=== PATIENT | female | born 1970 | race African-American/Black ===

== ENCOUNTER 2023-06-13 05:57 | Emergency (ER) | payer BC, SELFPAY ==
[2023-06-13 05:58] VITALS: BP 123/93; PULSE 77; RESP 16; TEMP 36.4; O2SAT 99; BMI 38.0
[2023-06-13 06:06] VITALS: O2SAT 100
--- NOTE | 2023-06-13 06:06 | RAD_ITS ---
INDICATION: chest pain EXAMINATION: Frontal view of the chest COMPARISON: None. FINDINGS: Frontal view of the chest was obtained. The cardiac silhouette is not enlarged. No confluent airspace disease. No pneumothorax. No acute fracture identified. Surgical clips bilaterally. RAD/Chest 1 View (Portable) IMPRESSION: No acute pulmonary disease. Electronically Signed: Maximiliano Falcon MD at 6:40 EST ,
--- NOTE | 2023-06-13 06:07 | EDS_ITS ---
HPI History of Present Illness Chief Complaint: Chest Pain Narrative Narrative: 53-year-old female with remote history of breast carcinoma in 2009, in remission, had chemotherapy which caused complications and neuropathies, along with radiation therapy which caused her to have asthma, presents with central chest pain that is more sharp and stabbing in nature. States she has had left arm pain intermittently over the last week. She took ibuprofen previously which relieved her symptoms. However, today when she got off shift at 5 AM she started having the chest pain and the arm pain again. She presents for evaluation. She is not a smoker and denies any other problems. She does have hypertension and takes losartan so she has chronic swelling of her legs. No increased swelling or other symptoms. She is concerned mainly about the chest pain which also hurts when she tries to breathe deeply. [facility] Medical History (Updated 06/13/23 @ 06:59 by Wilver Otero MD) Asthma Neuropathy Home Medications ALBUTEROL 2 inh inhalation 4X/DAY PRN 06/13/23 [History Last Taken Unknown] duloxetine 30 mg capsule,delayed release (Cymbalta) 30 mg PO DAILY 06/13/23 [History Last Taken Unknown] gabapentin 300 mg capsule 300 mg PO BID 06/13/23 [History Last Taken Unknown] olmesartan 40 mg-hydrochlorothiazide 25 mg tablet 1 tab PO DAILY BLOOD PRESSURE 06/13/23 [History Last Taken Unknown] Allergy/AdvReac Type Severity Reaction Status Date / Time No Known Allergies Allergy Verified 06/13/23 06:11 Surgical History (Updated 06/13/23 @ 06:09 by Vandana Oglesby) History of lumpectomy of left breast Social History Smoking Status: Former smoker ROS ROS ED ROS Narrative Constitutional: No fever, no chills. HEENT: No sore throat. No neck pain. No loss of vision. No rhinorrhea. Cardiovascular: Positive midsternal chest pain, occasionally pleuritic. No palpitations. No new pedal edema. Respiratory: No cough, no shortness of breath. Abdominal: No abdominal pain. No nausea. No vomiting. Genitourinary: No dysuria. No hematuria. Musculoskeletal: Intermittent left arm pain x1 week. Neurologic: No headaches. No dizziness. No lightheadedness. Skin: No rash. No change in color. Psychiatric: No depression. No anxiety. EXAM Physical Exam Narrative Exam Narrative: Afebrile. Vital signs noted. HEENT: Normocephalic. Atraumatic. PERRL, EOMI. Neck soft and supple. No point tenderness or step off. Cardiovascular: Regular rate and rhythm. No murmurs, rubs, or gallops appreciated. No crepitance of the chest. Positive pain midsternally with half sit up and putting arms in front of body. Respiratory: No tachypnea. Lungs clear to auscultation bilaterally. Gastrointestinal: Abdomen soft, nontender, with normoactive bowel sounds. No rebound or guarding. Neurological: Awake. Alert. Nonfocal, nonlateralizing. Skin: No rash. Normal color. No pallor. Musculoskeletal: No pedal edema. Full range of motion extremities. Const Vital Signs: 06/13/23 05:58 06/13/23 06:05 06/13/23 06:06 Temperature 97.5 F L Temperature Source Temporal Pulse Rate 77 Respiratory Rate 16 Respiratory Effort Short of Breath Blood Pressure 123/93 H Blood Pressure Mean 103 Pulse Ox 99 100 Oxygen Delivery Method Room Air Room Air Heart Score History: Slightly/Non-Suspicious ECG: Normal Age: >45 - <65 years Risk Factors: 1 or 2 Risk Factors Score: 2 MDM MDM MDM Narrative Medical decision making narrative: Differential diagnosis is acute coronary syndrome versus pulmonary embolism versus pneumothorax versus pneumonia versus aortic dissection versus musculoskeletal chest wall pain. I have low suspicion for aortic dissection because the history and physical does not support this and she has equal pulses bilaterally. She does not have any pain in her back or tearing sensation as well. Her blood pressure is appropriate in the emergency department as well. History and physical is not consistent with pneumonia either as she has no fever or cough. She has no reason to have a pneumothorax that spontaneous, no trauma. Concern is lower for pulmonary embolism as well as she is PERC negative, not tachycardic, and satting at 100% on room air. However, D-dimer will be obtained. Given her physical examination I think she may have more chest wall pain. However, chest pain work-up will be pursued. EKG obtained and interpreted by myself independently demonstrates normal sinus rhythm at 78 bpm without ectopy or acute ST changes. No STEMI. I will review the baseline laboratory work if it comes back before the shift ends. She will require serial troponins as well. Patient will be signed out to the oncoming physician who will check the remaining laboratory work and imaging and order additional tests as necessary. I feel that if everything is negative that she could be ruled out with a 2-hour troponin. I reviewed her remaining laboratory work that has returned, and the only significant electrolyte abnormality would be for a chloride elevated at 108 which I think is nonspecific. Initial high-sensitivity troponin is 5. Magnesium normal at 2.2. Currently, patient is in stable condition. History & Record Review Discussion w/independent historian: Patient and Family Additional record(s) reviewed:: Prior ED visit and Prior labs Lab Data Attestation: I reviewed the patient's lab results. Labs: Laboratory Results - last 24 hr 06/13/23 06:13 WBC 9.3 RBC 4.75 Hgb 13.3 Hct 40.8 MCV 85.9 MCH 28.0 MCHC 32.6 RDW Std Deviation 45.0 H RDW Coeff of Blanka 14.3 Plt Count 281 MPV 10.3 Immature Gran % (Auto) 0.200 Neut % (Auto) 49.5 Lymph % (Auto) 40.2 [place] % (Auto) 7.3 Eos % (Auto) 2.4 Baso % (Auto) 0.4 Absolute Neuts (auto) 4.6 Absolute Lymphs (auto) 3.73 Nucleated RBC % 0 D-Dimer Quant (PE/DVT) 0.44 Sodium 142 Potassium 3.7 Chloride 108 H Carbon Dioxide 29.0 Anion Gap 5 BUN 15 Creatinine 0.78 Estim Creat Clear Calc 65.97 Est GFR (MDRD) Af Amer 99 Est GFR (MDRD) Non-Af 82 BUN/Creatinine Ratio 19.1 Glucose 81 Calcium 9.2 Magnesium 2.2 Troponin I High Sens 5 Radiography Diagnostic Testing: Clinical Impression(s) from Imaging Studies Chest X-Ray 06/13/23 06:06 IMPRESSION: No acute pulmonary disease. Electronically Signed: Maximiliano Falcon MD at 6:40 EST , Discharge Plan Triage Chief Complaint: Chest Pain ED Provider: Wilver Otero Dx/Rx/DC Orders Clinical Impression: Paresthesia of arm, Chest pain Instructions: ED Chest Pain, Uncertain Cause, ED Pain, Acute, Uncertain Cause, ED Paraesthesias Prescriptions: No Action olmesartan-hydrochlorothiazide 40-25 mg tablet 1 tab PO DAILY gabapentin 300 mg capsule 300 mg PO BID duloxetine [Cymbalta] 30 mg capsule,delayed release(DR/EC) 30 mg PO DAILY ALBUTEROL 2 inh inhalation 4X/DAY PRN Primary Care Provider: Care Physician,No Primary Referrals: Laurent Crews MD [Med Staff - Active Staff] - 3-5 Days if not improving Care Physician,No Primary [Primary Care Provider] -
[2023-06-13 06:26] LABS: Absolute Lymphocyte Count 3.73 X10^3/uL (0.83-4.51); Absolute Neutrophil Count 4.6 X10^3/uL (2.0-7.7); Basophil# 0.04 X10^3/uL; Basophil% 0.4 % (0-1); Eosinophil# 0.22 X10^3/uL; Eosinophils% 2.4 % (0-5); Hematocrit 40.8 % (37-47); Hemoglobin 13.3 g/dL (12.0-15.0); Lymphocyte # 3.73 X10^3/ul (0.83-4.51); Lymphocyte % 40.2 % (19-41); Mean Corp Hgb Conc 32.6 g/dL (32-36); Mean Corpuscular Volume 85.9 fL (81-99); Mean Platelet Vol. 10.3 fl (6.2-12.0); Monocyte# 0.68 X10^3/uL; Monocyte% 7.3 % (0-10); NRBC Flagged by Analyzer 0 % (0-5); Neutrophil # 4.58 X10^3/uL (2.7-7.7); Neutrophil % 49.5 % (47-70); Platelet Count 281 K/mm3 (150-450); RBC Distribution Width CV 14.3 % (11.6-14.6); Red Blood Count 4.75 M/mm3 (4.2-5.4); White Blood Count 9.3 K/mm3 (4.4-11.0)
[2023-06-13] MEDS: Aspirin 81 MG TAB.CHEW 324 MG PO (06:27)
[2023-06-13 06:39] LABS: D-Dimer Quantitative (DVT/PE) 0.44 FEU/ug/m (0.27-0.49)
[2023-06-13 07:00] LABS: Anion Gap 5 (5-15); BUN 15 mg/dL (7-18); BUN/Creat Ratio 19.1 RATIO (10-20); Calcium,Total 9.2 mg/dL (8.5-10.1); Chloride 108 mmol/L (98-107); Creatinine, Serum 0.78 mg/dL (0.55-1.02); EST Glomerular Filtration Rate 82 mL/min (>60); Est Glom Filt Rate - Afr Amer 99 mL/min (>60); Estimated Creatinine Clearance 65.97 ml/min; Glucose 81 mg/dL (74-106); Magnesium 2.2 mg/dL (1.6-2.6); Potassium 3.7 mmol/L (3.5-5.1); Sodium Level 142 mmol/L (136-145); Troponin-I HS (w/2H Reflex) 5 pg/mL (3.0-54.0)
[2023-06-13 08:23] LABS: Reflex Troponin-HS? (from REC) Y
[2023-06-13 08:48] LABS: Troponin-I HS 4 pg/mL (3.0-54.0)
[2023-06-13 09:25] VITALS: BP 126/89; PULSE 80; RESP 16; O2SAT 99
== END 2023-06-13 09:26 | disposition home or self-care (01) ==
PROVIDERS: Emergency Provider Emergency Medicine; Visit Provider Emergency Medicine
DX: R07.9 Chest pain, unspecified (principal); Z87.891 Personal history of nicotine dependence; R20.2 Paresthesia of skin; I10 Essential (primary) hypertension; Z85.3 Personal history of malignant neoplasm of breast; Z92.21 Personal history of antineoplastic chemotherapy; Z79.899 Other long term (current) drug therapy
CPT/HCPCS: 71045; 80048; 83735; 84484; 85025; 85379; 93005; 99284; A4216

== ENCOUNTER 2023-07-04 07:00 | Emergency (ER) | payer SELFPAY ==
[2023-07-04 07:01] VITALS: BP 132/80; PULSE 79; RESP 18; TEMP 36.6; O2SAT 100; BMI 37.2
--- NOTE | 2023-07-04 07:11 | EX.ED.DYSGE1 ---
HPI History of Present Illness Chief Complaint: Complaint Informant: patient Narrative Narrative: Patient presents with several days of dysuria, hesitancy, urgency, and frequency. No hematuria. She was having some chills before that, but not now. She has some pain in her pelvic, she states it is suprapubic only. No lateralizing pain or nausea/vomiting. No fevers now. She states these are typical symptoms that she has when she gets a UTI, she has been having them for long time off-and-on. She also has a small amount of rand nonbloody vaginal discharge, she states that happens occasionally with these. She is monogamous, , does not suspect an STD. She had a prior hysterectomy. [facility] Medical History Asthma Neuropathy Home Medications ALBUTEROL 2 inh inhalation 4X/DAY PRN 06/13/23 [History Last Taken Unknown] duloxetine 30 mg capsule,delayed release (Cymbalta) 30 mg PO DAILY 06/13/23 [History Last Taken Unknown] olmesartan 40 mg-hydrochlorothiazide 25 mg tablet 1 tab PO DAILY BLOOD PRESSURE 06/13/23 [History Last Taken Unknown] nitrofurantoin monohydrate/macrocrystals 100 mg capsule 100 mg PO Q12 #10 CAPSULES 07/04/23 [Rx Last Taken Unknown] Allergy/AdvReac Type Severity Reaction Status Date / Time No Known Allergies Allergy Verified 07/04/23 07:03 Surgical History History of lumpectomy of left breast Social History Smoking Status: Former smoker ROS ROS ED Constitutional Constitutional ED: Denies fever(s) Gastrointestinal Gastrointestinal: Reports abdominal pain; Denies diarrhea, melena, nausea or vomiting Genitourinary Genitourinary ED: Reports dysuria and urinary frequency; Denies hematuria Musculoskeletal Musculoskeletal: Reports back pain; Denies neck pain Neurologic Neurologic: Denies headache(s), paresthesias or weakness EXAM Physical Exam Const Vital Signs: 07/04/23 07:01 Temperature 98 F Temperature Source Oral Pulse Rate 79 Respiratory Rate 18 Blood Pressure 132/80 H Blood Pressure Mean 97 Pulse Ox 100 Oxygen Delivery Method Room Air Positive well nourished and well developed Constitutional Narrative: Well-appearing General Appearance ED: well developed and NAD HEENT Reports moist mucous membranes Negative for trauma Eyes PERRL and EOMs intact bilaterally Neck supple Chest Wall inspection of chest normal and palpation of chest normal Resp normal respiratory effort and clear to auscultation bilaterally Cardio regular rate, regular rhythm and no murmurs Rate: Negative for tachycardic GI non-distended GI Narrative: Suprapubic tenderness, also mild tenderness in the right lower quadrant/pelvis. None in the left. No guarding or rebound. Otherwise benign abdomen. Inspection: Negative for abdominal distention Auscultation: normoactive bowel sounds Back/Spine no CVA tenderness Extremity normal to inspection Neuro oriented x3, CN's II-XII intact bilaterally and no sensory deficits noted Motor Exam: strength 5/5 throughout Psych mental status grossly normal Skin no rashes or lesions noted and no wounds MDM MDM MDM Narrative Medical decision making narrative: Urinalysis obtained, definitely consistent with infection. Culture sent, will start her on Macrobid which she has tolerated in the past, and given appropriate discharge instructions. Lab Data Attestation: I reviewed the patient's lab results. Labs: Laboratory Results - last 24 hr 07/04/23 07:20 Urine Color Yellow Urine Clarity Cloudy Urine pH 7.0 Ur Specific [place] 1.010 Urine Protein 30 H Urine Glucose (UA) Normal Urine Ketones 5 H Urine Occult Blood 25 H Urine Nitrite Negative Urine Bilirubin Negative Urine Urobilinogen 1 H Ur Leukocyte Esterase 500 H Urine RBC 0-5 SEEN Urine WBC >100 SEEN Ur Squamous Epith Cells 0-5 SEEN Urine Bacteria 3+ Urine Mucus 0 SEEN Discharge Plan Triage Chief Complaint: Complaint ED Provider: Ismael Moran Dx/Rx/DC Orders Clinical Impression: Acute cystitis Instructions: ED Cystitis Female Adult Prescriptions: New nitrofurantoin monohyd/m-cryst [nitrofurantoin monohyd/m-cryst] 100 mg capsule 100 mg PO Q12 Qty: 10 0RF No Action olmesartan-hydrochlorothiazide 40-25 mg tablet 1 tab PO DAILY duloxetine [Cymbalta] 30 mg capsule,delayed release(DR/EC) 30 mg PO DAILY ALBUTEROL 2 inh inhalation 4X/DAY PRN Primary Care Provider: Care Physician,No Primary Referrals: Care Physician,No Primary [Primary Care Provider] - Doctor,Your [Non-Staff] - 3-5 Days if not improving Disposition Disposition: Home, Self Care
[2023-07-04 07:28] LABS: Mucous, Urine 0 SEEN /hpf (<or=2+)
[2023-07-04 07:38] LABS: Color, Urine Yellow (Yellow); Glucose, Dipstick Normal (Normal); Ketone-Dipstick 5 mg/dl (Negative); Leukocyte Esterase-Dipstick 500 /ul (Negative); Nitrite-Dipstick Negative (Negative); Occult Blood-Urine 25 /ul (Negative); Protein-Dipstick 30 mg/dl (Negative); Urine Bilirubin Dipstick Negative (Negative); Urine Clarity Cloudy (Clear); Urine Urobilinogen 1 mg/dl (Normal)
[2023-07-04 07:44] LABS: White Blood Cells >100 SEEN /hpf (0-5)
[2023-07-04 07:45] LABS: Bacteria 3+ /hpf (None Seen); Red Blood Cells-Urine 0-5 SEEN /hpf (0-5); Squamous Epithelial Cells - UA 0-5 SEEN /hpf (5-10)
== END 2023-07-04 08:15 | disposition home or self-care (01) ==
PROVIDERS: Emergency Provider Emergency Medicine; Visit Provider Emergency Medicine
DX: N30.00 Acute cystitis without hematuria (principal); J44.9 Chronic obstructive pulmonary disease, unspecified; G62.9 Polyneuropathy, unspecified; Z79.899 Other long term (current) drug therapy; Z87.891 Personal history of nicotine dependence
CPT/HCPCS: 81001; 87077; 87086; 87088; 87186; 99282

== ENCOUNTER 2023-08-20 14:06 | Emergency (ER) | payer SELFPAY ==
[2023-08-20 14:07] VITALS: BP 116/85; PULSE 87; RESP 16; TEMP 35.8; O2SAT 99; BMI 38.2
--- NOTE | 2023-08-20 15:53 | EX.ED.DYSGE1 ---
HPI History of Present Illness Chief Complaint: General Illness Detail of Chief Complaint: Needs blood pressure medication refilled. Informant: patient Narrative Narrative: 53-year-old female recently moved here from [place] and currently does not have a primary care provider. She is on olmesartan blood pressure medication and needs it refilled. She is also had some recent URI symptoms which are resolving. Prior similar symptoms: No Recent Illness/Hospitalization: No PFSH PFSH Medical History Asthma Neuropathy Home Medications ALBUTEROL 2 inh inhalation 4X/DAY PRN 06/13/23 [History Last Taken Unknown] duloxetine 30 mg capsule,delayed release (Cymbalta) 30 mg PO DAILY 06/13/23 [History Last Taken Unknown] olmesartan 40 mg-hydrochlorothiazide 25 mg tablet 1 tab PO DAILY BLOOD PRESSURE 06/13/23 [History Last Taken Unknown] nitrofurantoin monohydrate/macrocrystals 100 mg capsule 100 mg PO Q12 #10 CAPSULES 07/04/23 [Rx Last Taken Unknown] olmesartan 40 mg-hydrochlorothiazide 25 mg tablet 1 tab PO DAILY #30 tabs 08/20/23 [Rx Last Taken Unknown] Allergy/AdvReac Type Severity Reaction Status Date / Time No Known Allergies Allergy Verified 08/20/23 14:09 Surgical History History of lumpectomy of left breast Social History Smoking Status: Former smoker ROS ROS ED ROS Narrative Sinus congestion. Review of Systems ROS Unobtainable: Denies due to encephalopathy Constitutional Constitutional ED: Denies chills or fever(s) Eyes Eyes: Denies blurry vision ENT ENT ED: Denies ear pain Cardiovascular Cardiovascular: Denies chest pain Respiratory/Chest Respiratory/Chest: Denies cough or dyspnea Gastrointestinal Gastrointestinal: Denies abdominal pain, constipation, diarrhea, melena, nausea or vomiting Genitourinary Genitourinary ED: Denies dysuria or hematuria Musculoskeletal Musculoskeletal: Denies arthralgias Integumentary Denies abscess or Abrasions Neurologic Neurologic: Denies paresthesias or weakness Psychiatric Psychiatric: Denies anxiety or depression Endocrine Endocrinology: Denies cold intolerance Hematologic/Lymphatic Hematologic/Lymphatic: Reports none Allergic/Immunologic Allergic/Immunologic ED: Denies mouth swelling, tongue swelling or urticaria EXAM Physical Exam Narrative Exam Narrative: 53-year-old female vital signs are stable afebrile. Current blood pressure 116/85. Pulse ox 99% on room air no signs hypoxia. H EENT exam normal. TMs normal. No frontal or maxillary sinus tenderness. Posterior pharynx normal. Moist mucous membranes. No erythema or exudate. Neck nontender no lymphadenopathy. Lungs clear to auscultation. Heart regular rhythm no murmur rate about 85. Chest wall and ribs nontender. Abdomen soft nontender. Moving all 4 extremities. 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 Dorsi plantarflexion intact. Neurologically she is awake and alert with no focal motor deficits. Back nontender. NIH 0. Const Vital Signs: 08/20/23 14:07 Temperature 96.4 F L Temperature Source Temporal Pulse Rate 87 Respiratory Rate 16 Blood Pressure 116/85 H Blood Pressure Mean 95 Pulse Ox 99 Oxygen Delivery Method Room Air Positive well nourished and well developed; Negative for cachectic, contractures or unkempt General Appearance ED: well developed and NAD; Negative for unkempt, cachectic, contractures, cyanotic, diaphoretic or pallor Nutritional Appearance: Negative for cachectic HEENT Reports moist mucous membranes; Denies dry mucous membranes Negative for trauma or tenderness Mouth ED: No dry mucous membranes Mouth: No dry mucous membranes Eyes PERRL and EOMs intact bilaterally General Eye ED: Negative for pale conjunctiva, scleral icterus or other Neck no lymphadenopathy, supple and no JVD General: Negative for tenderness Lymph Lymphatic: Negative for other Chest Wall inspection of chest normal and palpation of chest normal Chest: Negative for other Resp normal respiratory effort and clear to auscultation bilaterally Effort and Inspection: Negative for retractions or pain with movement Auscultation: Negative for rales, rhonchi or wheezes Cardio regular rate, regular rhythm, S1 normal heart sound, S2 normal heart sound and no murmurs Palpation: Negative for palpable S3 or palpable S4 Rate: Negative for bradycardia, tachycardic or other Rhythm: Negative for abnormal rhythm GI normal to inspection, nondistended, normoactive bowel sounds, non-tender, non-distended and no masses Inspection: Negative for abdominal distention Auscultation: normoactive bowel sounds Palpation: soft; Negative for tender, guarding, splenomegaly, mass or rebound tenderness present Back/Spine no CVA tenderness General Back: Negative for CVA tenderness Cervical Spine: Negative for cervical spine tenderness Thoracic Spine / Upper Back: Negative for thoracic spinal tenderness or paraspinal muscle tenderness Lumbar Spine / Lower Back: Negative for lumbar spinal tenderness Extremity General Extremety ED: Negative for edema, tenderness or other findings General Extremity: Negative for edema or other findings Neuro oriented x3 and CN's II-XII intact bilaterally Sensorium / Orientation: alert; Negative for orientation impaired, lethargic or stuporous Motor Exam: strength 5/5 throughout; Negative for general weakness or strength abnormal Psych Appearance: Negative for unkempt Attitude: No agitated Mood & Affect: Negative for depressed, anxious or tearful Skin no rashes or lesions noted, no wounds and skin turgor normal General Skin Exam: Negative for jaundice or pallor Lesions: No lesion noted Rashes: No rashes noted Trauma: Negative for abrasion Wounds: Negative for wounds noted MDM MDM MDM Narrative Medical decision making narrative: 53-year-old female recent viral URI symptoms resolving. Benign normal exam. Also needs her blood pressure medication refilled. I sent in a refill of her blood pressure medication with 1 refill. Patient was instructed to call around for a local primary care physician I gave her referral. History & Record Review Discussion w/independent historian: Patient Discharge Plan Triage Chief Complaint: General Illness ED Provider: Bayron Fagan Dx/Rx/DC Orders Clinical Impression: Medication refill, History of hypertension, Viral URI Instructions: ED URI, Viral, No Abx (Adult) Prescriptions: New olmesartan-hydrochlorothiazide 40-25 mg tablet 1 tab PO DAILY Qty: 30 1RF No Action olmesartan-hydrochlorothiazide 40-25 mg tablet 1 tab PO DAILY duloxetine [Cymbalta] 30 mg capsule,delayed release(DR/EC) 30 mg PO DAILY ALBUTEROL 2 inh inhalation 4X/DAY PRN nitrofurantoin monohyd/m-cryst [nitrofurantoin monohyd/m-cryst] 100 mg capsule 100 mg PO Q12 Qty: 10 0RF Primary Care Provider: Care Physician,No Primary Referrals: Benson Cortes MD [Med Staff - Rod Greaser] - 1-2 Weeks Care Physician,No Primary [Primary Care Provider] - Activity Restrictions/Additional Instructions: Medication refill sent to your pharmacy. Follow-up with a local primary care physician to get a local doctor. Disposition Disposition: Home, Self Care
[2023-08-20 16:06] VITALS: RESP 14
== END 2023-08-20 16:27 | disposition home or self-care (01) ==
LOC: ED 16:21
PROVIDERS: Emergency Provider Emergency Medicine; Visit Provider Emergency Medicine
DX: J06.9 Acute upper respiratory infection, unspecified (principal); I10 Essential (primary) hypertension; Z87.891 Personal history of nicotine dependence; Z76.0 Encounter for issue of repeat prescription; J45.909 Unspecified asthma, uncomplicated
CPT/HCPCS: 99282

== ENCOUNTER 2023-10-28 22:14 | Inpatient (IN) | payer OTHER, SELFPAY ==
[2023-10-28 22:15] VITALS: BP 133/87; PULSE 100; RESP 18; TEMP 36.6; O2SAT 97; BMI 40.6
--- NOTE | 2023-10-28 22:44 | EKG12_ITS ---
Test Reason : SOB Blood Pressure : / mmHG Vent. Rate : 094 BPM Atrial Rate : 094 BPM P-R Int : 140 ms QRS Dur : 076 ms QT Int : 376 ms P-R-T Axes : 060 013 018 degrees QTc Int : 470 ms Normal sinus rhythm Normal ECG Confirmed by Jairon Marinelli ([id number]), field map editor DAT HARKINS ([id number]) on 10/29/2023 11:15:12 AM Referred By: Confirmed By:Jairon Marinelli
--- NOTE | 2023-10-28 22:45 | EX.ED.DYSGE1 ---
HPI History of Present Illness Chief Complaint: Other, Pain/Inj Informant: patient Narrative Narrative: Patient presents with body aches mostly her extremities seems to be in arms and legs between the joints not necessarily the joint some cells, for about a month, coinciding with when she started a new job at [employer]. She states for the last 2 or 3 weeks she has also had some wheezing and rarely productive cough, clear phlegm whenever she produces anything no hemoptysis, without fevers, chills, chest pains, and the initial symptoms are similar to how she felt after she had white blood cell booster and chemotherapy for her breast cancer although she has not had any of that in 14 years, she is in remission. She had most of her care down in [place], she removed here within the past year or 2. She does not have primary care yet but she has an initial visit coming up with Dr. Sheridan in 2 weeks and she states she is having so much trouble moving around because of the pain that she did not feel like she could wait to the appointment. She been taking Tylenol initially was working but now it is not anymore. [facility] Medical History Anxiety and depression Asthma Former tobacco use HTN (hypertension) Morbid obesity Neuropathy Home Medications ALBUTEROL 2 inh inhalation 4X/DAY PRN 06/13/23 [History Last Taken Unknown] duloxetine 30 mg capsule,delayed release (Cymbalta) 30 mg PO DAILY 06/13/23 [History Last Taken Unknown] olmesartan 40 mg-hydrochlorothiazide 25 mg tablet 1 tab PO DAILY BLOOD PRESSURE 06/13/23 [History Last Taken Unknown] olmesartan 40 mg-hydrochlorothiazide 25 mg tablet 1 tab PO DAILY #30 tabs 08/20/23 [Rx Last Taken Unknown] Allergy/AdvReac Type Severity Reaction Status Date / Time No Known Allergies Allergy Verified 10/28/23 22:18 Surgical History History of lumpectomy of left breast Social History housing: house Smoking Status: Former smoker ROS ROS ED Constitutional Constitutional ED: Reports body ache(s); Denies chills or fever(s) Eyes Eyes: Denies change in vision or diplopia ENT ENT ED: Reports rhinorrhea; Denies sore throat Cardiovascular Cardiovascular: Denies chest pain, orthopnea or palpitations Respiratory/Chest Respiratory/Chest: Reports cough, dyspnea and dyspnea on exertion; Denies orthopnea Gastrointestinal Gastrointestinal: Denies abdominal pain, diarrhea, nausea or vomiting Genitourinary Genitourinary ED: Denies dysuria or hematuria Musculoskeletal Musculoskeletal: Reports extremity pain, muscle weakness and myalgias; Denies arthralgias, back pain or neck pain Integumentary Denies abscess or rash Neurologic Neurologic: Denies headache(s), paresthesias or weakness Psychiatric Psychiatric: Denies suicidal thoughts EXAM Physical Exam Const Vital Signs: 10/28/23 22:15 10/28/23 22:25 10/28/23 22:57 Temperature 97.8 F Temperature Source Temporal Pulse Rate 100 94 Respiratory Rate 18 18 Respiratory Pattern Normal Normal Blood Pressure 133/87 H Blood Pressure Mean 102 Pulse Ox 97 Oxygen Delivery Method Room Air 10/29/23 01:20 Temperature Temperature Source Pulse Rate 97 Respiratory Rate 20 H Respiratory Pattern Blood Pressure 115/68 Blood Pressure Mean 83 Pulse Ox 95 Oxygen Delivery Method Room Air Positive well nourished and well developed General Appearance ED: well developed and NAD HEENT Reports moist mucous membranes normocephalic and atraumatic Eyes PERRL and EOMs intact bilaterally Neck full ROM and supple Resp normal respiratory effort and clear to auscultation bilaterally Resp Narrative: Mild conversational dyspnea but no distress and lungs clear and equal Cardio regular rate, regular rhythm and no murmurs Rate: Negative for tachycardic GI non-tender and non-distended Auscultation: normoactive bowel sounds Palpation: soft Back/Spine no CVA tenderness General Back: other FROM Extremity normal to inspection General Extremety ED: Negative for edema, pulses abnormal or tenderness General Extremity: Negative for edema or pulses abnormal Neuro oriented x3, CN's II-XII intact bilaterally and no sensory deficits noted Sensorium / Orientation: awake and alert Motor Exam: strength 5/5 throughout Psych mental status grossly normal Skin no rashes or lesions noted and no wounds MDM MDM MDM Narrative Medical decision making narrative: Obtain labs including CPK which is elevated over thousand consistent with mild rhabdomyolysis. The degree of muscle injury is unknown, given that the patient has an elevated level and has had symptoms for maybe a month. She does have very mild KENNEY. I am not worried is much about renal failure given that we recognized it now, but I do not know what the offending agent is given her short medication list. I am concerned about waiting until she follows up 3 weeks from now, IV fluids are given to her and asking the hospitalist to evaluate further given all of this in the cause being unknown. She is not hyperkalemic, rather she is hypokalemic. We will start gentle replacement of that. Does not have any symptoms of an infection and her vital signs are normal. Still awaiting UA; her specimen grossly is yellow and not tea colored or bloody, and she has not had any tea colored urine since and this past month that she can recall. Given her conversational dyspnea I did do a chest x-ray, 2 views on my interpretation are negative for any acute radiology was in agreement. Her EKG is unremarkable, and her bicarb is elevated. Unclear significance at this time. Lab Data Attestation: I reviewed the patient's lab results. Labs: Laboratory Results - last 24 hr 10/28/23 23:02 WBC 11.4 H RBC 4.80 Hgb 13.5 Hct 41.5 MCV 86.5 MCH 28.1 MCHC 32.5 RDW Std Deviation 48.2 H RDW Coeff of Blanka 15.0 H Plt Count 335 MPV 10.1 Immature Gran % (Auto) 0.300 Neut % (Auto) 59.9 Lymph % (Auto) 30.1 [place] % (Auto) 7.8 Eos % (Auto) 1.6 Baso % (Auto) 0.3 Absolute Neuts (auto) 6.8 Absolute Lymphs (auto) 3.44 Nucleated RBC % 0 Sodium 138 Potassium 2.9 L Chloride 99 Carbon Dioxide 34.0 H Anion Gap 5 BUN 19 H Creatinine 1.17 H Estim Creat Clear Calc 61.75 Est GFR (MDRD) Af Amer 62 Est GFR (MDRD) Non-Af 51 L BUN/Creatinine Ratio 16.2 Glucose 99 Calcium 9.4 Total Creatine Kinase 1251 H Troponin I High Sens 4 Radiography Diagnostic Testing: Clinical Impression(s) from Imaging Studies Chest X-Ray 10/28/23 23:12 IMPRESSION: No acute pulmonary finding. Electronically Signed: Darrell Carias MD at 23:40 EDT Reading Location ID and State: [facility] / [place] Tel , Service support , Rhythm Strip Rhythm Strip: Sinus Rhythm Rate: 94 Ectopy: None EKG Initial EKG: Attestation: I personally reviewed and interpreted this EKG as follows: Interpretation: Sinus Rhythm and No Acute Injury Pattern Management Discussion w/another healthcare provider: Hospitalist Discharge Plan Dx/Rx/DC Orders Clinical Impression: KENNEY (acute kidney injury), Non-traumatic rhabdomyolysis, Hypokalemia Disposition Disposition: Acute Care Hospital [facility]
[2023-10-28] MEDS: Albuterol 2.5 MG/3 ML VIAL.NEB. INHALATION (22:56)
[2023-10-28 22:57] VITALS: PULSE 94; RESP 18
--- NOTE | 2023-10-28 23:12 | RAD_ITS ---
INDICATION: cough, sob EXAMINATION/TECHNIQUE: X-RAY - XR Chest 2 Views COMPARISON: [2022 FINDINGS: LINES/DEVICES: None. LUNGS: The lungs are well expanded. No consolidation, edema or effusion. No pneumothorax. MEDIASTINUM AND CARDIOVASCULAR STRUCTURES: Cardiac silhouette not enlarged. Central airways and mediastinal contour are unremarkable. BONES AND SOFT TISSUES: No acute osseous abnormalities. RAD/Chest PA and Lateral IMPRESSION: No acute pulmonary finding. Electronically Signed: Darrell Carias MD at 23:40 EDT ,
[2023-10-28 23:21] LABS: Absolute Lymphocyte Count 3.44 X10^3/uL (0.83-4.51); Absolute Neutrophil Count 6.8 X10^3/uL (2.0-7.7); Basophil# 0.03 X10^3/uL; Basophil% 0.3 % (0-1); Eosinophil# 0.18 X10^3/uL; Eosinophils% 1.6 % (0-5); Hematocrit 41.5 % (37-47); Hemoglobin 13.5 g/dL (12.0-15.0); Lymphocyte # 3.44 X10^3/ul (0.83-4.51); Lymphocyte % 30.1 % (19-41); Mean Corp Hgb Conc 32.5 g/dL (32-36); Mean Corpuscular Hgb 28.1 pg (27.0-32.0); Mean Corpuscular Volume 86.5 fL (81-99); Mean Platelet Vol. 10.1 fl (6.2-12.0); Monocyte# 0.89 X10^3/uL; Monocyte% 7.8 % (0-10); NRBC Flagged by Analyzer 0 % (0-5); Neutrophil # 6.84 X10^3/uL (2.7-7.7); Neutrophil % 59.9 % (47-70); Platelet Count 335 K/mm3 (150-450); RBC Distribution Width SD 48.2 fl (35.1-43.9); White Blood Count 11.4 K/mm3 (4.4-11.0)
[2023-10-28] MEDS: Ketorolac 15 MG/ML Vial IV (23:22)
[2023-10-28 23:36] LABS: Anion Gap 5 (5-15); BUN 19 mg/dL (7-18); BUN/Creat Ratio 16.2 RATIO (10-20); Calcium,Total 9.4 mg/dL (8.5-10.1); Chloride 99 mmol/L (98-107); Creatinine, Serum 1.17 mg/dL (0.55-1.02); EST Glomerular Filtration Rate 51 mL/min (>60); Est Glom Filt Rate - Afr Amer 62 mL/min (>60); Estimated Creatinine Clearance 61.75 ml/min; Glucose 99 mg/dL (74-106); Potassium 2.9 mmol/L (3.5-5.1); Sodium Level 138 mmol/L (136-145); Troponin-I HS 4 pg/mL (3.0-54.0)
[2023-10-28 23:52] LABS: CPK Total, Creatine Kinase 1251 U/L (26-192)
[2023-10-29] VITALS (8 sets, daily range): BP systolic 98–115; BP diastolic 55–68; PULSE 69–97; RESP 16–20; TEMP 36.3–36.7; O2SAT 95–100; BMI 39.9; BMI 40.1
[2023-10-29] MEDS: Potassium Chloride 10mEq/100mL 10 MEQ/100 ML IV.SOLN. 100 MEQ IV BOLUS (01:02)
--- NOTE | 2023-10-29 01:05 | PCM.HP.STD ---
HPI - General General Date of Admission: 10/29/23 Date of Service: 10/29/23 Chief Complaint: Muscle pain, body aches, dyspnea, wheezing. HPI Narrative The patient is a 53 y/o F w/ PMHx: Hx Breast CA, Morbid obesity, HTN, Asthma, Anxiety and Depression, Former tobacco use who presents to the [facility] ED on 10/29/23 with history of onset significant diffuse body aches and pain with recent new job starting at [employer] with increased significant activity from her previous baseline with as well 2 to 3 weeks of occasional cough with clear sputum and intermittent wheezing with no fevers or chills prompting eventual ED evaluation. She notes her recent new job has had her very active and moving more than her prior normal. She has been attempting to establish with primary care. She rates the discomfort to her extremities/muscles 5-6 out of 10 in severity, worse with movement and activity attempts. Workup in the ED included T97.8, heart rate 100, BP 133/87, respiratory rate 18, 97% on room air, CBC with WBC 11.4, hemoglobin 13.5, platelet 335 without marked shift, BMP with potassium 2.9, common oxide 34, anion gap 5, BUN/creatinine 19/1.17, GFR of 51, creatinine kinase 1251, troponin 4, BNP pending upon requested evaluation of patient, chest x-ray with no acute cardiopulmonary finding. In the ED patient ministered potassium IV and oral supplementation, Toradol 50 mg IV x 1, albuterol therapy. [facility] Medical History (Updated 10/29/23 @ 02:[address] Elli Martell MD) Anxiety and depression Asthma Former tobacco use History of breast cancer HTN (hypertension) Morbid obesity Neuropathy Home Medications ALBUTEROL 2 inh inhalation 4X/DAY PRN sob 06/13/23 [History Last Taken Unknown] duloxetine 30 mg capsule,delayed release (Cymbalta) 30 mg PO DAILY pain 06/13/23 [History Last Taken Unknown] olmesartan 40 mg-hydrochlorothiazide 25 mg tablet 1 tab PO DAILY BLOOD PRESSURE 06/13/23 [History Last Taken Unknown] Allergy/AdvReac Type Severity Reaction Status Date / Time No Known Allergies Allergy Verified 10/28/23 22:18 Family History (Updated 10/29/23 @ 02:[address] Elli Martell MD) Mother CAD (coronary artery disease) Heart disease Hypertension Diabetes CVA (cerebral vascular accident) Myocardial infarction other (Patient does not know her paternal father nor her paternal family history.) Surgical History (Updated 10/29/23 @ 02:[address] Elli Martell MD) H/O wrist surgery History of hysterectomy History of lumpectomy of left breast Previous section Social History (Updated 10/29/23 @ 02:[address] Elli Martell MD) housing: house Smoking Status: Former smoker how long ago did patient quit smoking: Quit most recently 7 yrs prior, smoked prior intermittent 3 cig/day. alcohol intake: never substance use type: does not use ROS ROS Narrative Admission Review of Systems: CONSTITUTIONAL: No weight loss, fever, chills, + weakness or fatigue. HEENT: Eyes: No visual loss, blurred vision, double vision or yellow sclerae. Ears, Nose, Throat: No hearing loss, sneezing, congestion, runny nose or sore throat. SKIN: No rash or itching, lesions, wounds. CARDIOVASCULAR: No chest pain, chest pressure or chest discomfort, palpitations, edema, orthopnea, syncopal events. RESPIRATORY: + shortness of breath, cough without marked sputum, wheezing intermittently. No hemoptysis. GASTROINTESTINAL: No anorexia, nausea, vomiting or diarrhea, abdominal pain, melena, BRBPR. GENITOURINARY: No dysuria, frequency, urgency or retention. NEUROLOGICAL: No headache, dizziness, syncope, paralysis, ataxia, numbness or tingling in the extremities, focal weakness, change in bowel or bladder control, seizure. MUSCULOSKELETAL: + muscle, back pain, joint pain or stiffness. HEMATOLOGIC: No anemia, bleeding or bruising. LYMPHATICS: No enlarged nodes. No history of splenectomy. PSYCHIATRIC: History of anxiety and depression.+ ENDOCRINOLOGIC: No reports of sweating, cold or heat intolerance. No polyuria or polydipsia. ALLERGIES: + History of asthma. Vital Signs Vital Signs Vital Signs: 10/28/23 22:15 10/28/23 22:25 10/28/23 22:57 Temperature 97.8 F Temperature Source Temporal Pulse Rate 100 94 Respiratory Rate 18 18 Respiratory Pattern Normal Normal Blood Pressure 133/87 H Blood Pressure Mean 102 Pulse Ox 97 Oxygen Delivery Method Room Air Weight Weight: 222 lb Body Mass Index (BMI) 40.6 Physical Exam Narrative Physical Examination: General: Awake, alert, oriented x 3 and cooperative, seated upright in the ED bed, fatigued, notes muscle still uncomfortable. Skin: Normal color, normal turgor, no icterus, no cyanosis. HEENT: AT/NC, EOMI, PERRLA, moderately dry MM, no carotid bruits or JVD noted. Lungs: Diminished, greater bases, mildly increased respiratory rate but no distress, occasional end expiratory wheeze, no rales or rhonchi. Heart: Mildly tachycardic with regular rhythm; no gallop, rub audible. Abdomen: Soft, morbidly obese, NTTP, ND, mildly hyperactive BS, no appreciated HSM. Extremities: No cyanosis, no clubbing, no marked peripheral pitting edema, discomfort with palpation of the muscles upper and lower extremities. Neurological: Patient awake, alert, oriented as noted, cognitive function intact; pupils equally reactive to light and accommodation, cranial nerves grossly normal, moving all 4 extremities, no focal deficits, strength moderately globally decreased secondary to acute presentation complaints. Psychiatric: Affect appears fatigued otherwise normal, no acute evidence of depressive or anxiety feelings but does have underlying history. Results Lab / Micro Data 10/28/23 23:02 10/28/23 23:02 Labs: Laboratory Results - last 24 hr 10/28/23 23:02: WBC 11.4 H, RBC 4.80, Hgb 13.5, Hct 41.5, MCV 86.5, MCH 28.1, MCHC 32.5, RDW Std Deviation 48.2 H, RDW Coeff of Blanka 15.0 H, Plt Count 335, MPV 10.1, Immature Gran % (Auto) 0.300, Neut % (Auto) 59.9, Lymph % (Auto) 30.1, [place] % (Auto) 7.8, Eos % (Auto) 1.6, Baso % (Auto) 0.3, Absolute Neuts (auto) 6.8, Absolute Lymphs (auto) 3.44, Nucleated RBC % 0, Sodium 138, Potassium 2.9 L, Chloride 99, Carbon Dioxide 34.0 H, Anion Gap 5, BUN 19 H, Creatinine 1.17 H, Estim Creat Clear Calc 61.75, Est GFR (MDRD) Af Amer 62, Est GFR (MDRD) Non-Af 51 L, BUN/Creatinine Ratio 16.2, Glucose 99, Calcium 9.4, Total Creatine Kinase 1251 H, Troponin I High Sens 4 Rhythm Strip Rhythm Strip: Sinus Rhythm Rate: 94 Ectopy: None Imaging Radiology Impression Chest X-Ray 10/28/23 23:12 IMPRESSION: No acute pulmonary finding. Electronically Signed: Darrell Carias MD at 23:40 EDT Reading Location ID and State: [facility] / [place] Tel , Service support , Assessment & Plan Assessment/Plan (1) KENNEY (acute kidney injury): (2) Non-traumatic rhabdomyolysis: PLAN: Plan The patient is a 53 y/o F w/ PMHx: Hx Breast CA, Morbid obesity, HTN, Asthma, Anxiety and Depression, Former tobacco use who presents to the [facility] ED on 10/29/23 with history of onset significant diffuse body aches and pain with recent new job starting at [employer] with increased significant activity from her previous baseline with as well 2 to 3 weeks of occasional cough with clear sputum and intermittent wheezing with no fevers or chills prompting eventual ED evaluation. #1. Acute rhabdomyolysis: Admission total creatinine kinase 1251, likely contributing to KENNEY and presentation, will admit to medical surgical floor, continue aggressive hydration, trend creatinine kinase, monitor renal function, will obtain hepatic profile to also further assess liver function, monitor I's and O's. #2. Acute kidney injury: Secondary to acute presentation as noted #1. Admission BUN/Cr 19/1.17, GFR 51, prior baseline creatinine noted to be 0.7. Will hydrate, hold nephrotoxic medications and repeat chemistry in AM. #3. Asthma, poorly controlled from patient reports of ongoing symptoms: Will maintain on ATC budesonide therapy, PRN albuterol, HOB, IS parameters. #4. Hypokalemia: Admission K+ 2.9, magnesium level requested, supplementation given, repeat level in AM. #5. History of breast cancer: History of previous blood cancer, unclear type status post lumpectomy and chemotherapy, considered in remission. #6. Hypertension: Given acute kidney injury as well as significant rhabdomyolysis with need for aggressive hydration we will hold patient home on losartan/hydrochlorothiazide, resume once appropriate, as needed IV hydralazine in the interim. #7. Anxiety and depression: We will continue patient home Cymbalta regimen. #8. Morbid Obesity: Weight loss and lifestyle changes encouraged. #9. Former tobacco use: Encourage continued tobacco cessation. #10. DVT prophylaxis: Lovenox. Charges/Coding Visit Charges Inpatient E&M: 88591 Init Hosp L3
[2023-10-29] MEDS: Potassium Chloride Oral Tablet 20 MEQ PO (01:13)
[2023-10-29 01:15] LABS: Bacteria 0 SEEN /hpf (None Seen); Mucous, Urine 0 SEEN /hpf (<or=2+); Red Blood Cells-Urine 0 SEEN /hpf (0-5)
[2023-10-29 01:23] LABS: Color, Urine Yellow (Yellow); Glucose, Dipstick Normal (Normal); Ketone-Dipstick Negative (Negative); Leukocyte Esterase-Dipstick 500 /ul (Negative); Nitrite-Dipstick Negative (Negative); Occult Blood-Urine Negative /ul (Negative); Protein-Dipstick 15 mg/dl (Negative); Specific Gravity, Urine 1.025 (1.002-1.030); Urine Bilirubin Dipstick Negative (Negative); Urine Clarity Clear (Clear); Urine Urobilinogen Normal (Normal)
[2023-10-29 01:42] LABS: AST(SGOT) 41 U/L (15-37); Alanine Aminotransfer ALT/SGPT 49 U/L (13-56); Albumin, Serum 3.4 g/dL (3.2-5.0); Alkaline Phosphatase 80 U/L (45-117); Globulin 4.3 g/dL (2.2-4.2); Magnesium 1.8 mg/dL (1.6-2.6); Protein, Total 7.7 g/dL (6.4-8.2)
[2023-10-29 01:46] LABS: Squamous Epithelial Cells - UA 0-5 SEEN /hpf (5-10); White Blood Cells 10-25 SEEN /hpf (0-5)
[2023-10-29 01:59] LABS: BNP,B-Type NATRIURETIC PEPTIDE < 2.0 pg/mL (0-100)
[2023-10-29] MEDS: 0.9% Normal Saline (1000mL) 1,000 ML 150 ML IV ×2 (02:14→09:16)
[2023-10-29 05:41] LABS: Absolute Lymphocyte Count 3.94 X10^3/uL (0.83-4.51); Absolute Neutrophil Count 4.4 X10^3/uL (2.0-7.7); Basophil# 0.02 X10^3/uL; Basophil% 0.2 % (0-1); Eosinophil# 0.25 X10^3/uL; Eosinophils% 2.6 % (0-5); Hemoglobin 12.2 g/dL (12.0-15.0); Lymphocyte # 3.94 X10^3/ul (0.83-4.51); Lymphocyte % 41.6 % (19-41); Mean Corpuscular Hgb 28.5 pg (27.0-32.0); Mean Corpuscular Volume 86.4 fL (81-99); Mean Platelet Vol. 10.6 fl (6.2-12.0); Monocyte# 0.83 X10^3/uL; Monocyte% 8.8 % (0-10); NRBC Flagged by Analyzer 0 % (0-5); Neutrophil # 4.41 X10^3/uL (2.7-7.7); Neutrophil % 46.6 % (47-70); Platelet Count 323 K/mm3 (150-450); RBC Distribution Width CV 15.1 % (11.6-14.6); RBC Distribution Width SD 47.8 fl (35.1-43.9); Red Blood Count 4.28 M/mm3 (4.2-5.4); White Blood Count 9.5 K/mm3 (4.4-11.0)
[2023-10-29] MEDS: oxyCODONE 5 MG Tablet PO ×2 (06:03→11:30)
[2023-10-29 06:05] LABS: ALB/GLOB Ratio 0.8 RATIO (0.9-2.4); AST(SGOT) 34 U/L (15-37); Alanine Aminotransfer ALT/SGPT 41 U/L (13-56); Alkaline Phosphatase 81 U/L (45-117); Anion Gap 5 (5-15); BUN 24 mg/dL (7-18); BUN/Creat Ratio 23.3 RATIO (10-20); CPK Total, Creatine Kinase 861 U/L (26-192); Calcium,Total 8.4 mg/dL (8.5-10.1); Chloride 104 mmol/L (98-107); Creatinine, Serum 1.03 mg/dL (0.55-1.02); EST Glomerular Filtration Rate 60 mL/min (>60); Est Glom Filt Rate - Afr Amer 72 mL/min (>60); Estimated Creatinine Clearance 69.46 ml/min; Globulin 3.9 g/dL (2.2-4.2); Glucose 135 mg/dL (74-106); Potassium 3.4 mmol/L (3.5-5.1); Protein, Total 6.9 g/dL (6.4-8.2); Sodium Level 138 mmol/L (136-145)
[2023-10-29] MEDS: Budesonide Respules 0.5 MG/2 ML AMPUL.NEB. INHALATION ×2 (07:01→19:49)
[2023-10-29] MEDS: DULoxetine Hcl 30 MG Capsule PO (09:18)
[2023-10-29] MEDS: Enoxaparin 40 MG/0.4 ML Syringe SC ×2 (09:18→22:01)
[2023-10-29] MEDS: Acetaminophen 325 MG Tablet 650 MG PO ×2 (11:30→22:01)
--- NOTE | 2023-10-29 13:30 | CASEMGMT ---
CHRISTIE CORRALES Assessment Face to Face with patient for initial transition planning/care coordination assessment. CHRISTIE CORRALES introduced self and role at [facility], pt voices understanding. Pt is A&Ox4 and is resting comfortably in bed and is calm. Care providers, pharmacy, and demographics verified. Admitting dx: Rhabdo, KENNEY PCP: Irina Specialists: Denies currently. Pt requesting information about seeing an [employer] Inspector. Information given (PCP handout) regarding Dr. Mcbride with telephone number. Preferred Pharmacy: [facility] Insurance: MMO Prescription Benefit: Yes LNOK: Mike Camarena () Living Arrangements: Pt lives with her SO in a 2 story home with a BM with HR throughout with 3 steps to enter the home. ADLs/IADLs: Ind Transportation: Self, DME: Denies all DME uses or needs HHC/SNF: Denies history or needs Pt?s goal: Home Plan: 6-Click is 24. Pt denies needing HHC or OP therapy at this time. Pt wishes to DC home once medically ready and states feeling safe doing so. CM to follow for Safe DC from [facility]. Kody Sorto RN, CM
--- NOTE | 2023-10-29 13:33 | PN.HOSP_ITS ---
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 Patient admitted with acute rhabdomyolysis with admitting creatinine kinase 1251. On IV fluid normal saline. Patient also had KENNEY from rhabdomyolysis. She has recently established with PCP Dr. Sheridan but yet has to find oncologist. Patient has morbid obesity with BMI 39.9 kg/m?.
[2023-10-30 02:12] VITALS: BMI 40.1
[2023-10-30 05:43] VITALS: BP 116/70; PULSE 92; RESP 16; TEMP 36.6; O2SAT 97
[2023-10-30 06:39] VITALS: PULSE 90; RESP 18; O2SAT 100
[2023-10-30] MEDS: Budesonide Respules 0.5 MG/2 ML AMPUL.NEB. INHALATION ×2 (06:39→19:41)
[2023-10-30] MEDS: Acetaminophen 325 MG Tablet 650 MG PO ×2 (09:37→14:34)
[2023-10-30] MEDS: DULoxetine Hcl 30 MG Capsule PO (09:37)
[2023-10-30] MEDS: Enoxaparin 40 MG/0.4 ML Syringe SC ×2 (09:37→20:37)
[2023-10-30 09:54] VITALS: BP 125/64; PULSE 92; RESP 16; TEMP 36.7; O2SAT 97
[2023-10-30 14:16] VITALS: BP 137/85; PULSE 83; RESP 16; TEMP 36.7; O2SAT 98
--- NOTE | 2023-10-30 14:46 | CT_ITS ---
EXAM: CT HEAD WITHOUT INTRAVENOUS CONTRAST CLINICAL INDICATION: headache TECHNIQUE: Multiple axial images were obtained of the head without intravenous contrast. CTDIvol = ( 44.99 ) mGy, DLP = ( 745.49 ) mGycm This CT exam was performed using one or more of the following dose reduction techniques: automated exposure control, adjustment of the mA and/or kV according to patient size, and/or use of iterative reconstruction technique. COMPARISON: No relevant prior studies available. FINDINGS: BRAIN AND EXTRA-AXIAL SPACES: Unremarkable. No intra- or extra-axial hemorrhage. No evidence of acute infarct. No intracranial mass or mass effect. There is preservation of the rand/white matter interface. Posterior fossa structures are unremarkable. Ventricles are appropriate for age. No hydrocephalus. Basal cisterns are patent. BONES/JOINTS: Unremarkable. No discrete lytic or blastic abnormalities. SINUSES: Unremarkable as visualized. Clear. MASTOID AIR CELLS: Unremarkable. Clear. ORBITS: Visualized globes, extraocular muscles, optic nerves and retrobulbar fat appear unremarkable. CT/Brain/Head without Contrast IMPRESSION: Negative head/brain CT without intravenous contrast. AIDOC program was used to assist in the detection of abnormal findings. Electronically Signed: Roger Escalante MD at 2:20 EDT ,
--- NOTE | 2023-10-30 14:46 | PCM.PN.HOSP ---
Reason for Visit Reason for Visit: Diagnoses Rhabdomyolysis (10/29/23) Acute kidney failure, unspecified (10/29/23) Objective Data Objective Data Vital Signs: Vital Signs Temp Pulse Resp BP Pulse Ox O2 Del Method 98.0 F 83 16 137/85 H 98 Room Air 10/30/23 14:16 10/30/23 14:16 10/30/23 14:16 10/30/23 14:16 10/30/23 14:16 10/30/23 14:16 Oxygen Delivery Method Room Air Weight: 218 lb 4.122 oz Body Mass Index (BMI) 40.1 Intake & Output: Intake and Output for Last 24 Hours 10/28/23 10/29/23 10/30/23 23:59 23:59 23:59 Intake Total 2900 / 2900 300 / 300 Balance 2900 / 2900 300 / 300 Lab / Micro Data 10/29/23 05:24 10/29/23 05:24 Rhythm Strip Rhythm Strip: Sinus Rhythm Rate: 94 Ectopy: None Physical Exam Narrative Seen and examined. Patient is states [id number] of upper and lower extremities are similar to yesterday with no improvement. Complain of headache mainly in posterior side. Denies sinus headache. Denies chronic headache including migraine. Physical exam General: Alert, Oriented x3, Cooperative HEENT: No sinus tenderness. Atraumatic, PERRLA, EOMI, Normocephalic Oral: Oral mucosa moist. No Gingival or Mucosal Lesions/ Ulcerations Neck: Supple, No JVD, Negative Carotid Bruits Chest wall/Lungs: Air entry diminished in bilateral lung bases. No crepitation/rhonchi Cardiovascular: Regular rate, Regular Rhythm, Normal S1, Normal S2, No M/G/R Abdomen: Bowel Sounds Present, Soft, Non Tender, Non-Distended : No dysuria. No renal angle tenderness. No suprapubic tenderness. Extremities: No edema, Capillary Refill Less than 3 Seconds Skin: No rashes, No breakdown Musculoskeletal: No acute tenderness in calf or thigh muscles. Muscle strength 4+/5 at knees and hip joints. Neurological: Cranial nerves II-XII grossly intact, DTR 2+/4. No acute focal neurological deficit. Psych/Mental Status: Flat affect. Assessment & Plan Assessment/Plan (1) KENNEY (acute kidney injury): (2) Non-traumatic rhabdomyolysis: PLAN: Plan The patient is a 53 y/o F was admitted with significant and diffuse body ache after she started new job, sometimes intermittent wheezing but no fever or chills. #1. Acute rhabdomyolysis: Admission total creatinine kinase 1251, likely contributing to KENNEY and presentation, will admit to medical surgical floor, continue aggressive hydration, trend creatinine kinase, monitor renal function, will obtain hepatic profile to also further assess liver function, monitor I's and O's. 10/29: CK improved from 12 151-861. AST normal. Liver chemistry normal except low albumin 3.0. Patient is still complaining of diffuse muscle aches and pain but does not match up with patient facial/emotional expression. Complain of headache mainly posterior region. CT head without contrast ordered. #2. Acute kidney injury most likely prerenal admission BUN/Cr 19/1.17, GFR 51, prior baseline creatinine noted to be 0.7. 10/29: Repeat lab ordered but could not be done because Chem-7 machine is down. #3. Asthma, poorly controlled from patient reports of ongoing symptoms: Will maintain on ATC budesonide therapy, PRN albuterol, HOB, IS parameters. #4. Hypokalemia: Admission K+ 2.9, magnesium level requested, supplementation given 10/29: Repeat level 3.4 on 10/28. Serum magnesium 1.8. #5. History of breast cancer: History of previous blood cancer, unclear type status post lumpectomy and chemotherapy, considered in remission. #6. Hypertension: Given acute kidney injury as well as significant rhabdomyolysis with need for aggressive hydration we will hold patient home on losartan/hydrochlorothiazide, resume once appropriate, as needed IV hydralazine in the interim. #7. Anxiety and depression: We will continue patient home Cymbalta regimen. #8. Morbid Obesity: Weight loss and lifestyle changes encouraged. #9. Former tobacco use: Encourage continued tobacco cessation. #10. DVT prophylaxis: Lovenox. Charges/Coding Visit Charges Inpatient E&M: 43388 Subs Hosp L2
[2023-10-30] MEDS: hydroCHLOROthiazide 12.5mg 12.5 MG PO (16:34)
[2023-10-30 19:40] VITALS: PULSE 88; RESP 16; O2SAT 97
[2023-10-30] MEDS: Albuterol 2.5 MG/3 ML VIAL.NEB. INHALATION (19:41)
[2023-10-30 20:31] VITALS: BP 137/76; PULSE 95; RESP 16; TEMP 36.4; O2SAT 95
[2023-10-31 03:00] VITALS: BP 137/84; PULSE 87; RESP 16; TEMP 36.7; O2SAT 95
[2023-10-31] MEDS: Acetaminophen 325 MG Tablet 650 MG PO (03:03)
[2023-10-31 06:00] VITALS: BMI 40.0
[2023-10-31 07:13] LABS: Absolute Lymphocyte Count 3.17 X10^3/uL (0.83-4.51); Basophil# 0.03 X10^3/uL; Basophil% 0.3 % (0-1); Eosinophil# 0.16 X10^3/uL; Eosinophils% 1.8 % (0-5); Hematocrit 39.6 % (37-47); Hemoglobin 12.9 g/dL (12.0-15.0); Lymphocyte # 3.17 X10^3/ul (0.83-4.51); Lymphocyte % 35.3 % (19-41); Mean Corp Hgb Conc 32.6 g/dL (32-36); Mean Corpuscular Hgb 27.7 pg (27.0-32.0); Mean Platelet Vol. 9.9 fl (6.2-12.0); Monocyte# 0.61 X10^3/uL; Monocyte% 6.8 % (0-10); NRBC Flagged by Analyzer 0 % (0-5); Neutrophil # 4.98 X10^3/uL (2.7-7.7); Neutrophil % 55.6 % (47-70); Platelet Count 310 K/mm3 (150-450); RBC Distribution Width CV 14.7 % (11.6-14.6); RBC Distribution Width SD 45.3 fl (35.1-43.9); Red Blood Count 4.66 M/mm3 (4.2-5.4)
[2023-10-31 07:39] VITALS: PULSE 85; RESP 16; O2SAT 100
[2023-10-31] MEDS: Budesonide Respules 0.5 MG/2 ML AMPUL.NEB. INHALATION (07:39)
[2023-10-31 07:51] LABS: Anion Gap 5 (5-15); BUN 11 mg/dL (7-18); BUN/Creat Ratio 13.6 RATIO (10-20); Calcium,Total 8.9 mg/dL (8.5-10.1); Chloride 108 mmol/L (98-107); Creatinine, Serum 0.81 mg/dL (0.55-1.02); EST Glomerular Filtration Rate 79 mL/min (>60); Est Glom Filt Rate - Afr Amer 95 mL/min (>60); Estimated Creatinine Clearance 88.18 ml/min; Glucose 95 mg/dL (74-106); Potassium 3.6 mmol/L (3.5-5.1); Sodium Level 140 mmol/L (136-145)
[2023-10-31 08:00] VITALS: BP 146/84; PULSE 86; RESP 14; TEMP 36.7; O2SAT 98
[2023-10-31] MEDS: hydroCHLOROthiazide 12.5mg 12.5 MG PO (08:22)
[2023-10-31] MEDS: DULoxetine Hcl 30 MG Capsule PO (08:23)
[2023-10-31] MEDS: Enoxaparin 40 MG/0.4 ML Syringe SC (08:23)
--- NOTE | 2023-10-31 09:28 | DCINST_ITS ---
Discharge Instructions Diet Discharge Diet: Low fat / Low cholesterol and 2000 mg Sodium Diet Activity Discharge Activity: Return to Normal Activity Weight Bearing Status: Weight bearing as tolerated Dressing / Incision Call your doctor if you observe: Fever of 101 or Higher, Coldness, Increased Pain, Numbness or Tingling, Change in Color, Inability to urinate, Inability to have a bowel movement, Using more than 1 pad per hour, Shortness of breath, Dizziness, Fainting spells, Swelling in the ankles, Chest pain, Prolonged hiccupping, Increased palpitations (irregular heartbeat) and Calf discomfort Follow Up Care When: IN 2 WEEKS Test Results: Test results from this visit will be discussed in further detail at your follow- up appointment, if applicable. Discharge Plan Admission Admit Date/Time: 10/29/23 01:11 Attending Provider: Zain Blank Primary Care Provider: Amber Arevalo Consulting Providers: Elli Martell Instructions Additional Instructions / Restrictions: Advised [id number] Tylenol 500 mg to 1 g for moderate to severe headache. If headache does not resolve will need to see PCP In 1 to 2 weeks Discharge Orders/Prescriptions Prescriptions: Continued olmesartan-hydrochlorothiazide 40-25 mg tablet 1 tab PO DAILY duloxetine [Cymbalta] 30 mg capsule,delayed release(DR/EC) 30 mg PO DAILY ALBUTEROL 2 inh inhalation 4X/DAY PRN Referrals / Follow Up: Amber Arevalo MD [Primary Care Provider] - Gatito Matthew MD [Non-Staff] - Within 1 Month (For chronic headache and vertigo) Care Physician,No Primary [Non-Staff] - Disposition Disposition (needs filled in before D/C Order can be placed): Home, Self Care
--- NOTE | 2023-10-31 10:56 | DS.PCM_ITS ---
Providers Date of Admission: 10/29/23 Date of Discharge: 10/31/23 Primary Care Physician: Dr. Amber Arevalo MD Reason For Visit: RHABDO, KENNEY Diagnosis Discharge Diagnosis (1) KENNEY (acute kidney injury): Status: Acute Code(s): N17.9 - Acute kidney failure, unspecified (2) Non-traumatic rhabdomyolysis: Status: Acute Code(s): M62.82 - Rhabdomyolysis Plan The patient is a 53 y/o F was admitted with significant and diffuse body ache after she started new job, sometimes intermittent wheezing but no fever or chills. #1. Acute rhabdomyolysis: Admission total creatinine kinase 1251, likely contributing to KENNEY and presentation, will admit to medical surgical floor, continue aggressive hydration, trend creatinine kinase, monitor renal function, will obtain hepatic profile to also further assess liver function, monitor I's and O's. 10/29: [place] 47070-998. AST normal. Liver chemistry normal except low albumin 3.0. Patient is still complaining of diffuse muscle aches and pain but does not match up with patient facial/emotional expression. Complain of headache mainly posterior region. CT head without contrast ordered. 10/30: CT head reviewed and does not show acute intracranial abnormality. Her h eadache is better but not completely resolved. Advised to take Tylenol 500 mg to 1 g for moderate to severe headache or Motrin 400 mg as needed for severe headache. Follow-up with neurologist within the month as she also has history of headache and vertigo. Prescription for Antivert given. #2. Acute kidney injury most likely prerenal admission BUN/Cr 19/1.17, GFR 51, prior baseline creatinine noted to be 0.7. 10/29: Repeat lab ordered but could not be done because Chem-7 machine is down. 10/30: KENNEY resolved. Creatinine normal. #3. Asthma, poorly controlled from patient reports of ongoing symptoms: Will maintain on ATC budesonide therapy, PRN albuterol, HOB, IS parameters. #4. Hypokalemia: Admission K+ 2.9, magnesium level requested, supplementation given 10/29: Repeat level 3.4 on 10/28. Serum magnesium 1.8. #5. History of breast cancer: History of previous blood cancer, unclear type status post lumpectomy and chemotherapy, considered in remission. #6. Hypertension: Given acute kidney injury as well as significant rhabdomyolysis with need for aggressive hydration we will hold patient home on losartan/hydrochlorothiazide, resume once appropriate, as needed IV hydralazine in the interim. #7. Anxiety and depression: We will continue patient home Cymbalta regimen. #8. Morbid Obesity: Weight loss and lifestyle changes encouraged. BMI 39.8 kg/m? #9. Former tobacco use: Encourage continued tobacco cessation. #10. DVT prophylaxis: Lovenox. Discharge medication reconciliation done. Discharge follow-up instructions completed. Discharge process discussed with the patient and all questions were answered to patient's satisfaction. Follow with PCP in 1 to 2 weeks Total time spent, exact 35 minutes on discharge meds reconciliation, examination, coordination of care with nurses and ancillary staff, review of imaging and blood test and discussion with the patient on follow-up instructions. Medications at Discharge Home Medications ALBUTEROL 2 inh inhalation 4X/DAY PRN sob 06/13/23 duloxetine 30 mg capsule,delayed release (Cymbalta) 30 mg PO DAILY pain 06/13/23 olmesartan 40 mg-hydrochlorothiazide 25 mg tablet 1 tab PO DAILY BLOOD PRESSURE 06/13/23 meclizine 25 mg chewable tablet (Antivert) 25 mg PO DAILY PRN vertigo #30 tabs 10/31/23 Physical Exam Narrative Seen and examined on the day of discharge. Headache has improved. She has walked with the physical therapy. Denies lower extremity pain. Physical exam General: Alert, Oriented x3, Cooperative HEENT: No sinus tenderness. Atraumatic, PERRLA, EOMI, Normocephalic Oral: Oral mucosa moist. No Gingival or Mucosal Lesions/ Ulcerations Neck: Supple, No JVD, Negative Carotid Bruits. No C-spine tenderness. Chest wall/Lungs: Air entry diminished in bilateral lung bases. No crepitation/rhonchi Cardiovascular: Regular rate, Regular Rhythm, Normal S1, Normal S2, No M/G/R Abdomen: Bowel Sounds Present, Soft, Non Tender, Non-Distended : No dysuria. No renal angle tenderness. No suprapubic tenderness. Extremities: No edema, Capillary Refill Less than 3 Seconds Skin: No rashes, No breakdown Musculoskeletal: No acute tenderness in calf or thigh muscles. Muscle strength 5/5 at knees and hip joints. Neurological: Cranial nerves II-XII grossly intact, DTR 2+/4. No acute focal neurological deficit. Psych/Mental Status: Flat affect. Weight / BMI Weight Weight: 217 lb 9.54 oz Body Mass Index (BMI) 40.0 ABG / Lab / Microbiology Data 10/31/23 06:57 10/31/23 06:57 Laboratory: Laboratory Results - last 24 hr 10/31/23 06:57: WBC 9.0, RBC 4.66, Hgb 12.9, Hct 39.6, MCV 85.0, MCH 27.7, MCHC 32.6, RDW Std Deviation 45.3 H, RDW Coeff of Blanka 14.7 H, Plt Count 310, MPV 9.9, Immature Gran % (Auto) 0.200, Neut % (Auto) 55.6, Lymph % (Auto) 35.3, Barron % (Auto) 6.8, Eos % (Auto) 1.8, Baso % (Auto) 0.3, Absolute Neuts (auto) 5.0, Absolute Lymphs (auto) 3.17, Nucleated RBC % 0, Sodium 140, Potassium 3.6, Chloride 108 H, Carbon Dioxide 27.0, Anion Gap 5, BUN 11, Creatinine 0.81, Estim Creat Clear Calc 88.18, Est GFR (MDRD) Af Amer 95, Est GFR (MDRD) Non-Af 79, BUN/Creatinine Ratio 13.6, Glucose 95, Calcium 8.9 Radiography Diagnostic Testing: Radiology Impression Brain CT 10/30/23 14:46 IMPRESSION: Negative head/brain CT without intravenous contrast. AIDOC program was used to assist in the detection of abnormal findings. Electronically Signed: Roger Escalante MD at 2:20 EDT , D/C Instructions Discharge Diet: Low fat / Low cholesterol and 2000 mg Sodium Diet Weight Bearing Status: Weight bearing as tolerated Call your doctor if you observe: Fever of 101 or Higher, Coldness, Increased Pain, Numbness or Tingling, Change in Color, Inability to urinate, Inability to have a bowel movement, Using more than 1 pad per hour, Shortness of breath, Dizziness, Fainting spells, Swelling in the ankles, Chest pain, Prolonged hiccupping, Increased palpitations (irregular heartbeat) and Calf discomfort When: IN 2 WEEKS Meaningful Use Info Meaningful Use Diagnoses (Choose all that apply): None applicable Discharge Plan Admission Admit Date/Time: 10/29/23 01:11 Primary Reason for Your Visit: Acute rhabdomyolysis. Attending Provider: Zain Blank Primary Care Provider: Amber Arevalo Consulting Providers: Elli Martell Instructions Additional Instructions / Restrictions: Advised [id number]-[id number] Tylenol 500 mg to 1 g for moderate to severe headache. If headache does not resolve will need to see PCP In 1 to 2 weeks Discharge Orders/Prescriptions Prescriptions: New meclizine [Antivert] 25 mg tablet,chewable 25 mg PO DAILY PRN (Reason: vertigo) Qty: 30 0RF Rx Instructions: No driving while having vertigo or after taking medication. Continued olmesartan-hydrochlorothiazide 40-25 mg tablet 1 tab PO DAILY duloxetine [Cymbalta] 30 mg capsule,delayed release(DR/EC) 30 mg PO DAILY ALBUTEROL 2 inh inhalation 4X/DAY PRN Referrals / Follow Up: Amber Arevalo MD [Primary Care Provider] - Gatito Matthew MD [Non-Staff] - Within 1 Month (For chronic headache and vertigo) Care Physician,No Primary [Non-Staff] - Disposition Disposition (needs filled in before D/C Order can be placed): Home, Self Care Charges/Coding Visit Charges Inpatient E&M: 36732 Disch Hosp >30min
--- NOTE | 2023-10-31 11:44 | PHA.DC_ITS ---
Pharmacy [facility] has performed discharge medication reconciliation and counseling for this patient. 1. MECLIZINE 25MG PO DAILY PRN VERTIGO The patient's discharge medication list was reviewed for discrepancies and discrepancies were resolved. The patient was counseled on the following discharge medications and changes in medications for homegoing were reviewed. The Reason for Use, instructions for use, and potential side effects were reviewed for all new medications. The patient's questions regarding all of their medications were answered. The patient was able to verbally demonstrate an understanding of their discharge medications. Medications at Discharge Home Medications ALBUTEROL 2 inh inhalation 4X/DAY PRN sob 06/13/23 duloxetine 30 mg capsule,delayed release (Cymbalta) 30 mg PO DAILY pain 06/13/23 olmesartan 40 mg-hydrochlorothiazide 25 mg tablet 1 tab PO DAILY BLOOD PRESSURE 06/13/23 meclizine 25 mg chewable tablet (Antivert) 25 mg PO DAILY PRN vertigo #30 tabs 10/31/23
== END 2023-10-31 12:20 | disposition home or self-care (01) | DRG 558 ==
LOC: ED 10-29 00:39 → MS3 10-29 01:33
PROVIDERS: Admitting Provider Family Medicine; Emergency Provider Emergency Medicine; PCP Internal Medicine; Visit Provider Internal Medicine
DX: M62.82 Rhabdomyolysis (principal); N17.9 Acute kidney failure, unspecified; Z68.41 Body mass index [BMI] 40.0-44.9, adult; E66.01 Morbid (severe) obesity due to excess calories; J45.909 Unspecified asthma, uncomplicated; I10 Essential (primary) hypertension; F32.A Depression, unspecified; E87.6 Hypokalemia; F41.9 Anxiety disorder, unspecified; Z92.21 Personal history of antineoplastic chemotherapy; Z87.891 Personal history of nicotine dependence; Z85.3 Personal history of malignant neoplasm of breast
CPT/HCPCS: 36415; 70450; 71046; 80048; 80053; 80076; 81001; 82550; 83735; 83880; 84484; 85025; 93005; 94640; 94668; 97161; 97166; 97530; 97535; 99252; 99284; J7030; A4216; G0463

== ENCOUNTER → 2023-11-02 | Outpatient (CLI) | payer OTHER, SELFPAY ==
[2023-11-02 12:25] LABS: Erythrocyte Sedimentation Rate 21 mm/hr (0-30)
[2023-11-02 12:59] LABS: ALB/GLOB Ratio 0.7 RATIO (0.9-2.4); AST(SGOT) 71 U/L (15-37); Alanine Aminotransfer ALT/SGPT 90 U/L (13-56); Albumin, Serum 3.7 g/dL (3.2-5.0); Alkaline Phosphatase 85 U/L (45-117); Anion Gap 3 (5-15); BUN 12 mg/dL (7-18); BUN/Creat Ratio 13.4 RATIO (10-20); CPK Total, Creatine Kinase 168 U/L (26-192); Chloride 104 mmol/L (98-107); Cholesterol 222 mg/dL (200); EST Glomerular Filtration Rate 70 mL/min (>60); Est Glom Filt Rate - Afr Amer 85 mL/min (>60); Globulin 5.2 g/dL (2.2-4.2); Glucose 100 mg/dL (74-106); High Density Lipoprotein 55 mg/dL; Potassium 3.5 mmol/L (3.5-5.1); Protein, Total 8.9 g/dL (6.4-8.2); Sodium Level 136 mmol/L (136-145); Thyroid Stim Hormone (TSH) 2.39 uIU/mL (0.358-3.74); Triglycerides 137 mg/dL; Very Low Density Lipoprotein 27 mg/dL (5-40)
[2023-11-02 13:23] LABS: HIV - WCH Non-Reactive (Nonreactive); Vitamin B12 1285 pg/mL (211-911); Vitamin D,25 Hydroxy 71.1 ng/mL
[2023-11-05 17:07] LABS: ANTINUCLEAR ANTIBODIES DIRECT Positive (Negative); Anti-Centromere B Ab <0.2 AI (0.0-0.9); Anti-Chromatin 0.2 AI (0.0-0.9); Anti-Jo <0.2 AI (0.0-0.9); Anti-Scleroderma-70 AB 0.2 AI (0.0-0.9); Anti-dsDNA Ab 1 IU/mL (0-9); RNP Ab 1.6 AI (0.0-0.9); SJOGREN'S Anti-SS-A test < 0.2 AI (0.0-0.9); SJOGREN'S Anti-SS-B test < 0.2 AI (0.0-0.9); Smith Ab <0.2 AI (0.0-0.9)
== END | disposition home or self-care (01) ==
LOC: BIMLAB 10:40
PROVIDERS: PCP Internal Medicine; Referring Provider Physician Assistant; Visit Provider Physician Assistant
DX: R53.83 Other fatigue (principal); M62.82 Rhabdomyolysis; N17.9 Acute kidney failure, unspecified; E87.6 Hypokalemia
CPT/HCPCS: 36415; 80053; 80061; 82306; 82550; 82607; 84443; 85652; 86038; 86140; 86225; 86235; 86703

== ENCOUNTER → 2023-11-14 | Outpatient (CLI) | payer OTHER, SELFPAY ==
[2023-11-14 17:30] LABS: Absolute Lymphocyte Count 2.62 X10^3/uL (0.83-4.51); Absolute Neutrophil Count 3.9 X10^3/uL (2.0-7.7); Basophil# 0.01 X10^3/uL; Basophil% 0.1 % (0-1); Eosinophil# 0.14 X10^3/uL; Hematocrit 42.6 % (37-47); Hemoglobin 13.7 g/dL (12.0-15.0); Lymphocyte # 2.62 X10^3/ul (0.83-4.51); Lymphocyte % 37.1 % (19-41); Mean Corp Hgb Conc 32.2 g/dL (32-36); Mean Corpuscular Hgb 28.1 pg (27.0-32.0); Mean Corpuscular Volume 87.5 fL (81-99); Mean Platelet Vol. 10.9 fl (6.2-12.0); Monocyte# 0.37 X10^3/uL; Monocyte% 5.2 % (0-10); NRBC Flagged by Analyzer 0 % (0-5); Neutrophil # 3.91 X10^3/uL (2.7-7.7); Neutrophil % 55.5 % (47-70); Platelet Count 348 K/mm3 (150-450); RBC Distribution Width CV 14.7 % (11.6-14.6); RBC Distribution Width SD 47.3 fl (35.1-43.9); Red Blood Count 4.87 M/mm3 (4.2-5.4); White Blood Count 7.1 K/mm3 (4.4-11.0)
[2023-11-14 17:51] LABS: Erythrocyte Sedimentation Rate 25 mm/hr (0-30)
[2023-11-14 18:01] LABS: ALB/GLOB Ratio 0.8 RATIO (0.9-2.4); AST(SGOT) 24 U/L (15-37); Alanine Aminotransfer ALT/SGPT 29 U/L (13-56); Albumin, Serum 3.5 g/dL (3.2-5.0); Alkaline Phosphatase 76 U/L (45-117); Anion Gap 5 (5-15); BUN 13 mg/dL (7-18); BUN/Creat Ratio 15.3 RATIO (10-20); Calcium,Total 9.3 mg/dL (8.5-10.1); Chloride 103 mmol/L (98-107); Creatinine, Serum 0.85 mg/dL (0.55-1.02); EST Glomerular Filtration Rate 74 mL/min (>60); Est Glom Filt Rate - Afr Amer 90 mL/min (>60); Globulin 4.5 g/dL (2.2-4.2); Glucose 99 mg/dL (74-106); Potassium 3.5 mmol/L (3.5-5.1); Sodium Level 139 mmol/L (136-145)
[2023-11-14 18:52] LABS: CPK Total, Creatine Kinase 204 U/L (26-192)
[2023-11-16 05:07] LABS: HEPATITIS B SURFACE AG Negative (Negative); Hep C Antibodies Non Reactive (Non Reactive); Hepatitis A IgM Antibody Negative (Negative); Hepatitis B Core AB IgM Negative (Negative)
== END | disposition home or self-care (01) ==
LOC: BIMLAB 14:59
PROVIDERS: PCP Internal Medicine; Visit Provider Internal Medicine
DX: M35.1 Other overlap syndromes (principal); I10 Essential (primary) hypertension; R74.8 Abnormal levels of other serum enzymes
CPT/HCPCS: 36415; 80053; 80074; 82550; 85025; 85652; 86140

== ENCOUNTER 2023-12-21 14:16 | Emergency (ER) | payer OTHER, SELFPAY ==
[2023-12-21 14:17] VITALS: BP 128/104; PULSE 96; RESP 16; TEMP 36.1; O2SAT 96; BMI 37.8
[2023-12-21 14:20] VITALS: BP 125/89; PULSE 96; RESP 16; TEMP 36.1; O2SAT 96
[2023-12-21 14:51] LABS: Mucous, Urine 0 SEEN /hpf (<or=2+)
[2023-12-21 14:53] LABS: Color, Urine Yellow (Yellow); Glucose, Dipstick Normal (Normal); Ketone-Dipstick Negative (Negative); Leukocyte Esterase-Dipstick 500 /ul (Negative); Nitrite-Dipstick Negative (Negative); Occult Blood-Urine 25 /ul (Negative); Protein-Dipstick 30 mg/dl (Negative); Specific Gravity, Urine 1.015 (1.002-1.030); Urine Bilirubin Dipstick Negative (Negative); Urine Clarity Cloudy (Clear); Urine Urobilinogen Normal (Normal); Urine pH 6.5 (5.0 - 8.0)
[2023-12-21 15:06] LABS: Bacteria 1+ /hpf (None Seen); Squamous Epithelial Cells - UA 10-25 SEEN /hpf (5-10); White Blood Cells 50-100 SEEN /hpf (0-5)
[2023-12-21 15:07] LABS: Red Blood Cells-Urine 5-10 SEEN /hpf (0-5)
--- NOTE | 2023-12-21 15:17 | ED.VIS.FEGU ---
HPI HPI - Female History of Present Illness Chief Complaint: Complaint Informant: patient Narrative Narrative: Patient is a 53-year-old female with history of breast cancer, total hysterectomy and urinary tract infections presenting with worsening lower abdominal pain, back pain and dysuria. Patient states her symptoms are going on for the past 2 days. The pain is worse in her left lower back. She states that yesterday she started become uncomfortable but her symptoms were worse today. She had to call off work today. She has had dysuria and malodorous urine but denies any hematuria. She also notes that she began having some brown discharge yesterday is having of some vaginal itching. She recently had her Cymbalta and hypertensive medication increase is unsure if this can be causing her symptoms. She denies any recent sexual activity denies any new sexual partners. Denies any concern for sexually transmitted infection. No fever or chills reported. Is complain of a mild headache. No other complaints at this time. Is not had anything for symptoms today. Did take arthritis strength Tylenol yesterday. [facility] Medical History HIV exposure Vitamin deficiency Hives Hearing problem Head ache Carpal tunnel syndrome Breast cancer UTI (urinary tract infection) Back problem Arthritis Allergies Morbid obesity Anxiety and depression Former tobacco use HTN (hypertension) Neuropathy Asthma Home Medications ?Medication ?Instructions ?Recorded ?Last Taken ?Type ALBUTEROL 2 inh inhalation 4X/DAY PRN sob 06/13/23 Unknown History meclizine 25 mg chewable tablet 25 mg PO DAILY PRN vertigo #30 tabs 10/31/23 Unknown Rx (Antivert) Saccharomyces boulardii 250 mg 250 mg PO BID 11/02/23 Unknown History capsule (Daily Probiotic (S. boulardii)) albuterol sulfate 90 mcg/actuation 2 puff inhalation Q4-6H PRN 11/02/23 Unknown Rx aerosol inhaler shortness of breath or wheezing #8.5 grams budesonide-formoterol HFA 80 2 puff inhalation BID #10.2 grams 11/02/23 Unknown Rx mcg-4.5 mcg/actuation aerosol inhaler cetirizine 10 mg capsule (Zyrtec) 10 mg PO DAILY PRN 11/02/23 Unknown History cholecalciferol (vitamin D3) 25 25 mcg PO DAILY 11/02/23 Unknown History mcg (1,000 unit) capsule inhalational spacing device #1 ea 11/02/23 Unknown Rx (BreatheRite MDI Spacer) mecobalamin (vitamin B12) 1,000 1,000 mcg PO DAILY 11/02/23 Unknown History mcg chewable tablet multivitamin 1 tab PO DAILY 11/02/23 Unknown History olmesartan 40 1 tab PO DAILY BLOOD PRESSURE #90 11/02/23 Unknown Rx mg-hydrochlorothiazide 25 mg tablet tabs duloxetine 60 mg capsule,delayed 60 mg PO DAILY #90 caps 12/10/23 Unknown Rx release phenazopyridine 200 mg tablet 200 mg PO TID PRN pain 2 days #6 12/21/23 Unknown Rx (Pyridium) tabs sulfamethoxazole 800 1 tab PO BID 5 days #10 tabs 12/21/23 Unknown Rx mg-trimethoprim 160 mg tablet (Bactrim DS) Allergy/AdvReac Type Severity Reaction Status Date / Time No Known Allergies Allergy Verified 12/21/23 14:20 Family History Mother CAD (coronary artery disease) Heart disease Hypertension Diabetes CVA (cerebral vascular accident) Myocardial infarction Kidney disease Grandmother Heart disease CABG Diabetes Hypertension CVA (cerebral vascular accident) Myocardial infarction COPD (chronic obstructive pulmonary disease) Surgical History Status post breast reduction H/O wrist surgery History of hysterectomy Previous section History of lumpectomy of left breast Social History household members: spouse housing: house current occupational status: employed 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 alcohol intake: never substance use type: does not use do you feel safe at home: Yes ROS ROS ED Constitutional Constitutional ED: Denies chills or fever(s) Gastrointestinal Gastrointestinal: Reports abdominal pain; Denies constipation, diarrhea or vomiting Genitourinary Genitourinary ED: Reports dysuria and other Details: vaginal discharge and itching ; Denies hematuria Musculoskeletal Musculoskeletal: Reports other Details: low back pain ; Denies arthralgias or myalgias Integumentary Denies rash Neurologic Neurologic: Reports headache(s) Psychiatric Psychiatric: Reports depression EXAM Physical Exam Const Vital Signs: 12/21/23 14:17 12/21/23 14:20 12/21/23 14:20 Temperature 96.9 F L 96.9 F L Temperature Source Temporal Temporal Pulse Rate 96 96 Respiratory Rate 16 16 Blood Pressure 128/104 H 125/89 H 125/89 H Blood Pressure Mean 112 101 101 Pulse Ox 96 96 Oxygen Delivery Method Room Air Room Air Positive well nourished and well developed General Appearance ED: well developed and NAD HEENT Reports moist mucous membranes Neck supple Resp normal respiratory effort Cardio regular rate and regular rhythm GI normal to inspection, nondistended, normoactive bowel sounds, soft to palpation and non-tender Back/Spine no CVA tenderness Back/Spine Narrative: Left lumbar paraspinal tenderness approximately L4 and L5 Lumbar Spine / Lower Back: Negative for lumbar spinal tenderness Extremity normal to inspection and full ROM Neuro oriented x3 Sensorium / Orientation: alert Motor Exam: Negative for general weakness Psych mental status grossly normal Skin no rashes or lesions noted MDM MDM MDM Narrative Medical decision making narrative: Patient is evaluated for 2 days worsening dysuria as well as vaginal discharge and itching. Is having some low back pain but no systemic symptoms reported besides headache. Appears nontoxic. Vital signs are normal. Is afebrile. Differential includes urinary tract infection, yeast vaginitis, BV, lower suspicion for STIs patient denies any new sexual partners and lower suspicion for pyelonephritis given lack of CVA tenderness or fever/more severe symptoms. Urinalysis obtained and will also perform a pelvic exam. Urinalysis is highly consistent with urinary tract infection with 500 leukocyte esterase, 50-100 white blood cells and 1+ bacteria. Will send off for culture. Pelvic exam is unremarkable. Patient has pain with palpation suprapubic area on bimanual exam. No abnormal vaginal discharge is noted. No fine consistent with a yeast vaginitis. Do not see any external lesions. Do not suspect pelvic source of her symptoms at this time. K she is given first dose of Bactrim and cream in the emergency room. Given a work note per her request. Given return precautions. Discharged home in stable condition. Instructed to alternate [id number] ibuprofen and Tylenol as needed for her pain as the Pyridium and Bactrim should adequately address it. Lab Data Attestation: I reviewed the patient's lab results. Labs: Laboratory Results - last 24 hr 12/21/23 14:30 Urine Color Yellow Urine Clarity Cloudy Urine pH 6.5 Ur Specific [place] 1.015 Urine Protein 30 H Urine Glucose (UA) Normal Urine Ketones Negative Urine Occult Blood 25 H Urine Nitrite Negative Urine Bilirubin Negative Urine Urobilinogen Normal Ur Leukocyte Esterase 500 H Urine RBC 5-10 SEEN Urine WBC 50-100 SEEN Ur Squamous Epith Cells 10-25 SEEN Urine Bacteria 1+ Urine Mucus 0 SEEN Discharge Plan Triage Chief Complaint: Complaint ED Provider: Praveena Terry Dx/Rx/DC Orders Clinical Impression: Urinary tract infection, Acute suprapubic pain Instructions: ED UTIs Women Prescriptions: New sulfamethoxazole-trimethoprim [Bactrim DS] 800-160 mg tablet 1 tab PO BID 5 Days Qty: 10 0RF phenazopyridine [Pyridium] 200 mg tablet 200 mg PO TID PRN (Reason: pain) 2 Days Qty: 6 0RF No Action Saccharomyces boulardii [Daily Probiotic (S. boulardii)] 250 mg capsule 250 mg PO BID multivitamin Tablet 1 tab PO DAILY cholecalciferol (vitamin D3) 25 mcg (1,000 unit) capsule 25 mcg PO DAILY mecobalamin (vitamin B12) 1,000 mcg tablet,chewable 1,000 mcg PO DAILY Zyrtec 10 mg capsule 10 mg PO DAILY PRN albuterol sulfate 90 mcg/actuation HFA aerosol inhaler 2 puff inhalation Q4-6H PRN (Reason: shortness of breath or wheezing) Qty: 8.5 0RF budesonide-formoterol 80-4.5 mcg/actuation HFA aerosol inhaler 2 puff inhalation BID Qty: 10.2 0RF olmesartan-hydrochlorothiazide 40-25 mg tablet 1 tab PO DAILY Qty: 90 1RF (DME) BreatheRite MDI Spacer Spacer See Rx Instructions .Route Qty: 1 0RF Rx Instructions: As directed ALBUTEROL 2 inh inhalation 4X/DAY PRN meclizine [Antivert] 25 mg tablet,chewable 25 mg PO DAILY PRN (Reason: vertigo) Qty: 30 0RF Rx Instructions: No driving while having vertigo or after taking medication. duloxetine 60 mg capsule,delayed release(DR/EC) 60 mg PO DAILY Qty: 90 1RF Stand Alone Forms: Work / School Excuse Primary Care Provider: Amber Arevalo Referrals: Amber Arevalo MD [Primary Care Provider] - Print Language: Chilean Disposition Disposition: Home, Self Care Discharge Date/Time: 12/21/23 16:16
[2023-12-21] MEDS: Ibuprofen 600 MG Tablet PO (15:28)
[2023-12-21] MEDS: Phenazopyridine 95 MG Tablet 190 MG PO (16:12)
[2023-12-21] MEDS: Smz/Tmp Ds Tablet 1 TABLET PO (16:12)
== END 2023-12-21 16:16 | disposition home or self-care (01) ==
PROVIDERS: Emergency Provider Emergency Medicine; PCP Internal Medicine; Visit Provider Emergency Medicine
DX: N39.0 Urinary tract infection, site not specified (principal); Z87.891 Personal history of nicotine dependence; R51.9 Headache, unspecified; I10 Essential (primary) hypertension; J45.909 Unspecified asthma, uncomplicated; Z79.899 Other long term (current) drug therapy
CPT/HCPCS: 81001; 87086; 87088; 99283

== ENCOUNTER → 2023-12-26 | Outpatient (CLI) | payer OTHER, SELFPAY ==
--- NOTE | 2023-12-26 10:35 | BI_ITS ---
MAMMOGRAPHY - BILATERAL SCREENING REASON FOR EXAM: Female, 53 years old. Routine annual screening examination. PERTINENT HISTORY: Personal history of breast cancer. Prior left lumpectomy with radiation and chemotherapy. TECHNIQUE: Digital bilateral breast jesus (3D mammographic acquisition) in the CC and MLO projections. 2-D mediolateral oblique (MLO) and craniocaudad (CC) views of both breasts were obtained. CAD: Full Field Digital Mammography with Computer Added Detection was performed. COMPARISON: Comparison is made with prior chest examination dated June 20, 2022. FINDINGS: Breast Composition: There are scattered areas of fibroglandular density. There are no dominant masses or suspicious calcifications. The patient is status post lumpectomy in the deep upper lateral aspect of the left breast with resultant postoperative deformity and scarring. Surgical clips are also seen in the left axilla. Multiple surgical clips are seen in the medial and lateral aspect of the right breast. Fat-containing bilateral axillary lymph nodes. No other significant abnormalities are identified. There has been no significant change since the prior study. BI/SCRN MAMM (CAD)W/JESUS BILAT IMPRESSION: Stable bilateral screening mammogram. Yearly follow-up mammogram recommended. (A) ASSESSMENT CATEGORY: BIRADS Category 2: Benign. A letter regarding these results will be sent to the patient by the facility within 30 days. Approximately 10% of breast cancers are not detected by mammography. A normal mammogram should not delay biopsy of a clinically suspicious abnormality. [id number] Electronically Signed: Kumar Adams MD at 13:00 EDT ,
== END | disposition home or self-care (01) ==
LOC: OPBI 10:35
PROVIDERS: PCP Internal Medicine; Referring Provider Internal Medicine; Visit Provider Internal Medicine
DX: Z12.31 Encounter for screening mammogram for malignant neoplasm of breast (principal); Z85.3 Personal history of malignant neoplasm of breast
CPT/HCPCS: 77063; 77067

== ENCOUNTER 2024-02-11 00:21 | Emergency (ER) | payer OTHER, SELFPAY ==
[2024-02-11 00:22] VITALS: BP 143/91; PULSE 109; RESP 16; TEMP 36.4; O2SAT 99; BMI 37.9
--- NOTE | 2024-02-11 01:15 | EKG12_ITS ---
Test Reason : DIZZY Blood Pressure : / mmHG Vent. Rate : 108 BPM Atrial Rate : 108 BPM P-R Int : 130 ms QRS Dur : 074 ms QT Int : 372 ms P-R-T Axes : 063 006 034 degrees QTc Int : 498 ms Sinus tachycardia Possible Inferior infarct , age undetermined Abnormal ECG When compared with ECG of 28-OCT-2023 22:58, Borderline criteria for Inferior infarct are now Present Confirmed by VERN LOCO, CAYETANO ([id number]), editor managing director DAT HARKINS ([id number]) on 02/13/2024 1:28:44 PM Referred By: Confirmed By:CAYETANO PORRAS MD
--- NOTE | 2024-02-11 01:15 | RAD_ITS ---
STUDY: X-RAY CHEST REASON FOR EXAM: Female, 53 years old patient with stroke. TECHNIQUE: Single AP portable view of the chest. COMPARISON: October 28, 2023. FINDINGS: There are prominent bronchovascular markings in both lungs. There is no demonstrated pleural abnormality. Normal size heart. Normal mediastinum and sangeetha. Normal visualized pulmonary arteries. Normal visualized aortic arch and descending thoracic aorta. Normal visualized thoracic spine. Normal visualized ribs, clavicles, and shoulders. There is no demonstrated abnormality of the visualized soft tissue structures of the upper abdomen. RAD/Chest 1 View (Portable) IMPRESSION: No radiographic evidence of acute cardiopulmonary disease. Electronically Signed: Cuca Sorto MD at 2:17 EDT ,
[2024-02-11 01:30] LABS: Absolute Lymphocyte Count 3.63 X10^3/uL (0.83-4.51); Absolute Neutrophil Count 6.3 X10^3/uL (2.0-7.7); Basophil# 0.04 X10^3/uL; Basophil% 0.4 % (0-1); Eosinophil# 0.16 X10^3/uL; Eosinophils% 1.5 % (0-5); Hematocrit 48.5 % (37-47); Hemoglobin 15.5 g/dL (12.0-15.0); Lymphocyte # 3.63 X10^3/ul (0.83-4.51); Lymphocyte % 33.6 % (19-41); Mean Corpuscular Hgb 28.6 pg (27.0-32.0); Mean Corpuscular Volume 89.5 fL (81-99); Mean Platelet Vol. 10.6 fl (6.2-12.0); Monocyte# 0.61 X10^3/uL; Monocyte% 5.6 % (0-10); NRBC Flagged by Analyzer 0 % (0-5); Neutrophil # 6.34 X10^3/uL (2.7-7.7); Neutrophil % 58.6 % (47-70); Platelet Count 355 K/mm3 (150-450); RBC Distribution Width CV 15.5 % (11.6-14.6); RBC Distribution Width SD 50.4 fl (35.1-43.9); Red Blood Count 5.42 M/mm3 (4.2-5.4); White Blood Count 10.8 K/mm3 (4.4-11.0)
--- NOTE | 2024-02-11 01:34 | EDS_ITS ---
HPI History of Present Illness Chief Complaint: General Illness Informant: patient Onset/Context/Timing Onset: Days Context: Gradual Onset Timing: Continuous Quality: Throbbing Location: Head, left side of her neck Worsened by: Movement Relieved by: Laying down Narrative Narrative: Patient presents with headache, neck pain, and shortness of breath that became worse over the past few days. Patient states she ran out of her normal medications but got them refilled yesterday. Patient states she started taking them again yesterday. Patient states that this has not helped with her symptoms. Patient states she took 2 doses of her duloxetine without improvement. Patient describes her pain as throbbing. Patient states it is over the frontal part of her head and into the left side of her neck. Patient states it is worse with any movement. Patient states it is better when she is able to lay down. Patient admits to some blurred vision but denies any scotoma. Patient states she feels her heart racing at times but denies any chest pain. Patient admits to some shortness of breath and cough with clear sputum. Patient admits to some nausea but denies any vomiting. [facility] Medical History HIV exposure Vitamin deficiency Hives Hearing problem Head ache Carpal tunnel syndrome Breast cancer UTI (urinary tract infection) Back problem Arthritis Allergies Morbid obesity Anxiety and depression Former tobacco use HTN (hypertension) Neuropathy Asthma Home Medications ?Medication ?Instructions ?Recorded ?Last Taken ?Type ALBUTEROL 2 inh inhalation 4X/DAY PRN sob 06/13/23 Unknown History meclizine 25 mg chewable tablet 25 mg PO DAILY PRN vertigo #30 tabs 10/31/23 Unk nown Rx (Antivert) Saccharomyces boulardii 250 mg 250 mg PO BID 11/02/23 Unknown History capsule (Daily Probiotic (S. boulardii)) albuterol sulfate 90 mcg/actuation 2 puff inhalation Q4-6H PRN 11/02/23 Unknown Rx aerosol inhaler shortness of breath or wheezing #8.5 grams budesonide-formoterol HFA 80 2 puff inhalation BID #10.2 grams 11/02/23 Unknown Rx mcg-4.5 mcg/actuation aerosol inhaler cetirizine 10 mg capsule (Zyrtec) 10 mg PO DAILY PRN 11/02/23 Unknown History cholecalciferol (vitamin D3) 25 25 mcg PO DAILY 11/02/23 Unknown History mcg (1,000 unit) capsule inhalational spacing device #1 ea 11/02/23 Unknown Rx (BreatheRite MDI Spacer) mecobalamin (vitamin B12) 1,000 1,000 mcg PO DAILY 11/02/23 Unknown History mcg chewable tablet multivitamin 1 tab PO DAILY 11/02/23 Unknown History olmesartan 40 1 tab PO DAILY BLOOD PRESSURE #90 11/02/23 Unknown Rx mg-hydrochlorothiazide 25 mg tablet tabs duloxetine 60 mg capsule,delayed 60 mg PO DAILY #90 caps 12/10/23 Unknown Rx release phenazopyridine 200 mg tablet 200 mg PO TID PRN pain 2 days #6 12/21/23 Unknown Rx (Pyridium) tabs sulfamethoxazole 800 1 tab PO BID 5 days #10 tabs 12/21/23 Unknown Rx mg-trimethoprim 160 mg tablet (Bactrim DS) hydrocodone-acetaminophen 5-325mg 1 tab PO Q6H PRN PRN Pain 3 days 02/11/24 Unknown Rx 5mg-325mg #10 TABLETS Allergy/AdvReac Type Severity Reaction Status Date / Time No Known Allergies Allergy Verified 12/21/23 14:20 Family History Mother CAD (coronary artery disease) Heart disease Hypertension Diabetes CVA (cerebral vascular accident) Myocardial infarction Kidney disease Grandmother Heart disease CABG Diabetes Hypertension CVA (cerebral vascular accident) Myocardial infarction COPD (chronic obstructive pulmonary disease) Surgical History Status post breast reduction H/O wrist surgery History of hysterectomy Previous section History of lumpectomy of left breast Social History household members: spouse housing: house current occupational status: employed current occupation: [employer] Smoking Status: Former smoker quit date: 07/23/16 pack-years: 30 Electronic Cigarette Use: not used how long ago did patient quit smoking: Quit most recently 7 yrs prior, smoked prior intermittent 3 cig/day. alcohol intake: never substance use type: does not use do you feel safe at home: Yes ROS ROS ED Constitutional Constitutional ED: Denies chills or fever(s) Eyes Eyes: Reports blurry vision; Denies change in vision ENT ENT ED: Denies rhinorrhea or sore throat Cardiovascular Cardiovascular: Reports palpitations and racing heartbeat; Denies chest pain Respiratory/Chest Respiratory/Chest: Reports cough and dyspnea Gastrointestinal Gastrointestinal: Reports nausea; Denies vomiting Genitourinary Genitourinary ED: Denies dysuria or hematuria Musculoskeletal Musculoskeletal: Reports back pain and neck pain Integumentary Denies abscess or rash Neurologic Neurologic: Reports headache(s); Denies weakness Allergic/Immunologic Allergic/Immunologic ED: Denies mouth swelling or urticaria EXAM Physical Exam Const Vital Signs: 02/11/24 00:22 02/11/24 00:27 02/11/24 01:49 Temperature 97.5 F L Temperature Source Temporal Pulse Rate 109 H Respiratory Rate 16 Respiratory Effort Normal Respiratory Pattern Normal Blood Pressure 143/91 H Blood Pressure Mean 108 Pulse Ox 99 Oxygen Delivery Method Room Air Room Air 02/11/24 01:50 02/11/24 02:22 Temperature Temperature Source Pulse Rate 70 Respiratory Rate 18 Respiratory Effort Normal Non-Labored Respiratory Pattern Normal Blood Pressure 120/76 Blood Pressure Mean 90 Pulse Ox 98 Oxygen Delivery Method Room Air Positive well nourished and well developed General Appearance ED: well developed and NAD HEENT Reports moist mucous membranes Neck supple and no JVD Resp normal respiratory effort and clear to auscultation bilaterally Cardio regular rate and regular rhythm GI non-tender and non-distended Palpation: soft Extremity normal to inspection General Extremety ED: Negative for edema or tenderness General Extremity: Negative for edema Neuro oriented x3, CN's II-XII intact bilaterally and no sensory deficits noted Sensorium / Orientation: alert Motor Exam: strength 5/5 throughout Psych mental status grossly normal MDM MDM MDM Narrative Medical decision making narrative: Differential diagnosis includes cardiac dysrhythmia, cardiac ischemia, pneumonia, pneumothorax, congestive heart failure, electrolyte abnormality, and anxiety. EKG will be obtained to assess for cardiac dysrhythmia and cardiac ischemia. Chest x-ray will be obtained to assess for pneumonia and pneumothorax and congestive heart failure. CBC will be obtained to assess for leukocytosis and anemia. Basic metabolic profile will be obtained to assess for electrolyte abnormality and renal function. High-sensitivity troponin will be obtained to assess for cardiac ischemia. Lab Data Attestation: I reviewed the patient's lab results. Lab results narrative: CBC was reviewed. Hemoglobin was slightly elevated at 15.5 and hematocrit was 48.5. The remainder is within normal limits. Basic metabolic profile was reviewed and was within normal limits. High-sensitivity troponin was reviewed and was normal at 4. Labs: Laboratory Results - last 24 hr 02/11/24 00:42 WBC 10.8 RBC 5.42 H Hgb 15.5 H Hct 48.5 H MCV 89.5 MCH 28.6 MCHC 32.0 RDW Std Deviation 50.4 H RDW Coeff of Blanka 15.5 H Plt Count 355 MPV 10.6 Immature Gran % (Auto) 0.300 Neut % (Auto) 58.6 Lymph % (Auto) 33.6 [place] % (Auto) 5.6 Eos % (Auto) 1.5 Baso % (Auto) 0.4 Absolute Neuts (auto) 6.3 Absolute Lymphs (auto) 3.63 Nucleated RBC % 0 Sodium 138 Potassium 3.6 Chloride 103 Carbon Dioxide 29.0 Anion Gap 6 BUN 17 Creatinine 0.93 Estim Creat Clear Calc 74.72 Est GFR (MDRD) Af Amer 81 Est GFR (MDRD) Non-Af 67 BUN/Creatinine Ratio 18.3 Glucose 135 H Calcium 9.3 Troponin I High Sens 4 Radiography Chest X-Ray - ED: 1 View, Read by ED Physician, Read by Radiologist and No Acute Disease Diagnostic Testing: Clinical Impression(s) from Imaging Studies Chest X-Ray 02/11/24 01:15 IMPRESSION: No radiographic evidence of acute cardiopulmonary disease. Electronically Signed: Cuca Sorto MD at 2:17 EDT Reading Location ID and State: [facility] / [place] , Service support , Portable 1 view chest x-ray was obtained. On my independent interpretation, lung arellano are clear. There is normal cardiac silhouette. Bony thorax is normal. There is no acute process noted. Radiologist also interpreted the x- ray and agrees. EKG Initial EKG: Attestation: I personally reviewed and interpreted this EKG as follows: Interpretation: Sinus Tachycardia (108) and Non-Specific ST Changes Comments: EKG was obtained. On my independent interpretation, it showed a sinus tachycardia with a rate of 108. MO interval, QRS interval, and QTc intervals were all normal. [place] was normal. There are no acute ST or T wave changes. Prior EKG tracings: available for review Prior: Unchanged (10/29/2023) Treatment and Re-Evaluation :: Patient was advised of her findings. Patient was advised that this could be mu sculoskeletal pain. Patient was instructed to follow-up with her primary care physician in 5 to 7 days. Patient was instructed to continue her medications as previously prescribed. Patient was given a prescription for a short course of [place]. Patient was instructed to return if worse in any way. Patient understood and was agreeable with the plan. All questions were answered. Discharge Plan Triage Chief Complaint: General Illness Other Complaint: Dizziness Headache ED Provider: Zenon Snow Dx/Rx/DC Orders Clinical Impression: Myalgia, Essential hypertension Instructions: ED Headache Unspecified, ED Myalgias Prescriptions: New hydrocodone-acetaminophen 5-325 mg tablet 1 tab PO Q6H PRN PRN (Reason: Pain) 3 Days Qty: 10 0RF No Action Saccharomyces boulardii [Daily Probiotic (S. boulardii)] 250 mg capsule 250 mg PO BID multivitamin Tablet 1 tab PO DAILY cholecalciferol (vitamin D3) 25 mcg (1,000 unit) capsule 25 mcg PO DAILY mecobalamin (vitamin B12) 1,000 mcg tablet,chewable 1,000 mcg PO DAILY Zyrtec 10 mg capsule 10 mg PO DAILY PRN albuterol sulfate 90 mcg/actuation HFA aerosol inhaler 2 puff inhalation Q4-6H PRN (Reason: shortness of breath or wheezing) Qty: 8.5 0RF budesonide-formoterol 80-4.5 mcg/actuation HFA aerosol inhaler 2 puff inhalation BID Qty: 10.2 0RF olmesartan-hydrochlorothiazide 40-25 mg tablet 1 tab PO DAILY Qty: 90 1RF (DME) BreatheRite MDI Spacer Spacer See Rx Instructions .Route Qty: 1 0RF Rx Instructions: As directed ALBUTEROL 2 inh inhalation 4X/DAY PRN meclizine [Antivert] 25 mg tablet,chewable 25 mg PO DAILY PRN (Reason: vertigo) Qty: 30 0RF Rx Instructions: No driving while having vertigo or after taking medication. sulfamethoxazole-trimethoprim [Bactrim DS] 800-160 mg tablet 1 tab PO BID 5 Days Qty: 10 0RF phenazopyridine [Pyridium] 200 mg tablet 200 mg PO TID PRN (Reason: pain) 2 Days Qty: 6 0RF duloxetine 60 mg capsule,delayed release(DR/EC) 60 mg PO DAILY Qty: 90 1RF Primary Care Provider: Amber Arevalo Referrals: Amber Arevalo MD [Primary Care Provider] - 3-5 Days Print Language: [place] African Disposition Disposition: Home, Self Care
[2024-02-11 01:47] LABS: Anion Gap 6 (5-15); BUN 17 mg/dL (7-18); BUN/Creat Ratio 18.3 RATIO (10-20); Calcium,Total 9.3 mg/dL (8.5-10.1); Chloride 103 mmol/L (98-107); Creatinine, Serum 0.93 mg/dL (0.55-1.02); EST Glomerular Filtration Rate 67 mL/min (>60); Est Glom Filt Rate - Afr Amer 81 mL/min (>60); Estimated Creatinine Clearance 74.72 ml/min; Glucose 135 mg/dL (74-106); Potassium 3.6 mmol/L (3.5-5.1); Sodium Level 138 mmol/L (136-145)
[2024-02-11 02:22] VITALS: BP 120/76; PULSE 70; RESP 18; O2SAT 98
[2024-02-11 02:27] LABS: Troponin-I HS 4 pg/mL (3.0-54.0)
[2024-02-11] MEDS: HYDROcodone Bitartrate/Apap 5/325 Tablet PO (03:40)
[2024-02-11 03:41] VITALS: BP 132/92; PULSE 100; RESP 15; TEMP 36.7; O2SAT 97
== END 2024-02-11 03:43 | disposition home or self-care (01) ==
PROVIDERS: Emergency Provider Emergency Medicine; PCP Internal Medicine; Visit Provider Emergency Medicine
DX: M79.18 Myalgia, other site (principal); I10 Essential (primary) hypertension; Z79.899 Other long term (current) drug therapy; Z87.891 Personal history of nicotine dependence
CPT/HCPCS: 71045; 80048; 84484; 85025; 93005; 99285; A4216

== ENCOUNTER → 2024-03-07 | Outpatient (CLI) | payer OTHER, SELFPAY ==
--- NOTE | 2024-03-07 10:53 | VDUE_ITS ---
Reason For Study: LUE Swelling Left Proximal Left jugular vein is spontaneous, widely patent, phasic, with no intraluminal echogenicity noted. Left subclavian vein is spontaneous, widely patent, phasic, with no intraluminal echogenicity noted. Left Arm Left axillary vein is spontaneous, patent, phasic, competent, compressible and demonstrates augmentation. Left brachial vein is compressible. Left cephalic vein is compressible. Left basilic vein is compressible. Left Lower Arm Left radial vein is compressible. Left ulnar vein is compressible. Patient Safety Venous Duplex with B-Mode, Color and Pulsed Wave Doppler. Preliminary Results faxed to Tesfaye MATTHEWS. VL/Venous Duplex US, Unilateral Interpretation Summary Deep veins of the left upper extremity are patent and compressible segmentally. There is no evidence of deep vein thrombosis. The superficial veins of the left upper extremity, the basilic and cephalic vein, are patent and compressible. There is no evidence of left upper extremity superficial thrombophlebitis involving the veins imaged. Ordering Physician: Tesfaye Soriano Referring Physician: Amber Arevalo Performed By: Saulo Lizama RVT ???
== END | disposition home or self-care (01) ==
LOC: CVS 10:50
PROVIDERS: PCP Internal Medicine; Referring Provider Physician Assistant; Visit Provider Physician Assistant
DX: M79.89 Other specified soft tissue disorders (principal)
CPT/HCPCS: 93971

== ENCOUNTER 2024-04-02 19:20 | Emergency (ER) | payer OTHER, SELFPAY ==
[2024-04-02 19:21] VITALS: BP 147/82; PULSE 120; RESP 20; TEMP 36.7; O2SAT 98; BMI 38.7
--- NOTE | 2024-04-02 19:54 | ED.VIS.FEGU ---
HPI HPI - Female History of Present Illness Chief Complaint: Flank Pain Detail of Chief Complaint: Left flank pain Informant: patient Pain Current Severity: 04/01 Narrative Narrative: Patient presents to the emergency department complaint of left-sided flank pain. Patient has had the pain for 5 days off-and-on. More severe today. Denies urinary symptoms. She has had some nausea. She has never had pain like this before. No history of kidney stones. No history of diverticulitis. Currently rates her pain a 9 out of 10. [facility] Medical History (Updated 04/02/24 @ 21:[address] Janet Andersen, DO) HIV exposure Vitamin deficiency Hives Hearing problem Head ache Carpal tunnel syndrome Breast cancer UTI (urinary tract infection) Back problem Arthritis Allergies Morbid obesity Anxiety and depression Former tobacco use HTN (hypertension) Neuropathy Asthma Home Medications ?Medication ?Instructions ?Recorded ?Last Taken ?Type meclizine 25 mg chewable tablet 25 mg PO DAILY PRN vertigo #30 tabs 10/31/23 Unknown Rx (Antivert) Saccharomyces boulardii 250 mg 250 mg PO BID 11/02/23 Unknown History capsule (Daily Probiotic (S. boulardii)) albuterol sulfate 90 mcg/actuation 2 puff inhalation Q4-6H PRN 11/02/23 Unknown Rx aerosol inhaler shortness of breath or wheezing #8.5 grams budesonide-formoterol HFA 80 2 puff inhalation BID #10.2 grams 11/02/23 Unknown Rx mcg-4.5 mcg/actuation aerosol inhaler cetirizine 10 mg capsule (Zyrtec) 10 mg PO DAILY PRN 11/02/23 Unknown History cholecalciferol (vitamin D3) 25 25 mcg PO DAILY 11/02/23 Unknown History mcg (1,000 unit) capsule inhalational spacing device #1 ea 11/02/23 Unknown Rx (BreatheRite MDI Spacer) multivitamin 1 tab PO DAILY 11/02/23 Unknown History olmesartan 40 1 tab PO DAILY BLOOD PRESSURE #90 11/02/23 Unknown Rx mg-hydrochlorothiazide 25 mg tablet tabs duloxetine 60 mg capsule,delayed 60 mg PO DAILY #90 caps 12/10/23 Unknown Rx release phenazopyridine 200 mg tablet 200 mg PO TID PRN pain 2 days #6 12/21/23 Unknown Rx (Pyridium) tabs olmesartan 40 mg tablet 40 mg PO DAILY #30 tabs 03/07/24 Unknown Rx cyclobenzaprine 10 mg tablet 10 mg PO TID PRN Muscle Spasm #20 04/02/24 Unknown Rx TABLETS hydrocodone-acetaminophen 5-325mg 1 tab PO Q4H PRN PRN Pain 2 days 04/02/24 Unknown Rx 5mg-325mg #10 TABLETS Allergy/AdvReac Type Severity Reaction Status Date / Time No Known Allergies Allergy Verified 04/02/24 19:35 Family History Mother CAD (coronary artery disease) Heart disease Hypertension Diabetes CVA (cerebral vascular accident) Myocardial infarction Kidney disease Grandmother Heart disease CABG Diabetes Hypertension CVA (cerebral vascular accident) Myocardial infarction COPD (chronic obstructive pulmonary disease) Surgical History Status post breast reduction H/O wrist surgery History of hysterectomy Previous section History of lumpectomy of left breast Social History household members: spouse housing: house current occupational status: employed 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 alcohol intake: never substance use type: does not use do you feel safe at home: Yes ROS ROS ED Review of Systems ROS Unobtainable: other Constitutional Constitutional ED: Reports lethargy; Denies chills, fever(s), sweats or weight loss Eyes Eyes: Denies blurry vision, change in vision or diplopia ENT ENT ED: Denies rhinorrhea or sore throat Cardiovascular Cardiovascular: Denies chest pain, orthopnea or racing heartbeat Respiratory/Chest Respiratory/Chest: Denies cough, dyspnea, dyspnea on exertion, orthopnea or sputum Gastrointestinal Gastrointestinal: Reports abdominal pain; Denies diarrhea, nausea or vomiting Genitourinary Genitourinary ED: Denies dysuria, hematuria or urinary frequency Musculoskeletal Musculoskeletal: Reports back pain; Denies arthralgias, myalgias or neck pain Integumentary Denies abscess, Abrasions or rash Neurologic Neurologic: Denies headache(s) or weakness Psychiatric Psychiatric: Denies anxiety, depression or suicidal thoughts Endocrine Endocrinology: Denies polydipsia, polyphagia or polyuria Hematologic/Lymphatic Hematologic/Lymphatic: Denies easy bleeding, easy bruising or lymphadenopathy Allergic/Immunologic Allergic/Immunologic ED: Denies mouth swelling, tongue swelling or urticaria EXAM Physical Exam Const Vital Signs: 04/02/24 19:21 04/02/24 21:20 Temperature 98.0 F Temperature Source Temporal Pulse Rate 120 H 72 Respiratory Rate 20 H 16 Blood Pressure 147/82 H 143/87 H Blood Pressure Mean 103 105 Pulse Ox 98 94 Oxygen Delivery Method Room Air Room Air Positive well nourished and well developed General Appearance ED: well developed and NAD HEENT Reports TM's clear and moist mucous membranes normocephalic and atraumatic; Negative for trauma or tenderness Tympanic Membrane ED: Yes TM's clear Eyes PERRL and EOMs intact bilaterally General Eye ED: Negative for pale conjunctiva or scleral icterus Neck no lymphadenopathy, supple and no JVD General: Negative for tenderness Chest Wall inspection of chest normal and palpation of chest normal Chest: Negative for tenderness Resp normal respiratory effort and clear to auscultation bilaterally Effort and Inspection: Negative for respiratory distress or pain with movement Auscultation: Negative for rhonchi, wheezes or diminished lung sounds Cardio regular rate, regular rhythm, S1 normal heart sound, S2 normal heart sound and no murmurs Peripheral Pulses: pulses 2+ throughout GI normal to inspection, nondistended, normoactive bowel sounds, soft to palpation, non-tender, non-distended and no masses Back/Spine no thoracic nor lumbar tenderness Back/Spine Narrative: Left CVA tenderness on exam Extremity normal to inspection General Extremety ED: Negative for edema General Extremity: Negative for edema Neuro oriented x3, CN's II-XII intact bilaterally, no sensory deficits noted and gait normal Sensorium / Orientation: awake, alert, oriented to person, oriented to place and oriented to time Motor Exam: strength 5/5 throughout and strength abnormal Psych mental status grossly normal Skin no rashes or lesions noted and no wounds MDM MDM MDM Narrative Medical decision making narrative: Patient with left back and flank pain that she has had for about 5 days. Pains been intermittent. At times positional. No history of kidney stones. IV line established. In the differential would be kidney stone or UTI versus diverticulitis or other acute intra-abdominal process. Also in the differential would be musculoskeletal back pain. She has no red flag symptoms of cauda equina or radiculopathy. CBC with differential white count 11.6 with hemoglobin 13.9 and platelet count of 318. Chemistries unremarkable. Urinalysis was normal. CT flank obtained showed no evidence of kidney stone. She had diverticulosis but no diverticulitis. She had a fluid collection abutting the right upper quadrant peritoneum that may be an inclusion cyst. Patient has no pain over the right upper quadrant. This point etiology of her pain unclear. I did medicate her with Toradol as well as morphine and Zofran and she had good pain relief with that. This point she will be sent home with a prescription for Flexeril and a few [place] for pain. Advised to follow-up with her primary care physician within next 3 to 5 days Lab Data Attestation: I reviewed the patient's lab results. Labs: Laboratory Results - last 24 hr 04/02/24 04/02/24 19:26 20:26 WBC 11.6 H RBC 5.00 Hgb 13.9 Hct 43.3 MCV 86.6 MCH 27.8 MCHC 32.1 RDW Std Deviation 45.7 H RDW Coeff of Blanka 14.4 Plt Count 318 MPV 10.5 Immature Gran % (Auto) 0.300 Neut % (Auto) 63.1 Lymph % (Auto) 29.9 [place] % (Auto) 5.3 Eos % (Auto) 1.1 Baso % (Auto) 0.3 Absolute Neuts (auto) 7.3 Absolute Lymphs (auto) 3.47 Nucleated RBC % 0 Sodium 141 Potassium 4.2 Chloride 107 Carbon Dioxide 27.0 Anion Gap 7 BUN 15 Creatinine 0.98 Estim Creat Clear Calc 71.72 Est GFR (MDRD) Af Amer 76 Est GFR (MDRD) Non-Af 63 BUN/Creatinine Ratio 15.3 Glucose 120 H Calcium 9.5 Urine Color Yellow Urine Clarity Clear Urine pH 8.0 Ur Specific [place] 1.010 Urine Protein Negative Urine Glucose (UA) Normal Urine Ketones Negative Urine Occult Blood Negative Urine Nitrite Negative Urine Bilirubin Negative Urine Urobilinogen Normal Ur Leukocyte Esterase Negative Urine RBC 0 SEEN Urine WBC 0 SEEN Ur Squamous Epith Cells 0 SEEN Urine Bacteria 0 SEEN Urine Mucus 0 SEEN Discharge Plan Triage Chief Complaint: Flank Pain ED Provider: Janet Andersen Dx/Rx/DC Orders Clinical Impression: Back pain, Abdominal pain Instructions: ED Abdominal Pain Unkn Cause Fem, ED Back and Neck Pain, General Prescriptions: New cyclobenzaprine 10 mg tablet 10 mg PO TID PRN (Reason: Muscle Spasm) Qty: 20 0RF hydrocodone-acetaminophen 5-325 mg tablet 1 tab PO Q4H PRN PRN (Reason: Pain) 2 Days Qty: 10 0RF No Action Saccharomyces boulardii [Daily Probiotic (S. boulardii)] 250 mg capsule 250 mg PO BID multivitamin Tablet 1 tab PO DAILY cholecalciferol (vitamin D3) 25 mcg (1,000 unit) capsule 25 mcg PO DAILY Zyrtec 10 mg capsule 10 mg PO DAILY PRN albuterol sulfate 90 mcg/actuation HFA aerosol inhaler 2 puff inhalation Q4-6H PRN (Reason: shortness of breath or wheezing) Qty: 8.5 0RF budesonide-formoterol 80-4.5 mcg/actuation HFA aerosol inhaler 2 puff inhalation BID Qty: 10.2 0RF olmesartan-hydrochlorothiazide 40-25 mg tablet 1 tab PO DAILY Qty: 90 1RF (DME) BreatheRite MDI Spacer Spacer See Rx Instructions .Route Qty: 1 0RF Rx Instructions: As directed olmesartan 40 mg tablet 40 mg PO DAILY Qty: 30 0RF meclizine [Antivert] 25 mg tablet,chewable 25 mg PO DAILY PRN (Reason: vertigo) Qty: 30 0RF Rx Instructions: No driving while having vertigo or after taking medication. phenazopyridine [Pyridium] 200 mg tablet 200 mg PO TID PRN (Reason: pain) 2 Days Qty: 6 0RF duloxetine 60 mg capsule,delayed release(DR/EC) 60 mg PO DAILY Qty: 90 1RF Primary Care Provider: Amber Arevalo Referrals: Amber Arevalo MD [Primary Care Provider] - 3-5 Days Print Language: [place] Disposition Disposition: Home, Self Care
[2024-04-02] MEDS: Morphine 4 MG/ML Syringe IV (20:02)
[2024-04-02] MEDS: 0.9% Normal Saline (1000mL) 1,000 ML 150 ML IV (20:02)
[2024-04-02] MEDS: Ondansetron 4 MG/2 ML Vial IV (20:03)
[2024-04-02] MEDS: Ketorolac 15 MG/ML Vial IV (20:03)
[2024-04-02 20:04] LABS: Absolute Lymphocyte Count 3.47 X10^3/uL (0.83-4.51); Absolute Neutrophil Count 7.3 X10^3/uL (2.0-7.7); Basophil# 0.03 X10^3/uL; Basophil% 0.3 % (0-1); Eosinophil# 0.13 X10^3/uL; Eosinophils% 1.1 % (0-5); Hematocrit 43.3 % (37-47); Hemoglobin 13.9 g/dL (12.0-15.0); Lymphocyte # 3.47 X10^3/ul (0.83-4.51); Lymphocyte % 29.9 % (19-41); Mean Corp Hgb Conc 32.1 g/dL (32-36); Mean Corpuscular Hgb 27.8 pg (27.0-32.0); Mean Corpuscular Volume 86.6 fL (81-99); Mean Platelet Vol. 10.5 fl (6.2-12.0); Monocyte# 0.61 X10^3/uL; Monocyte% 5.3 % (0-10); NRBC Flagged by Analyzer 0 % (0-5); Neutrophil # 7.32 X10^3/uL (2.7-7.7); Neutrophil % 63.1 % (47-70); Platelet Count 318 K/mm3 (150-450); RBC Distribution Width CV 14.4 % (11.6-14.6); RBC Distribution Width SD 45.7 fl (35.1-43.9); White Blood Count 11.6 K/mm3 (4.4-11.0)
[2024-04-02 20:16] LABS: Anion Gap 7 (5-15); BUN 15 mg/dL (7-18); BUN/Creat Ratio 15.3 RATIO (10-20); Calcium,Total 9.5 mg/dL (8.5-10.1); Chloride 107 mmol/L (98-107); Creatinine, Serum 0.98 mg/dL (0.55-1.02); EST Glomerular Filtration Rate 63 mL/min (>60); Est Glom Filt Rate - Afr Amer 76 mL/min (>60); Estimated Creatinine Clearance 71.72 ml/min; Glucose 120 mg/dL (74-106); Potassium 4.2 mmol/L (3.5-5.1); Sodium Level 141 mmol/L (136-145)
[2024-04-02 20:31] LABS: Bacteria 0 SEEN /hpf (None Seen); Mucous, Urine 0 SEEN /hpf (<or=2+); Red Blood Cells-Urine 0 SEEN /hpf (0-5); Squamous Epithelial Cells - UA 0 SEEN /hpf (5-10); White Blood Cells 0 SEEN /hpf (0-5)
--- NOTE | 2024-04-02 20:31 | CT_ITS ---
EXAM: CT ABDOMEN AND PELVIS WITHOUT INTRAVENOUS CONTRAST CLINICAL INDICATION: LEFT FLANK PAIN TECHNIQUE: Helically acquired images were obtained of the abdomen and pelvis without intravenous contrast. This CT exam was performed using one or more of the following dose reduction techniques: automated exposure control, adjustment of the mA and/or kV according to patient size, and/or use of iterative reconstruction technique. COMPARISON: No relevant prior studies available. FINDINGS: LOWER THORAX: No significant abnormality. Lung bases are clear. No cardiomegaly. No significant pericardial effusion. ABDOMEN: LIVER: No significant abnormality. Homogeneous. GALLBLADDER AND BILE DUCTS: No significant abnormality. No calcified gallstones. No gallbladder distention or wall edema. No intra- or extrahepatic biliary ductal dilation. PANCREAS: No significant abnormality. No focal cystic mass. SPLEEN: No significant abnormality. Normal size without focal cystic or solid mass. ADRENALS: No significant abnormality. No nodules. KIDNEYS AND URETERS: No significant abnormality. Normal renal size and position. No hydronephrosis. STOMACH AND BOWEL: Colonic diverticulosis without discrete evidence of acute diverticulitis. No stomach or bowel distention. PELVIS: APPENDIX: Normal appendix identified in the right lower quadrant. BLADDER: No significant abnormality. REPRODUCTIVE: Status post hysterectomy. ABDOMEN and PELVIS: INTRAPERITONEAL SPACE: Abutting the parietal peritoneum in the right upper quadrant, there is a homogeneous low-attenuation collection measuring up to 3.5 cm which may be an inclusion cyst. No ascites or other fluid collection. No free air. BONES/JOINTS: No significant abnormality. No suspicious lytic or blastic abnormality. SOFT TISSUES: No significant abnormality. No discrete abdominal or pelvic wall hernia. VASCULATURE: No significant abnormality. Abdominal aorta is non-dilated. LYMPH NODES: No significant abnormality. No enlarged lymph nodes. CT/Abdomen/Pelvis without Cont IMPRESSION: 1. Abutting the parietal peritoneum in the right upper quadrant, there is a homogeneous low-attenuation collection measuring up to 3.5 cm which may be an inclusion cyst. 2. No urolithiasis or hydronephrosis. 3. Colonic diverticulosis without discrete evidence of acute diverticulitis. Electronically Signed: Rich Escoto DO at 20:58 EDT ,
[2024-04-02 20:45] LABS: Color, Urine Yellow (Yellow); Glucose, Dipstick Normal (Normal); Ketone-Dipstick Negative (Negative); Leukocyte Esterase-Dipstick Negative /ul (Negative); Nitrite-Dipstick Negative (Negative); Occult Blood-Urine Negative /ul (Negative); Protein-Dipstick Negative (Negative); Urine Bilirubin Dipstick Negative (Negative); Urine Clarity Clear (Clear); Urine Urobilinogen Normal (Normal)
[2024-04-02 21:20] VITALS: BP 143/87; PULSE 72; RESP 16; O2SAT 94
[2024-04-02 21:36] VITALS: BP 143/87; PULSE 73; RESP 17; TEMP 36.5; O2SAT 95
== END 2024-04-02 22:05 | disposition home or self-care (01) ==
PROVIDERS: Emergency Provider Emergency Medicine; PCP Internal Medicine; Visit Provider Emergency Medicine
DX: M54.9 Dorsalgia, unspecified (principal); K57.30 Diverticulosis of large intestine without perforation or abscess without bleeding; R11.0 Nausea; Z87.891 Personal history of nicotine dependence; R10.9 Unspecified abdominal pain; Z90.710 Acquired absence of both cervix and uterus; I10 Essential (primary) hypertension; F41.9 Anxiety disorder, unspecified; F32.A Depression, unspecified; Z85.3 Personal history of malignant neoplasm of breast; Z87.440 Personal history of urinary (tract) infections
CPT/HCPCS: 74176; 80048; 81001; 85025; 96361; 96374; 96375; 99283; A4216; J2405

== ENCOUNTER → 2024-04-11 | Outpatient (CLI) | payer OTHER, SELFPAY ==
[2024-04-11 17:06] LABS: Phosphorus 4.1 mg/dL (2.5-4.9); Rheumatoid Factor < 10.0 IU/mL (<15)
[2024-04-11 17:12] LABS: Erythrocyte Sedimentation Rate 14 mm/hr (0-30)
[2024-04-15 08:15] LABS: CCP IgG Antibodies 4 units (0-19); Cytoplasmic Ab (C-ANCA) <1:20 titer (Neg:<1:20); Endomysial Antibody IgA Negative (Negative); Immunoglobulin A 279 mg/dL (87-352); Perinuclear Ab (P-ANCA) <1:20 titer (Neg:<1:20); t-Transglutaminase IgA <2 U/mL (0-3)
== END | disposition home or self-care (01) ==
LOC: BIMLAB 14:55
PROVIDERS: PCP Internal Medicine; Referring Provider Physician Assistant; Visit Provider Physician Assistant
DX: M79.10 Myalgia, unspecified site (principal)
CPT/HCPCS: 36415; 82784; 83516; 84100; 85652; 86140; 86200; 86255; 86256; 86431

== ENCOUNTER → 2024-04-22 | Outpatient (CLI) | payer OTHER, MEDICAID, SELFPAY ==
[2024-04-22 14:23] LABS: Red Blood Cells-Urine 0 SEEN /hpf (0-5)
[2024-04-22 15:21] LABS: Color, Urine Yellow (Yellow); Glucose, Dipstick Normal (Normal); Ketone-Dipstick Negative (Negative); Leukocyte Esterase-Dipstick 25 /ul (Negative); Nitrite-Dipstick Negative (Negative); Occult Blood-Urine Negative /ul (Negative); Protein-Dipstick Negative (Negative); Specific Gravity, Urine 1.025 (1.002-1.030); Urine Bilirubin Dipstick Negative (Negative); Urine Clarity Clear (Clear); Urine Urobilinogen Normal (Normal)
[2024-04-22 15:49] LABS: Bacteria 1+ /hpf (None Seen); Squamous Epithelial Cells - UA 5-10 SEEN /hpf (5-10)
[2024-04-22 15:50] LABS: Transitional Epithelial - Ur 0-5 SEEN /hpf (0-5)
[2024-04-22 15:51] LABS: White Blood Cells 0-5 SEEN /hpf (0-5)
[2024-04-22 15:53] LABS: Hyaline Cast 0-5 SEEN /lpf (0-5); Mucous, Urine 1+ /hpf (<or=2+)
== END | disposition home or self-care (01) ==
LOC: LABSPEC 14:22
PROVIDERS: PCP Internal Medicine; Referring Provider Nurse Practitioner; Visit Provider Nurse Practitioner
DX: N89.8 Other specified noninflammatory disorders of vagina (principal); R30.0 Dysuria
CPT/HCPCS: 81001; 87086; 87088

== ENCOUNTER 2024-07-07 16:30 | Outpatient (RCR) | payer OTHER, MEDICAID, SELFPAY ==
--- NOTE | 2024-05-27 18:32 | HP.PTEVAL_ITS ---
Patient's Visit Information Visit Information Visit Information: ABHILASH TENORIO is a 53 year old F referred to Physical Therapy by Dr. Juanjose Flores MD with a diagnosis of Fibromyakgia. Date of Evaluation: 05/27/24 Physical Therapist: Zenon Geren, DPT, OCS, CSCS Visit Plan Frequency: 2-3x /Week Duration: 4-6 Weeks Plan: 2-3x/week for 4-6 weeks for pool based UE adn LE ROM, back ROM, streng thening to entire body and teach to I pool or HEP as tolerated. Include stretching of quads/psoas and HS adn gastroc. Subjective Subjective: Pain all over body. Diagnosed as fibromyalgia. Wants her to start with aquatherapy. He has given Lyrica which has not started yet due to approval. Has been painful all over since [place] in 2009, had breast with chemo and radiation which burnt lungs givng her asthma. Chemo maybe caused FM. Worsening as she gets older. Body is full body ache. Wrost in LB and larger leg muscles and into posterior shoulders and neck and scap. Achy gently is her painfree. Working not employed due to pain. Sleep is not great: since pain started has been getting worse.3 am bedtime 7 am and naps 1-2 or 3. Basic ALDS all I, taking care grandkids, 2 and 3 yo. Cleans and make meals but days she cannot and goes out to eat. Hobbies: not at this moment Regular ex. Pain full body: Pain Intensity (Out of 10): 1 Pain Intensity Range: 0 and 7 Objective Objective: Walks slowly but I back to PT with short steps and just slightly hunched over. Steps reciprocally with one rail but c/o pain in quads ascending and HS/gastroc descending. Transfer chair and bed is I albeit lots of moaning and co pain. cervical aROM is WFL but painfu contralaterally. Lumbar AROM is painful ext and mod llimited, painful flexion mod limited, painful SB contralaterally. UE AROM is slow and hurt shoulders to elevate and er and IR to wincing. Can get full PROM. LE AROM WFL bu tmax tight HS -35 90/90 test and pain in HS, quads, and gaastoc to 0 DF and painful to stretch, soft tissue is where all pain is with full rOM movements and with strength testing in appropriate muscle. reflexes 1/3 patella and achilles and bi and tri sensation UE and LE WNL to gross light touch. strength is 3 in arm elevation and 3+ er and IR with pain. bi and tri 3+ with pain in shoulders, wrist WFL but c/o shoulder pain. hip abd and ext 3- and painful LB, flexion 3+ with back pain. knee flexion painful HS 3+ and knee ext painful quads 3+. ankles 4- and pain to stretch gastroc with AROM DF. Able to toe and heekl walk and march but painful and labored in legs. After simple UE and LE AROM tests and walking 100 feet, pt needs to rest and stop due to pain complaints. Balance/Special Test Scores Lower Extremity Functional Score: 18 Goals Goal 1:: I appropriate poolk ex or HEP for ROM of UE /LE and back and strengthening, Goal Time Frame: 4-6 Weeks Goal 2:: poatient able to tolerate strength test and steps and walking without wincing in pain Goal Time Frame: 4-6 Weeks Goal 3:: pain 50% better overall and 3/10 at worst Goal Time Frame: 4-6 Weeks Goal 4:: LEFS 38 Goal Time Frame: 4-6 Weeks Rehabilitation Potential Physical Therapy Diagnosis: widespread soft tissue pain limtiing funciton Rehabilitation Potential: Fair Anticipated Interventions Patient/Client Instruction: Educate patient on: Condition and Plan of Care For the Purpose of:: To decrease pain, To increase ROM, To improve nutrient delivery to tissue, To improve muscle performance and motor function, To increase tolerance to activity/condition/position and To improve gait and locomotor functions Therapeutic Exercise to Include: Strength training, Flexibilty training, In an aquatic setting, Passive ROM and Active ROM For the Purpose of:: To decrease pain, To increase ROM, To improve nutrient delivery to tissue, To improve muscle performance and motor function, To increase tolerance to activity/condition/position and To improve gait and locomotor functions Text: Thank you for the opportunity to evaluate your patient. For Medicare and Medicare HMO plans, please review the plan of care and approve it. It will need to be FAXED BACK to us at [phone] for Medicare purposes. For Medicare only, by signing this I certify the plan of care. Please let me know if there are questions or concerns regarding this plan of care. Physician Signature: Date:
--- NOTE | 2024-09-08 13:48 | HP.PT.NRP ---
Patient Information Patient Information: ABHILASH TENORIO was seen in my office for initial evaluation on 05/27/24. The following Plan of Care was established for this patient: POC Established Initial Frequency: 2-3x /Week Initial Duration: 4-6 Weeks Anticipated Interventions Patient/Client Instruction: Educate patient on: Condition and Plan of Care For the Purpose of:: To decrease pain, To increase ROM, To improve nutrient delivery to tissue, To improve muscle performance and motor function, To increase tolerance to activity/condition/position and To improve gait and locomotor functions Therapeutic Exercise to Include: Strength training, Flexibilty training, In an aquatic setting, Passive ROM and Active ROM For the Purpose of:: To decrease pain, To increase ROM, To improve nutrient delivery to tissue, To improve muscle performance and motor function, To increase tolerance to activity/condition/position and To improve gait and locomotor functions Last Seen Last Seen: This patient was last seen in our office 07/07/24. Pertinent comments regarding their Physical therapy will appear below: Pt seen 5 visits of POC and no showed for the rest of them. At this point, it has been over 2 months and I will discontinue from my care. At this point I will be discontinuing this patient from physical therapy. I would be happy to see this patient again in the future if found appropriate by the physician. Thank you! Zenon Green, DPT, OCS, CSCS Balance/Gait/Functional tests Balance/Special Test Scores Lower Extremity Functional Score: 18
== END 2024-07-07 19:00 | disposition home or self-care (01) ==
LOC: PT 16:30
PROVIDERS: PCP Internal Medicine; Referring Provider Anesthesiology; Visit Provider Anesthesiology
DX: M79.7 Fibromyalgia (principal)
CPT/HCPCS: 97113; 97161

== ENCOUNTER → 2024-08-06 | Outpatient (CLI) | payer OTHER, SELFPAY | END | disposition home or self-care (01) | LOC: LABSPEC 12:06 | PROVIDERS: PCP Internal Medicine; Referring Provider Internal Medicine; Visit Provider Internal Medicine | DX: J06.9 Acute upper respiratory infection, unspecified (principal) | CPT/HCPCS: 87631 ==

== ENCOUNTER 2024-09-23 08:18 | Emergency (ER) | payer OTHER, MEDICAID, SELFPAY ==
[2024-09-23 08:19] VITALS: BP 162/108; PULSE 89; RESP 16; TEMP 36.7; O2SAT 99; BMI 41.4
--- NOTE | 2024-09-23 08:59 | EDS_ITS ---
HPI History of Present Illness Chief Complaint: Dental Informant: patient Narrative Narrative: Right maxillary molar dental pain that started gradually last night worse this morning. No fevers, chills, swelling, purulent discharge although she did have a little bit of bleeding when she brushed her teeth yesterday that was minor. Has a dentist but has not called for an appointment yet. 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 boulardii)) albuterol sulfate 90 mcg/actuation 2 puff inhalation Q 4-6H PRN 11/02/23 Unknown Rx aerosol inhaler shortness of breath or wheez ing #8.5 grams cetirizine 10 mg capsule (Zyrtec) 10 mg PO DAILY PRN 0 11/02/23 Unknown History cholecalciferol (vitamin D3) 25 25 mcg PO DAILY Unknown History mcg (1,000 unit) capsule inhalational spacing device #1 ea 11/02/23 Unknown Rx (BreatheRite MDI Spacer) multivitamin 1 tab PO DAILY 11/02/23 Unkn own History miscellaneous medical supply 1 packet miscellaneous DA RAH #1 ea 05/01/24 Unknown Rx budesonide-formoterol HFA 80 2 puff inhalation BID #10 .2 grams 05/27/24 Unknown Rx mcg-4.5 mcg/actuation aerosol inhaler duloxetine 30 mg capsule,delayed 30 mg PO DAILY #90 ca ps 06/25/24 Unknown Rx release olmesartan 40 mg tablet 40 mg PO DAILY #90 tabs 02/13 Unknown Rx doxycycline hyclate 100 mg tablet 100 mg PO BID #10 ta bs 08/06/24 Unknown Rx pregabalin 100 mg capsule (Lyrica) 100 mg PO QDAY 07/23 12/14 Unknown History tizanidine 4 mg tablet 4 mg PO QHS PRN 08/06/24 Unk nown History amoxicillin 500 mg tablet 500 mg PO TID #30 tabs 09/23 Unknown Rx hydrocodone-acetaminophen 5-325mg 1 tab PO Q6H PRN PRN Pain 3 days 09/23/24 Unknown Rx 5mg-325mg #10 TABLETS Allergy/AdvReac Type Severity Reaction Status Date / Time No Known Allergies Allergy Verified 09/23/24 08:20 Family History Mother CAD (coronary artery disease) Heart disease Hypertension Diabetes CVA (cerebral vascular accident) Myocardial infarction Kidney disease Grandmother Heart disease CABG Diabetes Hypertension CVA (cerebral vascular accident) Myocardial infarction COPD (chronic obstructive pulmonary disease) Surgical History Status post breast reduction H/O wrist surgery History of hysterectomy Previous section History of lumpectomy of left breast Social History household members: spouse housing: house current occupational status: employed current occupation: [employer] Smoking Status: Former smoker quit date: 07/23/16 pack-years: 30 Electronic Cigarette Use: not used how long ago did patient quit smoking: Quit most recently 7 yrs prior, smoked prior intermittent 3 cig/day. alcohol intake: never substance use type: does not use do you feel safe at home: Yes ROS ROS ED Constitutional Constitutional ED: Denies chills or fever(s) Eyes Eyes: Denies change in vision or double vision ENT ENT ED: Reports dental pain; Denies sinus pain or throat swelling Cardiovascular Cardiovascular: Denies chest pain or palpitations Respiratory/Chest Respiratory/Chest: Denies cough or dyspnea Integumentary Denies abscess or rash Neurologic Neurologic: Denies headache(s), paresthesias or weakness EXAM Physical Exam Const Vital Signs: 09/23/24 08:19 Temperature 98.1 F Temperature Source Oral Pulse Rate 89 Respiratory Rate 16 Blood Pressure 162/108 H Blood Pressure Mean 126 Pulse Ox 99 Oxygen Delivery Method Room Air Positive well nourished and well developed General Appearance ED: well developed and NAD HEENT HEENT Narrative: Tooth #1 is significantly decayed down to the gumline and tender, the tooth next to it #2 which looks unremarkable is tender as well. There is no gingival or buccal mucosal abnormality, Stensen's duct is benign nontender without purulent discharge, and she has no trismus. No evidence of any gingival swelling or necrosis or bleeding present. No sublingual edema. No cervical lymphadenopathy. No dysphonia. Face and Sinus: sinuses nontender Throat: posterior oropharynx normal Eyes PERRL and EOMs intact bilaterally Neck no lymphadenopathy and supple Resp normal respiratory effort Neuro oriented x3 and CN's II-XII intact bilaterally Sensorium / Orientation: alert Gait (Neuro): normal gait Psych mental status grossly normal and thought process normal Skin no rashes or lesions noted and no wounds MDM MDM MDM Narrative Medical decision making narrative: Patient appears to have a significantly decayed wisdom tooth. She did not even know she had a wisdom tooth there. This may need to be extracted. Advised to start by following up with her dentist. She is given a prescription for something for pain, a dose of naproxen and amoxicillin here and a prescription for amoxicillin Discharge Plan Triage Chief Complaint: Dental ED Provider: Ismael Moran Dx/Rx/DC Orders Clinical Impression: Infected dental caries Instructions: Understanding Tooth Decay Prescriptions: New hydrocodone-acetaminophen 5-325 mg tablet 1 tab PO Q6H PRN PRN (Reason: Pain) 3 Days Qty: 10 0RF amoxicillin 500 mg tablet 500 mg PO TID Qty: 30 0RF No Action Saccharomyces boulardii [Daily Probiotic (S. boulardii)] 250 mg capsule 250 mg PO BID multivitamin Tablet 1 tab PO DAILY cholecalciferol (vitamin D3) 25 mcg (1,000 unit) capsule 25 mcg PO DAILY Zyrtec 10 mg capsule 10 mg PO DAILY PRN albuterol sulfate 90 mcg/actuation HFA aerosol inhaler 2 puff inhalation Q4-6H PRN (Reason: shortness of breath or wheezing) Qty: 8.5 0RF (DME) BreatheRite MDI Spacer Spacer See Rx Instructions .Route Qty: 1 0RF Rx Instructions: As directed tizanidine 4 mg tablet 4 mg PO QHS PRN pregabalin [Lyrica] 100 mg capsule 100 mg PO QDAY Patient Comments: reports she was told to take 150mg in am, 50mg at noon, and 50 mg at bedtime however she is choosing to only take 100mg in the am meclizine [Antivert] 25 mg tablet,chewable 25 mg PO DAILY PRN (Reason: vertigo) Qty: 30 0RF Rx Instructions: No driving while having vertigo or after taking medication. miscellaneous medical supply Packet 1 packet miscellaneous DAILY Qty: 1 0RF Rx Instructions: Compression sleeve budesonide-formoterol 80-4.5 mcg/actuation HFA aerosol inhaler 2 puff inhalation BID Qty: 10.2 1RF duloxetine 30 mg capsule,delayed release(DR/EC) 30 mg PO DAILY Qty: 90 1RF olmesartan 40 mg tablet 40 mg PO DAILY Qty: 90 0RF doxycycline hyclate 100 mg tablet 100 mg PO BID Qty: 10 0RF Primary Care Provider: Amber Arevalo Referrals: Dentist,Your [STAFF PHYSICIAN] - As soon as possible Activity Restrictions/Additional Instructions: Your wisdom tooth is present in the area of pain and appears significantly decayed, see your dentist and have an evaluation for possible extraction. Print Language: Korean Disposition Disposition: Home, Self Care
[2024-09-23] MEDS: AMOXICILLIN 500 MG CAPSULE PO (09:10)
[2024-09-23] MEDS: Naproxen 500 MG Tablet PO (09:10)
[2024-09-23 09:15] VITALS: BP 155/90; PULSE 85; RESP 16; TEMP 36.7; O2SAT 99
== END 2024-09-23 09:18 | disposition home or self-care (01) ==
LOC: ED 09:16
PROVIDERS: Emergency Provider Emergency Medicine; PCP Internal Medicine; Visit Provider Emergency Medicine
DX: K02.9 Dental caries, unspecified (principal); Z90.710 Acquired absence of both cervix and uterus; Z87.891 Personal history of nicotine dependence; J45.909 Unspecified asthma, uncomplicated; I10 Essential (primary) hypertension; Z85.3 Personal history of malignant neoplasm of breast
CPT/HCPCS: 99283

== ENCOUNTER 2024-11-06 10:30 | Outpatient (RCR) | payer OTHER, MEDICAID, SELFPAY ==
--- NOTE | 2024-10-16 09:48 | HP.PTEVAL_ITS ---
Patient's Visit Information Visit Information Visit Information: ABHILASH TENORIO is a 54 year old F referred to Physical Therapy by Dr. Juanjose Flores MD with a diagnosis of Fibromyalgia. Date of Evaluation: 10/16/24 Physical Therapist: JACKLYN Faulkner Visit Plan Frequency: 2x /Week Duration: 2 Months Plan: 2X/ week for 8 weeks starting with mat core stability exercises and then progressing to machines for core stability, LE and UE strength, posture with HEP. Also do some B Quad/hip flexor foam rolling and stretching, UE and postural stretching with HEP HEP: LTR and bridges Subjective Subjective: Pt has fibromyalgia and has had it since 2009. She had breast Cancer and because of the radiation and Chemo. She has neuropathy in her legs and feet. She aches all over. It takes her awhile to move and get up. Once she gets up and moves better. She did water therapy here and felt improvement and now wants to try something else. She did that right around [place]. Her major pain is arms/shoulders, upper thighs, back pain, neck pain, hands. Her pain is relieved somewhat with IBPRO and muscle relaxors. She takes those at night also so she can sleep. She is generally good in sitting. She has a brace on that helps her back. She just started wearing the brace. She has arthritis in her spine and it is curving. Pain Arm/ shoulder pain: Pain Intensity (Out of 10): 5 Leg pain: Pain Intensity (Out of 10): 0 Pain Intensity Range: 6 back pain: Pain Intensity (Out of 10): 7 Objective Objective: Gait: walks with shorter strides and wider [place] Pt is able to heel and toe raise but it hurts in her calves and front of the legs. LE MMT: R hip flex 8.8 and L 7.6 R knee ext 18.2 and L 17.8 R knee flex 7.3 and L 7 Trunk AROM: flexion 50%, Ext 100%, SB B 75%, Rot B 50% UE AROM: flexion to approx 120 degrees, IR to approx L1 UE MMT: R shoulder flex 6.4 and L 8 R shoulder ABD 9 and L 8.4 R shoulder ER 10.5 and L 12.4 C-spine AROM: flex 100%, Ext 50%, Rot B 75% with increase pain and SB B 50% with increase pain Very tight Quads and hip flexors.... Tighter HS on the R than the L. LTR: very tight at end range but also felt like a good stretch to the patient. Balance/Special Test Scores Lower Extremity Functional Score: 12 Goals Goal 1:: I HEP Goal Time Frame: 6-8 Weeks Goal 2:: Increase flexibility of B hip flexors/ Quads Goal Time Frame: 6-8 Weeks Goal 3:: Decrease overall back and Quad pain and arm pain by 50% Goal Time Frame: 6-8 Weeks Goal 4:: Pt to be able to do her ADL's without feeling like she needs the back brace Goal Time Frame: 6-8 Weeks Goal 5:: Increase LE strength (at the time of the eval: LE MMT: R hip flex 8.8 and L 7.6 R knee ext 18.2 and L 17.8 R knee flex 7.3 and L 7) Goal Time Frame: 6-8 Weeks Rehabilitation Potential Rehabilitation Potential: Good Anticipated Interventions Patient/Client Instruction: Educate patient on: Condition and Plan of Care For the Purpose of:: To decrease pain, To increase ROM, To improve nutrient delivery to tissue, To improve muscle performance and motor function, To improve ability to perform ADL's, To increase tolerance to activity/condition/position, To improve performance and independence with ADL's, To decrease level of supervision to perform tasks, To improve ability of physical actions for home/community/work/leisure, To improve gait and locomotor functions, To improve health of tissue, To decrease soft tissue restriction and To increase flexibility/ROM Therapeutic Exercise to Include: Strength training, Postural training, Flexibilty training, Gait and locomotor training, Passive ROM, Active ROM and Scapular Strength/Stabilization For the Purpose of:: To decrease pain, To increase ROM, To improve nutrient delivery to tissue, To improve muscle performance and motor function, To improve ability to perform ADL's, To increase tolerance to activity/condition/position, To improve performance and independence with ADL's, To decrease level of supervision to perform tasks, To improve ability of physical actions for home/community/work/leisure, To improve gait and locomotor functions, To improve health of tissue, To decrease soft tissue restriction, To increase flexibility/ROM and To improve endurance Manual Therapy Techniques to Include: Passive ROM and Soft tissue mobilization For the Purpose of:: To decrease pain, To increase ROM, To improve nutrient delivery to tissue, To improve muscle performance and motor function, To improve health of tissue, To decrease soft tissue restriction and To increase flexibility/ROM Text: Thank you for the opportunity to evaluate your patient. For Medicare and Medicare HMO plans, please review the plan of care and approve it. It will need to be FAXED BACK to us at [phone] for Medicare purposes. For Medicare only, by signing this I certify the plan of care. Please let me know if there are questions or concerns regarding this plan of care. Physician Signature: Date:
--- NOTE | 2024-11-18 10:47 | HP.PT.NRP ---
Patient Information Patient Information: ABHILASH TENORIO was seen in my office for initial evaluation on 10/16/24. The following Plan of Care was established for this patient: POC Established Initial Frequency: 2x /Week Initial Duration: 2 Months Anticipated Interventions Patient/Client Instruction: Educate patient on: Condition and Plan of Care For the Purpose of:: To decrease pain, To increase ROM, To improve nutrient delivery to tissue, To improve muscle performance and motor function, To improve ability to perform ADL's, To increase tolerance to activity/condition/position, To improve performance and independence with ADL's, To decrease level of supervision to perform tasks, To improve ability of physical actions for home/community/work/leisure, To improve gait and locomotor functions, To improve health of tissue, To decrease soft tissue restriction and To increase flexibility/ROM Therapeutic Exercise to Include: Strength training, Postural training, Flexibilty training, Gait and locomotor training, Passive ROM, Active ROM and Scapular Strength/Stabilization For the Purpose of:: To decrease pain, To increase ROM, To improve nutrient delivery to tissue, To improve muscle performance and motor function, To improve ability to perform ADL's, To increase tolerance to activity/condition/position, To improve performance and independence with ADL's, To decrease level of supervision to perform tasks, To improve ability of physical actions for home/community/work/leisure, To improve gait and locomotor functions, To improve health of tissue, To decrease soft tissue restriction, To increase flexibility/ROM and To improve endurance Manual Therapy Techniques to Include: Passive ROM and Soft tissue mobilization For the Purpose of:: To decrease pain, To increase ROM, To improve nutrient delivery to tissue, To improve muscle performance and motor function, To improve health of tissue, To decrease soft tissue restriction and To increase flexibility/ROM Last Seen Last Seen: This patient was last seen in our office 11/18/24. Pertinent comments regarding their Physical therapy will appear below: DC PT At this point I will be discontinuing this patient from physical therapy. I would be happy to see this patient again in the future if found appropriate by the physician. Thank you! Janet Bragg, JACKLYN Balance/Gait/Functional tests Balance/Special Test Scores Lower Extremity Functional Score: 12
== END 2024-11-06 19:00 | disposition home or self-care (01) ==
LOC: PT 10:30
PROVIDERS: PCP Internal Medicine; Referring Provider Anesthesiology; Visit Provider Anesthesiology
DX: M79.7 Fibromyalgia (principal)
CPT/HCPCS: 97110; 97162

== ENCOUNTER 2025-04-08 12:30 | Outpatient (RCR) | payer OTHER, MEDICAID, SELFPAY ==
--- NOTE | 2025-04-08 14:19 | HP.FCE ---
Task Lift Floor (Occasional 1-33% of Day): 15 Floor (Frequent 34-66% of Day): 7.5 Floor (Constant 67-100% of Day): 3.1 Floor PDL: Sedentary-Light Knee (Occasional 1-33% of Day): 15 Knee (Frequent 34-66% of Day): 7.5 Knee (Constant 67-100% of Day): 3.1 Knee PDL: Sedentary-Light Waist (Occasional 1-33% of Day): 15 Waist (Frequent 34-66% of Day): 7.5 Waist (Constant 67-100% of Day): 3.1 Waist PDL: Sedentary-Light Shoulder (Occasional 1-33% of Day): 15 Shoulder (Frequent 34-66% of Day): 7.5 Shoulder (Constant 67-100% of Day): 3.1 Shoulder PDL: Sedentary-Light Overhead (Occasional 1-33% of Day): 15 Overhead (Frequent 34-66% of Day): 7.5 Overhead (Constant 67-100% of Day): 3.1 Overhead PDL: Sedentary-Light Comments: pt scores as "sedentary-Light" for floor, knee, waist, shoulder as well as overhead lift Work Activity/Posture Bending: No Ablility (0% of day) Squatting: Occasional Ability (1-33% of day) Kneeling: No Ablility (0% of day) Reaching out: Occasional Ability (1-33% of day) Reaching up: Occasional Ability (1-33% of day) Sitting: Occasional Ability (1-33% of day) Walking: Occasional Ability (1-33% of day) Standing: Occasional Ability (1-33% of day) Reference Reference: Duration Sedentary Sedentary Light Light Light Medium Medium Medium Heavy Very Heavy Heavy Occasional (0-33% of day) Frequent (34-66% of day) Constant (67-100% of day) 10 # Negligible Negligible 15 # 8 # Negligible 20 # 10# Negli. 35 # 18 # 7 # 50 # 25 # 10 # 75 # 100 # >100 # 38 # 50 # >50 # 15 # 20 # >20 # Patient Information Height: 5 ft 2 in Weight:: 90.718 kg Hand Dominance: R Medical History Medical History Including Restrictions: This 54 year old female arrives for FCE to apply for disability with dx of fibromyalgia. Pt states she has been dealing with since 2010. Pt states she was officially dx by Dr Flores pain specialist early this year. Pt has been seeing pain management for almost one year. Pt has been doing therapy at [facility] aquatic therapy as well as physical therapy states she feels like it temporarily helped however no skilled nursing relief. Pt takes ibuprofen as well as muscle relaxer. she will also take lyrica and symbolta. Pt has neuropathy in B LEs and feet this started in 2010 as well. pt has hx of breast ca chemo and radiation --- right after this pt states she was wheezing dx with asthma then started aching all over. pt states she has had approx 3 falls in the past year as result of legs giving out on her unable to get back up needing daughters assistance. 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 Pt bathroom with t/s combo stands to perform no grab bars no seat standard commode. Pt uses 4WW as means of mobility at home as well as in community. Pt is I in self care abilities however takes increased time to perform. Pt daughter performs cooking at home as well as cleaning tasks. Pt drives occasionally short distances. Physical Examination Physical Examination: HR 92 bpm and 02 94% at baseline sitting for intake of assessment ROM: B upper extremity: L ER limited all other WFL R WFL B Lower Extremity: WFL increased difficulty with hip flexion Strength: assessed using fet peak force Upper Extremity: L shoulder flexion 4.4# R shoulder flexion: 9.1# L bicep: 7.4# R biep: 14.4# L tricep: 7.2# R tricep: 12.2# L ER: 6# R ER: 9.4# Lower Extremity: L hip flexion: 8.2# R hip flexion: 16.9# L quad: 13.2# R quad: 21.1# L hamstrin.3# R hamstrin.5# Right Collection Coordinator Strength Average: 80.00 Right Collection Coordinator Strength Percentile: 73rd percentile Left Collection Coordinator Strength Average: 21.66 Left Collection Coordinator Strength Percentile: <.2 percentile Right Lateral Pinch Average: 9.66 Right Lateral Pinch Percentile: 10th percentile Left Lateral Pinch Average: 5.00 Left Lateral Pinch Percentile: <10th percentile Right Tripod Pinch Average: 10.66 Right Tripod Pinch Percentile: 25th percentile Left Tripod Pinch Average: 6.00 Left Tripod Pinch Percentile: 10th percentile Sensation: semmes kyle monofilament assessment: R hand thumb 2.83 and R hand all other digits 2.44 indicating normal sensation of R hand L hand thumb D2-3 and 5 2.83 and D4 3.22 indicating diminished light touch of D4 Fine Motor: 9 hole peg assessment L hand: trial 1: 43 sec trial 2: 47 sec trial 3: 33 sec L hand average: 41 sec indicating pt in 0 percentile for age and gender does have to pause with L side due to shoulder hurting R hand: Trial 1: 24 sec trial 2: 23 sec trial 3: 21 sec R hand average: 22.6 seconds indicating pt in 10th percentile for age and gender Balance: standing forward reach score 8" a score of 6-10" indicates moderate risk for falls Non Material Handling Activities Bending: Bending: trial of 3: 0/3 unable to reach to floor unable to complete due to pain states daughter will bend to pick things up for her at home Squatting: squatting: trial of 3: 3/3 10x own pace: 5/10 pain rating of 8/10 legs and back HR 105 02 98% unable to perform any further due to pain uses desk for external support unilateral Kneeling: kneeling: trial of 3: 0/3 unable to take a knee -- has not kneeled in years per pt report Reaching out/up: reaching out trial of 3: 3/3 10x at own pace 8/10 unable to perform due to pain 8/10 pain HR 112 bpm and 02 98% reaching up: trial of 3: 3/3 10x at own pace: 6/10 HR 97 bpm and 02 98% stops due to pain pain 9/10 Walking: per pt she is able to walk for approx 15 min before needing to stop depending on the day during FCE able to walk approx 200 feet before needing to sit on rollator for rest break walks using rollator able to hold conversation during mobility no LOB Standing: pt states she could stand for approx 10 min before needing to sit for RB during FCE pt stand for approx 8min duration before sitting for RB alternating between needing UE support and no UE support Sitting: pt states she could sit for approx 20-25 min before needing to get up and move pt does sit for approx 25 min for intake of assessment before needing to stand and move around pt does change and adjust posture often while sitting for intake of assessment Climbing Stairs: pt is able to ascend and descend 5 steps using B hand rail and step to pattern -- unable to complete full flight of steps due to pain and fatigue pain at 9/10 arms and back Dynamic Occasional Lifting Capacity Floor Lift: Floor Lift: box (15#) total of 15# HR 11 bpm and 02 99% muscle spasm during task pain as 9/10 bends at knees to perform hold close to body on way up Knee Lift: Knee Lift: box (15#) total of 15# HR 115 bpm and 02 98% pain rating 9/10 load close to body increased difficulty when activating shoulder to place on counter Waist Lift: waist Lift: box (15#) total of 15# HR 128 bpm and 02 97% pain rating 9/10 able to take 2 small step to side to perform Shoulder Lift: shoulder lift: box (15#) total of 15# uses body as leverage to get up and down to control pain rating 9/10 HR 88 bpm and 02 97% Overhead Lift: overhead lift: box (15#) total of 15# HR 99 bpm and 02 98% pain rating of 9/10 uses body and swings to get on top of boxes uncontrolled decent to counter top Carrying: carry box 1/3 of length then therapist needs to take from pt and pt needs to sit due to pain and fatigue completes 15 feet HR 100 bpm and 02 97% pain rating 9/10 box weight only 15# slow pace small steps
== END 2025-04-08 19:00 | disposition home or self-care (01) ==
LOC: OT 12:30
PROVIDERS: PCP Internal Medicine; Referring Provider Anesthesiology; Visit Provider Anesthesiology
DX: M79.7 Fibromyalgia (principal)
CPT/HCPCS: 97750

== ENCOUNTER → 2025-04-09 | Outpatient (CLI) | payer OTHER, MEDICAID, SELFPAY | END | disposition home or self-care (01) | PROVIDERS: PCP Internal Medicine; Referring Provider Internal Medicine; Visit Provider Internal Medicine | DX: G47.10 Hypersomnia, unspecified (principal); R29.818 Other symptoms and signs involving the nervous system; J45.30 Mild persistent asthma, uncomplicated | CPT/HCPCS: 94060; 94726; 94729; 95806 ==

== ENCOUNTER → 2025-04-15 | Outpatient (CLI) | payer OTHER, MEDICAID, SELFPAY ==
--- NOTE | 2025-04-15 15:41 | MRI_ITS ---
PROCEDURE: SPINE LUMBAR (ROUTINE) 04/15/2025 REASON FOR EXAM: STENOSIS WITH NEUROGENIC CLAUDICATOIN TECHNIQUE: Procedure Code: MRISPL Modality: MR Procedure: SPINE LUMBAR (ROUTINE) COMPARISON: None. FINDINGS: Vertebrae: Preserved in height and signal. Alignment: Unremarkable. Conus Medullaris: Unremarkable. L1-2: Unremarkable. L2-3: Unremarkable. L3-4: Small disc bulge. Facet joint arthropathy. No significant foraminal or canal stenosis. L4-5: Disc bulge. Facet joint arthropathy. No significant foraminal or canal stenosis. L5-S1: Disc bulge. Facet joint arthropathy. No significant foraminal or canal stenosis. Sacrum: Unremarkable MRI/Spine Lumbar (Routine) IMPRESSION: Facet joint arthropathy at L3-L4 L4-L5 and L5-S1 without significant foraminal or canal stenosis. Reading Location: [id number]
--- OUTSIDE RECORDS SUMMARY | 2025-04-15 18:46 | XMS RPT_ITS | CCD ---
Author Organization [facility] Care Team Providers Care Facility Engineer Name Role Phone Dr. Ismael Moran Emergency Provider [phone] Dr. Kiko Arevalo Primary Care Provider Dr. Elli Martell Admit Provider Dr. Elli Martell Other Provider Dr. Zain Blank Attending Provider Dr. Zain Blank Other Provider Dr. Kiko Arevalo Referring Provider CASSIE Kohler Attending Provider [phone] Dr. Kiko Arevalo Attending Provider [phone] KIKO AREVALO MD Primary Care Unavailable REFERRING, ERNESTO CARRIZALES Attending Unavailable [place], Kiko Primary Care Unavailable Espinal, Maria Dolores Attending Unavailable Irina, Kiko Referring Unavailable Irina, Kiko Primary Care Unavailable Irina, Kiko Attending Unavailable Irina, Kiko Attending Unavailable Irina, Kiko Primary Care Unavailable [place], Kiko Referring Unavailable [place], Kiko Primary Care Unavailable Espinal, Maria Dolores Attending Unavailable Irina, Kiko Attending Unavailable [place], Kiko Primary Care Unavailable Irina, Kiko Referring Unavailable [place], Kiko Primary Care Unavailable Irina, Kiko Referring Unavailable Irina, Kiko Attending Unavailable [place], Kiko Primary Care Unavailable Espinal, Maria Dolores Attending Unavailable Ana Rosa Briceno Attending Unavailable Irina, Kiko Primary Care Unavailable [place], Kiko Referring Unavailable Abdulaziz, Shaunna Referring Unavailable Abdulaziz, Shaunna Attending Unavailable [place], Kiko Primary Care Unavailable Prayson, Juanjose Referring Unavailable Prayson, Juanjose Attending Unavailable [place], Kiko Primary Care Unavailable [place], Kiko Attending Unavailable [place], Kiko Primary Care Unavailable [place], Kiko Referring Unavailable Ferullo Ana Rosa Referring Unavailable Ferullo Ana Rosa Attending Unavailable [place], Kiko Primary Care Unavailable Irina, Kiko Primary Care Unavailable Prayson, Juanjose Referring Unavailable Prayson, Juanjose Attending Unavailable [place], Kiko Attending Unavailable [place], Kiko Primary Care Unavailable Irina, Kiko Referring Unavailable [place], Kiko Primary Care Unavailable Maria Dolores Espinal Attending Unavailable Irina, Kiko Attending Unavailable [place], Kiko Referring Unavailable Irina, Kiko Primary Care Unavailable Irina, Kiko Referring Unavailable [place], Kiko Primary Care Unavailable Britany Odom Attending Unavailable AbdulazizPhyliciayn Attending Unavailable Irina, Kiko Referring Unavailable [place], Kiko Primary Care Unavailable [place], Kiko Primary Care Unavailable Jose J Leyva Attending Unavailable [place], Ikko Primary Care Unavailable Prayson, Juanjose Referring Unavailable Prayson, Juanjose Attending Unavailable [place], Kiko Primary Care Unavailable Ismael Moran Attending Unavailable Medications Current Medications Medication Drug Class(es) Dates Sig (Normalized) Sig (Original) [id number] 200 actuat albuterol 0.09 mg/actuat metered dose inhaler (8 sources) beta2-Adrenergic Agonist Start: 11-02-2023 take 1 puff(s) by inhalation every four to six hours Albuterol Sulfate Active 2 PUFF INHALATION EVERY 4-6 HOURS 8.5 November 02, 2023 12:00am Start: 06-13-2023 ALBUTEROL Acti ve 2 INH INHALATION 4 TIMES DAILY NEEDED June 13, 2023 1:00am Start: 06-13-2023 ALBUTEROL Acti ve 2 INH INHALATION 4 TIMES DAILY NEEDED June 13, 2023 12:00am Budesonide-Formoterol (2 sources) Corticosteroid, beta2-Adrenergic Agonist Start: 11-02-2023 take 1 puff(s) by inhalation twice daily Budesonide-Formoterol Active 2 PUFF INHALATION TWICE A DAY 10.2 November 02, 2023 12:00am cetirizine hydrochloride 10 mg oral capsule (2 sources) Histamine-1 Receptor Antagonist Start: 11-02-2023 take 1 capsule by mouth once daily Cetirizine (Zyrtec) 10 mg capsule Active 10 MG PO DAILY November 02, 2023 12:00am cholecalciferol 0.025 mg oral capsule (2 sources) Vitamin D Start: 11-02-2023 take 25 ug by mouth once daily Cholecalciferol (Vitamin D3) Active 25 MCG PO DAILY November 02, 2023 12:00am DULoxetine 30 mg delayed release oral capsule (8 sources) Serotonin and Norepinephrine Reuptake Inhibitor Start: 06-13-2023 End: 11-14-2023 take 30 mg by mouth once daily Duloxetine Active 30 MG PO DAILY 90 November 02, 2023 12:00am hydroCHLOROthiazide 25 mg / olmesartan medoxomil 40 mg oral tablet (9 sources) Thiazide Diuretic, Angiotensin 2 Receptor Jagdish Start: 06-13-2023 End: 11-02-2023 take 1 tablet by mouth once daily Olmesartan-Hydrochloro thiazide Active 1 TABLET PO DAILY November 02, 2023 10:35am Inhalational Spacing Device (Breatherite Mdi Spacer) spacer (2 sources) Start: 11-02-2023 Inhalational Spacing Device (Breatherite Mdi Spacer) spacer Active 0 .Route 1 November 02, 2023 12:00am As directed meclizine hydrochloride 25 mg chewable tablet (3 sources) Antiemetic Start: 10-31-2023 take 1 tablet by mouth once daily Meclizine (Antivert) 25 mg tablet,chewable Active 25 MG PO DAILY October 31, 2023 12:00am No driving while having vertigo or after taking medication. mecobalamin 1 mg chewable tablet (2 sources) Start: 11-02-2023 take 1000 ug by mouth once daily Mecobalamin (Vitamin B12) Active 1000 MCG PO DAILY November 02, 2023 12:00am Multivitamin preparation (2 sources) Start: 11-02-2023 take 1 tablet by mouth once daily Multivitamin Active 1 TABLET PO DAILY November 02, 2023 12:00am saccharomyces boulardii 250 mg oral capsule (2 sources) Start: 11-02-2023 take 1 capsule by mouth twice daily Saccharomyces Boulardii (Daily Probiotic (S. Boulardii)) 250 mg capsule Active 250 MG PO TWICE A DAY November 02, 2023 12:00am Completed/Discontinued Medications Medication Drug Class(es) Dates Sig (Normalized) Sig (Original) gabapentin 300 mg oral capsule (6 sources) Anti-epileptic Agent Start: 06-13-2023 End: 07-04-2023 take 300 mg by mouth twice daily Gabapentin Discontinued 300 MG PO TWICE A DAY June 13, 2023 1:00am July 04, 2023 8:04am nitrofurantoin, macrocrystals 25 mg / nitrofurantoin, monohydrate 75 mg oral capsule (5 sources) Nitrofuran Antibacterial Start: 07-04-2023 End: 08-20-2023 take 100 mg by mouth every twelve hours Nitrofurantoin Monohyd/M-Cryst Discontinued 100 MG PO EVERY 12 HOURS July 04, 2023 1:00am August 20, 2023 5:03pm Problems Active Problems Problem Classification Problem Date Documented Date Episodic/Chronic Acute and unspecified renal failure (10 sources) Acute renal failure syndrome; Translations: [Acute kidney failure, unspecified] 10-29-2023 Episodic Administrative/socia l admission (6 sources) Repeated prescription; Translations: [Encounter for issue of repeat prescription] 08-20-2023 Episodic Anxiety disorders (1 source) Anxiety disorder, unspecified; Translations: [Anxiety state, unspecified] 11-14-2023 Chronic Asthma (7 sources) Asthma; Translations: [Unspecified asthma, uncomplicated] Onset: 06-03-2024 11-02-2023 Chronic Disorders of lipid metabolism (3 sources) Hyperlipidemia; Translations: [Hyperlipidemia, unspecified] 11-02-2023 Chronic Essential hypertension (2 sources) Essential hypertension; Translations: [Essential (primary) hypertension] 11-13-2023 Chronic Fluid and electrolyte disorders (10 sources) Hypokalemia; Translations: [Hypokalemia] 10-29-2023 Episodic Immunizations and screening for infectious disease (4 sources) Exposure to Human immunodeficiency virus; Translations: [Contact with and (suspected) exposure to human immunodeficiency virus [HIV]] 11-02-2023 Episodic Malaise and fatigue (4 sources) Fatigue; Translations: [Other fatigue] 11-02-2023 Episodic Nonspecific chest pain (6 sources) Chest pain; Translations: [Chest pain, unspecified] 06-13-2023 Episodic Other circulatory disease (5 sources) H/O: hypertension; Translations: [Personal history of other diseases of the circulatory system] 08-20-2023 Episodic Other connective tissue disease (4 sources) Non-traumatic rhabdomyolysis; Translations: [Rhabdomyolysis] 10-29-2023 Episodic Other connective tissue disease (6 sources) Rhabdomyolysis; Translations: [Rhabdomyolysis] 10-29-2023 Episodic Other connective tissue disease (1 source) Other symptoms and signs involving the nervous system; Translations: [Other symptoms and signs involving the nervous system] Onset: 04-09-2025 Episodic Other liver diseases (1 source) Abnormal levels of other serum enzymes; Translations: [Other nonspecific abnormal serum enzyme levels] 11-14-2023 Episodic Other nervous system disorders (6 sources) Paresthesia of upper limb; Translations: [Paresthesia of skin] 06-13-2023 Episodic Residual codes; unclassified (1 source) Hypersomnia, unspecified; Translations: [Hypersomnia, unspecified] Onset: 04-09-2025 Chronic Spondylosis; intervertebral disc disorders; other back problems (3 sources) Spinal stenosis, lumbar region with neurogenic claudication; Translations: [Dorsalgia, unspecified] Onset: 02-26-2025 Episodic Systemic lupus erythematosus and connective tissue disorders (2 sources) Connective tissue disease overlap syndrome; Translations: [Other overlap syndromes] 11-07-2023 Chronic Urinary tract infections (5 sources) Acute cystitis; Translations: [Acute cystitis without hematuria] 07-12-2023 Episodic Past or Other Problems Problem Classification Problem Date Documented Date Episodic/Chronic Disorders of teeth and jaw (1 source) Other specified disorders of teeth and supporting structures; Translations: [Other specified disorders of teeth and supporting structures] Onset: 12-10-2024 Episodic Genitourinary symptoms and ill-defined conditions (1 source) Dysuria; Translations: [Dysuria] Onset: 04-22-2024 Episodic Other female genital disorders (1 source) Other specified noninflammatory disorders of vagina; Translations: [Other specified noninflammatory disorders of vagina] Onset: 05-14-2024 Episodic Other screening for suspected conditions (not mental disorders or infectious disease) (3 sources) Encounter for other screening for malignant neoplasm of breast; Translations: [Breast screening, unspecified] Onset: 12-31-2024 11-14-2023 Episodic Other upper respiratory infections (6 sources) Viral upper respiratory tract infection; Translations: [Acute upper respiratory infection, unspecified] Onset: 08-28-2024 08-20-2023 Episodic Results Test Name Value Interpretation Reference Range Facil ity OT Functional Capacity Evalo n 04-08-2025 OT Functional Capacity Eval [facility] [address] [place] [address] / REHABILITATION SERVICES INITIAL EVALUATION MR#: [id number] Acct: [id number] Name: MACARENA CANTU Rep #: [id number] : 1970 54 From: India Gutierrez Referring Dr.: Dr. Juanjose Flores MD Status: REG R Insurance: [facility] Evoh Date: [facility]/[employer] CARITAS Task Lift Floor (Occasional 1-33% of Day): 15 Floor (Frequent 34-66% of Day): 7.5 Floor (Constant 67-100% of Day): 3.1 Floor PDL: Sedentary-Light Knee (Occasional 1-33% of Day): 15 Knee (Frequent 34-66% of Day): 7.5 Knee (Constant 67-100% of Day): 3.1 Knee PDL: Sedentary-Light Waist (Occasional 1-33% of Day): 15 Waist (Frequent 34-66% of Day): 7.5 Waist (Constant 67-100% of Day): 3.1 Waist PDL: Sedentary-Light Shoulder (Occasional 1-33% of Day): 15 Shoulder (Frequent 34-66% of Day): 7.5 Shoulder (Constant 67-100% of Day): 3.1 Shoulder PDL: Sedentary-Light Overhead (Occasional 1-33% of Day): 15 Overhead (Frequent 34-66% of Day): 7.5 Overhead (Constant 67-100% of Day): 3.1 Overhead PDL: Sedentary-Light Comments: pt scores as sedentary-Light for floor, knee, waist, shoulder as well as overhead lift Work Activity/Posture Bending: No Ablility (0% of day) Squatting: Occasional Ability (1-33% of day) Kneeling: No Ablility (0% of day) Reaching out: Occasional Ability (1-33% of day) Reaching up: Occasional Ability (1-33% of day) Sitting: Occasional Ability (1-33% of day) Walking: Occasional Ability (1-33% of day) Standing: Occasional Ability (1-33% of day) Reference Reference: Duration Sedentary Sedentary Light Light Light Medium Medium Medium Heavy Very Heavy Heavy Occasional (0-33% of day) Frequent (34-66% of day) Constant (67-100% of day) 10 # Negligible Negligible 15 # 8 # Negligible 20 # 10# Negli. 35 # 18 # 7 # 50 # 25 # 10 # 75 # 100 # >100 # 38 # 50 # >50 # 15 # 20 # >20 # Patient Information Height: 5 ft 2 in Weight:: 90.718 kg Hand Dominance: R Medical History Medical History Including Restrictions: This 54 year old female arrives for [employer] to apply for disability with dx of fibromyalgia. Pt states she has been dealing with since 2010. Pt states she was officially dx by Dr Flores pain specialist early this year. Pt has been seeing pain management for almost one year. Pt has been doing therapy at [facility] facility aquatic therapy as well as physical therapy states she feels like it temporarily helped however no residential relief. Pt takes ibuprofen as well as muscle relaxer. she will also take lyrica and symbolta. Pt has neuropathy in B LEs and feet this started in 2010 as well. pt has hx of breast ca chemo and radiation --- right after this pt states she was wheezing dx with asthma then started aching all over. pt states she has had approx 3 falls in the past year as result of legs giving out on her unable to get back up needing daughters assistance. 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 Pt bathroom with t/s combo stands to perform no grab bars no seat standard commode. Pt uses 4WW as means of mobility at home as well as in community. Pt is I in self care abilities however takes increased time to perform. Pt daughter performs cooking at home as well as cleaning tasks. Pt drives occasionally short distances. Physical Examination Physical Examination: HR 92 bpm and 02 94% at baseline sitting for intake of assessment ROM: B upper extremity: L ER limited all other WFL R WFL B Lower Extremity: WFL increased difficulty with hip flexion Strength: assessed using fet peak force Upper Extremity: L shoulder flexion 4.4# R shoulder flexion: 9.1# L bicep: 7.4# R biep: 14.4# L tricep: 7.2# R tricep: 12.2# L ER: 6# R ER: 9.4# Lower Extremity: L hip flexion: 8.2# R hip flexion: 16.9# L quad: 13.2# R quad: 21.1# L hamstrin.3# R hamstrin.5# Right Configuration Engineer Strength Average: 80.00 Right Configuration Engineer Strength Percentile: 73rd percentile Left Configuration Engineer Strength Average: 21 (more content not included)... Normal [facility] MR/BMS.BPon 03-27-2025 MR/BMS.BP [facility], [address] [place] [address] OFFICE VISIT Date of Service: 03/27/25 MR#: [id number] Acct: [id number] Name: MACARENA CANTU Rep #: [id number] : 1970 Provider: THONG humphreys Age/Sex: 54/F Location[place] [facility] [place] Status: Signed Intake Vital Signs 01/30/25 14:52 03/27/25 14:39 Height 5 ft 2 in 5 ft 2 in BP Intake Visit Reasons: 6-8wfu Allergies No Known Allergies Allergy (Verified 03/09/25 14:40) [facility] Medical History HIV exposure Vitamin deficiency Hives Hearing problem Head ache Carpal tunnel syndrome Breast cancer UTI (urinary tract infection) Back problem Arthritis Allergies Morbid obesity Anxiety and depression Former tobacco use HTN (hypertension) Neuropathy Asthma Surgical History Status post breast reduction H/O wrist surgery History of hysterectomy Previous section History of lumpectomy of left breast Family History Mother CAD (coronary artery disease) Heart disease Hypertension Diabetes CVA (cerebral vascular accident) Myocardial infarction Kidney disease Grandmother Heart disease CABG Diabetes Hypertension CVA (cerebral vascular accident) Myocardial infarction COPD (chronic obstructive pulmonary disease) Social History household members: spouse housing: house current occupational status: previously employed and disabled current occupation: [employer] Smoking Status: Former smoker quit date: 07/23/16 pack-years: 30 Electronic Cigarette Use: not used how long ago did patient quit smoking: Quit most recently 7 yrs prior, smoked prior intermittent 3 cig/day. alcohol intake: current alcohol intake frequency: holidays/special occasions only substance use type: former substance user and marijuana do you feel safe at home: Yes HPI History of Present Illness History provided by: patient Chief complaint: Depression/Inatten tion HPI: Macarena cantu is a 54 year old female patient presenting today for a follow up evaluation. Reports some increased stress around her children. Reports she has been struggling with focus and concentration with conversations. Reports having multiple unfinished projects in her home. Feels that at times she makes careless mistake. Does not always pay close attention. Admits to being easily distracted. Admits to some difficulty in following through with instructions. Admits to avoiding things that require more mental effort. At times is late to appointments and misses things but if she is motivated to be there. When she is feeling depressed she misses more things. Reports she has had better energy and motivation since last appointment. Does feel much less depressed since last appointment. Does feel tired by about 6PM. Appetite has been reduced some. However has not had huge changes in weight. Sleep has been good and has been getting about 8 hours per night on average. Previous similar episode: Yes Age of first onset of symptoms: 11-20 years Review of Systems Constitutional Reports: change in weight (3 pound weight loss); Denies: fever(s), chills or fatigue Eyes Denies: change in vision or blurry vision Ears, Nose, Mouth, Throat Reports: neck pain; Denies: throat pain Cardiovascular Reports: dyspnea; Denies: chest pain or palpitations Respiratory Reports: dyspnea and wheezing Gastrointestinal Reports: heartburn; Denies: abdominal pain, nausea, vomiting, diarrhea or constipation Genitourinary Denies: dysuria, urinary frequency or urinary urgency Musculoskeletal Reports: back pain and neck pain Integumentary/[address] Denies: rash, pruritus or erythema Neurological Denies: headache(s) Psychiatric Reports: anxiety, mood swings, irritability, memory loss and difficulty concentrating; Denies: panic attacks, change in sleep pattern, hopelessness, loss of interest, paranoia, visual hallucinations, auditory hallucinations, suicidal ideation or homicidal ideation Endocrine Denies: fatigue Hematologic/Lympha tic Denies: easy bruising Allergic/Immunolog ic Reports: wheezing Exam Mental Status Exam - Psych Appearance casually dressed, adequately groomed and no apparent distress Attitude cooperative and calm Activity/Motor Behavior MSE activity/motor behavior finding no adventitious movements and appropriate eye contact Speech regular rate, regular volume and regular prosody Mood euythmic Affect full range Thought Process linear, logical and coherent Thought Content no delusions and no hallucinations Suicidal Ideation none Homicidal Ideation (more content not included)... Normal [facility] L/S Spine Min 4 Viewson 02-20 L/S Spine Min 4 Views [facility] [address] [place] [address] L/S Spine Min 4 Views MR#: [id number] Acct: [id number] Name: MACARENA CANTU Rep #: [id number] : 1970 F 54 From: Tesfaye Harkins MD PCP: Dr. Kiko Arevalo MD Status: DEP AMB Study: L/S Spine Min 4 Views Date of Exam: 03/09/25 Exam# [id number] Ordering Dr: Shaunna Cintron PROCEDURE: L/S SPINE MIN 4 VIEWS 03/09/2025 REASON FOR EXAM: LOW BACK PAIN, RADIATES TO BILATERAL LEGS TECHNIQUE: L/S SPINE MIN 4 VIEWS FINDINGS: No evidence acute fracture or dislocation. Mild degenerative changes of the visualized spine. Normal alignment. RAD/L/S Spine Min 4 Views IMPRESSION: Mild spondylosis. Reading Location: [id number] CC: CASSIE Matos; Dr. 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: Signed Normal [facility] Orthopedic Visit Reporton Orthopedic Visit Report [facility] [address] [place] [address] OFFICE VISIT Date of Service: 03/09/25 MR#: [id number] Acct: [id number] Name: MACARENA CANTU Rep #: [id number] : 1970 Provider: CASSIE Matos Age/Sex: 54/F Location: [facility] [place] Status: Signed Intake Vital Signs 02/26/25 13:58 03/09/25 14:37 Height 5 ft 2 in 5 ft 2 in Weight: 230 lb 230 lb BMI 42.0 42.0 BP 162/98 H Blood Pressure Location Rt brachial Position Sitting Respiration 19 H Pulse 101 H Pulse Source Monitor Temp 97.5 F L Temp Source Temporal Pulse Oximetry (%) 92 Oxygen Delivery Method room air Intake Visit Reasons: LUMBAR SPINE Chief Complaint: Lumbar spine pain Accompanied by: Self Is patient in pain?: Yes Pain scale (1-10): 6 Allergies No Known Allergies Allergy (Verified 03/09/25 14:40) Medications ???Medication ???Instructions ???Recorded ???Confirmed ???Type meclizine 25 mg chewable tablet 25 mg PO DAILY PRN vertigo #30 tab s 10/31/23 03/09/25 Rx (Antivert) Saccharomyces boulardii 250 mg 250 mg PO BID 11/02/23 03/09/25 Hi story capsule (Daily Probiotic (S. boulardii)) cetirizine 10 mg capsule (Zyrtec) 10 mg PO DAILY PRN 11/02/2303/09 History cholecalciferol (vitamin D3) 25 25 mcg PO DAILY 11/02/23 03/09/25 History mcg (1,000 unit) capsule inhalational spacing device #1 ea 11/02/23 03/09/25 Rx (BreatheRite MDI Spacer) multivitamin 1 tab PO DAILY 11/02/23 03/09/25 H istory miscellaneous medical supply 1 packet miscellaneous DAILY #1 ea 05/01/24 03/09/25 Rx tizanidine 4 mg tablet 4 mg PO QHS PRN 08/06/24 03/09/25 History budesonide-formote rol HFA 80 2 puff PO BID #10.2 ea 12/03/24 Rx mcg-4.5 mcg/actuation aerosol inhaler (Symbicort) handicap placard #1 ea 12/25/24 03/09/25 Rx bupropion HCl 150 mg 24 hr tablet, 150 mg PO QAM #30 tabs 01/30/25 03/09/25 Rx extended release (Wellbutrin XL) olmesartan 40 mg tablet 40 mg PO DAILY #90 tabs 02/09/25 0 03/09/25 Rx prazosin 1 mg capsule 1 mg PO QHS #90 caps 02/17/2502/20 Rx albuterol sulfate 90 mcg/actuation 2 puff inhalation Q4-6H PRN 0808/1603/09/25 Rx aerosol inhaler shortness of breath or wheezing #8.5 grams prednisone 10 mg tablets in a dose 10 mg PO DIRECTED #48 tabs 03/09/25 Rx pack pregabalin 100 mg capsule (Lyrica) 150 mg PO TID 02/26/25 03/09/25 History Have you fallen in the past year?: Yes PFSH Medical History HIV exposure Vitamin deficiency Hives Hearing problem Head ache Carpal tunnel syndrome Breast cancer UTI (urinary tract infection) Back problem Arthritis Allergies Morbid obesity Anxiety and depression Former tobacco use HTN (hypertension) Neuropathy Asthma Surgical History Status post breast reduction H/O wrist surgery History of hysterectomy Previous section History of lumpectomy of left breast Family History Mother CAD (coronary artery disease) Heart disease Hypertension Diabetes CVA (cerebral vascular accident) Myocardial infarction Kidney disease Grandmother Heart disease CABG Diabetes Hypertension CVA (cerebral vascular accident) Myocardial infarction COPD (chronic obstructive pulmonary disease) Social History household members: spouse housing: house current occupational status: previously employed and disabled current occupation: [employer] Smoking Status: Former smoker quit date: 07/23/16 pack-years: 30 Electronic Cigarette Use: not used how long ago did patient quit smoking: Quit most recently 7 yrs prior, smoked prior intermittent 3 cig/day. alcohol intake: current alcohol intake frequency: holidays/special occasions only substance use type: former substance user and marijuana do you feel safe at home: Yes HPI LUMBAR SPINE Details: This documentation accurately reflects the service provided and the decisions made by me, CASSIE Matos 03/09/25 3317. Part of today???s visit was documented by Silvestre Apodaca MA, acting as scribe. MACARENA CANTU is a 54 year old F here today for lumbar spine. Patient states that her pain is a 6 in her lower back. The patient has had a long history of chronic low back pain. Says that it has been worsening over the last year. The pain in the lower back feels like a throbbing pain. The pain is mainly left side of the lower back. She states that the pain goes down the left leg. Patient states that she feels like there is someone stabbing her in (more content not included)... Normal [facility] Internal Medicine Office Vis olivia 02-26-2025 Internal Medicine Office Visit [facility] [address] [place] [address] [address] [place], [place] [id number] OFFICE VISIT Date of Service: 02/26/25 MR#: [id number] Acct: [id number] Name: MACARENA CANTU Rep #: [id number] : 1970 Provider: THONG easley Age/Sex: 54/F Location: [facility] Status: Signed Intake Vital Signs 01/30/25 14:52 02/26/25 13:58 Height 5 ft 2 in 5 ft 2 in Weight: 230 lb BMI 42.0 BP 162/98 H Blood Pressure Location Rt brachial Position Sitting Respiration 19 H Pulse 101 H Pulse Source Monitor Temp 97.5 F L Temp Source Temporal Pulse Oximetry (%) 92 Oxygen Delivery Method room air Intake Visit Reasons: acute back pain, legs giving out Chief Complaint: acute back pain, legs giving out Is patient in pain?: Yes (5 bilateral legs ) Allergies No Known Allergies Allergy (Verified 02/26/25 13:59) Medications ???Medication ???Instructions ???Recorded ???Confirmed ???Type meclizine 25 mg chewable tablet 25 mg PO DAILY PRN vertigo #30 tab s 10/31/23 02/26/25 Rx (Antivert) Saccharomyces boulardii 250 mg 250 mg PO BID 11/02/23 02/26/25 Hi story capsule (Daily Probiotic (S. boulardii)) cetirizine 10 mg capsule (Zyrtec) 10 mg PO DAILY PRN 11/02/2302/26 History cholecalciferol (vitamin D3) 25 25 mcg PO DAILY 11/02/23 02/26/25 History mcg (1,000 unit) capsule inhalational spacing device #1 ea 11/02/23 02/26/25 Rx (BreatheRite MDI Spacer) multivitamin 1 tab PO DAILY 11/02/23 02/26/25 H istory miscellaneous medical supply 1 packet miscellaneous DAILY #1 ea 05/01/24 12/03/24 Rx tizanidine 4 mg tablet 4 mg PO QHS PRN 08/06/24 02/26/25 History budesonide-formote rol HFA 80 2 puff PO BID #10.2 ea 12/03/24 Rx mcg-4.5 mcg/actuation aerosol inhaler (Symbicort) handicap placard #1 ea 12/25/24 02/26/25 Rx bupropion HCl 150 mg 24 hr tablet, 150 mg PO QAM #30 tabs 01/30/25 02/26/25 Rx extended release (Wellbutrin XL) olmesartan 40 mg tablet 40 mg PO DAILY #90 tabs 02/09/25 0 02/26/25 Rx prazosin 1 mg capsule 1 mg PO QHS #90 caps 02/17/2502/13 Rx albuterol sulfate 90 mcg/actuation 2 puff inhalation Q4-6H PRN 08/1602/26/25 Rx aerosol inhaler shortness of breath or wheezing #8.5 grams prednisone 10 mg tablets in a dose 10 mg PO DIRECTED #48 tabs 02/26/25 Rx pack pregabalin 100 mg capsule (Lyrica) 150 mg PO TID 02/26/25 02/26/25 History Have you fallen in the past year?: Yes (x2) [facility] Medical History HIV exposure Vitamin deficiency Hives Hearing problem Head ache Carpal tunnel syndrome Breast cancer UTI (urinary tract infection) Back problem Arthritis Allergies Morbid obesity Anxiety and depression Former tobacco use HTN (hypertension) Neuropathy Asthma Surgical History Status post breast reduction H/O wrist surgery History of hysterectomy Previous section History of lumpectomy of left breast Family History Mother CAD (coronary artery disease) Heart disease Hypertension Diabetes CVA (cerebral vascular accident) Myocardial infarction Kidney disease Grandmother Heart disease CABG Diabetes Hypertension CVA (cerebral vascular accident) Myocardial infarction COPD (chronic obstructive pulmonary disease) Social History household members: spouse housing: house current occupational status: previously employed and disabled current occupation: [employer] Smoking Status: Former smoker quit date: 07/23/16 pack-years: 30 Electronic Cigarette Use: not used how long ago did patient quit smoking: Quit most recently 7 yrs prior, smoked prior intermittent 3 cig/day. alcohol intake: current alcohol intake frequency: holidays/special occasions only substance use type: former substance user and marijuana do you feel safe at home: Yes HPI HPI Chief Complaint: acute back pain, legs giving out Details: MACARENA CANTU, is a 54 F who presents to the office today for back pain that radiates into the legs Onset: Symptoms began to worsen approximately two weeks ago, initially presented as her but neuropathy however have gradually worsened. Location: Symptoms are primarily pain in the lower back worse on the left side and pain down both legs. Duration: Symptoms have been continuous for two weeks, with increased intensity when standing. Character/Quality: The pain feels like stabbing which leads to weakness in both legs. States pain is worse in the left leg. Severity: Severity rated at /10, impacting daily activities. Modifying Factors: Symptoms slightly improve with (more content not included)... Normal [facility] MR/BMS.BPon 01-30-2025 MR/BMS.BP [facility], [address] [place] [address] OFFICE VISIT Date of Service: 01/30/25 MR#: [id number] Acct: [id number] Name: MACARENA CANTU Rep #: [id number] : 1970 Provider: THONG humphreys Age/Sex: 54/F Location: [facility] Status: Signed Intake Vital Signs 12/03/24 10:29 01/30/25 14:52 Height 5 ft 2 in 5 ft 2 in Weight: 227 lb BMI 41.5 BP 122/91 H Blood Pressure Location Rt brachial Position Sitting Respiration 16 Pulse 96 Pulse Source Monitor BP Intake Visit Reasons: Follow up Allergies No Known Allergies Allergy (Verified 12/03/24 10:36) [facility] Medical History HIV exposure Vitamin deficiency Hives Hearing problem Head ache Carpal tunnel syndrome Breast cancer UTI (urinary tract infection) Back problem Arthritis Allergies Morbid obesity Anxiety and depression Former tobacco use HTN (hypertension) Neuropathy Asthma Surgical History Status post breast reduction H/O wrist surgery History of hysterectomy Previous section History of lumpectomy of left breast Family History Mother CAD (coronary artery disease) Heart disease Hypertension Diabetes CVA (cerebral vascular accident) Myocardial infarction Kidney disease Grandmother Heart disease CABG Diabetes Hypertension CVA (cerebral vascular accident) Myocardial infarction COPD (chronic obstructive pulmonary disease) Social History (Updated 12/03/24 @ 10:41 by Vanita Suárez) household members: spouse housing: house current occupational status: previously employed and disabled current occupation: [employer] Smoking Status: Former smoker quit date: 07/23/16 pack-years: 30 Electronic Cigarette Use: not used how long ago did patient quit smoking: Quit most recently 7 yrs prior, smoked prior intermittent 3 cig/day. alcohol intake: current alcohol intake frequency: holidays/special occasions only substance use type: former substance user and marijuana do you feel safe at home: Yes HPI History of Present Illness History provided by: patient HPI: Macarena cantu is a 54 year old female patient presenting today for a follow up evaluation. Reports being frustrated and wanting to lose weight. States she has been feeling more tearful and having more crying spells than before. Continues to feel depressed. Admits to a lack of motivation. Has continued to struggle with concentration and focus. Does voice concern with lack of energy. Has been struggling with word finding. Is getting 11 hours per night. Has not been gaining weight but is struggling to lose weight. Previous similar episode: Yes Age of first onset of symptoms: 11-20 years Review of Systems Constitutional Reports: change in weight (gain) and fatigue; Denies: fever(s) or chills Eyes Denies: change in vision or blurry vision Ears, Nose, Mouth, Throat Reports: neck pain; Denies: throat pain Cardiovascular Reports: dyspnea; Denies: chest pain or palpitations Respiratory Reports: dyspnea and wheezing Gastrointestinal Reports: heartburn; Denies: abdominal pain, nausea, vomiting, diarrhea or constipation Genitourinary Denies: dysuria, urinary frequency or urinary urgency Musculoskeletal Reports: back pain and neck pain Integumentary/[address] st Denies: rash, pruritus or erythema Neurological Denies: headache(s) Psychiatric Reports: anxiety, mood swings, panic attacks, change in sleep pattern, hopelessness, loss of interest, irritability, memory loss and difficulty concentrating; Denies: paranoia, visual hallucinations, auditory hallucinations, suicidal ideation or homicidal ideation Endocrine Reports: fatigue Hematologic/Lympha tic Denies: easy bruising Allergic/Immunolog ic Reports: wheezing Exam Mental Status Exam - Psych Appearance casually dressed, adequately groomed and no apparent distress Attitude cooperative and calm Activity/Motor Behavior MSE activity/motor behavior finding no adventitious movements and appropriate eye contact Speech regular rate, regular volume and regular prosody Mood OK Affect tearful Thought Process linear, logical and coherent Thought Content no delusions and no hallucinations Suicidal Ideation none Homicidal Ideation none Attention impaired (per patient self report ) Concentration impaired (per patient self report ) Sensorium/Orientat ion awake, alert and oriented x3 Memory/Cognition impaired (per patient self report ) Insight good Judgement good Exam Constitutional Common normals: no acute distress, average body habitus and patient oriented x3 General appearance: w (more content not included)... Normal [facility] MR/BMS.BPon 12-03-2024 MR/BMS.BP [facility], [address] [place] [address] OFFICE VISIT Date of Service: 12/03/24 MR#: [id number] Acct: [id number] Name: MACARENA CANTU Rep #: [id number] : 1970 Provider: THONG humphreys Age/Sex: 54/F Location: [facility] [place] Status: Signed Intake Vital Signs 09/23/24 08:19 12/03/24 10:29 Height 5 ft 2 in 5 ft 2 in Weight: 227 lb BMI 41.5 BP 122/91 H Blood Pressure Location Rt brachial Position Sitting Respiration 16 Pulse 96 Pulse Source Monitor BP Intake Visit Reasons: Depression/Anxiety Accompanied by: Self Allergies No Known Allergies Allergy (Verified 12/03/24 10:36) Medications ???Medication ???Instructions ???Recorded ???Confirmed ???Type meclizine 25 mg chewable tablet 25 mg PO DAILY PRN vertigo #30 tab s 10/31/23 12/03/24 Rx (Antivert) Saccharomyces boulardii 250 mg 250 mg PO BID 11/02/23 12/03/24 Hi story capsule (Daily Probiotic (S. boulardii)) albuterol sulfate 90 mcg/actuation 2 puff inhalation Q4-6H PRN 10/2112/03/24 Rx aerosol inhaler shortness of breath or wheezing #8.5 grams cetirizine 10 mg capsule (Zyrtec) 10 mg PO DAILY PRN 11/02/2312/03 History cholecalciferol (vitamin D3) 25 25 mcg PO DAILY 11/02/23 12/03/24 History mcg (1,000 unit) capsule inhalational spacing device #1 ea 11/02/23 12/03/24 Rx (BreatheRite MDI Spacer) multivitamin 1 tab PO DAILY 11/02/23 12/03/24 H istory miscellaneous medical supply 1 packet miscellaneous DAILY #1 ea 05/01/24 12/03/24 Rx pregabalin 100 mg capsule (Lyrica) 100 mg PO QDAY 08/06/24 12/03/24 History tizanidine 4 mg tablet 4 mg PO QHS PRN 08/06/24 12/03/24 History olmesartan 40 mg tablet 40 mg PO DAILY #90 tabs 11/03/24 0 12/03/24 Rx budesonide-formote rol HFA 80 2 puff PO BID #10.2 ea 12/03/24 Rx mcg-4.5 mcg/actuation aerosol inhaler (Symbicort) duloxetine 60 mg capsule,delayed 60 mg PO DAILY #30 caps 12/03/24 0 12/03/24 Rx release prazosin 1 mg capsule 1 mg PO QHS #30 caps 12/03/2411/20 Rx PFSH Medical History HIV exposure Vitamin deficiency Hives Hearing problem Head ache Carpal tunnel syndrome Breast cancer UTI (urinary tract infection) Back problem Arthritis Allergies Morbid obesity Anxiety and depression Former tobacco use HTN (hypertension) Neuropathy Asthma Surgical History Status post breast reduction H/O wrist surgery History of hysterectomy Previous section History of lumpectomy of left breast Family History Mother CAD (coronary artery disease) Heart disease Hypertension Diabetes CVA (cerebral vascular accident) Myocardial infarction Kidney disease Grandmother Heart disease CABG Diabetes Hypertension CVA (cerebral vascular accident) Myocardial infarction COPD (chronic obstructive pulmonary disease) Social History (Updated 12/03/24 @ 10:41 by Vanita Suárez) household members: spouse housing: house current occupational status: previously employed and disabled current occupation: [employer] Smoking Status: Former smoker quit date: 07/23/16 pack-years: 30 Electronic Cigarette Use: not used how long ago did patient quit smoking: Quit most recently 7 yrs prior, smoked prior intermittent 3 cig/day. alcohol intake: current alcohol intake frequency: holidays/special occasions only substance use type: former substance user and marijuana do you feel safe at home: Yes HPI History of Present Illness History provided by: patient Chief complaint: Depression/Anxiety /Nightmares HPI: Macarena cantu is a 54 year old female patient presenting today for an intake evaluation. Sleep: Admits to difficulties falling asleep and staying asleep. Wakes frequently with nightmares. 2-3 hours per night. Does have orders for a sleep study. Interest: Reports in the past having frequent crying spells and sadness but does feel pregabalin and duloxetine has been beneficial for the most part. Does feel lately has been having more depressed days than before. Energy: Does not feel well rested. Admits to a lack of energy and a lack of motivation. Guilt: Admits to feelings of guilt, hopelessness, and worthlessness on occasion. Concentration: Admits to concerns with focus, concentration, and inattention. States this has always been a concern for her. Admits to being easily distracted. Appetite: Appetite in increased and will eat even when she is full. Does feel she eats as a way to not attract attention. Has gained weight with increased appetite. Psychomotor: WNL Suicide: Denies SI/HI. Memory: Reports memory recently has wor (more content not included)... Normal [facility] XR SPINE LUMBOSACRAL 2 OR 3 VIEWSon 11-17-2024 XR SPINE LUMBOSACRAL 2 OR 3 VIEWS ORIGINAL EXAMINATION: XRAY VIEWS OF THE LUMBAR SPINE 11/14/2024 2:20 pm COMPARISON: None. HISTORY: ORDERING SYSTEM PROVIDED HISTORY: Reason for Exam: LBP TECHNIQUE: AP, lateral, and coned down views. FINDINGS: Lumbar spine vertebral body heights are preserved. Facet joints are in gross anatomic alignment. Spinous processes are grossly intact. There is no scoliosis. Intervertebral disc spaces are preserved. There is mild moderate facet arthropathy at L3-L4, L4-5, L5-S1. Sacral coccygeal junction appears in gross anatomic alignment. There is cortical irregularity of the distal sacrum, possibly chronic fracture versus degenerative change. Follow-up CT study may be useful for further evaluation as clinically indicated. IMPRESSION: 1. [id number] facet arthropathy in the lower lumbar spine. 2. Cortical irregularity of the distal sacrum, possibly chronic fracture. Follow-up CT study may be useful for further evaluation as clinically indicated. Interpreted by: Gonzalo Garcia Preliminary Report By: Gonzalo Garcia Electronically signed By Gonzalo Garcia Dictated Date: 11/17/2024 4:52:39 PM Prelim Date: 11/17/2024 4:56:14 PM Sign Date: 11/17/2024 4:56:14 PM Ordering Provider: [facility] Inital Evaluation (1) - PT 10-16-2024 Inital Evaluation (1) - PT [facility] [address] [place] [address] [address] [place] [address] / REHABILITATION SERVICES INITIAL EVALUATION MR#: [id number] Acct: [id number] Name: MACARENA CANTU Rep #: [id number] : 1970 54 From: Janet VILLASENOR Referring Dr.: Dr. Juanjose Flores MD Status: REG R Insurance: [facility] Patient's Visit Information Visit Information Visit Information: MACARENA CANTU is a 54 year old F referred to Physical Therapy by Dr. Juanjose Flores MD with a diagnosis of Fibromyalgia. Date of Evaluation: 10/16/24 Physical Therapist: JACKLYN Faulkner Visit Plan Frequency: 2x /Week Duration: 2 Months Plan: 2X/ week for 8 weeks starting with mat core stability exercises and then progressing to machines for core stability, LE and UE strength, posture with HEP. Also do some B Quad/hip flexor foam rolling and stretching, UE and postural stretching with HEP HEP: LTR and bridges Subjective Subjective: Pt has fibromyalgia and has had it since 2009. She had breast Cancer and because of the radiation and Chemo. She has neuropathy in her legs and feet. She aches all over. It takes her awhile to move and get up. Once she gets up and moves better. She did water therapy here and felt improvement and now wants to try something else. She did that right around [place]. Her major pain is arms/shoulders, upper thighs, back pain, neck pain, hands. Her pain is relieved somewhat with IBPRO and muscle relaxors. She takes those at night also so she can sleep. She is generally good in sitting. She has a brace on that helps her back. She just started wearing the brace. She has arthritis in her spine and it is curving. Pain Arm/ shoulder pain: Pain Intensity (Out of 10): 5 Leg pain: Pain Intensity (Out of 10): 0 Pain Intensity Range: 6 back pain: Pain Intensity (Out of 10): 7 Objective Objective: Gait: walks with shorter strides and wider [place] Pt is able to heel and toe raise but it hurts in her calves and front of the legs. LE MMT: R hip flex 8.8 and L 7.6 R knee ext 18.2 and L 17.8 R knee flex 7.3 and L 7 Trunk AROM: flexion 50%, Ext 100%, SB B 75%, Rot B 50% UE AROM: flexion to approx 120 degrees, IR to approx L1 UE MMT: R shoulder flex 6.4 and L 8 R shoulder ABD 9 and L 8.4 R shoulder ER 10.5 and L 12.4 C-spine AROM: flex 100%, Ext 50%, Rot B 75% with increase pain and SB B 50% with increase pain Very tight Quads and hip flexors.... Tighter HS on the R than the L. LTR: very tight at end range but also felt like a good stretch to the patient. Balance/Special Test Scores Lower Extremity Functional Score: 12 Goals Goal 1:: I HEP Goal Time Frame: 6-8 Weeks Goal 2:: Increase flexibility of B hip flexors/ Quads Goal Time Frame: 6-8 Weeks Goal 3:: Decrease overall back and Quad pain and arm pain by 50% Goal Time Frame: 6-8 Weeks Goal 4:: Pt to be able to do her ADL's without feeling like she needs the back brace Goal Time Frame: 6-8 Weeks Goal 5:: Increase LE strength (at the time of the eval: LE MMT: R hip flex 8.8 and L 7.6 R knee ext 18.2 and L 17.8 R knee flex 7.3 and L 7) Goal Time Frame: 6-8 Weeks Rehabilitation Potential Rehabilitation Potential: Good Anticipated Interventions Patient/Client Instruction: Educate patient on: Condition and Plan of Care For the Purpose of:: To decrease pain, To increase ROM, To improve nutrient delivery to tissue, To improve muscle performance and motor function, To improve ability to perform ADL's, To increase tolerance to activity/condition /position, To improve performance and independence with ADL's, To decrease level of supervision to perform tasks, To improve ability of physical actions for home/community/wor k/leisure, To improve gait and locomotor functions, To improve health of tissue, To decrease soft tissue restriction and To increase flexibility/ROM Therapeutic Exercise to Include: Strength training, Postural training, Flexibilty training, Gait and locomotor training, Passive ROM, Active ROM and Scapular Strength/Stabiliza tion For the Purpose of:: To decrease pain, To increase ROM, To improve nutrient delivery to tissue, To improve muscle performance and motor function, To improve ability to perform ADL's, To increase tolerance to activity/condition /position, To improve performance and independence with ADL's, To decrease level of supervision to perform tasks, To improve ability of physical actions for home/community/wor k/leisure, To improve gait and locomotor functions, To improve health of tissue, To decrease soft tissue restriction, To increase flexibility/ROM and To improve endurance Manual Therapy Techniques to Include: Passive ROM and Soft tissue mobilization For the Purpose of:: To decrease pain, To increase ROM, To improve nutrient delivery to tissue, T (more content not included)... Normal [facility] Emergency Department Summary on 09-23-2024 Emergency Department Summary [facility] Medical Records Department [address] [place] [address] Emergency Department Summary 09/23/24 MR#: [id number] Acct: [id number] Name: MACARENA CANTU Rep #: [id number] : 1970 54 From: Ismael Moran MD PCP: Dr. Kiko Arevalo MD Status:PRE ER Location: ED HPI History of Present Illness Chief Complaint: Dental Informant: patient Narrative Narrative: Right maxillary molar dental pain that started gradually last night worse this morning. No fevers, chills, swelling, purulent discharge although she did have a little bit of bleeding when she brushed her teeth yesterday that was minor. Has a dentist but has not called for an appointment yet. [facility] Medical History HIV exposure Vitamin deficiency Hives Hearing problem Head ache Carpal tunnel syndrome Breast cancer UTI (urinary tract infection) Back problem Arthritis Allergies Morbid obesity Anxiety and depression Former tobacco use HTN (hypertension) Neuropathy Asthma Home Medications ???Medication ???Instructions ???Recorded ???Last Taken ???Type meclizine 25 mg chewable tablet 25 mg PO DAILY PRN vertigo #30 tab s 10/31/23 Unknown Rx (Antivert) Saccharomyces boulardii 250 mg 250 mg PO BID 11/02/23 Unknown His tory capsule (Daily Probiotic (S. boulardii)) albuterol sulfate 90 mcg/actuation 2 puff inhalation Q4-6H PRN 10/21 09/15 Unknown Rx aerosol inhaler shortness of breath or wheezing #8.5 grams cetirizine 10 mg capsule (Zyrtec) 10 mg PO DAILY PRN 11/02/23 Unkno wn History cholecalciferol (vitamin D3) 25 25 mcg PO DAILY 11/02/23 Unknown H istory mcg (1,000 unit) capsule inhalational spacing device #1 ea 11/02/23 Unknown Rx (BreatheRite MDI Spacer) multivitamin 1 tab PO DAILY 11/02/23 Unknown Hi story miscellaneous medical supply 1 packet miscellaneous DAILY #1 ea 05/01/24 Unknown Rx budesonide-formote rol HFA 80 2 puff inhalation BID #10.2 grams 05/27/24 Unknown Rx mcg-4.5 mcg/actuation aerosol inhaler duloxetine 30 mg capsule,delayed 30 mg PO DAILY #90 caps 06/25/24 U nknown Rx release olmesartan 40 mg tablet 40 mg PO DAILY #90 tabs 07/29/24 U nknown Rx doxycycline hyclate 100 mg tablet 100 mg PO BID #10 tabs 08/06/24 U nknown Rx pregabalin 100 mg capsule (Lyrica) 100 mg PO QDAY 08/06/24 Unknown History tizanidine 4 mg tablet 4 mg PO QHS PRN 08/06/24 Unknown H istory amoxicillin 500 mg tablet 500 mg PO TID #30 tabs 09/23/24 Un known Rx hydrocodone-acetam inophen 5-325mg 1 tab PO Q6H PRN PRN Pain 3 days 09/23/24 Unknown Rx 5mg-325mg #10 TABLETS Allergy/AdvReac Type Severity Reaction Status Date / Time No Known Allergies Allergy Verified 09/23/24 08:20 Family History Mother CAD (coronary artery disease) Heart disease Hypertension Diabetes CVA (cerebral vascular accident) Myocardial infarction Kidney disease Grandmother Heart disease CABG Diabetes Hypertension CVA (cerebral vascular accident) Myocardial infarction COPD (chronic obstructive pulmonary disease) Surgical History Status post breast reduction H/O wrist surgery History of hysterectomy Previous section History of lumpectomy of left breast Social History household members: spouse housing: house current occupational status: employed current occupation: [employer] Smoking Status: Former smoker quit date: 07/23/16 pack-years: 30 Electronic Cigarette Use: not used how long ago did patient quit smoking: Quit most recently 7 yrs prior, smoked prior intermittent 3 cig/day. alcohol intake: never substance use type: does not use do you feel safe at home: Yes ROS ROS ED Constitutional Constitutional ED: Denies chills or fever(s) Eyes Eyes: Denies change in vision or double vision ENT ENT ED: Reports dental pain; Denies sinus pain or throat swelling Cardiovascular Cardiovascular: Denies chest pain or palpitations Respiratory/Chest Respiratory/Chest: Denies cough or dyspnea Integumentary Denies abscess or rash Neurologic Neurologic: Denies headache(s), paresthesias or weakness EXAM Physical Exam Const Vital Signs: 09/23/24 08:19 Temperature 98.1 F Temperature Source Oral Pulse Rate 89 Respiratory Rate 16 Blood Pressure 162/108 H Blood Pressure Mean 126 Pulse Ox 99 Oxygen Delivery Method Room Air Positive well nourished and well developed General Appearance ED: well developed and NAD HEENT HEENT Narrative: Tooth #1 is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 BACTERIA 1+ /hpf Normal None Seen [facility] Comment on above: Order Comment: YUDITH CTOR TO SPECIFY Performed By: #### M [id number], [id number] #### [facility] [address] [place], [address] EPI,SQUAMOUS 5-10 SEEN Normal 5-10 [facility] Comment on above: Order Comment: YUDITH CTOR TO SPECIFY Performed By: #### M [id number], [id number] #### [facility] [address] [place], [address] RBC 0 SEEN Normal 0-5 [facility] Comment on above: Order Comment: YUDITH CTOR TO SPECIFY Performed By: #### M [id number], [id number] #### [facility] [address] [place], [address] Absolute lymphocyte countOrd ered By: Kiko Arevalo on 11-14-2023 Lymphocytes Auto (Unsp spec) [#/Vol] 2.62 10*3/uL 0.83-4.51 [facility] Automated lymphocyte count a s percentage of total leukocytesOrdered By: Kiko Arevalo on 11-14-2023 Lymphocytes/100 WBC Auto (Unsp spec) 37.1 % 19-41 [facility] Basophil percentageOrdered B y: Kiko Arevalo on 11-14-2023 Basophils/100 WBC (Bld) 0.1 % 0-1 [facility] Bilirubin [Mass/Vol] 0.50 mg/dL 0.20-1.00 [facility] Comment on above: For patients on eltr ombopag therapy, use of Dimension [place] TBIL is not recommended. Chloride [Moles/Vol] 103 mmol/L 98-107 [facility] Eosinophils/100 WBC (Bld) 2.0 % 0-5 [facility] Glucose [Mass/Vol] 99 mg/dL 74-106 [facility] Hemoglobin (Bld) [Mass/Vol] 13.7 g/dL 12.0-15.0 [facility] Monocytes/100 WBC (Bld) 5.2 % 0-10 [facility] Neutrophils (Bld) [#/Vol] 3.9 10*3/uL 2.0-7.7 [facility] Neutrophils/100 WBC (Bld) 55.5 % 47-70 [facility] Potassium [Moles/Vol] 3.5 mmol/L 3.5-5.1 [facility] Protein [Mass/Vol] 8.0 g/dL 6.4-8.2 [facility] Sodium [Moles/Vol] 139 mmol/L 136-145 [facility] WBC (Bld) [#/Vol] 7.1 10*3/uL 4.4-11.0 [facility] Determination of erythrocyte mean corpuscular volume (MCV)Ordered By: Kiko Arevalo on 11-14-2023 MCV (RBC) [Entitic vol] 87.5 fL 81-99 [facility] Erythrocyte distribution wid th ratioOrdered By: Kiko Arevalo on 11-14-2023 Erythrocyte distribution width (RBC) [Ratio] 14.7 % 11.6-14.6 [facility] Erythrocyte distribution wid th standard deviationOrdered By: Kiko Arevalo on 11-14-2023 Erythrocyte distribution width (RBC) [Entitic vol] 47.3 fL 35.1-43.9 [facility] Erythrocyte sedimentation ra teOrdered By: Kiko Arevalo on 11-14-2023 ESR (Bld) [Velocity] 25 mm/h 0-30 [facility] Hematocrit Auto (Bld) [Volum e fraction]Ordered By: Kiko Arevalo on 11-14-2023 Hematocrit (Bld) [Volume fraction] 42.6 % 37-47 [facility] Immature granulocytes/100 WB C Auto (Bld)Ordered By: Kiko Arevalo on 11-14-2023 Immature granulocytes/100 WBC (Bld) 0.100 % 0.0-0.9 [facility] Comment on above: IG% - Immature Granu locytes (promyelocytes, myelocytes and metamyelocytes) > 1% indicates that a LEFT SHIFT is Present. Laboratory - Chemistry and C hemistry - challengeOrdered By: Kiko Arevalo on 11-14-2023 CK [Catalytic activity/Vol] 204 U/L 26-192 [facility] Albumin/Globulin [Mass ratio] 0.8 {ratio} 0.9-2.4 [facility] ALP [Catalytic activity/Vol] 76 U/L 45-117 [facility] ALT [Catalytic activity/Vol] 29 U/L 13-56 [facility] CO2 [Moles/Vol] 31.0 mmol/L 21.0-32.0 [facility] Globulin (S) [Mass/Vol] 4.5 g/dL 2.2-4.2 [facility] Urea nitrogen/Creatinine [Mass ratio] 15.3 mg/mg 10-20 [facility] - Hematology and Cell countsOrdered By: Kiko Arevalo on 11-14-2023 MCH (RBC) [Entitic mass] 28.1 pg 27.0-32.0 [facility] MCHC (RBC) [Mass/Vol] 32.2 g/dL 32-36 [facility] Nucleated RBC/100 WBC (Bld) [Ratio] 0 % 0-5 [facility] Platelet mean volume (Bld) [Entitic vol] 10.9 fL 6.2-12.0 [facility] Platelets (Bld) [#/Vol] 348 10*3/uL 150-450 [facility] No Panel InformationOrdered By: Kiko Arevalo on 11-14-2023 C-Reactive Protein Extended Range 13.00 mg/L 0.0-3.0 [facility] Comment on above: C-Reactive Protein ( CRP) provides useful information for thediagnosis, therapy and monitoring of inflammatory processesand associated diseases. For the evaluation of Relative Riskfor Cardiovascular Disease, a High Sensitivity CRP (HSCRP)should be ordered. Estimated GFR (MDRD) Amer 90 mL/min >60 [facility] Comment on above: GFR Calc Estimated GFR (MDRD) Non-Af Amer 74 mL/min >60 [facility] Comment on above: Non- GFR Calc Hepatitis A IgM Antibody Negative Negative [facility] Hepatitis B Core IgM Antibody Negative Negative [facility] Hepatitis C Antibody (EIA) Non-Reactive Non Reactive [facility] Hepatitis C Antibody Comment Comment . [facility] Comment on above: Not infected with HC V unless early or acute infection issuspected (which may be delayed in an immunocompromisedindividual), or other evidence exists to indicate HCVinfection.Performed at: [facility] [id number] Director: Twin Mejía PhD, Phone: [phone] RBC Auto (Bld) [#/Vol]Ordere d By: Kiko Arevalo on 11-14-2023 RBC (Bld) [#/Vol] 4.87 10*6/uL 4.2-5.4 [facility] Serum or plasma calcium lokesh urement (mass/volume)Ordered By: Kiko Arevalo on 11-14-2023 Calcium [Mass/Vol] 9.3 mg/dL 8.5-10.1 [facility] Serum or plasma creatinine m easurement (mass/volume)Ordered By: Kiko Arevalo on 11-14-2023 Creatinine [Mass/Vol] 0.85 mg/dL 0.55-1.02 [facility] Comment on above: The validity of the calculated GFR & GFRAA in patients over 70 years has not been determined. Clinical correlation is essential. Serum or plasma hepatitis B virus surface antigen detection by immunoassayOrdered By: Kiko Arevalo on 11-14-2023 HBV surface Ag IA Ql Negative Negative [facility] Serum or plasma urea nitroge n measurement (mass/volume)Ordered By: Kiko Arevalo on 11-14-2023 Urea nitrogen [Mass/Vol] 13 mg/dL 7-18 [facility] Thin prep Papanicolaou smear with manual screeningOrdered By: Kiko Arevalo on 11-14-2023 Thin prep Papanicolaou smear with manual screening 3.5 g/dL 3.2-5.0 [facility] Thin prep Papanicolaou smear with manual screening 24 U/L 15-37 [facility] Thin prep Papanicolaou smear with manual screening 5 5-15 [facility] Basophil percentageOrdered B y: Tesfaye Soriano on 11-02-2023 Bilirubin [Mass/Vol] 0.60 mg/dL 0.20-1.00 [facility] Comment on above: For patients on eltr ombopag therapy, use of Dimension [place] TBIL is not recommended. Chloride [Moles/Vol] 104 mmol/L 98-107 [facility] Cholesterol [Mass/Vol] 222 mg/dL <200 [facility] Comment on above: <200 mg/dL Desirable 200-240 mg/dL Borderline >240 mg/dL High Risk Glucose [Mass/Vol] 100 mg/dL 74-106 [facility] Comment on above: Fasting Glucose resu lt from 100 to 125 mg/dL suggests IMPAIRED HOMEOSTASIS per A.D.A. criteria. Potassium [Moles/Vol] 3.5 mmol/L 3.5-5.1 [facility] Protein [Mass/Vol] 8.9 g/dL 6.4-8.2 [facility] Sodium [Moles/Vol] 136 mmol/L 136-145 [facility] Triglyceride [Mass/Vol] 137 mg/dL <199 [facility] Comment on above: The drugs N-Acetylcy steine and Metamizole may falsely depress this assay.Serum Triglycerides Reference Interval Normal <150 mg/dL Borderline high 150 - 199 mg/dL High 200 - 499 mg/dL Very High > or = 500 mg/dL Erythrocyte sedimentation ra teOrdered By: Tesfaye Soriano on 11-02-2023 ESR (Bld) [Velocity] 21 mm/h 0-30 [facility] HIV 1 and HIV-2 antibody ass ay with HIV-1 p24 antigen detectionOrdered By: Tesfaye Soriano on 11-02-2023 HIV 1+2 Ab+HIV1 p24 Ag IA Ql Non-Reactive Nonreactive [facility] - Chemistry and C hemistry - challengeOrdered By: Tesfaye Soriano on 11-02-2023 Albumin/Globulin [Mass ratio] 0.7 {ratio} 0.9-2.4 [facility] ALP [Catalytic activity/Vol] 85 U/L 45-117 [facility] ALT [Catalytic activity/Vol] 90 U/L 13-56 [facility] Cholesterol in HDL [Mass/Vol] 55 mg/dL >40 [facility] Comment on above: The drugs N-Acetylcy steine and Metamizole may falsely depress this assay. Reference Range HDL <40 mg/dL Low HDL Cholesterol HDL >or= 60 mg/dL High HDL Cholesterol Cholesterol in LDL [Mass/Vol] 140 mg/dL 0-130 [facility] CK [Catalytic activity/Vol] 168 U/L 26-192 [facility] CO2 [Moles/Vol] 29.0 mmol/L 21.0-32.0 [facility] Cobalamin (Vitamin B12) [Mass/Vol] 1285 pg/mL 211-911 [facility] Globulin (S) [Mass/Vol] 5.2 g/dL 2.2-4.2 [facility] Urea nitrogen/Creatinine [Mass ratio] 13.4 mg/mg 10-20 [facility] No Panel InformationOrdered By: Tesfaye Soriano on 11-02-2023 Anti-Nuclear Antibody Screen Positive Negative [facility] C-Reactive Protein Extended Range 18.90 mg/L 0.0-3.0 [facility] Comment on above: C-Reactive Protein ( CRP) provides useful information for thediagnosis, therapy and monitoring of inflammatory processesand associated diseases. For the evaluation of Relative Riskfor Cardiovascular Disease, a High Sensitivity CRP (HSCRP)should be ordered. Centromere B Antibody <0.2 AI 0.0-0.9 [facility] Estimated GFR (MDRD) Amer 85 mL/min >60 [facility] Comment on above: GFR Calc Estimated GFR (MDRD) Non-Af Amer 70 mL/min >60 [facility] Comment on above: Non- GFR Calc ANSELMO-1 Antibody <0.2 AI 0.0-0.9 [facility] [employer] Antibody 1.6 AI 0.0-0.9 [facility] SM Antibody <0.2 AI 0.0-0.9 [facility] SS-A/Ro IgG Antibody < 0.2 AI 0.0-0.9 [facility] SS-B/La IgG Antibody < 0.2 AI 0.0-0.9 [facility] Vitamin D 25-Hydroxy 71.1 ng/mL [facility] Comment on above: Vitamin D 25(OH) Sta tus Range Deficiency <20 ng/mL (50nmol/L) Insufficiency 20 - 30 ng/mL (50 - 75 nmol/L) Sufficiency 30 - 100 ng/mL (75 - 250 nmol/L) Toxicity >100 ng/mL (>250 nmol/L) VLDL Cholesterol 27 mg/dL 5-40 [facility] Serum DNA double strand anti body assay (units/volume)Ordered By: Tesfaye Soriano on 11-02-2023 DNA double strand Ab Qn (S) 1 [IU]/mL 0-9 [facility] Comment on above: Negative <5 Equivoca l 5 - 9 Positive >9 Serum Scl-70 antibody assay (units/volume)Ordered By: Tesfaye Soriano on 11-02-2023 SCL-70 extractable nuclear Ab Qn (S) 0.2 AI 0.0-0.9 [facility] Serum or plasma calcium lokesh urement (mass/volume)Ordered By: Tesfaye Soriano on 11-02-2023 Calcium [Mass/Vol] 10.0 mg/dL 8.5-10.1 [facility] Serum or plasma creatinine m easurement (mass/volume)Ordered By: Tesfaye Soriano on 11-02-2023 Creatinine [Mass/Vol] 0.90 mg/dL 0.55-1.02 [facility] Comment on above: The validity of the calculated GFR & GFRAA in patients over 70 years has not been determined. Clinical correlation is essential. Serum or plasma thyroid stim ulating hormone (TSH) measurement (units/volume)Ordered By: Tesfaye Soriano on 11-02-2023 TSH Qn 2.39 uIU/mL 0.358-3.74 [facility] Serum or plasma urea nitroge n measurement (mass/volume)Ordered By: Tesfaye Soriano on 11-02-2023 Urea nitrogen [Mass/Vol] 12 mg/dL 7-18 [facility] Thin prep Papanicolaou smear with manual screeningOrdered By: Tesfaye Soriano on 11-02-2023 Thin prep Papanicolaou smear with manual screening 3.7 g/dL 3.2-5.0 [facility] Thin prep Papanicolaou smear with manual screening 71 U/L 15-37 [facility] Thin prep Papanicolaou smear with manual screening 3 5-15 [facility] Absolute lymphocyte countOrd ered By: Zain Blank on 10-31-2023 Lymphocytes Auto (Unsp spec) [#/Vol] 3.17 10*3/uL 0.83-4.51 [facility] Automated lymphocyte count a s percentage of total leukocytesOrdered By: Zain Blank on 10-31-2023 Lymphocytes/100 WBC Auto (Unsp spec) 35.3 % 19-41 [facility] Basophil percentageOrdered B y: Zain Blank on 10-31-2023 Basophils/100 WBC (Bld) 0.3 % 0-1 [facility] Chloride [Moles/Vol] 108 mmol/L 98-107 [facility] Eosinophils/100 WBC (Bld) 1.8 % 0-5 [facility] Glucose [Mass/Vol] 95 mg/dL 74-106 [facility] Hemoglobin (Bld) [Mass/Vol] 12.9 g/dL 12.0-15.0 [facility] Monocytes/100 WBC (Bld) 6.8 % 0-10 [facility] Neutrophils (Bld) [#/Vol] 5.0 10*3/uL 2.0-7.7 [facility] Neutrophils/100 WBC (Bld) 55.6 % 47-70 [facility] Potassium [Moles/Vol] 3.6 mmol/L 3.5-5.1 [facility] Sodium [Moles/Vol] 140 mmol/L 136-145 [facility] WBC (Bld) [#/Vol] 9.0 10*3/uL 4.4-11.0 [facility] Determination of erythrocyte mean corpuscular volume (MCV)Ordered By: Zain Blank on 10-31-2023 MCV (RBC) [Entitic vol] 85.0 fL 81-99 [facility] Erythrocyte distribution wid th ratioOrdered By: Zain Blank on 10-31-2023 Erythrocyte distribution width (RBC) [Ratio] 14.7 % 11.6-14.6 [facility] Erythrocyte distribution wid th standard deviationOrdered By: Zain Blank on 10-31-2023 Erythrocyte distribution width (RBC) [Entitic vol] 45.3 fL 35.1-43.9 [facility] Hematocrit Auto (Bld) [Volum e fraction]Ordered By: Zain Blank on 10-31-2023 Hematocrit (Bld) [Volume fraction] 39.6 % 37-47 [facility] Immature granulocytes/100 WB C Auto (Bld)Ordered By: Zain Blank on 10-31-2023 Immature granulocytes/100 WBC (Bld) 0.200 % 0.0-0.9 [facility] Comment on above: IG% - Immature Granu locytes (promyelocytes, myelocytes and metamyelocytes) > 1% indicates that a LEFT SHIFT is Present. Laboratory - Chemistry and C hemistry - challengeOrdered By: Zain Blank on 10-31-2023 CO2 [Moles/Vol] 27.0 mmol/L 21.0-32.0 [facility] Urea nitrogen/Creatinine [Mass ratio] 13.6 mg/mg 10-20 [facility] - Hematology and Cell countsOrdered By: Zain Blank on 10-31-2023 MCH (RBC) [Entitic mass] 27.7 pg 27.0-32.0 [facility] MCHC (RBC) [Mass/Vol] 32.6 g/dL 32-36 [facility] Nucleated RBC/100 WBC (Bld) [Ratio] 0 % 0-5 [facility] Platelet mean volume (Bld) [Entitic vol] 9.9 fL 6.2-12.0 [facility] Platelets (Bld) [#/Vol] 310 10*3/uL 150-450 [facility] No Panel InformationOrdered By: Zain Blank on 10-31-2023 Estimated Creatinine Clearance Calc 88.18 ml/min [facility] Estimated GFR (MDRD) Amer 95 mL/min >60 [facility] Comment on above: GFR Calc Estimated GFR (MDRD) Non-Af Amer 79 mL/min >60 [facility] Comment on above: Non- GFR Calc RBC Auto (Bld) [#/Vol]Ordere d By: Zain Blank on 10-31-2023 RBC (Bld) [#/Vol] 4.66 10*6/uL 4.2-5.4 [facility] Serum or plasma calcium lokesh urement (mass/volume)Ordered By: Zain Blank on 10-31-2023 Calcium [Mass/Vol] 8.9 mg/dL 8.5-10.1 [facility] Serum or plasma creatinine m easurement (mass/volume)Ordered By: Zain Blank on 10-31-2023 Creatinine [Mass/Vol] 0.81 mg/dL 0.55-1.02 [facility] Comment on above: The validity of the calculated GFR & GFRAA in patients over 70 years has not been determined. Clinical correlation is essential. Serum or plasma urea nitroge n measurement (mass/volume)Ordered By: Zain Blank on 10-31-2023 Urea nitrogen [Mass/Vol] 11 mg/dL 7-18 [facility] Thin prep Papanicolaou smear with manual screeningOrdered By: Zain Blank on 10-31-2023 Thin prep Papanicolaou smear with manual screening 5 5-15 [facility] Basophil percentageOrdered B y: Elli White on 10-29-2023 Bilirubin [Mass/Vol] 0.20 mg/dL 0.20-1.00 [facility] Comment on above: For patients on eltr ombopag therapy, use of Dimension [place] TBIL is not recommended. Protein [Mass/Vol] 6.9 g/dL 6.4-8.2 [facility] Basophil percentageOrdered B y: Ismael Moran on 10-29-2023 Basophil percentage 10-25 SEEN /hpf 0-5 [facility] Bilirubin Test strip Ql (U)O rdered By: Ismael Moran on 10-29-2023 Bilirubin Ql (U) Negative Negative [facility] Ketones Test strip Ql (U)Ord ered By: Ismael Moran on 10-29-2023 Ketones Ql (U) Negative Negative [facility] - Chemistry and C hemistry - challengeOrdered By: Elli Martell on 10-29-2023 Albumin/Globulin [Mass ratio] 0.8 {ratio} 0.9-2.4 [facility] ALP [Catalytic activity/Vol] 81 U/L 45-117 [facility] ALT [Catalytic activity/Vol] 41 U/L 13-56 [facility] CK [Catalytic activity/Vol] 861 U/L 26-192 [facility] Globulin (S) [Mass/Vol] 3.9 g/dL 2.2-4.2 [facility] Mucus LM Ql (Urine sed)Order ed By: Ismael Moran on 10-29-2023 Mucus Ql (Urine sed) 0 SEEN /hpf [facility] Nitrite Test strip Ql (U)Ord ered By: Ismael Moran on 10-29-2023 Nitrite Ql (U) Negative Negative [facility] No Panel InformationOrdered By: Ismael Moran on 10-29-2023 Urine RBC 0 SEEN /hpf 0-5 [facility] Protein Test strip Ql (U)Ord ered By: Ismael Moran on 10-29-2023 Protein Ql (U) 15 mg/dl Negative [facility] Squamous epithelial cells de tection in urine sediment by light microscopyOrdered By: Ismael Moran on 10-29-2023 Epithelial cells.squamous LM Ql (Urine sed) 0-5 SEEN /hpf 5-10 [facility] Thin prep Papanicolaou smear with manual screeningOrdered By: Elli Martell on 10-29-2023 Thin prep Papanicolaou smear with manual screening 3.0 g/dL 3.2-5.0 [facility] Thin prep Papanicolaou smear with manual screening 34 U/L 15-37 [facility] Urine blood detectionOrdered By: Ismael Moran on 10-29-2023 RBC Ql (U) Negative Negative [facility] Urine clarityOrdered By: Rishi Moran on 10-29-2023 Clarity (U) Clear Clear [facility] Urine color determinationOrd ered By: Ismael Moran on 10-29-2023 Color (U) Yellow Yellow [facility] Urine glucose detectionOrder ed By: Ismael Moran on 10-29-2023 Glucose Ql (U) Normal mg/dl Normal [facility] Urine leukocyte esterase det ection by dipstickOrdered By: Ismael Moran on 10-29-2023 Leukocyte esterase Test strip Ql (U) 500 /ul Negative [facility] Urine pHOrdered By: Ismael Moran on 10-29-2023 pH (U) 6.0 [pH] 5.0 - 8.0 [facility] Urine sediment bacteria coun t by microscopy (number/high power field)Ordered By: Ismael Moran on 10-29-2023 Bacteria LM.HPF (Urine sed) [#/Area] 0 /[HPF] None Seen [facility] Urine specific gravity measu rementOrdered By: Ismael Moran on 10-29-2023 Specific gravity (U) [Rel density] 1.025 1.002-1.030 [facility] Urine urobilinogen measureme ntOrdered By: Ismael Moran on 10-29-2023 Urobilinogen Ql (U) Normal mg/dl Normal [facility] Absolute lymphocyte countOrd ered By: Ismael Moran on 10-28-2023 Lymphocytes Auto (Unsp spec) [#/Vol] 3.44 10*3/uL 0.83-4.51 [facility] Automated lymphocyte count a s percentage of total leukocytesOrdered By: Ismael Moran on 10-28-2023 Lymphocytes/100 WBC Auto (Unsp spec) 30.1 % 19-41 [facility] Basophil percentageOrdered B y: Ismael Moran on 10-28-2023 Basophils/100 WBC (Bld) 0.3 % 0-1 [facility] Chloride [Moles/Vol] 99 mmol/L 98-107 [facility] Eosinophils/100 WBC (Bld) 1.6 % 0-5 [facility] Glucose [Mass/Vol] 99 mg/dL 74-106 [facility] Hemoglobin (Bld) [Mass/Vol] 13.5 g/dL 12.0-15.0 [facility] Monocytes/100 WBC (Bld) 7.8 % 0-10 [facility] Neutrophils (Bld) [#/Vol] 6.8 10*3/uL 2.0-7.7 [facility] Neutrophils/100 WBC (Bld) 59.9 % 47-70 [facility] Potassium [Moles/Vol] 2.9 mmol/L 3.5-5.1 [facility] Sodium [Moles/Vol] 138 mmol/L 136-145 [facility] WBC (Bld) [#/Vol] 11.4 10*3/uL 4.4-11.0 [facility] Basophil percentageOrdered B y: Elli Martell on 10-28-2023 Bilirubin [Mass/Vol] 0.30 mg/dL 0.20-1.00 [facility] Comment on above: For patients on eltr ombopag therapy, use of Dimension [place] TBIL is not recommended. Protein [Mass/Vol] 7.7 g/dL 6.4-8.2 [facility] Determination of erythrocyte mean corpuscular volume (MCV)Ordered By: Ismael Moran on 10-28-2023 MCV (RBC) [Entitic vol] 86.5 fL 81-99 [facility] Direct bilirubinOrdered By: Elli Martell on 10-28-2023 Bilirubin.direct [Mass/Vol] 0.10 mg/dL 0.00-0.30 [facility] Erythrocyte distribution wid th ratioOrdered By: Ismael Moran on 10-28-2023 Erythrocyte distribution width (RBC) [Ratio] 15.0 % 11.6-14.6 [facility] Erythrocyte distribution wid th standard deviationOrdered By: Ismael Moran on 10-28-2023 Erythrocyte distribution width (RBC) [Entitic vol] 48.2 fL 35.1-43.9 [facility] Hematocrit Auto (Bld) [Volum e fraction]Ordered By: Ismael Moran on 10-28-2023 Hematocrit (Bld) [Volume fraction] 41.5 % 37-47 [facility] Immature granulocytes/100 WB C Auto (Bld)Ordered By: Ismael Moran on 10-28-2023 Immature granulocytes/100 WBC (Bld) 0.300 % 0.0-0.9 [facility] Comment on above: IG% - Immature Granu locytes (promyelocytes, myelocytes and metamyelocytes) > 1% indicates that a LEFT SHIFT is Present. Laboratory - Chemistry and C hemistry - challengeOrdered By: Elli White on 10-28-2023 ALP [Catalytic activity/Vol] 80 U/L 45-117 [facility] ALT [Catalytic activity/Vol] 49 U/L 13-56 [facility] Globulin (S) [Mass/Vol] 4.3 g/dL 2.2-4.2 [facility] Magnesium [Mass/Vol] 1.8 mg/dL 1.6-2.6 [facility] Laboratory - Chemistry and C hemistry - challengeOrdered By: Ismael Moran on 10-28-2023 CK [Catalytic activity/Vol] 1251 U/L 26-192 [facility] CO2 [Moles/Vol] 34.0 mmol/L 21.0-32.0 [facility] Natriuretic peptide B (Bld) [Mass/Vol] pg/mL 0-100 [facility] Urea nitrogen/Creatinine [Mass ratio] 16.2 mg/mg 10-20 [facility] Laboratory - Hematology and Cell countsOrdered By: Ismael Moran on 10-28-2023 MCH (RBC) [Entitic mass] 28.1 pg 27.0-32.0 [facility] MCHC (RBC) [Mass/Vol] 32.5 g/dL 32-36 [facility] Nucleated RBC/100 WBC (Bld) [Ratio] 0 % 0-5 [facility] Platelet mean volume (Bld) [Entitic vol] 10.1 fL 6.2-12.0 [facility] Platelets (Bld) [#/Vol] 335 10*3/uL 150-450 [facility] No Panel InformationOrdered By: Ismael Moran on 10-28-2023 Estimated Creatinine Clearance Calc 61.75 ml/min [facility] Estimated GFR (MDRD) Amer 62 mL/min >60 [facility] Comment on above: GFR Calc Estimated GFR (MDRD) Non-Af Amer 51 mL/min >60 [facility] Comment on above: Non- GFR Calc Troponin I High Sensitivity 4 pg/mL 3.0-54.0 [facility] Comment on above: Please Note: New [place] t Units and Gender Specific Reference Ranges. For more information see Policy Stat Procedure [place] High Sensitivity Troponin (TNIH) and attachments. RBC Auto (Bld) [#/Vol]Ordere d By: Ismael Moran on 10-28-2023 RBC (Bld) [#/Vol] 4.80 10*6/uL 4.2-5.4 [facility] Serum or plasma calcium lokesh urement (mass/volume)Ordered By: Ismael Moran on 10-28-2023 Calcium [Mass/Vol] 9.4 mg/dL 8.5-10.1 [facility] Serum or plasma creatinine m easurement (mass/volume)Ordered By: Ismael Moran on 10-28-2023 Creatinine [Mass/Vol] 1.17 mg/dL 0.55-1.02 [facility] Comment on above: The validity of the calculated GFR & GFRAA in patients over 70 years has not been determined. Clinical correlation is essential. Serum or plasma urea nitroge n measurement (mass/volume)Ordered By: Ismael Moran on 10-28-2023 Urea nitrogen [Mass/Vol] 19 mg/dL 7-18 [facility] Thin prep Papanicolaou smear with manual screeningOrdered By: Elli Martell on 10-28-2023 Thin prep Papanicolaou smear with manual screening 3.4 g/dL 3.2-5.0 [facility] Thin prep Papanicolaou smear with manual screening 41 U/L 15-37 [facility] Thin prep Papanicolaou smear with manual screeningOrdered By: Ismael Moran on 10-28-2023 Thin prep Papanicolaou smear with manual screening 5 5-15 [facility] CNOVon 08-20-2023 CNOV Office Visit (UCWSTR) -------- MACARENA CANTU ([id number]) 1970 F Date Time Provider Department 08/20/23 1:15 PM RALPH CASTELLANOS [facility] During your visit today, we recorded the following information about you: Temperature Pulse Respiration Blood pressure 98.5 degrees 94/minute 20/minute 119/90 Weight 95.2 kg Ralph Castellanos MD 08/20/2023 1:37 PM Signed Patient presents with: Cough: Chest congestion, SOB, EWING x3 weeks HPI: Express Care Triage Note: Presents to express care for multiple issues: headache, shortness of breath, left arm swelling, BP medication refill, and cold symptoms. She moved here from [place] and does not have a local PCP. Positive symptoms: Cough intermittently for a while, Shortness of breath for weeks (dyspnea on exertion and currently with conversation; not closely correlated with coughing), occipital Headache for months, left arm swelling, retrosternal chest pain last week, MEDICATIONS: Current Outpatient Medications Medication Sig DULoxetine (CYMBALTA) 30 mg capsule Take 1 capsule by mouth every afternoon. olmesartan-hydroCH LOROthiazide (BENICAR HCT) 40-25 mg per tablet Take 1 tablet by mouth every afternoon. No current facility-administe red medications for this visit. ALLERGIES: ALLERGIES No Known Allergies VITALS: BP 119/90 Pulse 94 Temp 36.9 ?C (98.5 ?F) Resp 20 Wt 95.2 kg (209 lb 12.8 oz) SpO2 98% PHYSICAL EXAM: GEN: Pleasant, in no acute distress. LUNGS: no increased WOB, subjective dyspnea during conversation ASSESSMENT/PLAN: 1. SOB (shortness of breath) - ICD9: 786.05, ICD10: R06.02 (primary diagnosis) 2. Chest pain, unspecified type - ICD9: 786.50, ICD10: R07.9 3. Headache, unspecified headache type - ICD9: 784.0, ICD10: R51.9 4. Hypertension, essential - ICD9: 401.9, ICD10: I10 Chest pain and dyspnea on exertion with risk factors for coronary artery disease should be further evaluated in the emergency room setting. She will go to [facility] ED. Ralph Castellanos MD Allergies As of Date: 08/20/2023 (No Known Allergies) Date Reviewed: 08/20/2023 Reviewed by: Annmarie Awan MA - Fully Assessed Reason for Visit: Cough [28] Cmt: Chest congestion, SOB, EWING x3 weeks Primary Visit Diagnosis:SOB (shortness of breath) [R06.02] Other Visit Diagnoses:Chest pain, unspecified type [R07.9] Headache, unspecified headache type [R51.9] Hypertension, essential [I10] Prescriptions as of 08/20/2023 - DULoxetine (CYMBALTA) 30 mg capsule Take 1 capsule by mouth every afternoon. - olmesartan-hydroCH LOROthiazide (BENICAR HCT) 40-25 mg per tablet Take 1 tablet by mouth every afternoon. Problem List As Of Date: 08/20/2023 (None) Encounter Status:Closed by RALPH CA[facility]LLANOS [facility] 08/20/23 [facility] Basophil percentageOrdered B y: Ismael Moran on 07-04-2023 Basophil percentage >100 SEEN /hpf 0-5 [facility] Comment on above: Microscopic field is filled. Other elements may be obscured. Bilirubin Test strip Ql (U)O rdered By: Ismael Moran on 07-04-2023 Bilirubin Ql (U) Negative Negative [facility] Culture, urineOrdered By: Azar Moran on 07-04-2023 Bacteria identified Cx Nom (U) Klebsiella pneumoniae sp pneum [facility] Bacteria identified Cx Nom (U) Klebsiella pneumoniae sp pneum [facility] Ketones Test strip Ql (U)Ord ered By: Ismael Moran on 07-04-2023 Ketones Ql (U) 5 mg/dl Negative [facility] Mucus LM Ql (Urine sed)Order ed By: Ismael Moran on 07-04-2023 Mucus Ql (Urine sed) 0 SEEN /hpf [facility] Nitrite Test strip Ql (U)Ord ered By: Ismael Moran on 07-04-2023 Nitrite Ql (U) Negative Negative [facility] Protein Test strip Ql (U)Ord ered By: Ismael Moran on 07-04-2023 Protein Ql (U) 30 mg/dl Negative [facility] Squamous epithelial cells de tection in urine sediment by light microscopyOrdered By: Ismael Moran on 07-04-2023 Epithelial cells.squamous LM Ql (Urine sed) 0-5 SEEN /hpf 5-10 [facility] Urine blood detectionOrdered By: Ismael Moran on 07-04-2023 RBC Ql (U) 25 /ul Negative [facility] RBC Ql (U) 0-5 SEEN /hpf 0-5 [facility] Urine clarityOrdered By: Rishi Moran on 07-04-2023 Clarity (U) Cloudy Clear [facility] Urine color determinationOrd ered By: Ismael Moran on 07-04-2023 Color (U) Yellow Yellow [facility] Urine glucose detectionOrder ed By: Ismael Moran on 07-04-2023 Glucose Ql (U) Normal mg/dl Normal [facility] Urine leukocyte esterase det ection by dipstickOrdered By: Ismael Moran on 07-04-2023 Leukocyte esterase Test strip Ql (U) 500 /ul Negative [facility] Urine pHOrdered By: Ismael Moran on 07-04-2023 pH (U) 7.0 [pH] 5.0 - 8.0 [facility] Urine sediment bacteria coun t by microscopy (number/high power field)Ordered By: Ismael Moran on 07-04-2023 Bacteria LM.HPF (Urine sed) [#/Area] 3 /[HPF] None Seen [facility] Urine specific gravity measu rementOrdered By: Ismael Moran on 07-04-2023 Specific gravity (U) [Rel density] 1.010 1.002-1.030 [facility] Urobilinogen Auto test strip Ql (U)Ordered By: Ismael Moran on 07-04-2023 Urobilinogen Ql (U) 1 mg/dl Normal [facility] Absolute lymphocyte countOrd ered By: Wilver Otero on 06-13-2023 Lymphocytes Auto (Unsp spec) [#/Vol] 3.73 10*3/uL 0.83-4.51 [facility] Basophil percentageOrdered B y: Wilver Otero on 06-13-2023 Basophils/100 WBC (Bld) 0.4 % 0-1 [facility] Chloride [Moles/Vol] 108 mmol/L 98-107 [facility] Eosinophils/100 WBC (Bld) 2.4 % 0-5 [facility] Glucose [Mass/Vol] 81 mg/dL 74-106 [facility] Neutrophils (Bld) [#/Vol] 4.6 10*3/uL 2.0-7.7 [facility] Neutrophils/100 WBC (Bld) 49.5 % 47-70 [facility] Potassium [Moles/Vol] 3.7 mmol/L 3.5-5.1 [facility] Sodium [Moles/Vol] 142 mmol/L 136-145 [facility] WBC (Bld) [#/Vol] 9.3 10*3/uL 4.4-11.0 [facility] Blood erythrocytes count (nu mber/volume)Ordered By: Wilver Otero on 06-13-2023 RBC (Bld) [#/Vol] 4.75 10*6/uL 4.2-5.4 [facility] Blood hemoglobin measurement (mass/volume)Ordered By: Wilver Otero on 06-13-2023 Hemoglobin (Bld) [Mass/Vol] 13.3 g/dL 12.0-15.0 [facility] Blood lymphocytes/100 leukoc ytesOrdered By: Wilver Otero on 06-13-2023 Lymphocytes/100 WBC (Bld) 40.2 % 19-41 [facility] Blood monocytes/100 leukocyt esOrdered By: Wilver Otero on 06-13-2023 Monocytes/100 WBC (Bld) 7.3 % 0-10 [facility] Blood platelet mean volumeOr dered By: Wilver Otero on 06-13-2023 Platelet mean volume (Bld) [Entitic vol] 10.3 fL 6.2-12.0 [facility] Determination of erythrocyte mean corpuscular volume (MCV)Ordered By: Wilver Otero on 06-13-2023 MCV (RBC) [Entitic vol] 85.9 fL 81-99 [facility] Hematocrit Auto (Bld) [Volum e fraction]Ordered By: Wilver Otero on 06-13-2023 Hematocrit (Bld) [Volume fraction] 40.8 % 37-47 [facility] Laboratory - Chemistry and C hemistry - challengeOrdered By: Wilver Otero on 06-13-2023 CO2 [Moles/Vol] 29.0 mmol/L 21.0-32.0 [facility] Magnesium [Mass/Vol] 2.2 mg/dL 1.6-2.6 [facility] Urea nitrogen/Creatinine [Mass ratio] 19.1 mg/mg 10-20 [facility] - Hematology and Cell countsOrdered By: Wilver Otero on 06-13-2023 Erythrocyte distribution width (RBC) [Entitic vol] 45.0 fL 35.1-43.9 [facility] Erythrocyte distribution width (RBC) [Ratio] 14.3 % 11.6-14.6 [facility] Immature granulocytes/100 WBC (Bld) 0.200 % 0.0-0.9 [facility] Comment on above: IG% - Immature Granu locytes (promyelocytes, myelocytes and metamyelocytes) > 1% indicates that a LEFT SHIFT is Present. MCH (RBC) [Entitic mass] 28.0 pg 27.0-32.0 [facility] Nucleated RBC/100 WBC (Bld) [Ratio] 0 % 0-5 [facility] MCHC Auto (RBC) [Mass/Vol]Or dered By: Wilver Otero on 06-13-2023 MCHC (RBC) [Mass/Vol] 32.6 g/dL 32-36 [facility] No Panel InformationOrdered By: Wilver Otero on 06-13-2023 Troponin I High Sensitivity 4 pg/mL 3.0-54.0 [facility] Comment on above: Please Note: New [place] t Units and Gender Specific Reference Ranges. For more information see Policy Stat Procedure [place] High Sensitivity Troponin (TNIH) and attachments. D-Dimer Quantitative (PE/DVT) 0.44 FEU/ug/m 0.27-0.49 [facility] Comment on above: NORMAL D-Dimer level (<0.50) indicates no DVT or PE. Estimated Creatinine Clearance Calc 65.97 ml/min [facility] Estimated GFR (MDRD) Amer 99 mL/min >60 [facility] Comment on above: GFR Calc Estimated GFR (MDRD) Non-Af Amer 82 mL/min >60 [facility] Comment on above: Non- GFR Calc Platelets bldOrdered By: Halie felisa Branden on 06-13-2023 Platelets (Bld) [#/Vol] 281 10*3/uL 150-450 [facility] Serum or plasma calcium lokesh urement (mass/volume)Ordered By: Wilver Otero on 06-13-2023 Calcium [Mass/Vol] 9.2 mg/dL 8.5-10.1 [facility] Serum or plasma creatinine m easurement (mass/volume)Ordered By: Wilver Otero on 06-13-2023 Creatinine [Mass/Vol] 0.78 mg/dL 0.55-1.02 [facility] Comment on above: The validity of the calculated GFR & GFRAA in patients over 70 years has not been determined. Clinical correlation is essential. Serum or plasma urea nitroge n measurement (mass/volume)Ordered By: Wilver Otero on 06-13-2023 Urea nitrogen [Mass/Vol] 15 mg/dL 7-18 [facility] Thin prep Papanicolaou smear with manual screeningOrdered By: Wilver Otero on 06-13-2023 Thin prep Papanicolaou smear with manual screening 5 5-15 [facility] Vital Signs Date Time Vital Sign Value Performing Clinician Faci lity 11-14-2023 13:59-0400 Body height 157.[address] Ismael Moran Work Phone: [facility] 11-14-2023 13:59-0400 Body mass index (BMI) [Ratio] 38.6 kg/m2 Dr. Ismael Moran Work Phone: [facility] 11-14-2023 13:59-0400 Body temperature 97.2 [degF] Dr. Ismael Moran Work Phone: [facility] 11-14-2023 13:59-0400 Body weight 95.[address] Ismael Moran Work Phone: [facility] 11-14-2023 13:59-0400 Diastolic blood pressure 80 mm[Hg] Dr. Ismael Moran Work Phone: [facility] 11-14-2023 13:59-0400 Heart rate 87 /min Dr. Ismael Moran Work Phone: [facility] 11-14-2023 13:59-0400 Respiratory rate 16 /min Dr. Ismael Moran Work Phone: [facility] 11-14-2023 13:59-0400 SaO2% (BldA) [Mass fraction] 97 % Dr. Ismael Moran Work Phone: [facility] 11-14-2023 13:59-0400 Systolic blood pressure 118 mm[Hg] Dr. Ismael Moran Work Phone: [facility] 11-02-2023 09:08-0400 Body height 157.[address] Ismael Moran Work Phone: [facility] 11-02-2023 09:08-0400 Body mass index (BMI) [Ratio] 39.1 kg/m2 Dr. Ismael Moran Work Phone: [facility] 11-02-2023 09:08-0400 Body temperature 97.8 [degF] Dr. Ismael Moran Work Phone: [facility] 11-02-2023 09:08-0400 Body weight 97.[address] Ismael oMran Work Phone: [facility] 11-02-2023 09:08-0400 Diastolic blood pressure 72 mm[Hg] Dr. Ismael Moran Work Phone: [facility] 11-02-2023 09:08-0400 Heart rate 60 /min Dr. Ismael Moran Work Phone: [facility] 11-02-2023 09:08-0400 Respiratory rate 16 /min Dr. Ismael Moran Work Phone: [facility] 11-02-2023 09:08-0400 SaO2% (BldA) [Mass fraction] 98 % Dr. Ismael Moran Work Phone: [facility] 11-02-2023 09:08-0400 Systolic blood pressure 122 mm[Hg] Dr. Ismael Moran Work Phone: [facility] 10-31-2023 08:00-0400 Body temperature 98 [degF] Dr. Ismael Moran Work Phone: [facility] 10-31-2023 08:00-0400 Diastolic blood pressure 84 mm[Hg] Dr. Ismael Moran Work Phone: [facility] 10-31-2023 08:00-0400 Heart rate 86 /min Dr. Ismael Moran Work Phone: [facility] 10-31-2023 08:00-0400 Respiratory rate 14 /min Dr. Ismael Moran Work Phone: [facility] 10-31-2023 08:00-0400 SaO2% (BldA) [Mass fraction] 98 % Dr. Ismael Moran Work Phone: [facility] 10-31-2023 08:00-0400 Systolic blood pressure 146 mm[Hg] Dr. Ismael Moran Work Phone: [facility] 10-31-2023 06:00-0400 Body mass index (BMI) [Ratio] 40 kg/m2 Dr. Ismael Moran Work Phone: [facility] 10-31-2023 06:00-0400 Body weight 98.[address] Ismael Moran Work Phone: [facility] 10-29-2023 01:32-0400 Body temperature 97.8 [degF] [facility] 10-29-2023 01:32-0400 Diastolic blood pressure 55 mm[Hg] [facility] 10-29-2023 01:32-0400 Heart rate 94 /min [facility] 10-29-2023 01:32-0400 Respiratory rate 17 /min [facility] 10-29-2023 01:32-0400 SaO2% (BldA) [Mass fraction] 95 % [facility] 10-29-2023 01:32-0400 Systolic blood pressure 104 mm[Hg] [facility] 10-28-2023 22:15-0400 Body height 157.48 cm [facility] 10-28-2023 22:15-0400 Body mass index (BMI) [Ratio] 40.6 kg/m2 [facility] 10-28-2023 22:15-0400 Body weight 100.69 kg [facility] 08-20-2023 16:06-0500 Respiratory rate 14 /min [facility] 08-20-2023 14:07-0500 Body height 157.48 cm [facility] 08-20-2023 14:07-0500 Body mass index (BMI) [Ratio] 38.2 kg/m2 [facility] 08-20-2023 14:07-0500 Body temperature 96.4 [degF] [facility] 08-20-2023 14:07-0500 Body weight 94.8 kg [facility] 08-20-2023 14:07-0500 Diastolic blood pressure 85 mm[Hg] [facility] 08-20-2023 14:07-0500 Heart rate 87 /min [facility] 08-20-2023 14:07-0500 SaO2% (BldA) [Mass fraction] 99 % [facility] 08-20-2023 14:07-0500 Systolic blood pressure 116 mm[Hg] [facility] 07-04-2023 07:01-0500 Body mass index (BMI) [Ratio] 37.2 kg/m2 [facility] 07-04-2023 07:01-0500 Body temperature 98 [degF] [facility] 07-04-2023 07:01-0500 Body weight 92.3 kg [facility] 07-04-2023 07:01-0500 Diastolic blood pressure 80 mm[Hg] [facility] 07-04-2023 07:01-0500 Heart rate 79 /min [facility] 07-04-2023 07:01-0500 Respiratory rate 18 /min [facility] 07-04-2023 07:01-0500 SaO2% (BldA) [Mass fraction] 100 % [facility] 07-04-2023 07:01-0500 Systolic blood pressure 132 mm[Hg] [facility] 06-13-2023 09:25-0500 Diastolic blood pressure 89 mm[Hg] [facility] 06-13-2023 09:25-0500 Heart rate 80 /min [facility] 06-13-2023 09:25-0500 Respiratory rate 16 /min [facility] 06-13-2023 09:25-0500 SaO2% (BldA) [Mass fraction] 99 % [facility] 06-13-2023 09:25-0500 Systolic blood pressure 126 mm[Hg] [facility] 06-13-2023 05:58-0500 Body height 157.48 cm [facility] 06-13-2023 05:58-0500 Body mass index (BMI) [Ratio] 38 kg/m2 [facility] 06-13-2023 05:58-0500 Body temperature 97.5 [degF] [facility] 06-13-2023 05:58-0500 Body weight 94.4 kg [facility] Encounters Encounter Date Encounter Type Care Provider Facility Start: 04-15-2025 ambulatory Shaunna Abdulaziz Facility:[facility] Start: 04-09-2025 ambulatory Kiko Irina Facility :[facility] Start: 04-08-2025 End: 04-08-2025 ambulatory Kiko Irina Facility:[facility] Start: 03-27-2025 End: 03-27-2025 ambulatory Kiko Irina Facility:[facility] Start: 03-09-2025 End: 03-09-2025 ambulatory Shaunna Abdulaziz Facility:[facility] Start: 02-26-2025 End: 02-26-2025 ambulatory Kiko [place] Facility:[facility] Start: 01-30-2025 End: 01-30-2025 ambulatory Kiko Irina Facility:[facility] Start: 01-15-2025 ambulatory Kiko Irina Facility :[facility] Start: 01-08-2025 ambulatory Kiko [place] Facility :[facility] Start: 12-03-2024 End: 12-03-2024 ambulatory Kiko Irina Facility:[facility] Start: 11-14-2024 End: 11-14-2024 ambulatory KIKO G IRINA MD Facility:[facility] Start: 11-06-2024 End: 11-06-2024 ambulatory Kiko Arevalo Facility:[facility] Start: 09-23-2024 End: 09-23-2024 Emergency department patient visit Kiko Arevalo Facility:[facility] Start: 08-20-2024 ambulatory Kiko Arevalo Facility :[facility] Start: 08-06-2024 End: 08-06-2024 ambulatory Kiko Arevalo Facility:[facility] Start: 08-06-2024 End: 08-06-2024 ambulatory Kiko Arevalo Facility:[facility] Start: 07-07-2024 End: 07-07-2024 ambulatory Juanjose Flores Facility:[facility] Start: 06-03-2024 End: 06-03-2024 ambulatory Kiko Arevalo Facility:[facility] Start: 04-30-2024 End: 04-30-2024 ambulatory Kikokelsea Arevalo Facility:[facility] Start: 04-22-2024 End: 04-22-2024 ambulatory Ana Rosa Briceno Facility:[facility] Start: 04-22-2024 End: 04-22-2024 ambulatory Ana Rosa Briceno Facility:[facility] Start: 11-14-2023 End: 11-14-[address] Ismael Moran Work Phone: [facility] Work Phone: Start: 11-14-2023 End: 11-14-[address] Ismael Moran Work Phone: [facility] [place] Start: 11-14-2023 End: 11-14-[address] Ismael Moran Work Phone: [facility] Work Phone: Start: 11-02-2023 End: 11-02-[address] Ismael Moran Work Phone: [facility] Work Phone: Start: 11-02-2023 End: 11-02-[address] Ismael Moran Work Phone: [facility] [place] Start: 11-02-2023 End: 11-02-[address] Ismael Moran Work Phone: [facility] Work Phone: Start: 10-31-2023 Non-patient / Non-visit Dr. Azar Moran Work Phone: [facility] Work Phone: Start: 10-30-2023 Non-patient / Non-visit Dr. Azar Moran Work Phone: [facility] Work Phone: Start: 10-29-2023 End: 10-31-2023 [facility] Work Phone: Start: 08-20-2023 End: 08-20-2023 ambulatory Facility:[facility] Start: 08-20-2023 End: 08-20-2023 Emergency department patient visit [facility] Work Phone: Start: 07-04-2023 End: 07-04-2023 Emergency department patient visit [facility] Work Phone: Start: 06-13-2023 End: 06-13-2023 Emergency department patient visit [facility] Work Phone: Procedures Date Procedure Procedure Detail Performing Clinician Start: 10-30-2023 CT of head without contrast Dr. Ismael Moran Work Phone: Start: 10-28-2023 Plain chest X-ray Start: 07-04-2023 Bacteria identified in Urine by Culture Start: 07-04-2023 Urine culture Start: 06-13-2023 Plain chest X-ray Plan of Treatment Date Care Activity Detail Author Start: 10-31-[address] 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 onal therapist [facility] Start: 10-29-2023 Referral to service [facility] Start: 10-29-2023 Following clinical p athway protocol [facility] Start: 10-29-2023 Assessment of risk o f venous thromboembolism [facility] Start: 10-29-2023 Fall prevention [facility] Start: 10-29-2023 Inhalation therapy procedure [facility] Start: 10-29-2023 Insertion of cathete r into peripheral vein [facility] Start: 10-29-2023 Introduction of urinary catheter [facility] Start: 10-29-2023 Measuring intake and output [facility] Start: 10-29-2023 Providing care accor ding to standard [facility] Start: 10-29-2023 Provision of activity privileges [facility] Start: 10-29-2023 Referral to service [facility] Start: 10-29-2023 [facility] Start: 10-29-2023 Verification routine [facility] Start: 10-29-2023 Admission procedure [facility] Start: 10-29-2023 Hospital admission, emergency, from emergency room, medical nature [facility] Start: 10-28-2023 Brain natriuretic pe ptide measurement [facility] Start: 08-20-2023 [facility] Start: 07-04-2023 [facility] Start: 06-13-2023 [facility] Start: 06-13-2023 [facility] MG Breast - bilateral Screening [facility] Patient Education [facility] Work Phone: Patient referral [facility] Work Phone: Payers Date Payer Category Payer Unknown [id number] 2024 Self-pay 2024 Unknown [id number] 2023 Unknown [id number] 2023 Unknown [id number] 1970 Unknown [id number] 2.16.8 [id number] Unknown YISEL [id number] Unknown [id number] 2.16.8 [id number] Unknown [id number] 2.16.8 [id number] Unknown [id number] 2.16.8 [id number] Unknown [id number] 2.16.8 [id number] Unknown [id number] 2.16.8 [id number] Unknown [id number] 2.16.8 [id number] Unknown [id number] 2.16.8 [id number] Unknown [id number] 2.16.8 40.1.217983.3.579.2.462 Unknown [id number] 2.16.8 40.1.076225.3.579.2.462 Unknown [id number] 2.16.8 40.1.782269.3.579.2.462 Unknown [id number] 2.16.8 40.1.660907.3.579.2.462 Unknown [id number] 2.16.8 40.1.160112.3.579.2.462 Unknown [id number] 2.16.8 40.1.181269.3.579.2.462 Unknown [id number] 2.16.8 40.1.295075.3.579.2.462 Unknown [id number] 2.16.8 40.1.352748.3.579.2.462 Unknown [id number] 2.16.8 40.1.840329.3.579.2.462 Unknown [id number] 2.16.8 40.1.840885.3.579.2.462 Unknown [id number] 2.16.8 40.1.512156.3.579.2.462 Unknown [id number] 2.16.8 40.1.666019.3.579.2.462 Unknown [id number] 2.16.8 40.1.560069.3.579.2.462 Unknown [id number] 2.16.8 40.1.281425.3.579.2.462 Social History Date Type Detail Facility Start: 06-13-2023 End: 11-14-2023 Tobacco smoking status NHIS Unknown if ever smoked [facility] Start: 1970 Sex Assigned At Female W [facility] Goals Date Patient Goal Desired Activity /State Functional Status Date Assessment Result Facility 10-31-2023 Functional status Chair [facility] Work Phone: 10-30-2023 Functional status None [facility] Work Phone: Mental Status Date Assessment Result Facility 10-31-2023 Cognitive function Appropriate;Cooperativ e [facility] Work Phone: 10-30-2023 Cognitive function Arousable To Voice/Nam e [facility] Work Phone: 10-28-2023 Cognitive function Level Of Cons ciousness Awake;Alert;Appropriate;Follow s Commands [facility] Work Phone: 08-20-2023 Cognitive function Level Of Cons ciousness Awake;Alert;Appropriate;Follow s Commands [facility] Work Phone: 06-13-2023 Cognitive function Voice/Name [facility] Work Phone: Clinical Notes 06-13-2023 to 10-31-2023 Note Date & Type Note Facility 10-31-2023 Discharge summary Note Date/Time October 31, 2023 9:29am [facility] Medical Records Department [address] [place] [address] Instructions for Home/Discharge Instructions 10/31/2328 MR#: [id number] Acct: [id number] Name: JOLENEMACARENA Desir Rep #:[id number] : 1970 53 From: Zain Prieto PCP: Dr. Kiko Arevalo MD Status:ADM IN Discharge Instructions Diet Discharge Diet: Low fat / Low cholesterol and 2000 mg Sodium Diet Activity Discharge Activity: Return to Normal Activity Weight Bearing Status: Weight bearing as tolerated Dressing / Incision Call your doctor if you observe: Fever of 101 or Higher, Coldness, Increased Pain, Numbness or Tingling, Change in Color, Inability to urinate, Inability to have a bowel movement, Using more than 1 pad per hour, Shortness of breath, Dizziness, Fainting spells, Swelling in the ankles, Chest pain, Prolonged hiccupping, Increased palpitations (irregular heartbeat) and Calf discomfort Follow Up Care When: IN 2 WEEKS Test Results: Test results from this visit will be discussed in further detail at your follow-up appointment, if applicable. Discharge Plan Admission Admit Date/Time: 10/29/23 01:11 Attending Provider: Zain Blank Primary Care Provider: Kiko Arevalo Consulting Providers: Elli Martell Instructions Additional Instructions / Restrictions: Advised [id number] Tylenol 500 mg to 1 g for moderate to severe headache. If headache does not resolve will need to see PCP In 1 to 2 weeks Discharge Orders/Prescriptions Prescriptions: Continued olmesartan-hydrochlorothiazide 40-25 mg tablet 1 tab PO DAILY duloxetine [Cymbalta] 30 mg capsule,delayed release(DR/EC) 30 mg PO DAILY ALBUTEROL 2 inh inhalation 4X/DAY PRN Referrals / Follow Up: Kiko Arevalo MD [Primary Care Provider] - Gatito Matthew MD [Non-Staff] - Within 1 Month (For chronic headache and vertigo) Care Physician,No Primary [Non-Staff] - Disposition Disposition (needs filled in before D/C Order can be placed): Home, Self Care 10/31/23 1056<Electronically signed by Zain Blank MD>Zain Blank MD CC: Dr. Kiko Arevalo MD; Dr. Elli Martell MD ~ Signed [facility] Work Phone: 1(335) 456-982904-09-2024 Progress note Author Zain Blank [facility] October 30, 2023 2:52pm Note Date/Time October 30, 2023 2:52 pm [facility] Medical Records Department [address] [place] [address] Progress Note - Hospitalist 10/30/23 1446 MR#: [id number] Acct: [id number] Name: MACARENA CANTU Rep #:[id number] : 1970 53 From: Zain Prieto PCP: Dr. Kiko Arevalo MD Status:ADM IN Location: [place] [address]-1 Reason for Visit Reason for Visit: Diagnoses Rhabdomyolysis (10/29/23) Acute kidney failure, unspecified (10/29/23) Objective Data Objective Data Vital Signs: Vital Signs Temp Pulse Resp BP Pulse Ox O2 Del Method 98.0 F 83 16 137/85 H 98 Room Air 10/30/23 14:16 10/30/23 14:16 10/30/23 14:16 10/30/23 14:16 10/30/23 14:16 10/30/23 14:16 Oxygen Delivery Method Room Air Weight: 218 lb 4.122 oz Body Mass Index (BMI) 40.1 Intake & Output: Intake and Output for Last 24 Hours 10/28/23 10/29/23 10/30/23 23:59 23:59 23:59 Intake Total 2900 / 2900 300 / 300 Balance 2900 / 2900 300 / 300 Lab / Micro Data 10/29/23 05:24 10/29/23 05:24 Rhythm Strip Rhythm Strip: Sinus Rhythm Rate: 94 Ectopy: None Physical Exam Narrative Seen and examined. Patient is states Mrhbk-J-Xwwe of upper and lower extremities are similar to yesterday with no improvement. Complain of headache mainly in posterior side. Denies sinus headache. Denies chronic headache including migraine. Physical exam General: Alert, Oriented x3, Cooperative HEENT: No sinus tenderness. Atraumatic, PERRLA, EOMI, Normocephalic Oral: Oral mucosa moist. No Gingival or Mucosal Lesions/ Ulcerations Neck: Supple, No JVD, Negative Carotid Bruits Chest wall/Lungs: Air entry diminished in bilateral lung bases. No crepitation/rhonchi Cardiovascular: Regular rate, Regular Rhythm, Normal S1, Normal S2, No M/G/R Abdomen: Bowel Sounds Present, Soft, Non Tender, Non-Distended : No dysuria. No renal angle tenderness. No suprapubic tenderness. Extremities: No edema, Capillary Refill Less than 3 Seconds Skin: No rashes, No breakdown Musculoskeletal: No acute tenderness in calf or thigh muscles. Muscle strength 4+/5 at knees and hip joints. Neurological: Cranial nerves II-XII grossly intact, DTR 2+/4. No acute focal neurological deficit. Psych/Mental Status: Flat affect. Assessment & Plan Assessment/Plan (1) KENNEY (acute kidney injury): (2) Non-traumatic rhabdomyolysis: PLAN: Plan The patient is a 53 y/o F was admitted with significant and diffuse body ache after she started new job, sometimes intermittent wheezing but no fever or chills. #1. Acute rhabdomyolysis: Admission total creatinine kinase 1251, likely contributing to KENNEY and presentation, will admit to medical surgical floor, continue aggressive hydration, trend creatinine kinase, monitor renal function, will obtain hepatic profile to also further assess liver function, monitor I's and O's. 10/29: CK improved from 12 151-861. AST normal. Liver chemistry normal except low albumin 3.0. Patient is still complaining of diffuse muscle aches and pain but does not match up with patient facial/emotional expression. Complain of headache mainly posterior region. CT head without contrast ordered. #2. Acute kidney injury most likely prerenal admission BUN/Cr 19/1.17, GFR 51, prior baseline creatinine noted to be 0.7. 10/29: Repeat lab ordered but could not be done because Chem-7 machine is down. #3. Asthma, poorly controlled from patient reports of ongoing symptoms: Will maintain on ATC budesonide therapy, PRN albuterol, HOB, IS parameters. #4. Hypokalemia: Admission K+ 2.9, magnesium level requested, supplementation given 10/29: Repeat level 3.4 on 10/28. Serum magnesium 1.8. #5. History of breast cancer: History of previous blood cancer, unclear type status post lumpectomy and chemotherapy, considered in remission. #6. Hypertension: Given acute kidney injury as well as significant rhabdomyolysis with need for aggressive hydration we will hold patient home on losartan/hydrochlorothiazide, resume once appropriate, as needed IV hydralazine in the interim. #7. Anxiety and depression: We will continue patient home Cymbalta regimen. #8. Morbid Obesity: Weight loss and lifestyle changes encouraged. #9. Former tobacco use: Encourage continued tobacco cessation. #10. DVT prophylaxis: Lovenox. Charges/Coding Visit Charges Inpatient E&M: 82318 Subs Hosp L2 10/30/23 1452 <Electronically signed by Zain Blank MD> Cosigner Signature (if applicable): CC: ~ Signed [facility] Work Phone: [phone] Progress note Author Zain Blank [facility] October 29, 2023 1:34pm Note Date/Time October 29, 2023 1:34 pm [facility] Medical Records Department [address] [place] [address] Progress Note - Hospitalist 10/29/231332 MR#: [id number] Acct: [id number] Name: MACARENA CANTU Rep #:[id number] : 1970 53 From: Zain Prieto PCP: Dr. Kiko Arevalo MD Status:ADM IN Location: [place] [address] Hospitalist Note Patient admitted retention representative today with diffuse bodyaches and pain with history of chronic neuropathic pain in lower extremities after chemotherapy of breast cancer in 2008. Patient admitted with acute rhabdomyolysis with admitting creatinine kinase 1251. On IV fluid normal saline. Patient also had KENNEY from rhabdomyolysis. She has recently established with PCP Dr. Sheridan but yet has to find oncologist. Patient has morbid obesity with BMI 39.9 kg/m?. 10/29/231333 <Electronically signed by Zain Blank MD> Cosigner Signature (if applicable): CC: ~ Signed [facility] Work Phone: [phone] Discharge summary Author Ismael Moran [facility] October 29, 2023 5:43am Note Date/Time October 28, 2023 10:4 8pm [facility] Medical Records Department [address] [place] [address] Emergency Department Summary 10/28/23 MR#: [id number] Acct: [id number] Name: MACARENA ACNTU THERESE Rep #:[id number] : 1970 53 From: Ismael Moran MD PCP: Dr. Kiko Arevalo MD Status:ADM IN Location: [facility] PC614-2 HPI History of Present Illness Chief Complaint: Other, Pain/Inj Informant: patient Narrative Narrative: Patient presents with body aches mostly her extremities seems to be in arms and legs between the joints not necessarily the joint some cells, for about a month,coinciding with when she started a new job at [employer]. She states for the last 2 or 3 weeks she has also had some wheezing and rarely productive cough, clear phlegm whenever she produces anything no hemoptysis, without fevers, chills, chest pains, and the initial symptoms are similar to how she felt after she had white blood cell booster and chemotherapy for her breast cancer although she has not had any of that in 14 years, she is in remission. She had most of her care down in [place], she removed here within the past year or2. She does not have primary care yet but she has an initial visit coming up with Dr. Sheridan in 2 weeks and she states she is having so much trouble moving around because of the pain that she did not feel like she could wait to the appointment. She been taking Tylenol initially was working but now it is not anymore. [facility] Medical History Anxiety and depression Asthma Former tobacco use HTN (hypertension) Morbid obesity Neuropathy Home Medications ALBUTEROL 2 inh inhalation 4X/DAY PRN 06/13/23 [History Last Taken Unknown] duloxetine 30 mg capsule,delayed release (Cymbalta) 30 mg PO DAILY 06/13/23 [History Last Taken Unknown] olmesartan 40 mg-hydrochlorothiazide 25 mg tablet 1 tab PO DAILY BLOOD PRESSURE 06/13/23 [History Last Taken Unknown] olmesartan 40 mg-hydrochlorothiazide 25 mg tablet 1 tab PO DAILY #30 tabs 08/20/23 [Rx Last Taken Unknown] Allergy/AdvReac Type Severity Reaction Status Date / Time No Known Allergies Allergy Verified 10/28/23 22:18 Surgical History History of lumpectomy of left breast Social History housing: house Smoking Status: Former smoker ROS ROS ED Constitutional Constitutional ED: Reports body ache(s); Denies chills or fever(s) Eyes Eyes: Denies change in vision or diplopia ENT ENT ED: Reports rhinorrhea; Denies sore throat Cardiovascular Cardiovascular: Denies chest pain, orthopnea or palpitations Respiratory/Chest Respiratory/Chest: Reports cough, dyspnea and dyspnea on exertion; Denies orthopnea Gastrointestinal Gastrointestinal: Denies abdominal pain, diarrhea, nausea or vomiting Genitourinary Genitourinary ED: Denies dysuria or hematuria Musculoskeletal Musculoskeletal: Reports extremity pain, muscle weakness and myalgias; Denies arthralgias, back pain or neck pain Integumentary Denies abscess or rash Neurologic Neurologic: Denies headache(s), paresthesias or weakness Psychiatric Psychiatric: Denies suicidal thoughts EXAM Physical Exam Const Vital Signs: 10/28/23 22:15 10/28/23 22:25 10/28/23 22:57 Temperature 97.8 F Temperature Source Temporal Pulse Rate 100 94 Respiratory Rate 18 18 Respiratory Pattern Normal Normal Blood Pressure 133/87 H Blood Pressure Mean 102 Pulse Ox 97 Oxygen Delivery Method Room Air 10/29/23 01:20 Temperature Temperature Source Pulse Rate 97 Respiratory Rate 20 H Respiratory Pattern Blood Pressure 115/68 Blood Pressure Mean 83 Pulse Ox 95 Oxygen Delivery Method Room Air Positive well nourished and well developed General Appearance ED: well developed and NAD HEENT Reports moist mucous membranes normocephalic and atraumatic Eyes PERRL and EOMs intact bilaterally Neck full ROM and supple Resp normal respiratory effort and clear to auscultation bilaterally Resp Narrative: Mild conversational dyspnea but no distress and lungs clear and equal Cardio regular rate, regular rhythm and no murmurs Rate: Negative for tachycardic GI non-tender and non-distended Auscultation: normoactive bowel sounds Palpation: soft Back/Spine no CVA tenderness General Back: other FROM Extremity normal to inspection General Extremety ED: Negative for edema, pulses abnormal or tenderness General Extremity: Negative for edema or pulses abnormal Neuro oriented x3, CN's II-XII intact bilaterally and no sensory deficits noted Sensorium / Orientation: awake and alert Motor Exam: strength 5/5 throughout Psych mental status grossly normal Skin no rashes or lesions noted and no wounds MDM MDM MDM Narrative Medical decision making narrative: Obtain labs including CPK which is elevated over thousand consistent with mild rhabdomyolysis. The degree of muscle injury is unknown, given that the patient has an elevated level and has had symptoms for maybe a month. She does have very mild KENNEY. I am not worried is much about renal failure given that we recognized it now, but I do not know what the offending agent is given her shortmedication list. I am concerned about waiting until she follows up 3 weeks fromnow, IV fluids are given to her and asking the hospitalist to evaluate further given all of this in the cause being unknown. She is not hyperkalemic, rather she is hypokalemic. We will start gentle replacement of that. Does not have any symptoms of an infection and her vital signs are normal. Still awaiting UA;her specimen grossly is yellow and not tea colored or bloody, and she has not had any tea colored urine since and this past month that she can recall. Given her conversational dyspnea I did do a chest x-ray, 2 views on my interpretation are negative for any acute radiology was in agreement. Her EKG is unremarkable,and her bicarb is elevated. Unclear significance at this time. Lab Data Attestation: I reviewed the patient's lab results. Labs: Laboratory Results - last 24 hr 10/28/23 23:02 WBC 11.4 H RBC 4.80 Hgb 13.5 Hct 41.5 MCV 86.5 MCH 28.1 MCHC 32.5 RDW Std Deviation 48.2 H RDW Coeff of Blanka 15.0 H Plt Count 335 MPV 10.1 Immature Gran % (Auto) 0.300 Neut % (Auto) 59.9 Lymph % (Auto) 30.1 [place] % (Auto) 7.8 Eos % (Auto) 1.6 Baso % (Auto) 0.3 Absolute Neuts (auto) 6.8 Absolute Lymphs (auto) 3.44 Nucleated RBC % 0 Sodium 138 Potassium 2.9 L Chloride 99 Carbon Dioxide 34.0 H Anion Gap 5 BUN 19 H Creatinine 1.17 H Estim Creat Clear Calc 61.75 Est GFR (MDRD) Af Amer 62 Est GFR (MDRD) Non-Af 51 L BUN/Creatinine Ratio 16.2 Glucose 99 Calcium 9.4 Total Creatine Kinase 1251 H Troponin I High Sens 4 Radiography Diagnostic Testing: Clinical Impression(s) from Imaging Studies Chest X-Ray 10/28/23 23:12 IMPRESSION: No acute pulmonary finding. Electronically Signed: Darrell Carias MD at 23:40 EDT , Rhythm Strip Rhythm Strip: Sinus Rhythm Rate: 94 Ectopy: None EKG Initial EKG: Attestation: I personally reviewed and interpreted this EKG as follows: Interpretation: Sinus Rhythm and No Acute Injury Pattern Management Discussion w/another healthcare provider: Hospitalist Discharge Plan Dx/Rx/DC Orders Clinical Impression: KENNEY (acute kidney injury), Non-traumatic rhabdomyolysis, Hypokalemia Disposition Disposition: [facility] What to do if you have Problems For any increased pain, shortness of breath, bleeding, nausea or vomiting, chestpain, or any unexpected problems, contact your Primary Care Provider. Call [facility] ([phone]) or report to the closest Emergency Room. Call 911 if necessary. 10/29/23 0543 <Electronically signed by Ismael Moran MD> Cosigner Signature (if applicable): CC: Dr. Kiko Arevalo MD ~ Signed [facility] Work Phone: 1(166) 579-184704-08-2024 History and physical note Author Elli Martell [facility] October 29, 2023 2:06am Note Date/Time October 29, 2023 1:06 am [facility] Medical Records Department [address] [place] [address] H&P Exam - Hospitalist 10/29/23 0105 MR#: [id number] Acct: [id number] Name: MACARENA CANTU Rep #:[id number] : 1970 53 From: Elli Martell MD PCP: Dr. Kiko Arevalo MD Status:ADM IN Location: [facility] EB080-6 HPI - General General Date of Admission: 10/29/23 Date of Service: 10/29/23 Chief Complaint: Muscle pain, body aches, dyspnea, wheezing. HPI Narrative The patient is a 53 y/o F w/ PMHx: Hx Breast CA, Morbid obesity, HTN, Asthma, Anxiety and Depression, Former tobacco use who presents to the [facility] ED on 10/29/23 with history of onset significant diffuse body aches and pain with recent new job starting at [employer] with increased significant activity from her previous baseline with as well 2 to 3 weeks of occasional cough with clear sputum and intermittent wheezing with no fevers or chills prompting eventual ED evaluation.She notes her recent new job has had her very active and moving more than her prior normal. She has been attempting to establish with primary care. She ratesthe discomfort to her extremities/muscles 5-6 out of 10 in severity, worse with movement and activity attempts. Workup in the ED included T97.8, heart rate 100, BP 133/87, respiratory rate 18, 97% on room air, CBC with WBC 11.4, hemoglobin 13.5, platelet 335 without marked shift, BMP with potassium 2.9, common oxide 34, anion gap 5, BUN/creatinine 19/1.17, GFR of 51, creatinine kinase 1251, troponin 4, BNP pending upon requested evaluation of patient, chestx-ray with no acute cardiopulmonary finding. In the ED patient ministered potassium IV and oral supplementation, Toradol 50 mg IV x 1, albuterol therapy. [facility] Medical History (Updated 10/29/23 @ 02:[address] Elli Martell MD) Anxiety and depression Asthma Former tobacco use History of breast cancer HTN (hypertension) Morbid obesity Neuropathy Home Medications ALBUTEROL 2 inh inhalation 4X/DAY PRN sob 06/13/23 [History Last Taken Unknown] duloxetine 30 mg capsule,delayed release (Cymbalta) 30 mg PO DAILY pain 06/13/23[History Last Taken Unknown] olmesartan 40 mg-hydrochlorothiazide 25 mg tablet 1 tab PO DAILY BLOOD PRESSURE 06/13/23 [History Last Taken Unknown] Allergy/AdvReac Type Severity Reaction Status Date / Time No Known Allergies Allergy Verified 10/28/23 22:18 Family History (Updated 10/29/23 @ 02:[address] Elli Martell MD) Mother CAD (coronary artery disease) Heart disease Hypertension Diabetes CVA (cerebral vascular accident) Myocardial infarction other (Patient does not know her paternal father nor her paternal family history.) Surgical History (Updated 10/29/23 @ 02:[address] Elli Martell MD) H/O wrist surgery History of hysterectomy History of lumpectomy of left breast Previous section Social History (Updated 10/29/23 @ 02:[address] Elli Martell MD) housing: house Smoking Status: Former smoker how long ago did patient quit smoking: Quit most recently 7 yrs prior, smoked prior intermittent 3 cig/day. alcohol intake: never substance use type: does not use ROS ROS Narrative Admission Review of Systems: CONSTITUTIONAL: No weight loss, fever, chills, + weakness or fatigue. HEENT: Eyes: No visual loss, blurred vision, double vision or yellow sclerae. Ears, Nose, Throat: No hearing loss, sneezing, congestion, runny nose or sore throat. SKIN: No rash or itching, lesions, wounds. CARDIOVASCULAR: No chest pain, chest pressure or chest discomfort, palpitations,edema, orthopnea, syncopal events. RESPIRATORY: + shortness of breath, cough without marked sputum, wheezing intermittently. No hemoptysis. GASTROINTESTINAL: No anorexia, nausea, vomiting or diarrhea, abdominal pain, melena, BRBPR. GENITOURINARY: No dysuria, frequency, urgency or retention. NEUROLOGICAL: No headache, dizziness, syncope, paralysis, ataxia, numbness or tingling in the extremities, focal weakness, change in bowel or bladder control,seizure. MUSCULOSKELETAL: + muscle, back pain, joint pain or stiffness. HEMATOLOGIC: No anemia, bleeding or bruising. LYMPHATICS: No enlarged nodes. No history of splenectomy. PSYCHIATRIC: History of anxiety and depression.+ ENDOCRINOLOGIC: No reports of sweating, cold or heat intolerance. No polyuria orpolydipsia. ALLERGIES: + History of asthma. Vital Signs Vital Signs Vital Signs: 10/28/23 22:15 10/28/23 22:25 10/28/23 22:57 Temperature 97.8 F Temperature Source Temporal Pulse Rate 100 94 Respiratory Rate 18 18 Respiratory Pattern Normal Normal Blood Pressure 133/87 H Blood Pressure Mean 102 Pulse Ox 97 Oxygen Delivery Method Room Air Weight Weight: 222 lb Body Mass Index (BMI) 40.6 Physical Exam Narrative Physical Examination: General: Awake, alert, oriented x 3 and cooperative, seated upright in the ED bed, fatigued, notes muscle still uncomfortable. Skin: Normal color, normal turgor, no icterus, no cyanosis. HEENT: AT/NC, EOMI, PERRLA, moderately dry MM, no carotid bruits or JVD noted. Lungs: Diminished, greater bases, mildly increased respiratory rate but no distress, occasional end expiratory wheeze, no rales or rhonchi. Heart: Mildly tachycardic with regular rhythm; no gallop, rub audible. Abdomen: Soft, morbidly obese, NTTP, ND, mildly hyperactive BS, no appreciated HSM. Extremities: No cyanosis, no clubbing, no marked peripheral pitting edema, discomfort with palpation of the muscles upper and lower extremities. Neurological: Patient awake, alert, oriented as noted, cognitive function intact; pupils equally reactive to light and accommodation, cranial nerves grossly normal, moving all 4 extremities, no focal deficits, strength moderatelyglobally decreased secondary to acute presentation complaints. Psychiatric: Affect appears fatigued otherwise normal, no acute evidence of depressive or anxiety feelings but does have underlying history. Results Lab / Micro Data 10/28/23 23:02 10/28/23 23:02 Labs: Laboratory Results - last 24 hr 10/28/23 23:02: WBC 11.4 H, RBC 4.80, Hgb 13.5, Hct 41.5, MCV 86.5, MCH 28.1, MCHC 32.5, RDW Std Deviation 48.2 H, RDW Coeff of Blanka 15.0 H, Plt Count 335, MPV10.1, Immature Gran % (Auto) 0.300, Neut % (Auto) 59.9, Lymph % (Auto) 30.1, [place] % (Auto) 7.8, Eos % (Auto) 1.6, Baso % (Auto) 0.3, Absolute Neuts (auto) 6.8, Absolute Lymphs (auto) 3.44, Nucleated RBC % 0, Sodium 138, Potassium 2.9 L, Chloride 99, Carbon Dioxide 34.0 H, Anion Gap 5, BUN 19 H, Creatinine 1.17 H, Estim Creat Clear Calc 61.75, Est GFR (MDRD) Af Amer 62, Est GFR (MDRD) Non-Af 51 L, BUN/Creatinine Ratio 16.2, Glucose 99, Calcium 9.4, Total Creatine Kinase 1251 H, Troponin I High Sens 4 Rhythm Strip Rhythm Strip: Sinus Rhythm Rate: 94 Ectopy: None Imaging Radiology Impression Chest X-Ray 10/28/23 23:12 IMPRESSION: No acute pulmonary finding. Electronically Signed: Darrell Carias MD at 23:40 EDT , Assessment & Plan Assessment/Plan (1) KENNEY (acute kidney injury): (2) Non-traumatic rhabdomyolysis: PLAN: Plan The patient is a 53 y/o F w/ PMHx: Hx Breast CA, Morbid obesity, HTN, Asthma, Anxiety and Depression, Former tobacco use who presents to the [facility] ED on 10/29/23 with history of onset significant diffuse body aches and pain with recent new job starting at [employer] with increased significant activity from her previous baseline with as well 2 to 3 weeks of occasional cough with clear sputum and intermittent wheezing with no fevers or chills prompting eventual ED evaluation. #1. Acute rhabdomyolysis: Admission total creatinine kinase 1251, likely contributing to KENNEY and presentation, will admit to medical surgical floor, continue aggressive hydration, trend creatinine kinase, monitor renal function, will obtain hepatic profile to also further assess liver function, monitor I's and O's. #2. Acute kidney injury: Secondary to acute presentation as noted #1. AdmissionBUN/Cr 19/1.17, GFR 51, prior baseline creatinine noted to be 0.7. Will hydrate,hold nephrotoxic medications and repeat chemistry in AM. #3. Asthma, poorly controlled from patient reports of ongoing symptoms: Will maintain on ATC budesonide therapy, PRN albuterol, HOB, IS parameters. #4. Hypokalemia: Admission K+ 2.9, magnesium level requested, supplementation given, repeat level in AM. #5. History of breast cancer: History of previous blood cancer, unclear type status post lumpectomy and chemotherapy, considered in remission. #6. Hypertension: Given acute kidney injury as well as significant rhabdomyolysis with need for aggressive hydration we will hold patient home on losartan/hydrochlorothiazide, resume once appropriate, as needed IV hydralazine in the interim. #7. Anxiety and depression: We will continue patient home Cymbalta regimen. #8. Morbid Obesity: Weight loss and lifestyle changes encouraged. #9. Former tobacco use: Encourage continued tobacco cessation. #10. DVT prophylaxis: Lovenox. Charges/Coding Visit Charges Inpatient E&M: 64951 Init Hosp L3 10/29/23 0206 <Electronically signed by Elli Martell MD> Cosigner Signature (if applicable): CC: Dr. Kiko Arevalo MD; Dr. Elli Martell MD~ Signed [facility] Work Phone: 1(309) 554-333601-29-2024 NoteHNO ID: [id number] Author: RALPH CASTELLANOS MD Service: ? Author Type: Physician Type: Progress Notes Filed: 08/20/2023 13:37 Note Text: Patient presents with: Cough: Chest congestion, SOB, EWING x3 weeks HPI: Express Care Triage Note: Presents to express care for multiple issues: headache, shortness of breath, left arm swelling, BP medication refill, and cold symptoms. She moved here from [place] and does not have a local PCP. Positive symptoms: Cough intermittently for a while, Shortness of breath for weeks (dyspnea on exertion and currently with conversation; not closely correlated with coughing), occipital Headache for months, left arm swelling, retrosternal chest pain last week, MEDICATIONS: Current Outpatient Medications Medication Sig DULoxetine (CYMBALTA) 30 mg capsule Take 1 capsule by mouth every afternoon. olmesartan-hydroCHLOROthiazide (BENICAR HCT) 40-25 mg per tablet Take 1 tablet by mouth every afternoon. No current facility-administered medications for this visit. ALLERGIES: ALLERGIES No Known Allergies VITALS: BP 119/90 Pulse 94 Temp 36.9 ?C (98.5 ?F) Resp 20 Wt 95.2 kg (209 lb 12.8 oz) SpO2 98% PHYSICAL EXAM: GEN: Pleasant, in no acute distress. LUNGS: no increased WOB, subjective dyspnea during conversation ASSESSMENT/PLAN: 1. SOB (shortness of breath) - ICD9: 786.05, ICD10: R06.02 (primary diagnosis) 2. Chest pain, unspecified type - ICD9: 786.50, ICD10: R07.9 3. Headache, unspecified headache type - ICD9: 784.0, ICD10: R51.9 4. Hypertension, essential - ICD9: 401.9, ICD10: I10 Chest pain and dyspnea on exertion with risk factors for coronary artery disease should be further evaluated in the emergency room setting. She will go to [facility] ED. Ralph Castellanos, [facility]01-29-2024 Discharge summary Author Bayron Fagan [facility] August 20, 2023 3:58pm Note Date/Time August 20, 2023 3 :58pm [facility] Medical Records Department [address] [place] [address] Emergency Department Summary 08/20/23 MR#: [id number] Acct: [id number] Name: MACARENA CANTU Rep #:[id number] : 1970 53 From: Bayron Fagan MD PCP: Care Physician,No Primary Status :PRE ER Location: ED HPI History of Present Illness Chief Complaint: General Illness Detail of Chief Complaint: Needs blood pressure medication refilled. Informant: patient Narrative Narrative: 53-year-old female recently moved here from [place] and currently does not have a primary care provider. She is on olmesartan blood pressure medication and needsit refilled. She is also had some recent URI symptoms which are resolving. Prior similar symptoms: No Recent Illness/Hospitalization: No [facility] Medical History Asthma Neuropathy Home Medications ALBUTEROL 2 inh inhalation 4X/DAY PRN 06/13/23 [History Last Taken Unknown] duloxetine 30 mg capsule,delayed release (Cymbalta) 30 mg PO DAILY 06/13/23 [History Last Taken Unknown] olmesartan 40 mg-hydrochlorothiazide 25 mg tablet 1 tab PO DAILY BLOOD PRESSURE 06/13/23 [History Last Taken Unknown] nitrofurantoin monohydrate/macrocrystals 100 mg capsule 100 mg PO Q12 #10 CAPSULES 07/04/23 [Rx Last Taken Unknown] olmesartan 40 mg-hydrochlorothiazide 25 mg tablet 1 tab PO DAILY #30 tabs 08/20/23 [Rx Last Taken Unknown] Allergy/AdvReac Type Severity Reaction Status Date / Time No Known Allergies Allergy Verified 08/20/23 14:09 Surgical History History of lumpectomy of left breast Social History Smoking Status: Former smoker ROS ROS ED ROS Narrative Sinus congestion. Review of Systems ROS Unobtainable: Denies due to encephalopathy Constitutional Constitutional ED: Denies chills or fever(s) Eyes Eyes: Denies blurry vision ENT ENT ED: Denies ear pain Cardiovascular Cardiovascular: Denies chest pain Respiratory/Chest Respiratory/Chest: Denies cough or dyspnea Gastrointestinal Gastrointestinal: Denies abdominal pain, constipation, diarrhea, melena, nausea or vomiting Genitourinary Genitourinary ED: Denies dysuria or hematuria Musculoskeletal Musculoskeletal: Denies arthralgias Integumentary Denies abscess or Abrasions Neurologic Neurologic: Denies paresthesias or weakness Psychiatric Psychiatric: Denies anxiety or depression Endocrine Endocrinology: Denies cold intolerance Hematologic/Lymphatic Hematologic/Lymphatic: Reports none Allergic/Immunologic Allergic/Immunologic ED: Denies mouth swelling, tongue swelling or urticaria EXAM Physical Exam Narrative Exam Narrative: 53-year-old female vital signs are stable afebrile. Current blood pressure 116/85. Pulse ox 99% on room air no signs hypoxia. H EENT exam normal. TMs normal. No frontal or maxillary sinus tenderness. Posterior pharynx normal. Moist mucous membranes. No erythema or exudate. Neck nontender no lymphadenopathy. Lungs clear to auscultation. Heart regular rhythm no murmur rate about 85. Chest wall and ribs nontender. Abdomen soft nontender. Moving all 4 extremities. 5 out of 5 development educator strength. Dorsi plantarflexion intact. Neurologically she is awake and alert with no focal motor deficits. Back nontender. NIH 0. Const Vital Signs: 08/20/23 14:07 Temperature 96.4 F L Temperature Source Temporal Pulse Rate 87 Respiratory Rate 16 Blood Pressure 116/85 H Blood Pressure Mean 95 Pulse Ox 99 Oxygen Delivery Method Room Air Positive well nourished and well developed; Negative for cachectic, contracturesor unkempt General Appearance ED: well developed and NAD; Negative for unkempt, cachectic, contractures, cyanotic, diaphoretic or pallor Nutritional Appearance: Negative for cachectic HEENT Reports moist mucous membranes; Denies dry mucous membranes Negative for trauma or tenderness Mouth ED: No dry mucous membranes Mouth: No dry mucous membranes Eyes PERRL and EOMs intact bilaterally General Eye ED: Negative for pale conjunctiva, scleral icterus or other Neck no lymphadenopathy, supple and no JVD General: Negative for tenderness Lymph Lymphatic: Negative for other Chest Wall inspection of chest normal and palpation of chest normal Chest: Negative for other Resp normal respiratory effort and clear to auscultation bilaterally Effort and Inspection: Negative for retractions or pain with movement Auscultation: Negative for rales, rhonchi or wheezes Cardio regular rate, regular rhythm, S1 normal heart sound, S2 normal heart sound and no murmurs Palpation: Negative for palpable S3 or palpable S4 Rate: Negative for bradycardia, tachycardic or other Rhythm: Negative for abnormal rhythm GI normal to inspection, nondistended, normoactive bowel sounds, non-tender, non-distended and no masses Inspection: Negative for abdominal distention Auscultation: normoactive bowel sounds Palpation: soft; Negative for tender, guarding, splenomegaly, mass or rebound tenderness present Back/Spine no CVA tenderness General Back: Negative for CVA tenderness Cervical Spine: Negative for cervical spine tenderness Thoracic Spine / Upper Back: Negative for thoracic spinal tenderness or paraspinal muscle tenderness Lumbar Spine / Lower Back: Negative for lumbar spinal tenderness Extremity General Extremety ED: Negative for edema, tenderness or other findings General Extremity: Negative for edema or other findings Neuro oriented x3 and CN's II-XII intact bilaterally Sensorium / Orientation: alert; Negative for orientation impaired, lethargic or stuporous Motor Exam: strength 5/5 throughout; Negative for general weakness or strength abnormal Psych Appearance: Negative for unkempt Attitude: No agitated Mood & Affect: Negative for depressed, anxious or tearful Skin no rashes or lesions noted, no wounds and skin turgor normal General Skin Exam: Negative for jaundice or pallor Lesions: No lesion noted Rashes: No rashes noted Trauma: Negative for abrasion Wounds: Negative for wounds noted MDM MDM MDM Narrative Medical decision making narrative: 53-year-old female recent viral URI symptoms resolving. Benign normal exam. Also needs her blood pressure medication refilled. I sent in a refill of her blood pressure medication with 1 refill. Patient was instructed to call around for a local primary care physician I gave her referral. History & Record Review Discussion w/independent historian: Patient Discharge Plan Triage Chief Complaint: General Illness ED Provider: Bayron Fagan Dx/Rx/DC Orders Clinical Impression: Medication refill, History of hypertension, Viral URI Instructions: ED URI, Viral, No Abx (Adult) Prescriptions: New olmesartan-hydrochlorothiazide 40-25 mg tablet 1 tab PO DAILY Qty: 30 1RF No Action olmesartan-hydrochlorothiazide 40-25 mg tablet 1 tab PO DAILY duloxetine [Cymbalta] 30 mg capsule,delayed release(DR/EC) 30 mg PO DAILY ALBUTEROL 2 inh inhalation 4X/DAY PRN nitrofurantoin monohyd/m-cryst [nitrofurantoin monohyd/m-cryst] 100 mg capsule 100 mg PO Q12 Qty: 10 0RF Primary Care Provider: Care Physician,No Primary Referrals: Benson Cortes MD [Med Staff - Logistics Tech] - 1-2 Weeks Care Physician,No Primary [Primary Care Provider] - Activity Restrictions/Additional Instructions: Medication refill sent to your pharmacy. Follow-up with a local primary care physician to get a local doctor. Disposition Disposition: Home, Self Care What to do if you have Problems For any increased pain, shortness of breath, bleeding, nausea or vomiting, chestpain, or any unexpected problems, contact your Primary Care Provider. Call [facility] ([phone]) or report to the closest Emergency Room. Call 911 if necessary. 08/20/23 1558 <Electronically signed by Bayron Fagan MD> Cosigner Signature (if applicable): CC: No Primary Care Physician ~ Signed [facility] Work Phone: 1(489) 859-587311-22-2023 Discharge summary Author Julio Cintron [facility] June 13, 2023 9:14am Note Date/Time June 13, 2023 6:13am [facility] Medical Records Department [address] [place] [address] Emergency Department Summary 06/13/23 MR#: [id number] Acct: [id number] Name: MACARENA CANTU Rep #:[id number] : 1970 53 From: Wilver Otero MD PCP: Care Physician,No Primary Status :REG ER Location: ED HPI History of Present Illness Chief Complaint: Chest Pain Narrative Narrative: 53-year-old female with remote history of breast carcinoma in 2009, in remission, had chemotherapy which caused complications and neuropathies, along with radiation therapy which caused her to have asthma, presents with central chest pain that is more sharp and stabbing in nature. States she has had left arm pain intermittently over the last week. She took ibuprofen previously whichrelieved her symptoms. However, today when she got off shift at 5 AM she started having the chest pain and the arm pain again. She presents for evaluation. She is not a smoker and denies any other problems. She does have hypertension and takes losartan so she has chronic swelling of her legs. No increased swelling or other symptoms. She is concerned mainly about the chest pain which also hurts when she tries to breathe deeply. [facility] Medical History (Updated 06/13/23 @ 06:59 by Wilver Otero MD) Asthma Neuropathy Home Medications ALBUTEROL 2 inh inhalation 4X/DAY PRN 06/13/23 [History Last Taken Unknown] duloxetine 30 mg capsule,delayed release (Cymbalta) 30 mg PO DAILY 06/13/23 [History Last Taken Unknown] gabapentin 300 mg capsule 300 mg PO BID 06/13/23 [History Last Taken Unknown] olmesartan 40 mg-hydrochlorothiazide 25 mg tablet 1 tab PO DAILY BLOOD PRESSURE 06/13/23 [History Last Taken Unknown] Allergy/AdvReac Type Severity Reaction Status Date / Time No Known Allergies Allergy Verified 06/13/23 06:11 Surgical History (Updated 06/13/23 @ 06:09 by Vandana Oglesby) History of lumpectomy of left breast Social History Smoking Status: Former smoker ROS ROS ED ROS Narrative Constitutional: No fever, no chills. HEENT: No sore throat. No neck pain. No loss of vision. No rhinorrhea. Cardiovascular: Positive midsternal chest pain, occasionally pleuritic. No palpitations. No new pedal edema. Respiratory: No cough, no shortness of breath. Abdominal: No abdominal pain. No nausea. No vomiting. Genitourinary: No dysuria. No hematuria. Musculoskeletal: Intermittent left arm pain x1 week. Neurologic: No headaches. No dizziness. No lightheadedness. Skin: No rash. No change in color. Psychiatric: No depression. No anxiety. EXAM Physical Exam Narrative Exam Narrative: Afebrile. Vital signs noted. HEENT: Normocephalic. Atraumatic. PERRL, EOMI. Neck soft and supple. No pointtenderness or step off. Cardiovascular: Regular rate and rhythm. No murmurs, rubs, or gallops appreciated. No crepitance of the chest. Positive pain midsternally with half sit up and putting arms in front of body. Respiratory: No tachypnea. Lungs clear to auscultation bilaterally. Gastrointestinal: Abdomen soft, nontender, with normoactive bowel sounds. No rebound or guarding. Neurological: Awake. Alert. Nonfocal, nonlateralizing. Skin: No rash. Normal color. No pallor. Musculoskeletal: No pedal edema. Full range of motion extremities. Const Vital Signs: 06/13/23 05:58 06/13/23 06:05 06/13/23 06:06 Temperature 97.5 F L Temperature Source Temporal Pulse Rate 77 Respiratory Rate 16 Respiratory Effort Short of Breath Blood Pressure 123/93 H Blood Pressure Mean 103 Pulse Ox 99 100 Oxygen Delivery Method Room Air Room Air Heart Score History: Slightly/Non-Suspicious ECG: Normal Age: >45 - <65 years Risk Factors: 1 or 2 Risk Factors Score: 2 MDM MDM MDM Narrative Medical decision making narrative: Differential diagnosis is acute coronary syndrome versus pulmonary embolism versus pneumothorax versus pneumonia versus aortic dissection versus musculoskeletal chest wall pain. I have low suspicion for aortic dissection because the history and physical does not support this and she has equal pulses bilaterally. She does not have any pain in her back or tearing sensation as well. Her blood pressure is appropriate in the emergency department as well. History and physical is not consistent with pneumonia either as she has no feveror cough. She has no reason to have a pneumothorax that spontaneous, no trauma. Concern is lower for pulmonary embolism as well as she is PERC negative, not tachycardic, and satting at 100% on room air. However, D-dimer will be obtained. Given her physical examination I think she may have more chest wall pain. However, chest pain work-up will be pursued. EKG obtained and interpreted by myself independently demonstrates normal sinus rhythm at 78 bpm without ectopy or acute ST changes. No STEMI. I will review the baseline laboratory work if it comes back before the shift ends. She will require serialtroponins as well. Patient will be signed out to the oncoming physician who will check the remaining laboratory work and imaging and order additional tests as necessary. I feel that if everything is negative that she could be ruled outwith a 2-hour troponin. I reviewed her remaining laboratory work that has returned, and the only significant electrolyte abnormality would be for a chloride elevated at 108 which I think is nonspecific. Initial high-sensitivity troponin is 5. Magnesium normal at 2.2. Currently, patient is in stable condition. History & Record Review Discussion w/independent historian: Patient and Family Additional record(s) reviewed:: Prior ED visit and Prior labs Lab Data Attestation: I reviewed the patient's lab results. Labs: Laboratory Results - last 24 hr 06/13/23 06:13 WBC 9.3 RBC 4.75 Hgb 13.3 Hct 40.8 MCV 85.9 MCH 28.0 MCHC 32.6 RDW Std Deviation 45.0 H RDW Coeff of Blanka 14.3 Plt Count 281 MPV 10.3 Immature Gran % (Auto) 0.200 Neut % (Auto) 49.5 Lymph % (Auto) 40.2 [place] % (Auto) 7.3 Eos % (Auto) 2.4 Baso % (Auto) 0.4 Absolute Neuts (auto) 4.6 Absolute Lymphs (auto) 3.73 Nucleated RBC % 0 D-Dimer Quant (PE/DVT) 0.44 Sodium 142 Potassium 3.7 Chloride 108 H Carbon Dioxide 29.0 Anion Gap 5 BUN 15 Creatinine 0.78 Estim Creat Clear Calc 65.97 Est GFR (MDRD) Af Amer 99 Est GFR (MDRD) Non-Af 82 BUN/Creatinine Ratio 19.1 Glucose 81 Calcium 9.2 Magnesium 2.2 Troponin I High Sens 5 Radiography Diagnostic Testing: Clinical Impression(s) from Imaging Studies Chest X-Ray 06/13/23 06:06 IMPRESSION: No acute pulmonary disease. Electronically Signed: Maximiliano Falcon MD at 6:40 EST , Discharge Plan Triage Chief Complaint: Chest Pain ED Provider: Wilver Otero Dx/Rx/DC Orders Clinical Impression: Paresthesia of arm, Chest pain Instructions: ED Chest Pain, Uncertain Cause, ED Pain, Acute, Uncertain Cause, ED Paraesthesias Prescriptions: No Action olmesartan-hydrochlorothiazide 40-25 mg tablet 1 tab PO DAILY gabapentin 300 mg capsule 300 mg PO BID duloxetine [Cymbalta] 30 mg capsule,delayed release(DR/EC) 30 mg PO DAILY ALBUTEROL 2 inh inhalation 4X/DAY PRN Primary Care Provider: Care Physician,No Primary Referrals: Laurent Crews MD [Med Staff - Active Staff] - 3-5 Days if not improving Care Physician,No Primary [Primary Care Provider] - What to do if you have Problems For any increased pain, shortness of breath, bleeding, nausea or vomiting, chestpain, or any unexpected problems, contact your Primary Care Provider. Call [facility] ([phone]) or report to the closest Emergency Room. Call 911 if necessary. 06/13/23 0704 <Electronically signed by Wilver Otero MD> Cosigner Signature (if applicable): CC: No Primary Care Physician ~ Signed ADDENDUM by Dr. Julio Cintron DO on 06/13/23 at [address] at 0700 hrs. for follow-up on delta troponin. Patient had cardiac work-up which was unremarkable so far. D-dimer negative. Vital signs are stable and she is afebrile. Troponin was 4. Delta troponin is 5. At this point patient has negative work-up I feel she stable for discharge. All resultswere discussed with the patient and she is discharged home in stable condition. 06/13/23 09<Electronically signed by Julio Cintron DO> Cosigner Signature (if applicable): cc: No Primary Care Physician ~* Signed [facility] Work Phone: Consult note Author Mandy Gonzales [facility] October 31, 2023 11:45am Note Date/Time October 31, 2023 11: 45am [facility] Medical Records Department [address] [place] [address] Counseling Note - Pharmacy 10/31/23 1144 MR#: [id number] Acct: [id number] Name: MACARENA CANTU Rep #:[id number] : 1970 53 From: Mandy Gonzales PCP: Dr. Kiko Arevalo MD Status:ADM IN Location: [facility] [id number] Pharmacy [facility] has performed discharge medication reconciliation and counseling for this patient. 1. MECLIZINE 25MG PO DAILY PRN VERTIGO The patient's discharge medication list was reviewed for discrepancies and discrepancies were resolved. The patient was counseled on the following discharge medications and changes in medications for homegoing were reviewed. The Reason for Use, instructions for use, and potential side effects were reviewed for all new medications. The patient's questions regarding all of their medications were answered. The patient was able to verbally demonstrate an understanding of their dischargemedications. Medications at Discharge Home Medications ALBUTEROL 2 inh inhalation 4X/DAY PRN sob 06/13/23 duloxetine 30 mg capsule,delayed release (Cymbalta) 30 mg PO DAILY pain 06/13/23 olmesartan 40 mg-hydrochlorothiazide 25 mg tablet 1 tab PO DAILY BLOOD PRESSURE 06/13/23 meclizine 25 mg chewable tablet (Antivert) 25 mg PO DAILY PRN vertigo #30 tabs 10/31/23 10/31/23 1145 <Electronically signed by Mandy Gonzales> Date _ Mandy Hughesigner Signature (if applicable): Date CC: ~ Signed [facility] Work Phone: Discharge summary Author Zain Blank [facility] October 31, 2023 11:01am Note Date/Time October 31, 2023 10: 56am [facility] Medical Records Department [address] [place] [id number] Discharge Summary 10/31/23 1056 MR#: [id number] Acct: [id number] Name: MACARENA CANTU Rep #:[id number] : 1970 53 From: Zain Prieto PCP: Dr. Kiko Arevalo MD Status:ADM IN Location: [facility] [id number] Providers Date of Admission: 10/29/23 Date of Discharge: 10/31/23 Primary Care Physician: Dr. Kiko Arevalo MD Reason For Visit: RHABDO, KENNEY Diagnosis Discharge Diagnosis (1) KENNEY (acute kidney injury): Status: Acute Code(s): N17.9 - Acute kidney failure, unspecified (2) Non-traumatic rhabdomyolysis: Status: Acute Code(s): M62.82 - Rhabdomyolysis Plan The patient is a 53 y/o F was admitted with significant and diffuse body ache after she started new job, sometimes intermittent wheezing but no fever or chills. #1. Acute rhabdomyolysis: Admission total creatinine kinase 1251, likely contributing to KENNEY and presentation, will admit to medical surgical floor, continue aggressive hydration, trend creatinine kinase, monitor renal function, will obtain hepatic profile to also further assess liver function, monitor I's and O's. 10/29: [place] 65928-011. AST normal. Liver chemistry normal except lowalbumin 3.0. Patient is still complaining of diffuse muscle aches and pain but does not match up with patient facial/emotional expression. Complain of headache mainly posterior region. CT head without contrast ordered. 10/30: CT head reviewed and does not show acute intracranial abnormality. Her headache is better but not completely resolved. Advised to take Tylenol 500 mgto 1 g for moderate to severe headache or Motrin 400 mg as needed for severe headache. Follow-up with neurologist within the month as she also has history of headache and vertigo. Prescription for Antivert given. #2. Acute kidney injury most likely prerenal admission BUN/Cr 19/1.17, GFR 51, prior baseline creatinine noted to be 0.7. 10/29: Repeat lab ordered but could not be done because Chem-7 machine is down. 10/30: KENNEY resolved. Creatinine normal. #3. Asthma, poorly controlled from patient reports of ongoing symptoms: Will maintain on ATC budesonide therapy, PRN albuterol, HOB, IS parameters. #4. Hypokalemia: Admission K+ 2.9, magnesium level requested, supplementation given 10/29: Repeat level 3.4 on 10/28. Serum magnesium 1.8. #5. History of breast cancer: History of previous blood cancer, unclear type status post lumpectomy and chemotherapy, considered in remission. #6. Hypertension: Given acute kidney injury as well as significant rhabdomyolysis with need for aggressive hydration we will hold patient home on losartan/hydrochlorothiazide, resume once appropriate, as needed IV hydralazine in the interim. #7. Anxiety and depression: We will continue patient home Cymbalta regimen. #8. Morbid Obesity: Weight loss and lifestyle changes encouraged. BMI 39.8 kg/m? #9. Former tobacco use: Encourage continued tobacco cessation. #10. DVT prophylaxis: Lovenox. Discharge medication reconciliation done. Discharge follow-up instructions completed. Discharge process discussed with the patient and all questions wereanswered to patient's satisfaction. Follow with PCP in 1 to 2 weeks Total time spent, exact 35 minutes on discharge meds reconciliation, examination, coordination of care with nurses and ancillary staff, review of imaging and blood test and discussion with the patient on follow-up instructions. Medications at Discharge Home Medications ALBUTEROL 2 inh inhalation 4X/DAY PRN sob 06/13/23 duloxetine 30 mg capsule,delayed release (Cymbalta) 30 mg PO DAILY pain 06/13/23 olmesartan 40 mg-hydrochlorothiazide 25 mg tablet 1 tab PO DAILY BLOOD PRESSURE 06/13/23 meclizine 25 mg chewable tablet (Antivert) 25 mg PO DAILY PRN vertigo #30 tabs 10/31/23 Physical Exam Narrative Seen and examined on the day of discharge. Headache has improved. She has walked with the physical therapy. Denies lower extremity pain. Physical exam General: Alert, Oriented x3, Cooperative HEENT: No sinus tenderness. Atraumatic, PERRLA, EOMI, Normocephalic Oral: Oral mucosa moist. No Gingival or Mucosal Lesions/ Ulcerations Neck: Supple, No JVD, Negative Carotid Bruits. No C-spine tenderness. Chest wall/Lungs: Air entry diminished in bilateral lung bases. No crepitation/rhonchi Cardiovascular: Regular rate, Regular Rhythm, Normal S1, Normal S2, No M/G/R Abdomen: Bowel Sounds Present, Soft, Non Tender, Non-Distended : No dysuria. No renal angle tenderness. No suprapubic tenderness. Extremities: No edema, Capillary Refill Less than 3 Seconds Skin: No rashes, No breakdown Musculoskeletal: No acute tenderness in calf or thigh muscles. Muscle strength 5/5 at knees and hip joints. Neurological: Cranial nerves II-XII grossly intact, DTR 2+/4. No acute focal neurological deficit. Psych/Mental Status: Flat affect. Weight / BMI Weight Weight: 217 lb 9.54 oz Body Mass Index (BMI) 40.0 ABG / Lab / Microbiology Data 10/31/23 06:57 10/31/23 06:57 Laboratory: Laboratory Results - last 24 hr 10/31/23 06:57: WBC 9.0, RBC 4.66, Hgb 12.9, Hct 39.6, MCV 85.0, MCH 27.7, MCHC 32.6, RDW Std Deviation 45.3 H, RDW Coeff of Blanka 14.7 H, Plt Count 310, MPV 9.9,Immature Gran % (Auto) 0.200, Neut % (Auto) 55.6, Lymph % (Auto) 35.3, [place] % (Auto) 6.8, Eos % (Auto) 1.8, Baso % (Auto) 0.3, Absolute Neuts (auto) 5.0, Absolute Lymphs (auto) 3.17, Nucleated RBC % 0, Sodium 140, Potassium 3.6, Chloride 108 H, Carbon Dioxide 27.0, Anion Gap 5, BUN 11, Creatinine 0.81, EstimCreat Clear Calc 88.18, Est GFR (MDRD) Af Amer 95, Est GFR (MDRD) Non-Af 79, BUN/Creatinine Ratio 13.6, Glucose 95, Calcium 8.9 Radiography Diagnostic Testing: Radiology Impression Brain CT 10/30/23 14:46 IMPRESSION: Negative head/brain CT without intravenous contrast. AIDOC program was used to assist in the detection of abnormal findings. Electronically Signed: Roger Escalante MD at 2:20 EDT , D/C Instructions Discharge Diet: Low fat / Low cholesterol and 2000 mg Sodium Diet Weight Bearing Status: Weight bearing as tolerated Call your doctor if you observe: Fever of 101 or Higher, Coldness, Increased Pain, Numbness or Tingling, Change in Color, Inability to urinate, Inability to have a bowel movement, Using more than 1 pad per hour, Shortness of breath, Dizziness, Fainting spells, Swelling in the ankles, Chest pain, Prolonged hiccupping, Increased palpitations (irregular heartbeat) and Calf discomfort When: IN 2 WEEKS Meaningful Use Info Meaningful Use Diagnoses (Choose all that apply): None applicable Discharge Plan Admission Admit Date/Time: 10/29/23 01:11 Primary Reason for Your Visit: Acute rhabdomyolysis. Attending Provider: Zain Blank Primary Care Provider: Kiko Arevalo Consulting Providers: Elli Martell Instructions Additional Instructions / Restrictions: Advised [id number] Tylenol 500 mg to 1 g for moderate to severe headache. If headache does not resolve will need to see PCP In 1 to 2 weeks Discharge Orders/Prescriptions Prescriptions: New meclizine [Antivert] 25 mg tablet,chewable 25 mg PO DAILY PRN (Reason: vertigo) Qty: 30 0RF Rx Instructions: No driving while having vertigo or after taking medication. Continued olmesartan-hydrochlorothiazide 40-25 mg tablet 1 tab PO DAILY duloxetine [Cymbalta] 30 mg capsule,delayed release(DR/EC) 30 mg PO DAILY ALBUTEROL 2 inh inhalation 4X/DAY PRN Referrals / Follow Up: Kiko Arevalo MD [Primary Care Provider] - Gatito Matthew MD [Non-Staff] - Within 1 Month (For chronic headache and vertigo) Care Physician,No Primary [Non-Staff] - Disposition Disposition (needs filled in before D/C Order can be placed): Home, Self Care Charges/Coding Visit Charges Inpatient E&M: 56699 Disch Hosp >30min 10/31/23 1101 <Electronically signed by Zain Blank MD> Cosigner Signature (if applicable): CC: Dr. Kiko Arevalo MD; Dr. Zain Blank MD~ Signed [facility] Work Phone: Evaluation noteNo assessment information available [facility] Work Phone: Evaluation note* Diagnosis Onset Date Resolution Status KENNEY (acute kidney injury) [place] Hypokalemia acute Non-traumatic rhabdomyolysis acute [facility] Work Phone: Evaluation note* Diagnosis Onset Date Resolution Status KENNEY (acute kidney injury) [place] Hypokalemia acute Non-traumatic rhabdomyolysis acute KENNEY (acute kidney injury) [place] Asthma acute Fatigue acute HIV exposure acute Hypokalemia acute Non-traumatic rhabdomyolysis acute [facility] Work Phone: Evaluation note* Diagnosis Onset Date Resolution Status KENNEY (acute kidney injury) [place] Hypokalemia resolved Non-traumatic rhabdomyolysis resolved KENNEY (acute kidney injury) [place] Asthma acute Fatigue acute Hypokalemia resolved Non-traumatic rhabdomyolysis resolved Asthma acute Essential hypertension acute Hyperlipidemia acute Mixed connective tissue disease acute Immunization due noneactive Establishing care with new doctor, encounter for noneactive Elevated liver enzymes nonea ctive Anxiety and depression nonea ctive Screening for breast cancer noneactive [facility] Work Phone: Hospital Discharge instructions Additional Instructions Medication refill sent to your pharmacy. Follow-up with a local primary care physician to get a local doctor.[facility] Work Phone: Chief Complaint and Reason for Visit Chief Complaint CP Chief Complaint CP UTI Sx sob ,coug, ewing, swelling Chief Complaint UTI Sx sob ,coug, ewing, swelling RHABDO, KENNEY Reason for Visit KENNEY (acute kidney in jury) Hypokalemia Non-traumatic rhabdomyolysis Chief Complaint UTI Sx sob ,coug, ewing, swelling RHABDO, KENNEY RHABDO, KENNEY RHABDO, KENNEY Reason for Visit KENNEY (acute kidney in jury) Hypokalemia Non-traumatic rhabdomyolysis Chief Complaint sob ,coug, ewing, swell ing RHABDO, KENNEY RHABDO, KENNEY RHABDO, KENNEY [facility] FOLLOW UP Reason for Visit KENNEY (acute kidney in jury) Hypokalemia Non-traumatic rhabdomyolysis KENNEY (acute kidney injury) Asthma Fatigue HIV exposure Hypokalemia Non-traumatic rhabdomyolysis Chief Complaint sob ,coug, ewing, swell ing RHABDO, KENNEY RHABDO, KENNEY RHABDO, KENNEY [facility] 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 Reason for Visit KENNEY (acute kidney in jury) Hypokalemia Non-traumatic rhabdomyolysis KENNEY (acute kidney injury) Asthma Fatigue Hypokalemia Non-traumatic rhabdomyolysis Asthma Essential hypertension Hyperlipidemia Mixed connective tissue disease Immunization due Establishing care with new doctor, encounter for Elevated liver enzymes Anxiety and depression Screening for breast cancer Advance Directives No Advanced Directives Records Found Advance Directive Response Recorded Date/ Time Living Will No June 13, 2 023 6:06am Power of Internal Security Manager No June 13, 2023 6:06am Advance Directive Response Recorded Date/ Time Living Will No August 20 4:05pm Power of Internal Security Manager No August 20, 2023 4:05pm Advance Directive Response Recorded Date/ Time Living Will No October 28, 2023 10:25pm Power of Internal Security Manager No October 27 10:25pm Advance Directive Response Recorded Date/ Time Living Will No October 29, 2023 2:45pm Power of Internal Security Manager No October 28 2:45pm Advance Directive Response Recorded Date/ Time Living Will No November 13, 2023 2:26pm Power of Internal Security Manager No November 12 2:26pm Summary Purpose Family History No Family History Records Found Relationship Condition Age at Onset Recorded Date/T liz mother Coronary artery disease Unknown Cardiac disease Unknown Hypertension Unknown Diabetes mellitus Unknown Cerebrovascular accident (CVA) Unknown Myocardial infarction Unknown Relationship Condition Age at Onset Recorded Date/T liz mother Coronary artery disease Unknown Cardiac disease Unknown Hypertension Unknown Diabetes mellitus Unknown Cerebrovascular accident (CVA) Unknown Myocardial infarction Unknown Kidney disorder Unknown grandmother Cardiac disease Unknown Chronic obstructive pulmonary disease Unk nown Additional Source Comments Care Teams (unrecognized sec tion and content) Team Status: Active Member Role Status Dates Dr. Kiko Arevalo MD Primary Care Provider Active Team Status: Active Member Role Status Dates Dr. Ismael Moran MD Emergency Provider Active Dr. Kiko Arevalo MD Primary Care Provider Active Dr. Elli Martell MD Admit Provider, Other Provider Active Dr. Zain Blank MD Attending Provider, Other Provi wilfrido Active Team Status: Inactive Member Role Status Dates No Primary Care Physician Primary Care Provider Active Dr. Ismael Moran MD Attending Provider, Emergency Provider Active Team Status: Inactive Member Role Status Dates No Primary Care Physician Primary Care Provider Active Dr. Bayron Fagan MD Attending Provider, Emergency Pro vider Active Team Status: Inactive Member Role Status Dates Dr. Ismael Moran MD Emergency Provider Active Dr. Kiko Arevalo MD Primary Care Provider Active Dr. Elli Martell MD Admit Provider, Other Provider Active Dr. Zain Blank MD Attending Provider Active Team Status: Active Member Role Status Dates No Primary Care Physician Primary Care Provider Active Team Status: Inactive Member Role Status Dates Wilver Reodica , MD Emergency Provider Active No Primary Care Physician Primary Care Provider Active Team Status: Inactive Member Role Status Dates Wilver Otero MD Attending Provider, Emergency Provid er Active No Primary Care Physician Primary Care Provider Active Team Status: Inactive Member Role Status Dates No Primary Care Physician Primary Care Provider Active Dr. Bayron Fagan MD Emergency Provider Active Team Status: Active Member Role Status Dates Dr. Ismael Moran MD Emergency Provider Active Dr. Kiko Arevalo MD Primary Care Provider Active Dr. Elli Martell MD Admit Provider, Attending Prov ider Active Team Status: Inactive Member Role Status Dates Dr. Kiko Arevalo MD Primary Care Provider, Referri ng Provider Active CASSIE Camejo Attending Provider Active Team Status: Inactive Member Role Status Dates Dr. Kiko Arevalo MD Primary Care Provider Active CASSIE Camejo Attending Provider, Referring Prov ider Active Team Status: Inactive Member Role Status Dates Dr. Kiko Arevalo MD Primary Care Pro vider, Attending Provider, Referring Provider Active Team Status: Inactive Member Role Status Dates Dr. Kiko Arevalo MD Primary Care Provider, Attendi ng Provider Active Goals (unrecognized section and content) Goals may be documented in a n alternate sectionGoals may be documented in an alternate sectionGoals may be documented in an alternate section INFORMATION SOURCE (unrecogn ized section and content) DATE CREATED AUTHOR 08/21/2023 [facility] DATE CREATED AUTHOR AUTHOR'S ORGANIZ ATION 11/18/2024 [facility] DATE CREATED AUTHOR AUTHOR'S ORGANIZ ATION 04/15/2025 [facility] FOR RECORDS PERTAINING TO PATIENTS WHO ARE OR HAVE BEEN ENROLLED IN A CHEMICAL DEPENDENCY/SUBSTANCEABUSE PROGRAM, SOME INFORMATION MAY BE OMITTED. This clinical summary was aggregated from multiple sources. Caution should be exercised in using it in the provision of clinical care. This summary normalizes information from multiple sources, and as a consequence, information in this document may materially change the coding, format and clinical context of patient data. In addition, data may be omitted in some cases. CLINICAL DECISIONS SHOULD BE BASED ON THE PRIMARY CLINICAL RECORDS. [facility]. provides no warranty or guarantee of the accuracy or completeness of information in this document.
== END | disposition home or self-care (01) ==
LOC: OPMRI 15:40
PROVIDERS: PCP Internal Medicine; Referring Provider Student in an Organized Health Care Education/Training Program; Visit Provider Student in an Organized Health Care Education/Training Program
DX: M48.062 Spinal stenosis, lumbar region with neurogenic claudication (principal)
CPT/HCPCS: 72148

== ENCOUNTER → 2025-04-16 | Outpatient (CLI) | payer OTHER, MEDICAID, SELFPAY | END | disposition home or self-care (01) | LOC: SL 17:16 | PROVIDERS: PCP Internal Medicine; Visit Provider Internal Medicine | DX: Z46.89 Encounter for fitting and adjustment of other specified devices (principal) ==

== ENCOUNTER 2025-06-08 02:40 | Emergency (ER) | payer OTHER, MEDICAID, SELFPAY ==
[2025-06-08 02:41] VITALS: PULSE 103; RESP 17; TEMP 36.4; O2SAT 99; BMI 42.8
[2025-06-08 02:45] VITALS: BP 183/101
--- NOTE | 2025-06-08 02:57 | ED.VIS.LOWEX ---
HPI History of Present Illness Chief Complaint: Lower Extremity Injury Informant: patient Narrative Narrative: Patient is a 55-year-old female presenting with knee pain and swelling. - Onset of left knee pain approximately 2-3 weeks ago, with no known trauma or injury. - Initially localized to the knee, pain has progressively worsened and now radiates down the leg. - Reports inability to fully extend the knee while lying down due to pain. - This morning, while moving her leg in bed, she heard a pop and experienced increased pain. 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 - While at work, pain intensified, making it difficult to walk and apply pressure on the leg. - Took 800 mg of ibuprofen prior to arrival. - Reports numbness and tingling in the foot a little. - Denies back pain. Denies any direct trauma or known injury to the knee. [facility] Medical History HIV exposure Vitamin deficiency Hives Hearing problem Head ache Carpal tunnel syndrome Breast cancer UTI (urinary tract infection) Back problem Arthritis Allergies Morbid obesity Anxiety and depression Former tobacco use HTN (hypertension) Neuropathy Asthma Home Medications ?Medication ?Instructions ?Recorded ?Last Taken ?Type meclizine 25 mg chewable tablet 25 mg PO DAILY PRN vertigo #30 tabs 10/31/23 Unknown Rx (Antivert) Saccharomyces boulardii 250 mg 250 mg PO BID 11/02/23 Unknown History capsule (Daily Probiotic (S. boulardii)) cetirizine 10 mg capsule (Zyrtec) 10 mg PO DAILY PRN 11/02/23 Unknown History cholecalciferol (vitamin D3) 25 25 mcg PO DAILY 11/02/23 Unknown History mcg (1,000 unit) capsule inhalational spacing device #1 ea 11/02/23 Unknown Rx (BreatheRite MDI Spacer) multivitamin 1 tab PO DAILY 11/02/23 Unknown History miscellaneous medical supply 1 packet miscellaneous DAILY #1 ea 05/01/24 Unknown Rx tizanidine 4 mg tablet 4 mg PO QHS PRN 08/06/24 Unknown History budesonide-formoterol HFA 80 2 puff PO BID #10.2 ea 12/03/24 Unknown Rx mcg-4.5 mcg/actuation aerosol inhaler (Symbicort) handicap placard #1 ea 12/25/24 Unknown Rx prazosin 1 mg capsule 1 mg PO QHS #90 caps 02/17/25 Unknown Rx albuterol sulfate 90 mcg/actuation 2 puff inhalation Q4-6H PRN 02/20/25 Unknown Rx aerosol inhaler shortness of breath or wheezing #8.5 grams prednisone 10 mg tablets in a dose 10 mg PO DIRECTED #48 tabs 02/26/25 Unknown Rx pack pregabalin 100 mg capsule (Lyrica) 150 mg PO TID 02/26/25 Unknown History bupropion HCl 300 mg 24 hr tablet, 300 mg PO QAM #30 tabs 03/27/25 Unknown Rx extended release AUTOPAP 04/16/25 Unknown History duloxetine 60 mg capsule,delayed 60 mg PO QDAY #90 caps 04/23/25 Unknown Rx release capsaicin 0.025 % topical patch 1 patch topical BID PRN pain #30 ea 05/19/25 Unknown Rx (Salonpas-Hot) olmesartan 40 mg tablet 40 mg PO DAILY #90 tabs 05/25/25 Unknown Rx hydrocodone-acetaminophen 5-325mg 1 tab PO Q6H PRN PRN Pain 2 days 06/08/25 Unknown Rx 5mg-325mg #8 TABLETS Allergy/AdvReac Type Severity Reaction Status Date / Time No Known Allergies Allergy Verified 06/08/25 02:46 Family History Mother CAD (coronary artery disease) Heart disease Hypertension Diabetes CVA (cerebral vascular accident) Myocardial infarction Kidney disease Grandmother Heart disease CABG Diabetes Hypertension CVA (cerebral vascular accident) Myocardial infarction COPD (chronic obstructive pulmonary disease) Surgical History Status post breast reduction H/O wrist surgery History of hysterectomy Previous section History of lumpectomy of left breast Social History household members: spouse housing: house current occupational status: previously employed and disabled current occupation: [employer] department Smoking Status: Former smoker quit date: 07/23/16 pack-years: 30 Electronic Cigarette Use: not used how long ago did patient quit smoking: Quit most recently 7 yrs prior, smoked prior intermittent 3 cig/day. alcohol intake: current alcohol intake frequency: holidays/special occasions only substance use type: former substance user and marijuana do you feel safe at home: Yes ROS ROS ED Constitutional Constitutional ED: Denies chills or fever(s) Musculoskeletal Musculoskeletal: Reports extremity pain; Denies neck pain Integumentary Denies Abrasions, rash or wounds Neurologic Neurologic: Denies paresthesias or weakness EXAM Physical Exam Const Vital Signs: 06/08/25 02:41 06/08/25 02:45 Temperature 97.6 F L Temperature Source Oral Pulse Rate 103 H Respiratory Rate 17 Blood Pressure 183/101 H Blood Pressure Mean 128 Pulse Ox 99 Oxygen Delivery Method Room Air Positive well nourished and well developed General Appearance ED: well developed and NAD Neck full ROM and supple Resp normal respiratory effort Back/Spine normal ROM and normal to inspection Extremity Extremity Narrative: Painless short arc range of motion of the left knee, however at extreme extension she has significant pain and also with flexion to about 45 degrees or more which is limited. No palpable effusion. No bony tenderness. Stressing all ligaments resultant pain, but no laxity with any. All compartments of the thigh and lower leg are soft nondistended and nontender. Straight leg raise is negative with regards to any radicular symptoms or worsening tingling in the foot which is mild. 2+/4 dorsalis pedis pulse. There is no hip tenderness or pain with range of motion of the hip, and there is no buttock or spine tenderness in the back. Neuro oriented x3, no focal motor deficits and no sensory deficits noted Sensorium / Orientation: alert Psych mental status grossly normal and thought process normal Skin no wounds Rashes: no rashes MDM MDM MDM Narrative Medical decision making narrative: Assessment: The patient is a 55-year-old female presenting for progressive left knee pain of two to three weeks? duration with an acute painful ?pop? this morning while in bed. She notes difficulty fully extending the knee, numbness into the foot, and inability to bear weight at work. Four-view left knee radiographs are unremarkable?no fracture, effusion, or significant degenerative changes. Given preserved short-arc range of motion, absence of warmth or erythema, and negative straight-leg raise, infectious or crystal-induced monoarthritis and lumbar radiculopathy are less likely. Current findings are most consistent with an internal knee derangement, likely meniscal pathology, accounting for her acute on chronic knee pain. Plan: - Applied compressive knee wrap in ED - Provided crutches and instructed non-weightbearing as tolerated - Prescribed oral analgesic (strong pain medication) to be filled at hospital pharmacy for use after driving home - Advised continuation of NSAIDs as tolerated - Orthopedic referral arranged for outpatient evaluation and possible MRI - Discharged home with return precautions Diagnostics: - Left knee x-ray, 4 views, independently interpreted by Ismael lopez: no fracture, no significant arthritis, no large effusion, no bony abnormality Discharge Plan Triage Chief Complaint: Lower Extremity Injury ED Provider: Ismael Moran Dx/Rx/DC Orders Clinical Impression: Acute pain of left knee, Acute internal derangement of left knee Instructions: ED Meniscal Injury Knee Poss Prescriptions: New hydrocodone-acetaminophen 5-325 mg tablet 1 tab PO Q6H PRN PRN (Reason: Pain) 2 Days Qty: 8 0RF No Action Saccharomyces boulardii [Daily Probiotic (S. boulardii)] 250 mg capsule 250 mg PO BID multivitamin Tablet 1 tab PO DAILY cholecalciferol (vitamin D3) 25 mcg (1,000 unit) capsule 25 mcg PO DAILY Zyrtec 10 mg capsule 10 mg PO DAILY PRN (DME) BreatheRite MDI Spacer Spacer See Rx Instructions .Route Qty: 1 0RF Rx Instructions: As directed tizanidine 4 mg tablet 4 mg PO QHS PRN pregabalin [Lyrica] 100 mg capsule 150 mg PO TID bupropion HCl 300 mg tablet extended release 24 hr 300 mg PO QAM Qty: 30 1RF prednisone 10 mg tablets,dose pack 10 mg PO DIRECTED Qty: 48 0RF Rx Instructions: see taper instructions capsaicin [Salonpas-Hot] 0.025 % adhesive patch,medicated 1 patch topical BID PRN (Reason: pain) Qty: 30 0RF Rx Instructions: do not leave patch on for more than 8 hrs meclizine [Antivert] 25 mg tablet,chewable 25 mg PO DAILY PRN (Reason: vertigo) Qty: 30 0RF Rx Instructions: No driving while having vertigo or after taking medication. AUTOPAP Rx Instructions: AUTOPAP 5-15 CMH2O [place] [facility] [place] [address] [place] miscellaneous medical supply Packet 1 packet miscellaneous DAILY Qty: 1 0RF Rx Instructions: Compression sleeve budesonide-formoterol [Symbicort] 80-4.5 mcg/actuation HFA aerosol inhaler 2 puff PO BID Qty: 10.2 1RF (DME) handicap placard See Rx Instructions .ROUTE .MEDSUPPLY Qty: 1 0RF Rx Instructions: Length of time: 1 year Diagnosis: Impaired physical mobility prazosin 1 mg capsule 1 mg PO QHS Qty: 90 1RF albuterol sulfate 90 mcg/actuation HFA aerosol inhaler 2 puff inhalation Q4-6H PRN (Reason: shortness of breath or wheezing) Qty: 8.5 0RF duloxetine 60 mg capsule,delayed release(DR/EC) 60 mg PO QDAY Qty: 90 1RF olmesartan 40 mg tablet 40 mg PO DAILY Qty: 90 0RF Primary Care Provider: Amber Arevalo Referrals: Jonathan Sorto MD [Med Staff - Active Staff, Orthopedics] - As soon as possible Activity Restrictions/Additional Instructions: - An x-ray of your left knee was completed today and did not show any fracture, significant arthritis, or other bone abnormalities. - Fill the prescription for pain medication at our on-site pharmacy and take it as directed once you get home. - Continue taking ibuprofen (anti-inflammatory) as needed to help reduce pain and swelling. - Use a supportive wrap on your knee and crutches to limit weight on the leg while walking. - Follow up with the refractory specialist to evaluate your knee further and discuss next steps for your possible meniscus injury. Print Language: Uruguayan Disposition Disposition: Home, Self Care
--- NOTE | 2025-06-08 03:15 | RAD_ITS ---
PROCEDURE: KNEE 4 OR MORE VIEWS 06/08/2025 REASON FOR EXAM: PAIN TECHNIQUE: Procedure Code: RADKN Modality: DX Procedure: KNEE 4 OR MORE VIEWS Laterality: Left. COMPARISON: None. FINDINGS: Mild tricompartmental changes of degenerative joint disease. Enthesophytes are noted at the upper and lower poles of the patella. No fracture or dislocation is seen. No lytic or blastic bone lesion is noted. No aggressive lytic or blastic bone lesion is noted. RAD/Knee 4 or More Views IMPRESSION: No radiographic evidence of an acute bone abnormality. Reading [facility]
--- OUTSIDE RECORDS SUMMARY | 2025-06-08 03:18 | XMS RPT_ITS | CCD ---
Author Organization [facility] Care Team Providers Care Keeper Head Name Role Phone Dr. Ismael Moran Emergency Provider [phone] Dr. Kiko Arevalo Primary Care Provider Dr. Elli Martell Admit Provider Dr. Elli Martell Other Provider Dr. Zain Blank Attending Provider [phone] Dr. Zain Blank Other Provider Dr. Kiko Arevalo Referring Provider CASSIE Kohler Attending Provider Dr. Kiko Arevalo Attending Provider KIKO AREVALO MD Primary Care Unavailable REFERRING, ERNESTO WO ID Attending Unavailable Irina, Kiko Primary Care Unavailable Prayson, Juanjose Referring Unavailable Prayson, Juanjose Attending Unavailable Evarts, Kiko Attending Unavailable Irina, Kiko Primary Care Unavailable Evarts, Kiko Referring Unavailable Britany Odom Attending Unavailable Irina, Kiko Primary Care Unavailable Shaunna Cintron Attending Unavailable Irina, Kiko Referring Unavailable Irina, Kiko Primary Care Unavailable Irina, Kiko Referring Unavailable Evarts, Kiko Primary Care Unavailable Irina, Kiko Attending Unavailable Irina, Kiko Primary Care Unavailable Prayson, Juanjose Referring Unavailable Prayson, Juanjose Attending Unavailable Evarts, Kiko Referring Unavailable Evarts, Kiko Primary Care Unavailable Evarts, Kiko Attending Unavailable Evarts, Kiko Primary Care Unavailable Ismael Moran Attending Unavailable Evarts, Kiko Referring Unavailable Irina, Kiko Primary Care Unavailable KenroyrRenyBritany Attending Unavailable Evarts, Kiko Primary Care Unavailable Espinal, Maria Dolores Attending Unavailable Espinal, Maria Dolores Attending Unavailable Irina, Kiko Primary Care Unavailable Irina, Kiko Referring Unavailable Evarts, Kiko Attending Unavailable Irina, Kiko Primary Care Unavailable Abdulaziz, Shaunna Attending Unavailable Irina, Kiko Primary Care Unavailable Irina, Kiko Referring Unavailable Irina, Kiko Referring Unavailable Irina, Kiko Primary Care Unavailable Ungerer, Britany Attending Unavailable Irina, Kiko Primary Care Unavailable Espinal, Maria Dolores Attending Unavailable Irina, Kiko Primary Care Unavailable Jose J Leyva Attending Unavailable Evarts, Kiko Primary Care Unavailable Espinal, Maria Dolores Attending Unavailable Abdulaziz, Shaunna Referring Unavailable Abdulaziz, Shaunna Attending Unavailable Evarts, Kiko Primary Care Unavailable Evarts, Kiko Referring Unavailable Irina, Kiko Primary Care Unavailable Irina, Kiko Attending Unavailable Prayson, Juanjose Referring Unavailable Prayson, Juanjose Attending Unavailable Irina, Kiko Primary Care Unavailable Evarts, Kiko Primary Care Unavailable Espinal, Maria Dolores Attending Unavailable Evarts, Kiko Referring Unavailable Evarts, Kiko Primary Care Unavailable Evarts, Kiko Attending Unavailable Irina, Kiko Referring Unavailable Irina, Kiko Primary Care Unavailable Evarts, Kiko Attending Unavailable Medications Current Medications Medication Drug Class(es) Dates Sig (Normalized) Sig (Original) [id number] 200 actuat albuterol 0.09 mg/actuat metered dose inhaler (8 sources) beta2-Adrenergic Agonist Start: 11-02-2023 take 1 puff(s) by inhalation every four to six hours Albuterol Sulfate Active 2 PUFF INHALATION EVERY 4-6 HOURS 8.5 November 02, 2023 12:00am Start: 06-13-2023 ALBUTEROL Acti ve 2 INH INHALATION 4 TIMES DAILY NEEDED June 13, 2023 1:00am Start: 11-22-2023 ALBUTEROL Acti ve 2 INH INHALATION 4 [...] daily Duloxetine Active 30 MG PO DAILY November 02, 2023 12:00am hydroCHLOROthiazide 25 mg [...] sources) Hyperlipidemia; Translations: [Hyperlipidemia, unspecified] 11-02-2023 Chronic Disorders of teeth and jaw (1 source) Other specified disorders of teeth and supporting structures; Translations: [Other specified disorders of teeth and supporting structures] Onset: 05-06-2025 Episodic Essential hypertension (2 sources) Essential hypertension; Translations: [...] sources) Rhabdomyolysis; Translations: [Rhabdomyolysis] 10-29-2023 Episodic Other liver diseases (1 source) Abnormal levels of other serum enzymes; Translations: [Other nonspecific abnormal serum enzyme levels] 11-14-2023 Episodic Other nervous system disorders (6 sources) Paresthesia of upper limb; Translations: [Paresthesia of skin] 06-13-2023 Episodic Rehabilitation care; fitting of prostheses; and adjustment of devices (1 source) Encounter for fitting and adjustment of other specified devices; Translations: [Encounter for fitting and adjustment of other specified devices] Onset: 04-27-2025 Chronic Residual codes; unclassified (1 source) Hypersomnia, unspecified; Translations: [Hypersomnia, unspecified] Onset: 04-21-2025 Chronic Spondylosis; intervertebral disc disorders; other back [...] Other Problems Problem Classification Problem Date Documented Da te Episodic/Chronic Other screening for suspected conditions (not mental disorders or infectious disease) (3 sources) Encounter for other screening for malignant neoplasm of breast; Translations: [Breast screening, unspecified] Onset: 12-31-2024 11-14-2023 Episodic Other upper respiratory infections (6 sources) Viral upper respiratory tract infection; Translations: [Acute upper respiratory infection, unspecified] Onset: 08-28-2024 08-20-2023 Episodic Results Test Name Value Interpretation Reference Range [facility] Internal Medicine Office Vis itotenisha 05-19-2025 Internal Medicine Office Visit [facility] Internal Medicine [address] [place] [address] [place] [address] OFFICE VISIT Date of Service: 05/19/25 MR#: [id number] Acct: [id number] Name: MACARENA CANTU Rep #: [id number] : 1970 Provider: THONG easley Age/Sex: 54/F [place] [facility] [place] Status: Signed Intake Vital Signs 04/08/25 14:19 05/19/25 08:53 Height 5 ft 2 in 5 ft 2 in Weight: 228 lb BMI 41.7 BP 138/82 H Blood Pressure Location Lt brachial Position Sitting Respiration 16 Pulse 72 Pulse Source Monitor Temp 97.6 F L Temp Source Temporal Pulse Oximetry (%) 98 Oxygen Delivery Method room air Intake Visit Reasons: CPAP FOLLOW UP Chief Complaint: cpap f/u Winding Operator Required: No Accompanied by: Self Is patient in pain?: Yes (lower back ) Pain scale (1-10): 3 Allergies No Known Allergies Allergy (Verified 05/19/25 08:47) Medications ???Medication ???Instructions ???Recorded ???Confirmed ???Type meclizine 25 mg chewable tablet 25 mg PO DAILY PRN vertigo #30 tab s 10/31/23 05/19/25 Rx (Antivert) Saccharomyces boulardii 250 mg 250 mg PO BID 11/02/23 05/19/25 Hi story capsule (Daily Probiotic (S. boulardii)) cetirizine 10 mg capsule (Zyrtec) 10 mg PO DAILY PRN 11/02/2305/19 History cholecalciferol (vitamin D3) 25 25 mcg PO DAILY 11/02/23 05/19/25 History mcg (1,000 unit) capsule inhalational spacing device #1 ea 11/02/23 05/19/25 Rx (BreatheRite MDI Spacer) multivitamin 1 tab PO DAILY 11/02/23 05/19/25 H istory miscellaneous medical supply 1 packet miscellaneous DAILY #1 ea 05/01/24 05/19/25 Rx tizanidine 4 mg tablet 4 mg PO QHS PRN 08/06/24 05/19/25 History budesonide-formote rol HFA 80 2 puff PO BID #10.2 ea 12/03/24 Rx mcg-4.5 mcg/actuation aerosol inhaler (Symbicort) handicap placard #1 ea 12/25/24 05/19/25 Rx olmesartan 40 mg tablet 40 mg PO DAILY #90 tabs 02/09/25 1 Rx prazosin 1 mg capsule 1 mg PO QHS #90 caps 02/17/2504/23 Rx albuterol sulfate 90 mcg/actuation 2 puff inhalation Q4-6H PRN 08/1605/19/25 Rx aerosol inhaler shortness of breath or wheezing #8.5 grams prednisone 10 mg tablets in a dose 10 mg PO DIRECTED #48 tabs 05/19/25 Rx pack pregabalin 100 mg capsule (Lyrica) 150 mg PO TID 02/26/25 05/19/25 History bupropion HCl 300 mg 24 hr tablet, 300 mg PO QAM #30 tabs 03/27/25 05/19/25 Rx extended release AUTOPAP 04/16/25 05/19/25 History duloxetine 60 mg capsule,delayed 60 mg PO QDAY #90 caps 04/23/25 Rx release capsaicin 0.025 % topical patch 1 patch topical BID PRN pain #30 e a 05/19/25 05/19/25 Rx (Salonpas-Hot) 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 need paper work filled out, for work accommodations lower back pain comes and reynaldo, worse with movment, standing, twisting. tx with heat, tylenol, ibuprophen. [facility] Medical History HIV exposure Vitamin deficiency Hives [...] status: previously employed and disabled current occupation: [employer] Smoking Status: Former smoker quit date: 07/23/16 pack-years: 30 Electronic Cigarette Use: not used how long ago did patient quit smoking: Quit most recently 7 yrs prior, smoked prior intermittent 3 cig/day. alcohol intake: current alcohol intake frequency: holidays/special occasions only substance use type: former substance user and marijuana do you feel safe at home: Yes HPI HPI Chief Complaint: cpap f/u Details: MACARENA CANTU, is a 54 F who presents to the office today for follow-up for obstructive sleep apnea and back pain. Patient with obstructive sleep apnea recently got her CPAP machine states she is wearing it regularly states she is sleeping better she has no concerns (more content not included)... [facility] Orthopedic Visit Reporton Orthopedic Visit Report [facility] [address] [place] [address] OFFICE VISIT Date of Service: 05/07/25 MR#: [id number] Acct: [id number] Name: MACARENA CANTU Rep #: [id number] : 1970 Provider: CASSIE Matos Age/Sex: 54/F [place] [facility] [place] Status: Signed Intake Vital Signs 04/08/25 14:19 Height 5 ft 2 in Intake Visit Reasons: LUMBAR SPINE Chief Complaint: Lumbar spine MRI Review Accompanied by: Self Is patient in pain?: No Allergies No Known Allergies Allergy (Verified 05/07/25 11:19) Medications ???Medication ???Instructions ???Recorded ???Confirmed ???Type meclizine 25 mg chewable tablet 25 mg PO DAILY PRN vertigo #30 tab s 10/31/23 05/07/25 Rx (Antivert) Saccharomyces boulardii 250 mg 250 mg PO BID 11/02/23 05/07/25 Hi story capsule (Daily Probiotic (S. boulardii)) cetirizine 10 mg capsule (Zyrtec) 10 mg PO DAILY PRN 11/02/2305/07 History cholecalciferol (vitamin D3) 25 25 mcg PO DAILY 11/02/23 05/07/25 History mcg (1,000 unit) capsule inhalational spacing device #1 ea 11/02/23 03/09/25 Rx (BreatheRite MDI Spacer) multivitamin 1 tab PO DAILY 11/02/23 05/07/25 H istory miscellaneous medical supply 1 packet miscellaneous DAILY #1 ea 05/01/24 05/07/25 Rx tizanidine 4 mg tablet 4 mg PO QHS PRN 08/06/24 05/07/25 History budesonide-formote rol HFA 80 2 puff PO BID #10.2 ea 12/03/24 Rx mcg-4.5 mcg/actuation aerosol inhaler (Symbicort) handicap placard #1 ea 12/25/24 03/09/25 Rx olmesartan 40 mg tablet 40 mg PO DAILY #90 tabs 02/09/25 1 Rx prazosin 1 mg capsule 1 mg PO QHS #90 caps 02/17/2504/22 Rx albuterol sulfate 90 mcg/actuation 2 puff inhalation Q4-6H PRN 08/1605/07/25 Rx aerosol inhaler shortness of breath or wheezing #8.5 grams prednisone 10 mg tablets in a dose 10 mg PO DIRECTED #48 tabs 05/07/25 Rx pack pregabalin 100 mg capsule (Lyrica) 150 mg PO TID 02/26/25 05/07/25 History bupropion HCl 300 mg 24 hr tablet, 300 mg PO QAM #30 tabs 03/27/25 05/07/25 Rx extended release AUTOPAP 04/16/25 History duloxetine 60 mg capsule,delayed 60 mg PO QDAY #90 caps 04/23/25 Rx release PFSH Medical History 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 Part of today???s visit was documented by Krissy Gonzales ATC, acting as scribe. MACARENA CANTU is a 54 year old F here today for MRI review. Patient denies any pain in the back today. She states she took some steroids yesterday due to having an increase in pain. She denies any recent injections. She states they recommended injections but she wants to find out what is going on first. Last injection was early February with Dr. Flores without any significant benefit. The patient is planned to start a new job at [employer] next week, patient said that she did a functional capacity test with them at occupational health which will allow her to complete her job with any significant bending or climbing ladders. The patient says that she has more pain with bending forwards. HPI from 03/09/25: MACARENA CANTU is a 54 year old F here today for lumbar spine. Pat (more content not included)... [facility] Spine Lumbar (Routine)on Spine Lumbar (Routine) [facility] Services [address] [place] [address] Spine Lumbar (Routine) MR#: [id number] Acct: [id number] Name: MACARENA CANTU Rep #: [id number] : 1970 F 54 From: Vu Cedillo MD PCP: Dr. Kiko Arevalo MD Status: REG CLI Study: Spine Lumbar (Routine) Date of Exam: 04/15/25 Exam# [id number] Ordering Dr: Shaunna Cintron PROCEDURE: SPINE LUMBAR (ROUTINE) 04/15/2025 REASON FOR EXAM: STENOSIS WITH NEUROGENIC CLAUDICATOIN TECHNIQUE: Procedure Code: MRISPL Modality: MR Procedure: SPINE LUMBAR (ROUTINE) COMPARISON: None. FINDINGS: Vertebrae: Preserved in height and signal. Alignment: Unremarkable. Conus Medullaris: Unremarkable. L1-2: Unremarkable. L2-3: Unremarkable. L3-4: Small disc bulge. Facet joint arthropathy. No significant foraminal or canal stenosis. L4-5: Disc bulge. Facet joint arthropathy. No significant foraminal or canal stenosis. L5-S1: Disc bulge. Facet joint arthropathy. No significant foraminal or canal stenosis. Sacrum: Unremarkable MRI/Spine Lumbar (Routine) IMPRESSION: Facet joint arthropathy at L3-L4 L4-L5 and L5-S1 without significant foraminal or canal stenosis. Reading Location: [facility] CC: CASSIE Matos; Dr. Kiko Arevalo MD [employer]: Signed [facility] OT Functional Capacity Evalo n 04-08-2025 OT Functional Capacity Eval [facility] Occup[facility] [address] [place] [address] / REHABILITATION SERVICES INITIAL EVALUATION MR#: [id number] Acct: [id number] Name: MACARENA CANTU Rep #: [id number] : 1970 54 From: India Gutierrez Referring Dr.: Dr. 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 Pt has been doing therapy at [facility] aquatic therapy as well as physical therapy states she feels like it temporarily helped however no chcf relief. 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 [facility] L/S Spine Min 4 Viewson 02-20 L/S Spine Min 4 Views [facility] [address] [place], [place] [address] L/S Spine Min 4 Views MR#: [id number] Acct: [id number] Name: MACARENA CANTU Rep #: [id number] : 1970 F 54 From: Tesfaye Harkins MD PCP: Dr. Kiko Arevalo MD Status: DEP AMB Study: L/S Spine Min 4 Views Date of Exam: 03/09/25 Exam# [id number] Ordering Dr: Shaunna Cintron PROCEDURE: L/S SPINE MIN 4 VIEWS 03/09/2025 REASON FOR EXAM: LOW BACK PAIN, RADIATES TO BILATERAL LEGS TECHNIQUE: L/S SPINE MIN 4 VIEWS FINDINGS: No evidence acute fracture or dislocation. Mild degenerative changes of the visualized spine. Normal alignment. RAD/L/S Spine Min 4 Views IMPRESSION: Mild spondylosis. Reading Location: [id number] CC: CASSIE Matos; Dr. Kiko Arevalo MD Technician Support Association: Signed [facility] Orthopedic Visit Reporton Orthopedic Visit Report [facility] [place] [address] OFFICE VISIT Date of Service: 03/09/25 MR#: [id number] Acct: [id number] Name: MACARENA CANTU Rep #: [id number] : 1970 Provider: CASSIE Matos Age/Sex: 54/F [place] [facility] [place] Status: Signed Intake Vital Signs 02/26/25 13:58 [...] 90 mcg/actuation 2 puff inhalation Q4-6H PRN 08/1603/09/25 Rx aerosol inhaler shortness of breath or wheezing #8.5 grams prednisone 10 mg tablets in a dose 10 mg PO DIRECTED #48 tabs 03/09/25 Rx pack pregabalin 100 mg capsule (Lyrica) 150 mg PO TID 02/26/25 03/09/25 History Have you fallen in the past year?: [facility] History HIV exposure Vitamin deficiency Hives [...] status: previously employed and disabled current occupation: [employer] Smoking Status: Former smoker quit date: 07/23/16 [...] service provided and the decisions made by , CASSIE Matos 03/09/25 5068. Part of today???s visit was documented by [...] her in (more content not included)... [facility] Internal Medicine Office Vis olivia 02-26-2025 Internal Medicine Office Visit [facility] [address] [place] [address] [address] [place] [address] OFFICE VISIT Date of Service: 02/26/25 MR#: [id number] Acct: [id number] Name: MACARENA CANTU Rep #: [id number] : 1970 Provider: THONG easley Age/Sex: 54/F [place] [facility] [place] Status: Signed Intake Vital Signs 01/30/25 14:52 [...] capsule 1 mg PO QHS #90 caps 02/17/25 0802/13 Rx albuterol sulfate 90 mcg/actuation 2 puff inhalation Q4-6H PRN 08/1602/26/25 Rx aerosol inhaler shortness of breath or wheezing #8.5 grams prednisone 10 mg tablets in a dose 10 mg PO DIRECTED #48 tabs 02/26/25 Rx pack pregabalin 100 mg capsule (Lyrica) 150 mg PO TID 02/26/25 02/26/25 History Have you fallen in the past year?: Yes (x2) [facility] Medical History 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 [facility] MR/BMS.BPon 01-30-2025 MR/BMS.BP [facility] [address], [address] [place] [address] OFFICE VISIT Date of Service: 01/30/25 MR#: [id number] Acct: [id number] Name: MACARENA CNATU Rep #: [id number] : 1970 Provider: THONG humphreys Age/Sex: 54/F [place] [facility] [place] Status: Signed Intake Vital Signs 12/03/24 10:29 01/30/25 14:52 Height 5 ft 2 in 5 ft 2 in Weight: 227 lb BMI 41.5 BP 122/91 H Blood Pressure Location Rt brachial Position Sitting Respiration 16 Pulse 96 Pulse Source Monitor BP Intake Visit Reasons: Follow up Allergies No Known Allergies Allergy (Verified 12/03/24 10:36) [facility] 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 [facility] MR/BMS.BPon 12-03-2024 MR/BMS.BP [place] [address], [address] [place] [address] OFFICE VISIT Date of Service: 12/03/24 MR#: [id number] Acct: [id number] Name: MACARENA CANTU Rep #: [id number] : 1970 Provider: THONG humphreys Age/Sex: 54/F [place] [facility] [place] Status: Signed Intake Vital Signs 09/23/24 08:19 [...] status: previously employed and disabled current occupation: [employer] Smoking Status: Former smoker quit date: [...] has wor (more content not included)... [facility] XR SPINE LUMBOSACRAL 2 OR 3 [...] further evaluation as clinically indicated. IMPRESSION: 1. Rbnx-mp-qrcgeanr facet arthropathy in the lower lumbar spine. 2. Cortical irregularity of the distal sacrum, possibly chronic fracture. Follow-up CT study may be useful for further evaluation as clinically indicated. Interpreted by: Gonzalo Garcia Preliminary Report By: Gonzalo Garcia Electronically signed By Gonzalo Garcia Dictated Date: 11/17/2024 4:52:39 PM Prelim Date: 11/17/2024 4:56:14 PM Sign Date: 11/17/2024 4:56:14 PM Ordering Provider: PHY REFERRING [facility] Inital Evaluation (1) - PTon 10-16-2024 Inital Evaluation (1) - PT [facility] Physical Therapy [facility] [address] [place] [address] / REHABILITATION SERVICES INITIAL EVALUATION MR#: [id number] Acct: [id number] Name: MACARENA CANTU Rep #: [id number] : 1970 54 From: Janet VILLASENOR Referring Dr.: Dr. Juanjose Flores MD Status: REG RCR Insurance: [employer] [facility]/GoPlaceItDIAMOND CHILDR[facility] MEDICAL CENTERTourlandish [facility] Patient's Visit Information Visit Information Visit [...] something else. She did that right around Teddy. Her major pain is arms/shoulders, upper thighs, [...] tissue, T (more content not included)... [facility] Emergency Department Summary on 09-23-2024 Emergency Department Summary [facility] Medical Records Department [address] [place] [address] Emergency Department Summary 09/23/24 MR#: [id number] Acct: [id number] Name: MACARENA CANTU Rep #: [id number] : 1970 54 From: Ismael Moran MD [...] has not called for an appointment yet. [facility] Medical History HIV exposure Vitamin [...] house current occupational status: employed current occupation: [employer] Smoking Status: Former smoker quit date: [...] the to (more content not included)... [facility] M100.678on 08-06-2024 M100.678 Pending SARS-CoV-2 (COVID 19) Negative INFLUENZA A Negative INFLUENZA B Negative RSV PCR Negative [facility] Comment on above: Performed By: #### M 100.678 ####[facility] [id number] [place], [address] Internal Medicine Office Vis itotenisha 08-05-2024 Internal Medicine Office Visit [facility] [address] [place] [address] OFFICE VISIT Date of Service: 08/06/24 MR#: [id number] Acct: [id number] Name: MACARENA CANTU Rep #: [id number] : 1970 Provider: Dr. Kiko lemon MD Age/Sex: 54/F Location[place] [facility] [place] Status: Signed Intake Vital Signs 06/03/24 07:56 [...] flu. 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 Normal [facility] Internal Medicine Office Vis olivia 06-02-2024 Internal Medicine Office Visit [facility] [address] [place] [address] OFFICE VISIT Date of Service: 06/03/24 MR#: [id number] Acct: [id number] Name: MACARENA CANTU Rep #: [id number] : 1970 Provider: Dr. 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 Normal [facility] Inital Evaluation (1) - PTon 05-27-2024 Inital Evaluation (1) - PT [facility] Physical Therapy [facility] [address] [place] [address] / REHABILITATION SERVICES INITIAL EVALUATION MR#: [id number] Acct: [id number] Name: MACARENA CANTU Rep #: [id number] : 1970 53 From: Zenon Green DPT, OCS, CSCS Referring Dr.: Dr. Juanjose Flores MD Status: REG RCR Insurance: [facility] Patient's Visit Information Visit Information Visit Information: MACARENA CANTU is a 53 year old F referred to Physical Therapy by Dr. Juanjose Flores MD with a diagnosis of Fibromyakgia. Date [...] Able to toe and heekl walk and march but painful and labored in legs. After [...] to be FAXED BACK to us at [phone] for Medicare purposes. For Medicare only, by signing this I certify the plan of care. Please let me know if there are questions or concerns regarding this plan of care. Physician Signature: Da (more content not included)... Normal [facility] Absolute lymphocyte countOrd ered By: Kiko Arevalo on 11-14-2023 Lymphocytes Auto (Unsp spec) [#/Vol] 2.62 10*3/uL 0.83-4.51 [facility] Automated lymphocyte count a s percentage of total leukocytesOrdered By: Kiko Arevalo on 11-14-2023 Lymphocytes/100 WBC Auto (Unsp spec) 37.1 % 19-41 [facility] Basophil percentageOrdered B y: Kiko Arevalo on 11-14-2023 Basophils/100 WBC (Bld) 0.1 % 0-1 [facility] Bilirubin [Mass/Vol] 0.50 mg/dL 0.20-1.00 [facility] Comment on above: For patients on eltr ombopag therapy, use of Dimension Keystone TBIL is not recommended. Chloride [Moles/Vol] 103 mmol/L 98-107 [facility] Eosinophils/100 WBC (Bld) 2.0 % 0-5 [facility] Glucose [Mass/Vol] 99 mg/dL 74-106 [facility] Hemoglobin (Bld) [Mass/Vol] 13.7 g/dL 12.0-15.0 [facility] Monocytes/100 WBC (Bld) 5.2 % 0-10 [facility] Neutrophils (Bld) [#/Vol] 3.9 10*3/uL 2.0-7.7 [facility] Neutrophils/100 WBC (Bld) 55.5 % 47-70 [facility] Potassium [Moles/Vol] 3.5 mmol/L 3.5-5.1 [facility] Protein [Mass/Vol] 8.0 g/dL 6.4-8.2 [facility] Sodium [Moles/Vol] 139 mmol/L 136-145 [facility] WBC (Bld) [#/Vol] 7.1 10*3/uL 4.4-11.0 [facility] Determination of erythrocyte mean corpuscular volume (MCV)Ordered By: Kiko Arevalo on 11-14-2023 MCV (RBC) [Entitic vol] 87.5 fL 81-99 [facility] Erythrocyte distribution wid th ratioOrdered By: Kiko Arevalo on 11-14-2023 Erythrocyte distribution width (RBC) [Ratio] 14.7 % 11.6-14.6 [facility] Erythrocyte distribution wid th standard deviationOrdered By: Kiko Arevalo on 11-14-2023 Erythrocyte distribution width (RBC) [Entitic vol] 47.3 fL 35.1-43.9 [facility] Erythrocyte sedimentation ra teOrdered By: Kiko Arevalo on 11-14-2023 ESR (Bld) [Velocity] 25 mm/h 0-30 [facility] Hematocrit Auto (Bld) [Volum e fraction]Ordered By: Kiko Arevalo on 11-14-2023 Hematocrit (Bld) [Volume fraction] 42.6 % 37-47 [facility] Immature granulocytes/100 WB C Auto (Bld)Ordered By: Kiko Arevalo on 11-14-2023 Immature granulocytes/100 WBC (Bld) 0.100 % 0.0-0.9 [facility] Comment on above: IG% - Immature Granu locytes (promyelocytes, myelocytes and metamyelocytes) > 1% indicates that a LEFT SHIFT is Present. Laboratory - Chemistry and C hemistry - challengeOrdered By: Kiko Arevalo on 11-14-2023 CK [Catalytic activity/Vol] 204 U/L 26-192 [facility] Albumin/Globulin [Mass ratio] 0.8 {ratio} 0.9-2.4 [facility] ALP [Catalytic activity/Vol] 76 U/L 45-117 [facility] ALT [Catalytic activity/Vol] 29 U/L 13-56 [facility] CO2 [Moles/Vol] 31.0 mmol/L 21.0-32.0 [facility] Globulin (S) [Mass/Vol] 4.5 g/dL 2.2-4.2 [facility] Urea nitrogen/Creatinine [Mass ratio] 15.3 mg/mg 10-20 [facility] Laboratory - Hematology and Cell countsOrdered By: Kiko Arevalo on 11-14-2023 MCH (RBC) [Entitic mass] 28.1 pg 27.0-32.0 [facility] MCHC (RBC) [Mass/Vol] 32.2 g/dL 32-36 [facility] Nucleated RBC/100 WBC (Bld) [Ratio] 0 % 0-5 [facility] Platelet mean volume (Bld) [Entitic vol] 10.9 fL 6.2-12.0 [facility] Platelets (Bld) [#/Vol] 348 10*3/uL 150-450 [facility] No Panel InformationOrdered By: Kiko Arevalo on 11-14-2023 C-Reactive Protein Extended Range 13.00 mg/L 0.0-3.0 [facility] Comment on above: C-Reactive Protein ( CRP) provides useful information for thediagnosis, therapy and monitoring of inflammatory processesand associated diseases. For the evaluation of Relative Riskfor Cardiovascular Disease, a High Sensitivity CRP (HSCRP)should be ordered. Estimated GFR (MDRD) Amer 90 mL/min >60 [facility] Comment on above: GFR Calc Estimated GFR (MDRD) Non-Af Amer 74 mL/min >60 [facility] Comment on above: Non- GFR Calc Hepatitis A IgM Antibody Negative Negative [facility] Hepatitis B Core IgM Antibody Negative Negative [facility] Hepatitis C Antibody (EIA) Non-Reactive Non Reactive [facility] Hepatitis C Antibody Comment Comment . [facility] Comment on above: Not infected with HC V unless early or acute infection issuspected (which may be delayed in an immunocompromisedindividual), or other evidence exists to indicate HCVinfection.Performed at: [facility] [id number] Director: Twin Mejía PhD, Phone: [phone] RBC Auto (Bld) [#/Vol]Ordere d By: Kiko Arevalo on 11-14-2023 RBC (Bld) [#/Vol] 4.87 10*6/uL 4.2-5.4 [facility] Serum or plasma calcium lokesh urement (mass/volume)Ordered By: Kiko Arevalo on 11-14-2023 Calcium [Mass/Vol] 9.3 mg/dL 8.5-10.1 [facility] Serum or plasma creatinine m easurement (mass/volume)Ordered By: Kiko Arevalo on 11-14-2023 Creatinine [Mass/Vol] 0.85 mg/dL 0.55-1.02 [facility] Comment on above: The validity of the calculated GFR & GFRAA in patients over 70 years has not been determined. Clinical correlation is essential. Serum or plasma hepatitis B virus surface antigen detection by immunoassayOrdered By: Kiko Arevalo on 11-14-2023 HBV surface Ag IA Ql Negative Negative [facility] Serum or plasma urea nitroge n measurement (mass/volume)Ordered By: Kiko Arevalo on 11-14-2023 Urea nitrogen [Mass/Vol] 13 mg/dL 7-18 [facility] Thin prep Papanicolaou smear with manual screeningOrdered By: Kiko Arevalo on 11-14-2023 Thin prep Papanicolaou smear with manual screening 3.5 g/dL 3.2-5.0 [facility] Thin prep Papanicolaou smear with manual screening 24 U/L 15-37 [facility] Thin prep Papanicolaou smear with manual screening 5 5-15 [facility] Basophil percentageOrdered B y: Tesfaye Soirano on 11-02-2023 Bilirubin [Mass/Vol] 0.60 mg/dL 0.20-1.00 [facility] Comment on above: For patients on eltr ombopag therapy, use of Dimension [place] TBIL is not recommended. Chloride [Moles/Vol] 104 mmol/L 98-107 [facility] Cholesterol [Mass/Vol] 222 mg/dL <200 [facility] Comment on above: <200 mg/dL Desirable 200-240 mg/dL Borderline >240 mg/dL High Risk Glucose [Mass/Vol] 100 mg/dL 74-106 [facility] Comment on above: Fasting Glucose resu lt from 100 to 125 mg/dL suggests IMPAIRED HOMEOSTASIS per A.D.A. criteria. Potassium [Moles/Vol] 3.5 mmol/L 3.5-5.1 [facility] Protein [Mass/Vol] 8.9 g/dL 6.4-8.2 [facility] Sodium [Moles/Vol] 136 mmol/L 136-145 [facility] Triglyceride [Mass/Vol] 137 mg/dL <199 [facility] Comment on above: The drugs N-Acetylcy steine and Metamizole may falsely depress this assay.Serum Triglycerides Reference Interval Normal <150 mg/dL Borderline high 150 - 199 mg/dL High 200 - 499 mg/dL Very High > or = 500 mg/dL Erythrocyte sedimentation ra teOrdered By: Tesfaye Soriano on 11-02-2023 ESR (Bld) [Velocity] 21 mm/h 0-30 [facility] HIV 1 and HIV-2 antibody ass ay with HIV-1 p24 antigen detectionOrdered By: Tesfaye Soriano on 11-02-2023 HIV 1+2 Ab+HIV1 p24 Ag IA Ql Non-Reactive Nonreactive [facility] Laboratory - Chemistry and C hemistry - challengeOrdered By: Tesfaye Soriano on 11-02-2023 Albumin/Globulin [Mass ratio] 0.7 {ratio} 0.9-2.4 [facility] ALP [Catalytic activity/Vol] 85 U/L 45-117 [facility] ALT [Catalytic activity/Vol] 90 U/L 13-56 [facility] Cholesterol in HDL [Mass/Vol] 55 mg/dL >40 [facility] Comment on above: The drugs N-Acetylcy steine and Metamizole may falsely depress this assay. Reference Range HDL <40 mg/dL Low HDL Cholesterol HDL >or= 60 mg/dL High HDL Cholesterol Cholesterol in LDL [Mass/Vol] 140 mg/dL 0-130 [facility] CK [Catalytic activity/Vol] 168 U/L 26-192 [facility] CO2 [Moles/Vol] 29.0 mmol/L 21.0-32.0 [facility] Cobalamin (Vitamin B12) [Mass/Vol] 1285 pg/mL 211-911 [facility] Globulin (S) [Mass/Vol] 5.2 g/dL 2.2-4.2 [facility] Urea nitrogen/Creatinine [Mass ratio] 13.4 mg/mg 10-20 [facility] No Panel InformationOrdered By: Tesfaye Soriano on 11-02-2023 Anti-Nuclear Antibody Screen Positive Negative [facility] C-Reactive Protein Extended Range 18.90 mg/L 0.0-3.0 [facility] Comment on above: C-Reactive Protein ( CRP) provides useful information for thediagnosis, therapy and monitoring of inflammatory processesand associated diseases. For the evaluation of Relative Riskfor Cardiovascular Disease, a High Sensitivity CRP (HSCRP)should be ordered. Centromere B Antibody <0.2 AI 0.0-0.9 [facility] Estimated GFR (MDRD) Amer 85 mL/min >60 [facility] Comment on above: GFR Calc Estimated GFR (MDRD) Non-Af Amer 70 mL/min >60 [facility] Comment on above: Non- GFR Calc ANSELMO-1 Antibody <0.2 AI 0.0-0.9 [facility] CHIEF ESTIMATOR Antibody 1.6 AI 0.0-0.9 [facility] SM Antibody <0.2 AI 0.0-0.9 [facility] SS-A/Ro IgG Antibody < 0.2 AI 0.0-0.9 [facility] SS-B/La IgG Antibody < 0.2 AI 0.0-0.9 [facility] Vitamin D 25-Hydroxy 71.1 ng/mL [facility] Comment on above: Vitamin D 25(OH) Sta tus Range Deficiency <20 ng/mL (50nmol/L) Insufficiency 20 - 30 ng/mL (50 - 75 nmol/L) Sufficiency 30 - 100 ng/mL (75 - 250 nmol/L) Toxicity >100 ng/mL (>250 nmol/L) VLDL Cholesterol 27 mg/dL 5-40 [facility] Serum DNA double strand anti body assay (units/volume)Ordered By: Tesfaye Soriano on 11-02-2023 DNA double strand Ab Qn (S) 1 [IU]/mL 0-9 [facility] Comment on above: Negative <5 Equivoca l 5 - 9 Positive >9 Serum Scl-70 antibody assay (units/volume)Ordered By: Tesfaye Soriano on 11-02-2023 SCL-70 extractable nuclear Ab Qn (S) 0.2 AI 0.0-0.9 [facility] Serum or plasma calcium lokesh urement (mass/volume)Ordered By: Tesfaye Soriano on 11-02-2023 Calcium [Mass/Vol] 10.0 mg/dL 8.5-10.1 [facility] Serum or plasma creatinine m easurement (mass/volume)Ordered By: Tesfaye Soriano on 11-02-2023 Creatinine [Mass/Vol] 0.90 mg/dL 0.55-1.02 [facility] Comment on above: The validity of the calculated GFR & GFRAA in patients over 70 years has not been determined. Clinical correlation is essential. Serum or plasma thyroid stim ulating hormone (TSH) measurement (units/volume)Ordered By: Tesfaye Soriano on 11-02-2023 TSH Qn 2.39 uIU/mL 0.358-3.74 [facility] Serum or plasma urea nitroge n measurement (mass/volume)Ordered By: Tesfaye Soriano on 11-02-2023 Urea nitrogen [Mass/Vol] 12 mg/dL 7-18 [facility] Thin prep Papanicolaou smear with manual screeningOrdered By: Tesfaye Soriano on 11-02-2023 Thin prep Papanicolaou smear with manual screening 3.7 g/dL 3.2-5.0 [facility] Thin prep Papanicolaou smear with manual screening 71 U/L 15-37 [facility] Thin prep Papanicolaou smear with manual screening 3 5-15 [facility] Absolute lymphocyte countOrd ered By: Zain Blank on 10-31-2023 Lymphocytes Auto (Unsp spec) [#/Vol] 3.17 10*3/uL 0.83-4.51 [facility] Automated lymphocyte count a s percentage of total leukocytesOrdered By: Zain Blank on 10-31-2023 Lymphocytes/100 WBC Auto (Unsp spec) 35.3 % 19-41 [facility] Basophil percentageOrdered B y: Zain Blank on 10-31-2023 Basophils/100 WBC (Bld) 0.3 % 0-1 [facility] Chloride [Moles/Vol] 108 mmol/L 98-107 [facility] Eosinophils/100 WBC (Bld) 1.8 % 0-5 [facility] Glucose [Mass/Vol] 95 mg/dL 74-106 [facility] Hemoglobin (Bld) [Mass/Vol] 12.9 g/dL 12.0-15.0 [facility] Monocytes/100 WBC (Bld) 6.8 % 0-10 [facility] Neutrophils (Bld) [#/Vol] 5.0 10*3/uL 2.0-7.7 [facility] Neutrophils/100 WBC (Bld) 55.6 % 47-70 [facility] Potassium [Moles/Vol] 3.6 mmol/L 3.5-5.1 [facility] Sodium [Moles/Vol] 140 mmol/L 136-145 [facility] WBC (Bld) [#/Vol] 9.0 10*3/uL 4.4-11.0 [facility] Determination of erythrocyte mean corpuscular volume (MCV)Ordered By: Zain Blank on 10-31-2023 MCV (RBC) [Entitic vol] 85.0 fL 81-99 [facility] Erythrocyte distribution wid th ratioOrdered By: Zain Blank on 10-31-2023 Erythrocyte distribution width (RBC) [Ratio] 14.7 % 11.6-14.6 [facility] Erythrocyte distribution wid th standard deviationOrdered By: Zain Blank on 10-31-2023 Erythrocyte distribution width (RBC) [Entitic vol] 45.3 fL 35.1-43.9 [facility] Hematocrit Auto (Bld) [Volum e fraction]Ordered By: Zain Blank on 10-31-2023 Hematocrit (Bld) [Volume fraction] 39.6 % 37-47 [facility] Immature granulocytes/100 WB C Auto (Bld)Ordered By: Zain Blank on 10-31-2023 Immature granulocytes/100 WBC (Bld) 0.200 % 0.0-0.9 [facility] Comment on above: IG% - Immature Granu locytes (promyelocytes, myelocytes and metamyelocytes) > 1% indicates that a LEFT SHIFT is Present. Laboratory - Chemistry and C hemistry - challengeOrdered By: Zain Blank on 10-31-2023 CO2 [Moles/Vol] 27.0 mmol/L 21.0-32.0 [facility] Urea nitrogen/Creatinine [Mass ratio] 13.6 mg/mg 10-20 [facility] Laboratory - Hematology and Cell countsOrdered By: Zain Blank on 10-31-2023 MCH (RBC) [Entitic mass] 27.7 pg 27.0-32.0 [facility] MCHC (RBC) [Mass/Vol] 32.6 g/dL 32-36 [facility] Nucleated RBC/100 WBC (Bld) [Ratio] 0 % 0-5 [facility] Platelet mean volume (Bld) [Entitic vol] 9.9 fL 6.2-12.0 [facility] Platelets (Bld) [#/Vol] 310 10*3/uL 150-450 [facility] No Panel InformationOrdered By: Zain Blank on 10-31-2023 Estimated Creatinine Clearance Calc 88.18 ml/min [facility] Estimated GFR (MDRD) Amer 95 mL/min >60 [facility] Comment on above: GFR Calc Estimated GFR (MDRD) Non-Af Amer 79 mL/min >60 [facility] Comment on above: Non- GFR Calc RBC Auto (Bld) [#/Vol]Ordere d By: Zain Blank on 10-31-2023 RBC (Bld) [#/Vol] 4.66 10*6/uL 4.2-5.4 [facility] Serum or plasma calcium lokesh urement (mass/volume)Ordered By: Zain Blank on 10-31-2023 Calcium [Mass/Vol] 8.9 mg/dL 8.5-10.1 [facility] Serum or plasma creatinine m easurement (mass/volume)Ordered By: Zain Blank on 10-31-2023 Creatinine [Mass/Vol] 0.81 mg/dL 0.55-1.02 [facility] Comment on above: The validity of the calculated GFR & GFRAA in patients over 70 years has not been determined. Clinical correlation is essential. Serum or plasma urea nitroge n measurement (mass/volume)Ordered By: Zain Blank on 10-31-2023 Urea nitrogen [Mass/Vol] 11 mg/dL 7-18 [facility] Thin prep Papanicolaou smear with manual screeningOrdered By: Zain Blank on 10-31-2023 Thin prep Papanicolaou smear with manual screening 5 5-15 [facility] Basophil percentageOrdered B y: Elli Martell on 10-29-2023 Bilirubin [Mass/Vol] 0.20 mg/dL 0.20-1.00 [facility] Comment on above: For patients on eltr ombopag therapy, use of Dimension [place]stone TBIL is not recommended. Protein [Mass/Vol] 6.9 g/dL 6.4-8.2 [facility] Basophil percentageOrdered B y: Ismael Moran on 10-29-2023 Basophil percentage 10-25 SEEN /hpf 0-5 [facility] Bilirubin Test strip Ql (U)O rdered By: Ismael Moran on 10-29-2023 Bilirubin Ql (U) Negative Negative [facility] Ketones Test strip Ql (U)Ord ered By: Ismael Moran on 10-29-2023 Ketones Ql (U) Negative Negative [facility] Laboratory - Chemistry and C hemistry - challengeOrdered By: Elli Martell on 10-29-2023 Albumin/Globulin [Mass ratio] 0.8 {ratio} 0.9-2.4 [facility] ALP [Catalytic activity/Vol] 81 U/L 45-117 [facility] ALT [Catalytic activity/Vol] 41 U/L 13-56 [facility] CK [Catalytic activity/Vol] 861 U/L 26-192 [facility] Globulin (S) [Mass/Vol] 3.9 g/dL 2.2-4.2 [facility] Mucus LM Ql (Urine sed)Order ed By: Ismael Moran on 10-29-2023 Mucus Ql (Urine sed) 0 SEEN /hpf [facility] Nitrite Test strip Ql (U)Ord ered By: Ismael Moran on 10-29-2023 Nitrite Ql (U) Negative Negative [facility] No Panel InformationOrdered By: Ismael Moran on 10-29-2023 Urine RBC 0 SEEN /hpf 0-5 [facility] Protein Test strip Ql (U)Ord ered By: Ismael Moran on 10-29-2023 Protein Ql (U) 15 mg/dl Negative [facility] Squamous epithelial cells de tection in urine sediment by light microscopyOrdered By: Ismael Moran on 10-29-2023 Epithelial cells.squamous LM Ql (Urine sed) 0-5 SEEN /hpf 5-10 [facility] Thin prep Papanicolaou smear with manual screeningOrdered By: Elli White on 10-29-2023 Thin prep Papanicolaou smear with manual screening 3.0 g/dL 3.2-5.0 [facility] Thin prep Papanicolaou smear with manual screening 34 U/L 15-37 [facility] Urine blood detectionOrdered By: Ismael Moran on 10-29-2023 RBC Ql (U) Negative Negative [facility] Urine clarityOrdered By: Rishi Moran on 10-29-2023 Clarity (U) Clear Clear [facility] Urine color determinationOrd ered By: Ismael Moran on 10-29-2023 Color (U) Yellow Yellow [facility] Urine glucose detectionOrder ed By: Ismael Moran on 10-29-2023 Glucose Ql (U) Normal mg/dl Normal [facility] Urine leukocyte esterase det ection by dipstickOrdered By: Ismael Moran on 10-29-2023 Leukocyte esterase Test strip Ql (U) 500 /ul Negative [facility] Urine pHOrdered By: Ismael Moran on 10-29-2023 pH (U) 6.0 [pH] 5.0 - 8.0 [facility] Urine sediment bacteria coun t by microscopy (number/high power field)Ordered By: Ismael Moran on 10-29-2023 Bacteria LM.HPF (Urine sed) [#/Area] 0 /[HPF] None Seen [facility] Urine specific gravity measu rementOrdered By: Ismael Moran on 10-29-2023 Specific gravity (U) [Rel density] 1.025 1.002-1.030 [facility] Urine urobilinogen measureme ntOrdered By: Ismael Moran on 10-29-2023 Urobilinogen Ql (U) Normal mg/dl Normal [facility] Absolute lymphocyte countOrd ered By: Ismael Moran on 10-28-2023 Lymphocytes Auto (Unsp spec) [#/Vol] 3.44 10*3/uL 0.83-4.51 [facility] Automated lymphocyte count a s percentage of total leukocytesOrdered By: Ismael Moran on 10-28-2023 Lymphocytes/100 WBC Auto (Unsp spec) 30.1 % 19-41 [facility] Basophil percentageOrdered B y: Ismael Moran on 10-28-2023 Basophils/100 WBC (Bld) 0.3 % 0-1 [facility] Chloride [Moles/Vol] 99 mmol/L 98-107 [facility] Eosinophils/100 WBC (Bld) 1.6 % 0-5 [facility] Glucose [Mass/Vol] 99 mg/dL 74-106 [facility] Hemoglobin (Bld) [Mass/Vol] 13.5 g/dL 12.0-15.0 [facility] Monocytes/100 WBC (Bld) 7.8 % 0-10 [facility] Neutrophils (Bld) [#/Vol] 6.8 10*3/uL 2.0-7.7 [facility] Neutrophils/100 WBC (Bld) 59.9 % 47-70 [facility] Potassium [Moles/Vol] 2.9 mmol/L 3.5-5.1 [facility] Sodium [Moles/Vol] 138 mmol/L 136-145 [facility] WBC (Bld) [#/Vol] 11.4 10*3/uL 4.4-11.0 [facility] Basophil percentageOrdered B y: Elli White on 10-28-2023 Bilirubin [Mass/Vol] 0.30 mg/dL 0.20-1.00 [facility] Comment on above: For patients on eltr ombopag therapy, use of Dimension [place]stone TBIL is not recommended. Protein [Mass/Vol] 7.7 g/dL 6.4-8.2 [facility] Determination of erythrocyte mean corpuscular volume (MCV)Ordered By: Ismael Moran on 10-28-2023 MCV (RBC) [Entitic vol] 86.5 fL 81-99 [facility] Direct bilirubinOrdered By: Elli Martell on 10-28-2023 Bilirubin.direct [Mass/Vol] 0.10 mg/dL 0.00-0.30 [facility] Erythrocyte distribution wid th ratioOrdered By: Ismael Moran on 10-28-2023 Erythrocyte distribution width (RBC) [Ratio] 15.0 % 11.6-14.6 [facility] Erythrocyte distribution wid th standard deviationOrdered By: Ismael Moran on 10-28-2023 Erythrocyte distribution width (RBC) [Entitic vol] 48.2 fL 35.1-43.9 [facility] Hematocrit Auto (Bld) [Volum e fraction]Ordered By: Ismael Moran on 10-28-2023 Hematocrit (Bld) [Volume fraction] 41.5 % 37-47 [facility] Immature granulocytes/100 WB C Auto (Bld)Ordered By: Ismael Moran on 10-28-2023 Immature granulocytes/100 WBC (Bld) 0.300 % 0.0-0.9 [facility] Comment on above: IG% - Immature Granu locytes (promyelocytes, myelocytes and metamyelocytes) > 1% indicates that a LEFT SHIFT is Present. Laboratory - Chemistry and C hemistry - challengeOrdered By: Elli Martell on 10-28-2023 ALP [Catalytic activity/Vol] 80 U/L 45-117 [facility] ALT [Catalytic activity/Vol] 49 U/L 13-56 [facility] Globulin (S) [Mass/Vol] 4.3 g/dL 2.2-4.2 [facility] Magnesium [Mass/Vol] 1.8 mg/dL 1.6-2.6 [facility] Laboratory - Chemistry and C hemistry - challengeOrdered By: Ismael Moran on 10-28-2023 CK [Catalytic activity/Vol] 1251 U/L 26-192 [facility] CO2 [Moles/Vol] 34.0 mmol/L 21.0-32.0 [facility] Natriuretic peptide B (Bld) [Mass/Vol] pg/mL 0-100 [facility] Urea nitrogen/Creatinine [Mass ratio] 16.2 mg/mg 10-20 [facility] Laboratory - Hematology and Cell countsOrdered By: Ismael Moran on 10-28-2023 MCH (RBC) [Entitic mass] 28.1 pg 27.0-32.0 [facility] MCHC (RBC) [Mass/Vol] 32.5 g/dL 32-36 [facility] Nucleated RBC/100 WBC (Bld) [Ratio] 0 % 0-5 [facility] Platelet mean volume (Bld) [Entitic vol] 10.1 fL 6.2-12.0 [facility] Platelets (Bld) [#/Vol] 335 10*3/uL 150-450 [facility] No Panel InformationOrdered By: Ismael Moran on 10-28-2023 Estimated Creatinine Clearance Calc 61.75 ml/min [facility] Estimated GFR (MDRD) Amer 62 mL/min >60 [facility] Comment on above: GFR Calc Estimated GFR (MDRD) Non-Af Amer 51 mL/min >60 [facility] Comment on above: Non- GFR Calc Troponin I High Sensitivity 4 pg/mL 3.0-54.0 [facility] Comment on above: Please Note: New [place] t Units and Gender Specific Reference Ranges. For more information see Policy Stat Procedure [facility] High Sensitivity Troponin (TNIH) and attachments. RBC Auto (Bld) [#/Vol]Ordere d By: Ismael Moran on 10-28-2023 RBC (Bld) [#/Vol] 4.80 10*6/uL 4.2-5.4 [facility] Serum or plasma calcium lokesh urement (mass/volume)Ordered By: Ismael Moran on 10-28-2023 Calcium [Mass/Vol] 9.4 mg/dL 8.5-10.1 [facility] [facility] Serum or plasma creatinine m easurement (mass/volume)Ordered By: Ismael Moran on 10-28-2023 Creatinine [Mass/Vol] 1.17 mg/dL 0.55-1.02 [facility] Comment on above: The validity of the calculated GFR & GFRAA in patients over 70 years has not been determined. Clinical correlation is essential. Serum or plasma urea nitroge n measurement (mass/volume)Ordered By: Ismael Moran on 10-28-2023 Urea nitrogen [Mass/Vol] 19 mg/dL 7-18 [facility] Thin prep Papanicolaou smear with manual screeningOrdered By: Elli Martell on 10-28-2023 Thin prep Papanicolaou smear with manual screening 3.4 g/dL 3.2-5.0 [facility] Thin prep Papanicolaou smear with manual screening 41 U/L 15-37 [facility] Thin prep Papanicolaou smear with manual screeningOrdered By: Ismael Moran on 10-28-2023 Thin prep Papanicolaou smear with manual screening 5 5-15 [facility] CNOVon 08-20-2023 CNOV Office Visit (UCWSTR) -------- MACARENA CANTU ([id number]) 1970 F Date Time Provider Department 08/20/23 1:15 PM RALPH CASTELLANOS [facility] During your visit today, [...] and cold symptoms. She moved here from [place] and does not have a local PCP. [...] emergency room setting. [facility] go to [facility] ED. Ralph Castellanos MD Allergies As of [...] Status:Closed by RALPH [facility]LLANOS [facility] 08/20/23 [facility] Basophil percentageOrdered B y: Ismael Moran on 07-04-2023 Basophil percentage >100 SEEN /hpf 0-5 [facility] Comment on above: Microscopic field is filled. Other elements may be obscured. Bilirubin Test strip Ql (U)O rdered By: Ismael Moran on 07-04-2023 Bilirubin Ql (U) Negative Negative [facility] Culture, urineOrdered By: Azar Moran on 07-04-2023 Bacteria identified Cx Nom (U) Klebsiella pneumoniae sp pneum [facility] Bacteria identified Cx Nom (U) Klebsiella pneumoniae sp pneum [facility] Ketones Test strip Ql (U)Ord ered By: Ismael Moran on 07-04-2023 Ketones Ql (U) 5 mg/dl Negative [facility] Mucus LM Ql (Urine sed)Order ed By: Ismael Moran on 07-04-2023 Mucus Ql (Urine sed) 0 SEEN /hpf [facility] Nitrite Test strip Ql (U)Ord ered By: Ismael Moran on 07-04-2023 Nitrite Ql (U) Negative Negative [facility] Protein Test strip Ql (U)Ord ered By: Ismael Moran on 07-04-2023 Protein Ql (U) 30 mg/dl Negative [facility] Squamous epithelial cells de tection in urine sediment by light microscopyOrdered By: Ismael Moran on 07-04-2023 Epithelial cells.squamous LM Ql (Urine sed) 0-5 SEEN /hpf 5-10 [facility] Urine blood detectionOrdered By: Ismael Moran on 07-04-2023 RBC Ql (U) 25 /ul Negative [facility] RBC Ql (U) 0-5 SEEN /hpf 0-5 [facility] Urine clarityOrdered By: Risih Moran on 07-04-2023 Clarity (U) Cloudy Clear [facility] Urine color determinationOrd ered By: Ismael Moran on 07-04-2023 Color (U) Yellow Yellow [facility] Urine glucose detectionOrder ed By: Ismael Moran on 07-04-2023 Glucose Ql (U) Normal mg/dl Normal [facility] Urine leukocyte esterase det ection by dipstickOrdered By: Ismael Moran on 07-04-2023 Leukocyte esterase Test strip Ql (U) 500 /ul Negative [facility] Urine pHOrdered By: Ismael Moran on 07-04-2023 pH (U) 7.0 [pH] 5.0 - 8.0 [facility] Urine sediment bacteria coun t by microscopy (number/high power field)Ordered By: Ismael Moran on 07-04-2023 Bacteria LM.HPF (Urine sed) [#/Area] 3 /[HPF] None Seen [facility] Urine specific gravity measu rementOrdered By: Ismael Moran on 07-04-2023 Specific gravity (U) [Rel density] 1.010 1.002-1.030 [facility] Urobilinogen Auto test strip Ql (U)Ordered By: Ismael Moran on 07-04-2023 Urobilinogen Ql (U) 1 mg/dl Normal [facility] Absolute lymphocyte countOrd ered By: Wilver Otero on 06-13-2023 Lymphocytes Auto (Unsp spec) [#/Vol] 3.73 10*3/uL 0.83-4.51 [facility] Basophil percentageOrdered B y: Wilver Otero on 06-13-2023 Basophils/100 WBC (Bld) 0.4 % 0-1 [facility] Chloride [Moles/Vol] 108 mmol/L 98-107 [facility] Eosinophils/100 WBC (Bld) 2.4 % 0-5 [facility] Glucose [Mass/Vol] 81 mg/dL 74-106 [facility] Neutrophils (Bld) [#/Vol] 4.6 10*3/uL 2.0-7.7 [facility] Neutrophils/100 WBC (Bld) 49.5 % 47-70 [facility] Potassium [Moles/Vol] 3.7 mmol/L 3.5-5.1 [facility] Sodium [Moles/Vol] 142 mmol/L 136-145 [facility] WBC (Bld) [#/Vol] 9.3 10*3/uL 4.4-11.0 [facility] Blood erythrocytes count (nu mber/volume)Ordered By: Wilver Otero on 06-13-2023 RBC (Bld) [#/Vol] 4.75 10*6/uL 4.2-5.4 [facility] Blood hemoglobin measurement (mass/volume)Ordered By: Wilver Otero on 06-13-2023 Hemoglobin (Bld) [Mass/Vol] 13.3 g/dL 12.0-15.0 [facility] Blood lymphocytes/100 leukoc ytesOrdered By: Wilver Otero on 06-13-2023 Lymphocytes/100 WBC (Bld) 40.2 % 19-41 [facility] Blood monocytes/100 leukocyt esOrdered By: Wilver Otero on 06-13-2023 Monocytes/100 WBC (Bld) 7.3 % 0-10 [facility] Blood platelet mean volumeOr dered By: Wilver Otero on 06-13-2023 Platelet mean volume (Bld) [Entitic vol] 10.3 fL 6.2-12.0 [facility] Determination of erythrocyte mean corpuscular volume (MCV)Ordered By: Wilver Otero on 06-13-2023 MCV (RBC) [Entitic vol] 85.9 fL 81-99 [facility] Hematocrit Auto (Bld) [Volum e fraction]Ordered By: Wilver Otero on 06-13-2023 Hematocrit (Bld) [Volume fraction] 40.8 % 37-47 [facility] Laboratory - Chemistry and C hemistry - challengeOrdered By: Wilver Otero on 06-13-2023 CO2 [Moles/Vol] 29.0 mmol/L 21.0-32.0 [facility] Magnesium [Mass/Vol] 2.2 mg/dL 1.6-2.6 [facility] Urea nitrogen/Creatinine [Mass ratio] 19.1 mg/mg 10-20 [facility] - Hematology and Cell countsOrdered By: Wilver Otero on 06-13-2023 Erythrocyte distribution width (RBC) [Entitic vol] 45.0 fL 35.1-43.9 [facility] Erythrocyte distribution width (RBC) [Ratio] 14.3 % 11.6-14.6 [facility] Immature granulocytes/100 WBC (Bld) 0.200 % 0.0-0.9 [facility] Comment on above: IG% - Immature Granu locytes (promyelocytes, myelocytes and metamyelocytes) > 1% indicates that a LEFT SHIFT is Present. MCH (RBC) [Entitic mass] 28.0 pg 27.0-32.0 [facility] Nucleated RBC/100 WBC (Bld) [Ratio] 0 % 0-5 [facility] MCHC Auto (RBC) [Mass/Vol]Or dered By: Wilver Otero on 06-13-2023 MCHC (RBC) [Mass/Vol] 32.6 g/dL 32-36 [facility] No Panel InformationOrdered By: Wilver Otero on 06-13-2023 Troponin I High Sensitivity 4 pg/mL 3.0-54.0 [facility] Comment on above: Please Note: New Francheska t Units and Gender Specific Reference Ranges. For more information see Policy Stat Procedure [facility] High Sensitivity Troponin (TNIH) and attachments. D-Dimer Quantitative (PE/DVT) 0.44 FEU/ug/m 0.27-0.49 [facility] Comment on above: NORMAL D-Dimer level (<0.50) indicates no DVT or PE. Estimated Creatinine Clearance Calc 65.97 ml/min [facility] Estimated GFR (MDRD) Amer 99 mL/min >60 [facility] Comment on above: GFR Calc Estimated GFR (MDRD) Non-Af Amer 82 mL/min >60 [facility] Comment on above: Non- GFR Calc Platelets bldOrdered By: Halie Otero on 06-13-2023 Platelets (Bld) [#/Vol] 281 10*3/uL 150-450 [facility] Serum or plasma calcium lokesh urement (mass/volume)Ordered By: Wilver Otero on 06-13-2023 Calcium [Mass/Vol] 9.2 mg/dL 8.5-10.1 [facility] Serum or plasma creatinine m easurement (mass/volume)Ordered By: Wilver Otero on 06-13-2023 Creatinine [Mass/Vol] 0.78 mg/dL 0.55-1.02 [facility] Comment on above: The validity of the calculated GFR & GFRAA in patients over 70 years has not been determined. Clinical correlation is essential. Serum or plasma urea nitroge n measurement (mass/volume)Ordered By: Wilver Otero on 06-13-2023 Urea nitrogen [Mass/Vol] 15 mg/dL 7-18 [facility] Thin prep Papanicolaou smear with manual screeningOrdered By: Wilver Otero on 06-13-2023 Thin prep Papanicolaou smear with manual screening 11 24- [facility] Vital Signs Date Time Vital Sign Value Performing Clinician Jania navarro 11-14-2023 13:59-0400 Body height 157.[address] Ismael Moran Work Phone: [facility] 11-14-2023 13:59-0400 Body mass index (BMI) [Ratio] 38.6 kg/m2 Dr. Ismael Moran Work Phone: [facility] 11-14-2023 13:59-0400 Body temperature 97.2 [degF] Dr. Ismael Moran Work Phone: [facility] 11-14-2023 13:59-0400 Body weight 95.[address] Ismael Moran Work Phone: [facility] 11-14-2023 13:59-0400 Diastolic blood pressure 80 mm[Hg] Dr. Ismael Moran Work Phone: [facility] 11-14-2023 13:59-0400 Heart rate 87 /min Dr. Ismael Moran Work Phone: [facility] 11-14-2023 13:59-0400 Respiratory rate 16 /min Dr. Ismael Moran Work Phone: [facility] 11-14-2023 13:59-0400 SaO2% (BldA) [Mass fraction] 97 % Dr. Ismael Moran Work Phone: [facility] 11-14-2023 13:59-0400 Systolic blood pressure 118 mm[Hg] Dr. Ismael Moran Work Phone: [facility] 11-02-2023 09:08-0400 Body height 157.[address] Ismael Moran Work Phone: [facility] 11-02-2023 09:08-0400 Body mass index (BMI) [Ratio] 39.1 kg/m2 Dr. Ismael Moran Work Phone: [facility] 11-02-2023 09:08-0400 Body temperature 97.8 [degF] Dr. Ismael Moran Work Phone: [facility] 11-02-2023 09:08-0400 Body weight 97.[address] Ismael Moran Work Phone: [facility] 11-02-2023 09:08-0400 Diastolic blood pressure 72 mm[Hg] Dr. Ismael Moran Work Phone: [facility] 11-02-2023 09:08-0400 Heart rate 60 /min Dr. Ismael Moran Work Phone: [facility] 11-02-2023 09:08-0400 Respiratory rate 16 /min Dr. Ismael Moran Work Phone: [facility] 11-02-2023 09:08-0400 SaO2% (BldA) [Mass fraction] 98 % Dr. Ismael Moran Work Phone: [facility] 11-02-2023 09:08-0400 Systolic blood pressure 122 mm[Hg] Dr. Ismael Moran Work Phone: [facility] 10-31-2023 08:00-0400 Body temperature 98 [degF] Dr. Ismael Moran Work Phone: [facility] 10-31-2023 08:00-0400 Diastolic blood pressure 84 mm[Hg] Dr. Ismael Moran Work Phone: [facility] 10-31-2023 08:00-0400 Heart rate 86 /min Dr. Ismael Moran Work Phone: [facility] 10-31-2023 08:00-0400 Respiratory rate 14 /min Dr. Ismael Moran Work Phone: [facility] 10-31-2023 08:00-0400 SaO2% (BldA) [Mass fraction] 98 % Dr. Ismael Moran Work Phone: [facility] 10-31-2023 08:00-0400 Systolic blood pressure 146 mm[Hg] Dr. Ismael Moran Work Phone: [facility] 10-31-2023 06:00-0400 Body mass index (BMI) [Ratio] 40 kg/m2 Dr. Ismael Moran Work Phone: [facility] 10-31-2023 06:00-0400 Body weight 98.[address] Ismael Moran Work Phone: [facility] 10-29-2023 01:32-0400 Body temperature 97.8 [degF] [facility] 10-29-2023 01:32-0400 Diastolic blood pressure 55 mm[Hg] [facility] 10-29-2023 01:32-0400 Heart rate 94 /min [facility] 10-29-2023 01:32-0400 Respiratory rate 17 /min [facility] 10-29-2023 01:32-0400 SaO2% (BldA) [Mass fraction] 95 % [facility] 10-29-2023 01:32-0400 Systolic blood pressure 104 mm[Hg] [facility] 10-28-2023 22:15-0400 Body height 157.48 cm [facility] 10-28-2023 22:15-0400 Body mass index (BMI) [Ratio] 40.6 kg/m2 [facility] 10-28-2023 22:15-0400 Body weight 100.69 kg [facility] 08-20-2023 16:06-0500 Respiratory rate 14 /min [facility] 08-20-2023 14:07-0500 Body height 157.48 cm [facility] 08-20-2023 14:07-0500 Body mass index (BMI) [Ratio] 38.2 kg/m2 [facility] 08-20-2023 14:07-0500 Body temperature 96.4 [degF] [facility] 08-20-2023 14:07-0500 Body weight 94.8 kg [facility] 08-20-2023 14:07-0500 Diastolic blood pressure 85 mm[Hg] [facility] 08-20-2023 14:07-0500 Heart rate 87 /min [facility] 08-20-2023 14:07-0500 SaO2% (BldA) [Mass fraction] 99 % [facility] 08-20-2023 14:07-0500 Systolic blood pressure 116 mm[Hg] [facility] 07-04-2023 07:01-0500 Body mass index (BMI) [Ratio] 37.2 kg/m2 [facility] 07-04-2023 07:01-0500 Body temperature 98 [degF] [facility] 07-04-2023 07:01-0500 Body weight 92.3 kg [facility] 07-04-2023 07:01-0500 Diastolic blood pressure 80 mm[Hg] [facility] 07-04-2023 07:01-0500 Heart rate 79 /min [facility] 07-04-2023 07:01-0500 Respiratory rate 18 /min [facility] 07-04-2023 07:01-0500 SaO2% (BldA) [Mass fraction] 100 % [facility] 07-04-2023 07:01-0500 Systolic blood pressure 132 mm[Hg] [facility] 06-13-2023 09:25-0500 Diastolic blood pressure 89 mm[Hg] [facility] 06-13-2023 09:25-0500 Heart rate 80 /min [facility] 06-13-2023 09:25-0500 Respiratory rate 16 /min [facility] 06-13-2023 09:25-0500 SaO2% (BldA) [Mass fraction] 99 % [facility] 06-13-2023 09:25-0500 Systolic blood pressure 126 mm[Hg] [facility] 06-13-2023 05:58-0500 Body height 157.48 cm [facility] 06-13-2023 05:58-0500 Body mass index (BMI) [Ratio] 38 kg/m2 [facility] 06-13-2023 05:58-0500 Body temperature 97.5 [degF] [facility] 06-13-2023 05:58-0500 Body weight 94.4 kg [facility] Encounters Encounter Date Encounter Type Care Provider Facility Start: 05-19-2025 End: 05-19-2025 ambulatory Kiko Evarts Facility:[facility] Start: 05-15-2025 ambulatory Maria Dolores Kylie [facility]: [facility] Start: 05-07-2025 End: 05-07-2025 ambulatory Shaunna Abdulaziz Facility:[facility] Start: 04-23-2025 ambulatory Kiko Evarts Facility :[facility] Start: 04-16-2025 End: 04-16-2025 ambulatory Kiko Irina Facility:[facility] Start: 04-15-2025 End: 04-15-2025 ambulatory Shaunna Cintron Facility:[facility] Start: 04-08-2025 End: 04-09-2025 ambulatory Kiko Irina Facility:[facility] Start: 03-27-2025 End: 03-27-2025 ambulatory Kiko Evarts Facility:[facility] Start: 03-09-2025 End: 03-09-2025 ambulatory Shaunna Abdulaziz Facility:[facility] Start: 02-26-2025 End: 02-26-2025 ambulatory Kiko Irina Facility:[facility] Start: 01-30-2025 End: 01-30-2025 ambulatory Kiko Irina Facility:[facility] Start: 01-15-2025 ambulatory Kiko Irina Facility :[facility] Start: 01-08-2025 ambulatory Kiko Irina Facility :[facility] Start: 12-03-2024 End: 12-03-2024 ambulatory Kiko Irina Facility:[facility] Start: 11-14-2024 End: 11-14-2024 ambulatory KIKO Mathew AREVALO MD Facility:[facility] Start: 11-06-2024 End: 11-06-2024 ambulatory Kiko Evarts Facility:[facility] Start: 09-23-2024 End: 09-23-2024 Emergency department patient visit Kiko Evarts Facility:[facility] Start: 08-20-2024 ambulatory Kiko Evarts Facility :[facility] Start: 08-06-2024 End: 08-06-2024 ambulatory Kiko Irina Facility:[facility] Start: 08-06-2024 End: 08-06-2024 ambulatory Kiko Arevalo Facility:[facility] Start: 07-07-2024 End: 07-07-2024 ambulatory Juanjose Flores Facility:[facility] Start: 06-03-2024 End: 06-03-2024 ambulatory Kiko Arevalo [place] Start: 11-14-2023 End: 11-14-[address] Ismael Moran Work Phone: [facility] Work Phone: Start: 11-14-2023 End: 11-14-[address] Ismael Moran Work Phone: [facility] [place] Start: 11-14-2023 End: 11-14-[address] Ismael Moran Work Phone: [facility] Work Phone: Start: 11-02-2023 End: 11-02-[address] Ismael Moran Work Phone: [facility] Work Phone: Start: 11-02-2023 End: 11-02-[address] Ismael Moran Work Phone: [facility] [place] Start: 11-02-2023 End: 11-02-[address] Ismael Moran Work Phone: [facility] Work Phone: Start: 10-31-2023 Non-patient / Non-visit Dr. Azar Moran Work Phone: [facility] Work Phone: Start: 10-30-2023 Non-patient / Non-visit Dr. Azar Moran Work Phone: [facility] Work Phone: Start: 10-29-2023 End: 10-31-2023 Evaluation and management of inpatient [facility] Work Phone: Start: 08-20-2023 End: 08-20-2023 ambulatory Facility:[facility] Start: 08-20-2023 End: 08-20-2023 Emergency department patient visit [facility] Work Phone: Start: 07-04-2023 End: 07-04-2023 Emergency department patient visit [facility] Work Phone: Start: 06-13-2023 End: 06-13-2023 Emergency department patient visit [facility] Work Phone: Procedures Date Procedure Procedure Detail Performing Clinician Start: 10-30-2023 CT of head without contrast Dr. 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 [facility] Start: 10-29-2023 Referral to service [facility] Start: 10-29-2023 Following clinical p athway protocol [facility] Start: 10-29-2023 Assessment of risk o f venous thromboembolism [facility] Start: 10-29-2023 Fall prevention [facility] Start: 10-29-2023 Inhalation therapy procedure [facility] Start: 10-29-2023 Insertion of cathete r into peripheral vein [facility] Start: 10-29-2023 Introduction of urinary catheter [facility] Start: 10-29-2023 Measuring intake and output [facility] Start: 10-29-2023 Providing care accor ding to standard [facility] Start: 10-29-2023 Provision of activity privileges [facility] Start: 10-29-2023 Referral to service [facility] Start: 10-29-2023 [facility] Start: 10-29-2023 Verification routine [facility] Start: 10-29-[address] [facility] Start: 10-29-2023 Hospital admission, emergency, from emergency room, medical nature [facility] Start: 10-28-2023 Brain natriuretic pe ptide measurement [facility] Start: 08-20-2023 [facility] Start: 07-04-2023 [facility] Start: 06-13-2023 [facility] Start: 06-13-2023 [facility] MG Breast - bilateral Screening [facility] Patient Education [facility] Work Phone: Patient referral [facility] Work Phone: Payers Date Payer Category Payer Unknown [id number] 2024 Unknown [id number] 2024 Self-pay 2024 Unknown [id number] 2023 Unknown [id number] 2023 Unknown [id number] 1970 Unknown [id number] Unknown YISEL [id number] Unknown [id number] 2.16.8 [id number] Unknown [id number] 2.16.8 40.1.004808.3.579.2.462 Unknown [id number] 2.16.8 40.1.298535.3.579.2.462 Unknown [id number] 2.16.8 40.1.836459.3.579.2.462 Unknown [id number] 2.16.8 40.1.140208.3.579.2.462 Unknown [id number] 2.16.8 40.1.834344.3.579.2.462 Unknown [id number] 2.16.8 40.1.153428.3.579.2.462 Unknown [id number] 2.16.8 40.1.665044.3.579.2.462 Unknown [id number] 2.16.8 40.1.205742.3.579.2.462 Unknown [id number] 2.16.8 40.1.081845.3.579.2.462 Unknown [id number] 2.16.8 40.1.918141.3.579.2.462 Unknown [id number] 2.16.8 40.1.489818.3.579.2.462 Unknown [id number] 2.16.8 40.1.169768.3.579.2.462 Unknown [id number] 2.16.8 40.1.548454.3.579.2.462 Unknown [id number] 2.16.8 40.1.949715.3.579.2.462 Unknown [id number] 2.16.8 40.1.008060.3.579.2.462 Unknown [id number] 2.16.8 40.1.264975.3.579.2.462 Unknown [id number] 2.16.8 40.1.099981.3.579.2.462 Unknown [id number] 2.16.8 40.1.756368.3.579.2.462 Unknown [id number] 2.16.8 40.1.465492.3.579.2.462 Unknown [id number] 2.16.8 40.1.074579.3.579.2.462 Unknown [id number] 2.16.8 40.1.248967.3.579.2.462 Unknown [id number] 2.16.8 40.1.170635.3.579.2.462 Social History Date Type Detail Facility Start: 06-13-2023 End: 11-14-2023 Tobacco smoking status WAIS Unknown if ever smoked [facility] Start: 1970 Sex Assigned At Female [facility] Goals Date Patient Goal Desired Activity /State Functional Status Date Assessment Result Facility 10-31-2023 Functional status Chair [facility] Work Phone: 10-30-2023 Functional status None [facility] Work Phone: Mental Status Date Assessment Result Facility 10-31-2023 Cognitive function Appropriate;Cooperativ e [facility] Work Phone: 10-30-2023 Cognitive function Arousable To Voice/Nam e [facility] Work Phone: 10-28-2023 Cognitive function Level Of Cons ciousness Awake;Alert;Appropriate;Follow s Commands [facility] Work Phone: 08-20-2023 Cognitive function Level Of Cons ciousness Awake;Alert;Appropriate;Follow s Commands [facility] Work Phone: 06-13-2023 Cognitive function Voice/Name [facility] Work Phone: Clinical Notes 06-13-2023 to 10-31-2023 Note Date & Type Note Facility 10-31-2023 Discharge summary Note Date/Time October 31, 2023 9:29am [facility] Medical Records Department [address] [place] [address] Instructions for Home/Discharge Instructions 10/31/23 0928 MR#: [id number] Acct: [id number] Name: MACARENA CANTU Rep #:[id number] : 1970 53 From: [...] Martell Instructions Additional Instructions / Restrictions: Advised xzhz-gyj-dpsmhwk Tylenol 500 mg to 1 g for [...] MD; Dr. Elli Martell MD ~ Signed [facility] Work Phone: 1(731) 617-369104-09-2024 Progress note Author Zain Blank [facility] October 30, 2023 2:52pm Note Date/Time October 30, 2023 2:52 pm [facility] Medical Records Department [address] [place] [address] Progress Note - Hospitalist 10/30/23 1446 MR#: [id number] Acct: [id number] Name: MACARENA CANTU Rep #:[id number] : 1970 53 From: Zain Prieto PCP: Dr. Kiko Arevalo MD Status:ADM IN Location: [address] Reason for Visit Reason for Visit: Diagnoses [...] Narrative Seen and examined. Patient is states Kuwoj-P-Jsfg of upper and lower extremities are similar [...] prophylaxis: Lovenox. Charges/Coding Visit Charges Inpatient E&M: 05531 Subs Hosp L2 10/30/23 7205 <Electronically signed by Zain Blank MD> Cosigner Signature (if applicable): CC: ~ Signed [facility] Work Phone: 1(598) 648-700004-08-2024 Progress note Author Zain Blank [facility] October 29, 2023 1:34pm Note Date/Time October 29, 2023 1:34 pm [facility] Medical Records Department [address] [place] [address] Progress Note - Hospitalist 10/29/231332 MR#: [id number] Acct: [id number] Name: MACARENA CANTU Rep #:[id number] : 1970 53 From: Zain Prieto PCP: Dr. 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 Kiko Arevalo MD Status:ADM IN Location: [place] [address] HPI History of Present Illness Chief Complaint: Other, Pain/Inj Informant: patient Narrative Narrative: Patient presents with body aches mostly her extremities seems to be in arms and legs between the joints not necessarily the joint some cells, for about a month,coinciding with when she started a new job at [employer] She states for the last 2 or [...] had most of her care down in [place], she removed here within the past year [...] working but now it is not anymore. [facility] Medical History Anxiety and depression [...] % (Auto) 59.9 Lymph % (Auto) 30.1 [place] % (Auto) 7.8 Eos % (Auto) 1.6 [...] kidney injury), Non-traumatic rhabdomyolysis, Hypokalemia Disposition Disposition: Acute Care Hospital [facility] What to do if you have Problems For any increased pain, shortness of breath, bleeding, nausea or vomiting, chestpain, or any unexpected problems, contact your Primary Care Provider. Call [facility] ([phone]) or report to the closest Emergency Room. Call 911 if necessary. 10/29/23 0543 <Electronically signed by Ismael Moran MD> Cosigner Signature (if applicable): CC: Dr. Kiko Arevalo MD ~ Signed [facility] Work Phone: 1(308) 435-132704-08-2024 History and physical note Author Elli Martell [facility] October 29, 2023 2:06am Note Date/Time October 29, 2023 1:06 am [facility] Medical Records Department [address] [place] [id number] H&P Exam - Hospitalist 10/29/23 0105 MR#: [id number] Acct: [id number] Name: MACARENA CANTU Rep #:[id number] : 1970 53 From: Elli Martell MD PCP: Dr. Kiko Arevalo MD Status:ADM IN [facility] - General General Date of Admission: 10/29/23 Date of Service: 10/29/23 Chief Complaint: Muscle pain, body aches, dyspnea, wheezing. HPI Narrative The patient is a 53 y/o F w/ PMHx: Hx Breast CA, Morbid obesity, HTN, Asthma, Anxiety and Depression, Former tobacco use who presents to the [facility] ED on 10/29/23 with history of onset significant diffuse body aches and pain with recent new job starting at [employer] with increased significant activity from her previous [...] 50 mg IV x 1, albuterol therapy. [facility] Medical History (Updated 10/29/23 @ 02:01 by [...] % (Auto) 59.9, Lymph % (Auto) 30.1, [place] % (Auto) 7.8, Eos % (Auto) 1.6, [...] Former tobacco use who presents to the [facility] ED on 10/29/23 with history of onset significant diffuse body aches and pain with recent new job starting at [employer] with increased significant activity from her previous [...] prophylaxis: Lovenox. Charges/Coding Visit Charges Inpatient E&M: 07000 Init Hosp L3 10/29/23 0206 <Electronically signed by Elli Martell MD> Cosigner Signature (if applicable): CC: Dr. Kiko Arevalo MD; Dr. Elli Martell MD~ Signed [facility] Work Phone: 1(814) 281-846001-29-2024 NoteHNO ID: [id number] Author: RALPH CASTELLANOS MD Service: ? Author Type: Physician Type: Progress Notes Filed: 08/20/2023 13:37 Note Text: Patient presents with: Cough: Chest congestion, SOB, EWING x3 weeks HPI: Express Care Triage Note: Presents to express care for multiple issues: headache, shortness of breath, left arm swelling, BP medication refill, and cold symptoms. She moved here from [place] and does not have a local PCP. [...] emergency room setting. She will go to [facility] ED. Ralph Castellanos, [facility]01-29-2024 Discharge summary Author Bayron Fagan [facility] August 20, 2023 3:58pm Note Date/Time August 20, 2023 3 :58pm [facility] Medical Records Department [address] [place] [address] Emergency Department Summary 08/20/23 MR#: [id number] Acct: [id number] Name: MACARENA CANTU Rep #:[id number] : 1970 53 From: Bayron Fagan MD PCP: Care Physician,No Primary Status :PRE ER Location: ED HPI History of Present Illness Chief Complaint: General Illness Detail of Chief Complaint: Needs blood pressure medication refilled. Informant: patient Narrative Narrative: 53-year-old female recently moved here from [place] and currently does not have a primary care provider. She is on olmesartan blood pressure medication and needsit refilled. She is also had some recent URI symptoms which are resolving. Prior similar symptoms: No Recent Illness/Hospitalization: No PFSH PFSH Medical History Asthma Neuropathy Home Medications ALBUTEROL [...] all 4 extremities. 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 Dorsi plantarflexion intact. Neurologically she is [...] Referrals: Benson Cortes MD [Med Staff - [facility]] - 1-2 Weeks Care Physician,No Primary [Primary [...] your Primary Care Provider. Call [facility] ([phone]) or report to the closest Emergency Room. Call 911 if necessary. 08/20/23 8655 <Electronically signed by Bayron Fagan MD> Cosigner Signature (if applicable): CC: No Primary Care Physician ~ Signed [facility] Work Phone: 1(961) 315-401211-22-2023 Discharge summary Author Julio Cintron [facility] June 13, 2023 9:14am Note Date/Time June 13, 2023 6:13am [facility] Medical Records Department [address] [place] [address] Emergency Department Summary 06/13/23 MR#: [id number] Acct: [id number] Name: MACARENA CANTU Rep #:[id number] : [...] hurts when she tries to breathe deeply. [facility] Medical History (Updated 06/13/23 @ [...] % (Auto) 49.5 Lymph % (Auto) 40.2 [place] % (Auto) 7.3 Eos % (Auto) 2.4 [...] your Primary Care Provider. Call [facility] ([phone]) or report to the closest Emergency Room. Call 911 if necessary. 06/13/23 0704 <Electronically signed by Wilver Otero MD> Cosigner Signature (if applicable): CC: No Primary Care Physician ~ Signed ADDENDUM by Dr. Julio Cintron DO on 06/13/23 at 0914 Out to nh at 0700 hrs. for follow-up on delta [...] cc: No Primary Care Physician ~* Signed [facility] Work Phone: Consult note Author Mandy Gonzales [facility] October 31, 2023 11:45am Note Date/Time October 31, 2023 11: 45am [facility] Medical Records Department [address] [place] [address] Counseling Note - Pharmacy 10/31/23 1144 MR#: [id number] Acct: [id number] Name: MACARENA CANTU Rep #:[id number] : 1970 53 From: Mandy Gonzales PCP: Dr. Kiko Arevalo MD Status:ADM IN [facility] Service has performed discharge medication reconciliation [...] signed by Mandy Gonzales> Date _ Mandy Gonzales Cosigner Signature (if applicable): Date CC: ~ Signed [facility] Work Phone: Discharge summary Author Zain Blank [facility] October 31, 2023 11:01am Note Date/Time October 31, 2023 10: 56am [facility] Medical Records Department [address] [place] [address] Discharge Summary 10/31/23 1056 MR#: [id number] Acct: [id number] Name: MACARENA CANTU Rep #:[id number] : 1970 53 From: Zain Prieto PCP: Dr. Kiko Arevalo MD Status:ADM IN [id number] Providers Date of Admission: 10/29/23 Date of [...] I's and O's. 10/29: [place] 69830-762. AST normal. Liver chemistry normal except lowalbumin [...] % (Auto) 55.6, Lymph % (Auto) 35.3, [place] % (Auto) 6.8, Eos % (Auto) 1.8, [...] Signed: Roger Escalante MD at 2:20 EDT Reading Location ID and State: [address] [place] [address] Tel , Service support , D/C Instructions Discharge Diet: Low fat [...] Martell Instructions Additional Instructions / Restrictions: Advised [id number] Tylenol 500 mg to 1 g for [...] Self Care Charges/Coding Visit Charges Inpatient E&M: 22626 Disch Hosp >30min 10/31/23 1101 <Electronically signed by Zain Blank MD> Cosigner Signature (if applicable): CC: Dr. Kiko Arevalo MD; Dr. Zain Balnk MD~ Signed [facility] Work Phone: Evaluation noteNo assessment information available [facility] Work Phone: Evaluation note* Diagnosis Onset Date Resolution Status KENNEY (acute kidney injury) ac knik Hypokalemia acute Non-traumatic rhabdomyolysis acute [facility] Work Phone: Evaluation note* Diagnosis Onset Date Resolution Status KENNEY (acute kidney injury) ac knik Hypokalemia acute Non-traumatic rhabdomyolysis acute KENNEY (acute kidney injury) ac knik Asthma acute Fatigue acute HIV exposure acute Hypokalemia acute Non-traumatic rhabdomyolysis acute [facility] Work Phone: Evaluation note* Diagnosis Onset Date Resolution Status KENNEY (acute kidney injury) ac knik Hypokalemia resolved Non-traumatic rhabdomyolysis resolved KENNEY (acute kidney injury) ac knik Asthma acute Fatigue acute Hypokalemia resolved Non-traumatic rhabdomyolysis resolved Asthma acute Essential hypertension acute Hyperlipidemia acute Mixed connective tissue disease acute Immunization due noneactive Establishing care with new doctor, encounter for noneactive Elevated liver enzymes nonea ctive Anxiety and depression nonea ctive Screening for breast cancer noneactive [facility] Work Phone: Hospital Discharge instructions Additional Instructions Medication refill sent to your pharmacy. Follow-up with a local primary care physician to get a local doctor.[facility] Work Phone: Chief Complaint and Reason [...] ing RHABDO, KENNEY RHABDO, KENNEY RHABDO, KENNEY [facility] FOLLOW UP Reason for Visit KENNEY (acute kidney in jury) Hypokalemia Non-traumatic rhabdomyolysis KENNEY (acute kidney injury) Asthma Fatigue HIV exposure Hypokalemia Non-traumatic rhabdomyolysis Chief Complaint sob ,coug, ewing, swell ing RHABDO, KENNEY RHABDO, KENNEY RHABDO, KENNEY [facility] FOLLOW UP [facility] Reason for Visit KENNEY (acute [...] Date/ Time Living Will No June 13, 023 6:06am Power of Brick Paver No June 13, 2023 6:06am Advance Directive Response Recorded Date/ Time Living Will No August 20 4:05pm Power of Brick Paver No August 20, 2023 4:05pm Advance Directive Response Recorded Date/ Time Living Will No October 28, 2023 10:25pm Power of Brick Paver No October 27 10:25pm Advance Directive Response Recorded Date/ Time Living Will No October 29, 2023 2:45pm Power of Brick Paver No October 28 2:45pm Advance Directive Response Recorded Date/ Time Living Will No November 13, 2023 2:26pm Power of Brick Paver No November 12 2:26pm Summary Purpose Family [...] Member Role Status Dates Wilver Otero MD Emergency Provider Active No Primary Care [...] section and content) DATE CREATED AUTHOR 08/21/2023 [facility] DATE CREATED AUTHOR AUTHOR'S ORGANIZ ATION 11/18/2024 [facility] DATE CREATED AUTHOR AUTHOR'S ORGANIZ ATION 05/19/2025 [facility] FOR RECORDS PERTAINING TO PATIENTS WHO ARE [...] BE BASED ON THE PRIMARY CLINICAL RECORDS. [employer] [facility]. provides no warranty or guarantee of the accuracy or completeness of information in this document.
[2025-06-08 03:45] VITALS: BP 168/80; PULSE 79; RESP 16; TEMP 36.7; O2SAT 96
== END 2025-06-08 03:56 | disposition home or self-care (01) ==
PROVIDERS: Emergency Provider Emergency Medicine; PCP Internal Medicine; Visit Provider Emergency Medicine
DX: M25.562 Pain in left knee (principal); Z87.891 Personal history of nicotine dependence; G89.29 Other chronic pain; R20.0 Anesthesia of skin; M23.92 Unspecified internal derangement of left knee; Z90.710 Acquired absence of both cervix and uterus; I10 Essential (primary) hypertension; Z85.3 Personal history of malignant neoplasm of breast
CPT/HCPCS: 73564; 99283

== ENCOUNTER → 2025-06-15 | Outpatient (CLI) | payer OTHER, MEDICAID, SELFPAY ==
--- NOTE | 2025-06-15 10:33 | VDLE_ITS ---
Reason For Study Reason For Study: Pain LLE RIGHT LEFT CFV is compressible, spontaneous, phasic, competent GSV is normal. and demonstrates normal augmentation. CFV is compressible, spontaneous, phasic, competent, Procedure and demonstrates normal augmentation. This is a venous duplex using B-mode, color flow and FV is compressible, spontaneous, phasic, competent spectral Doppler. and demonstrates normal augmentation. Exam performed in department. POP V is compressible, spontaneous, phasic, competent A preliminary report was called and/or faxed to and demonstrates normal augmentation. Ryan. T/P Trunk is compressible. PTV is compressible. LT PerV is compressible. VL/Venous Duplex US, Unilateral Interpretation Summary Deep veins of the left lower extremity are patent and compressible segmentally. There is no evidence of left lower extremity deep vein thrombosis. Valvular competence appears intact within the p roximal deep venous system on the left . The left great saphenous vein appears patent and compressible segmentally. The right common femoral vein is patent and compressible . Ordering Physician: Edwardo Santiago Referring Physician: Amber Arevalo Performed By: Freya Bell, CHANCECS, RVT
== END | disposition home or self-care (01) ==
LOC: CVS 10:33
PROVIDERS: PCP Internal Medicine; Referring Provider Orthopaedic Surgery; Visit Provider Orthopaedic Surgery
DX: M79.605 Pain in left leg (principal); I74.3 Embolism and thrombosis of arteries of the lower extremities; I70.92 Chronic total occlusion of artery of the extremities; Z86.718 Personal history of other venous thrombosis and embolism
CPT/HCPCS: 93971

== ENCOUNTER → 2025-06-23 | Outpatient (CLI) | payer OTHER, MEDICAID, SELFPAY ==
--- NOTE | 2025-06-23 13:29 | MRI_ITS ---
PROCEDURE: LOWER EXT/NO JT/W/O 06/23/2025 REASON FOR EXAM: LEFT CALF/LEG PAIN AND TENDERNESS TECHNIQUE: Procedure Code: [id number] Modality: MR Procedure: LOWER EXT/NO JT/W/O T1, T2, stir multiplanar and multisequence images were obtained of the left tibia and fibula without IV contrast administration. COMPARISON: None FINDINGS: Bone Marrow: There is normal marrow signal in the tibia and fibula. Effusion: There is a small effusion visible at the knee. Soft Tissues: Muscular structures appear intact. Neurovascular structures appear intact. Ligaments and Tendons: The distal Achilles appears intact. Flexor and extensor tendons of the ankle are grossly intact. MRI/Lower Ext/No Jt/w/o IMPRESSION: No suspicious mass or occult injury is identified in the left lower extremity. Reading [facility]
== END | disposition home or self-care (01) ==
PROVIDERS: PCP Internal Medicine; Referring Provider Orthopaedic Surgery; Visit Provider Orthopaedic Surgery
DX: M79.662 Pain in left lower leg (principal)
CPT/HCPCS: 73718